=== PATIENT | female | born 1950 | race Caucasian/White ===

== ENCOUNTER 2018-06-22 13:15 | Inpatient (IN) | payer BC ==
[~2018-06-22] VITALS: Ht 167.6 cm; Wt 102.6 kg
[2018-06-22] MEDS ORDERED: SOD CHLORIDE 0.9% 500 ML IV STA (13:56)
[2018-06-22] MEDS ORDERED: ASC500 PO (14:25)
[2018-06-22] MEDS ORDERED: DIGO125T PO (14:26)
[2018-06-22] MEDS ORDERED: BISA10SU75 PR (14:27)
[2018-06-22] MEDS ORDERED: FER325 PO (14:28)
[2018-06-22] MEDS ORDERED: MINE133E23 PR (14:30)
[2018-06-22] MEDS ORDERED: DILTIAZEM 25 MG INJ IV ONE (14:30)
[2018-06-22] MEDS ORDERED: GABA300C16 PO (14:31)
[2018-06-22] MEDS ORDERED: GLIM2TAB PO (14:32)
[2018-06-22] MEDS ORDERED: LANT3I SC (14:33)
[2018-06-22] MEDS ORDERED: FURO40TA4 PO (14:33)
[2018-06-22] MEDS ORDERED: MAGN400O19 PO (14:34)
[2018-06-22] MEDS ORDERED: POLY17PO6 PO (14:34)
[2018-06-22] MEDS ORDERED: LEVO50TA7 PO (14:34)
[2018-06-22] MEDS ORDERED: FAMO-96 PO (14:35)
[2018-06-22] MEDS ORDERED: MULTI PO (14:35)
[2018-06-22] MEDS ORDERED: [UNRECOGNIZED DRUG - CODE] IJ (14:36)
[2018-06-22] MEDS ORDERED: ACET325T33 PO (14:38)
[2018-06-22] MEDS ORDERED: CHOL100062 PO (14:39)
[2018-06-22] MEDS ORDERED: RIFA550T4 PO (14:39)
[2018-06-22] MEDS ORDERED: BENZ-5 PO (14:40)
[2018-06-22] MEDS ORDERED: HYDR12.58 PO (14:45)
[2018-06-22] MEDS ORDERED: SOD CHLORIDE 0.9% 1,000 ML IV STA (14:48)
--- NOTE | 2018-06-22 15:05 | ERD ---
ER Documentation Chief Complaint Chief Complaint sent by [facility] for low hgb since yesterday. no bleeding. weaker HPI This is a 67-year-old female [facility] draw done yesterday showed a low hemoglobin of 7.5. Patient states that she feels generalized weakness and is generally poor historian. Does not know if she had any melena, no nausea vomiting patient has a history of paroxysmal atrial fibrillation hypertension cholesterol CKD and is in generally very poor health. On arrival patient has heart rate in the 130s ROS All systems reviewed and are negative except as per history of present illness. Medications Home Meds Reported Medications Benzonatate* (Benzonatate*) 100 Mg Capsule, 100 MG PO TID PRN for COUGH, CAP 06/22/18 Rifaximin* (Xifaxan*) 550 Mg Tablet, 550 MG PO BID, TAB 06/22/18 Cholecalciferol* (Vitamin D3*) 1,000 Unit Tablet, 2000 UNIT PO Q12H, TAB 06/22/18 Acetaminophen* (Tylenol*) 325 Mg Tablet, 650 MG PO Q4H PRN for MILD TO SEVERE PAIN -01/27, TAB 06/22/18 Epoetin Uriel (Procrit) 3,000 Unit/1 Ml Vial, 3000 UNIT IJ DAILY, VIAL ON THU,THU,Thu06/22/18 Famotidine* (Pepcid*) 20 Mg Tablet, 20 MG PO DAILY, #30 TAB 06/22/18 Multivitamins* (Theragran*) 1 Tab Tab, 1 TAB PO DAILY, TAB 06/22/18 Polyethylene Glycol* (Miralax*) 17 Gm Powd.pack, 17 GM PO DAILY, #30 PACKET 06/22/18 Magnesium Hydroxide* (Milk Of Magnesia*) 400 Mg/5 Ml Oral.susp, 30 ML PO DAILY, ML 06/22/18 Levothyroxine Sodium* (Levothyroxine Sodium*) 50 Mcg Tablet, 50 MCG PO BEFORE BREAKFAST, #30 TAB 06/22/18 Furosemide* (Furosemide*) 40 Mg Tablet, 40 MG PO DAILY, TAB 06/22/18 Insulin Glargine* (Lantus*) 100 Unit/Ml Soln, 30 UNIT SC DAILY, #1 VIAL 06/22/18 Glimepiride* (Glimepiride*) 2 Mg Tablet, 4 MG PO WITH BREAKFAST, TAB 06/22/18 Gabapentin* (Gabapentin*) 300 Mg Capsule, 300 MG PO TID, #90 CAP 06/22/18 Mineral Oil* (Fleet* Mineral Oil Enema) Unknown Strength Oil, 118 ML RI NEEDED PRN for BOWEL PREP, ENEMA 06/22/18 Ferrous Sulfate* (Ferrous Sulfate*) 325 Mg Tabec, 325 MG PO DAILY, TAB 06/22/18 Bisacodyl* (Bisacodyl*) 10 Mg Supp, 10 MG RI DAILY, SUPP 06/22/18 Digoxin* (Digitek*) 125 Mcg Tablet, 0.125 MG PO DAILY, TAB HOLD FOR HR<60 06/22/18 Ascorbic Acid (Vitamin C) 500 Mg Tab, 500 MG PO DAILY, TAB 06/22/18 Allergies Allergies: Coded Allergies: No Known Allergy (Unverified , 06/22/18) PMhx/Soc Hx Alcohol Use: No (pt denies) Hx Substance Use: No (pt denies) Hx Tobacco Use: No (pt denies) Smoking Status: Unknown if ever smoked FmHx Family History: No coronary disease Physical Exam Vitals Vital Signs Date Temp Pulse Resp B/P (MAP) Pulse Ox O2 O2 Flow FiO2 Time Delivery Rate 06/22/18 Nasal 2 14:04 Cannula 06/22/18 98.0 17 20 130/61 98 13:40 (84) Physical Exam Const: Well-developed, well-nourished Head: Atraumatic, normocephalic Eyes: Normal Conjunctiva, PERRLA, EOMI, normal sclera, no nystagmus ENT: Normal External Ears, Nose and Mouth, moist mucus membranes. Neck: Full range of motion. No meningismus, no lymphadenopathy. Resp: Clear to auscultation bilaterally, no wheezing, rhonchi, rales Cardio: Tachycardia, no murmurs, S1 S2 present] Abd: Soft, non tender x 4, non distended. Normal bowel sounds, no guarding or rebound, no pulsitile abdominal masses or bruits Skin: No petechiae or rashes, no ecchymosis , no maculopapular rash Back: No midline or flank tenderness Ext: No cyanosis, or edema, FROM x 4, normal inspection, neurova scularly intact x 4 Neur: Awake and alert, STR 5/5 x 4, sensation intact x 4, no focal findings, cerebellum intact Psych: Normal Mood and Affect Result Diagram: 06/22/18 1406 06/22/18 1406 Results 24 hrs Laboratory Tests Test 06/22/18 14:06 White Blood Count 6.5 10^3/ul Red Blood Count 2.47 10^6/ul Hemoglobin 7.9 g/dl Hematocrit 25.3 % Mean Corpuscular Volume 102.4 fl Mean Corpuscular Hemoglobin 32.0 pg Mean Corpuscular Hemoglobin Concent 31.2 g/dl Red Cell Distribution Width 16.3 % Platelet Count 132 10^3/UL Mean Platelet Volume 9.2 fl Immature Granulocytes % 0.900 % Neutrophils % 73.0 % Lymphocytes % 13.3 % Monocytes % 11.5 % Eosinophils % 1.1 % Basophils % 0.2 % Nucleated Red Blood Cells % 0.0 /100WBC Immature Granulocytes # 0.060 10^3/ul Neutrophils # 4.8 10^3/ul Lymphocytes # 0.9 10^3/ul Monocytes # 0.8 10^3/ul Eosinophils # 0.1 10^3/ul Basophils # 0.0 10^3/ul Nucleated Red Blood Cells # 0.0 10^3/ul Prothrombin Time 14.7 Sec Prothrombin Time Ratio 1.1 INR International Normalized Ratio 1.14 Activated Partial Thromboplast Time 26.9 Sec Sodium Level 143 mmol/L Potassium Level 4.3 mmol/L Chloride Level 115 mmol/L Carbon Dioxide Level 16 mmol/L Anion Gap 12 Blood Urea Nitrogen 67 mg/dl Creatinine 4.13 mg/dl Est Glomerular Filtrat Rate mL/min 11 mL/min Glucose Level 105 mg/dl Calcium Level 9.4 mg/dl Total Bilirubin 0.3 mg/dl Direct Bilirubin 0.00 mg/dl Indirect Bilirubin 0.3 mg/dl Aspartate Amino Transf (AST/SGOT) 35 IU/L Alanine Aminotransferase (ALT/SGPT) 7 IU/L Alkaline Phosphatase 84 IU/L Troponin I 0.026 ng/ml Total Protein 8.5 g/dl Albumin 3.0 g/dl Globulin 5.50 g/dl Albumin/Globulin Ratio 0.54 Current Medications Medications Dose Sig/Richard Start Time Status Last (Trade) Ordered Route PRN Stop Time Admin Dose Reason Admin Sodium 500 ml @ Q1H STAT 06/22/18 06/22/18 Chloride 500 mls/hr IV 13:56 06/22/18 14:01 14:55 Diltiazem 20 mg ONCE ONCE 06/22/18 DC 06/22/18 HCl IV 14:30 06/22/18 14:17 (Cardizem Iv) 14:31 Procedures/[facility] EKG: Rate/Rhythm: SVT heart rate 141, lateral and inferior ST depression QRS, ST, QT: NORMAL RI, QRS, QT] Impression: Abnormal EKG After 20 mg of Cardizem: EKG: Rate/Rhythm: Sinus rhythm with market sinus arrhythmia heart rate 65 QRS, ST, QT: NORMAL RI, QRS, QT] Impression: Abnormal EKG After the Cardizem the patient's heart rate was in the 30s and is gradually increased into the 60s. Patient is found to be anemic with a hemoglobin of 7.9. Ordering MD: ISMAEL LITTLE DO Location: E/R Room/Bed: PROCEDURE: XR Chest. CLINICAL INDICATION: Chest pain TECHNIQUE: Single frontal view of the chest was obtained COMPARISON: None FINDINGS: The heart is enlarged. The thoracic aorta is calcified. There is mild elevation of the right diaphragm. The lungs are clear. There is no pleural effusion or pneumothorax. RPTAT: AA IMPRESSION: Moderate cardiomegaly. Calcified aorta consistent with atherosclerotic disease. Mild elevation of the right diaphragm. .Moses Ornelas MD, MD Date Time Electronically viewed and signed by .Moses Ornelas MD, MD on 06/22/2018 14:38 .S/ CC: ISMAEL LITTLE DO [id number] Patient will be admitted for renal failure, I do not know her baseline however she is acidotic and has fairly severe renal failure with anemia likely due to renal issues. We will need some monitoring for cardiac activity because of the SVT/probable PAF, and is now in a bradycardic sinus arrhythmia with a bit of hypotension due to the Cardizem. Patient does not need a blood transfusion at this time, but does need an anemia workup and may need 1 unit before being discharged Departure Diagnosis: Primary Impression: Cardiac arrhythmia Arrhythmia type: supraventricular tachycardia Qualified Codes: I47.1 - Supraventricular tachycardia Additional Impressions: Anemia Anemia type: unspecified type Qualified Codes: D64.9 - Anemia, unspecified Renal failure Renal failure chronicity: unspecified chronicity Qualified Codes: N19 - Unspecified kidney failure Condition: Stable ISMAEL LITTLE DO Jun 22, 2018 14:54
[2018-06-22] MEDS ORDERED: SOD CHLORIDE 0.9% 1,000 ML IV SCH (19:26)
[2018-06-22] MEDS ORDERED: ONDANSETRON 4 MG INJ IV PRN ×2 (19:30→20:30)
[2018-06-22] MEDS ORDERED: ACETAMINOPHEN 325 MG TAB PO PRN (19:30)
[2018-06-22] MEDS ORDERED: NACL 0.9% 3 ML SYG IV SCH (20:30)
--- NOTE | 2018-06-22 20:36 | HP ---
Date/Time of Note Date/Time of Note DATE: 06/22/18 TIME: 20:33 Assessment/Plan VTE Prophylaxis SCD applied (from Nsg): Yes Pharmacological prophylaxis: NA/contraindicated Pharm contraindication: low risk/ambulating Lines/Catheters IV Catheter Type (from Nrsg): Saline Lock Assessment/Plan Hospital Course This is a 67 female being admitted to the telemetry floor for: #1 acute on chronic encephalopathy: Possibly hepatic encephalopathy and/or possible uremia. Patient is a history of cirrhosis as well as chronic kidney disease. Lactulose 20 mg p.o. every 6 hours. Continue rifaximin, consult nephrology in regards to possible uremia, I did discuss dialysis with the patient however she does not want that at the current time however we will need to corroborate with family if possible. Awaiting CT abdomen pelvis results as well. #2 SVT: Secondary possibly to underlying paroxysmal A. fib. Patient was given Cardizem in the ED which did result in an episode of bradycardia as well as hy potension with subsequent resolution to normal sinus rhythm and normal blood pressure. We will continue to monitor close. Will check digoxin level. Continue digoxin. Will check an echocardiogram. Will consult cardiology. #3 chronic kidney disease stage III-IV: Patient is nonoliguric. Creatinine apparently is at baseline according to her outpatient doctor as per the ED physician. Will check renal ultrasound as patient's recent renal ultrasound showed bilateral hydronephrosis. Will check a CT abdomen pelvis as well. Will check renal panel in the a.m. Avoid any nephrotoxic agents. Consult nephrology . Awaiting CT abdomen pelvis results as well. #4 metabolic acidosis: Secondary likely to underlying chronic kidney disease: We will give a dose of Bicitra. Consult nephrology. #5 Macrocytic anemia: Secondary likely to underlying chronic kidney disease. Will check iron stores, stool occult blood, B12 and folate. Will consult nephrology. Patient is on Procrit and iron as an outpatient. #6 liver cirrhosis: Secondary to hepatitis C. Check ammonia level. Resume La six as indicated. Resume rifaximin. Lactulose #7 diabetes mellitus: We will check hemoglobin A 1C, hold home oral medications at the current time, insulin sliding scale #8 hypothyroidism: Resume levothyroxine, check TSH level #9 hypertension: Really not on any blood pressure medications apparently, resume blood pressure monitoring #9 DVT GI prophylaxis: SCDs, no GI prophylaxis indicated Further treatment strategy will be implemented as per the clinical course CODE STATUS: Full code We will need to corroborate with next of kin family in a.m. regarding to goals of care. Result Diagram: 06/22/18 1406 06/22/18 1406 Results 24hrs Laboratory Tests Test 06/22/18 14:06 06/22/18 14:24 06/22/18 19:42 White Blood Count 6.5 Red Blood Count 2.47 L Hemoglobin 7.9 L Hematocrit 25.3 L Mean Corpuscular Volume 102.4 H Mean Corpuscular Hemoglobin 32.0 Mean Corpuscular Hemoglobin Concent 31.2 L Red Cell Distribution Width 16.3 H Platelet Count 132 L Mean Platelet Volume 9.2 Immature Granulocytes % 0.900 H Neutrophils % 73.0 Lymphocytes % 13.3 L Monocytes % 11.5 H Eosinophils % 1.1 Basophils % 0.2 Nucleated Red Blood Cells % 0.0 Immature Granulocytes # 0.060 H Neutrophils # 4.8 Lymphocytes # 0.9 Monocytes # 0.8 Eosinophils # 0.1 Basophils # 0.0 Nucleated Red Blood Cells # 0.0 Prothrombin Time 14.7 Prothrombin Time Ratio 1.1 INR International Normalized Ratio 1.14 Activated Partial Thromboplast Time 26.9 Sodium Level 143 Potassium Level 4.3 Chloride Level 115 H Carbon Dioxide Level 16 L Anion Gap 12 Blood Urea Nitrogen 67 H Creatinine 4.13 H Est Glomerular Filtrat Rate mL/min 11 L Glucose Level 105 Calcium Level 9.4 Total Bilirubin 0.3 Direct Bilirubin 0.00 Indirect Bilirubin 0.3 Aspartate Amino Transf (AST/SGOT) 35 Alanine Aminotransferase (ALT/SGPT) 7 L Alkaline Phosphatase 84 Troponin I 0.026 Total Protein 8.5 H Albumin 3.0 L Globulin 5.50 H Albumin/Globulin Ratio 0.54 Bedside Glucose 99 Ammonia 52 H HPI/ROS Admit Date/Time Admit Date/Time Hx of Present Illness Chief complaint low hemoglobin, weakness Patient is a poor historian following information was obtained from the ED physician documentation as well as from the patient documentation as well as from the patient . This is a 67-year-old female sent from [facility] for blood draw done yesterday showed a low hemoglobin of 7.5. Patient states that she feels generalized weakness. Does not know if she had any melena, no nausea vomiting. On arrival to the emergency department patient was noted to be in SVT. EKG showed SVT at approximately 141 bpm. Patient was given a dose of Cardizem IV which subsequently resulted in bradycardia down to the 30s and low blood pressure With eventual improvement of the heart rate and blood pressure and patient is currently normal sinus rhythm at approximately 80 bpm. Her blood pressures have normalized. Patient is able to answer questions though she does have some slurred speech and does appear slightly confused. According to blood work in the chart patient's hemoglobin runs around the 8 range and her creatinin e is around 4. Allergies: NKDA Medications: See JUN ROS Const: As per HPI Eyes : No pain discharge or redness or change in visual acuity ENT: No pain, sore throat, congestion, congestion, dysphagia or discharge Respiratory: No shortness of breath, cough, sputum, wheezing, or pleuritic pain Cardiovascular: No chest pain, palpitation, PND, or edema GI : no change in appetite, abdominal pain, nausea, vomiting, diarrhea, constipation, or change in the color his stool Genitourinary: No dysuria, hematuria, flank pain , discharge or CVA tenderness Musculoskeletal: No joint pain, back pain, neck pain, restricted range of motion in neck or joints Skin: No rash, bruising or hives Neuro: As per HPI Endocrine: No polyuria, polydipsia, temperature intolerance Psych: No hallucination, depression, anxiety or suicidal ideation PMH/Family/Social Past Medical History Chronic kidney disease, pyelonephritis, hepatitis C, liver cirrhosis, hypertension, paroxysmal A. fib, hyperlipidemia, hypothyroidism, diabetes Medications Current Medications Sodium Chloride 1,000 ml @ 80 mls/hr [id number] IV ; Start 06/22/18 at 19:26; Stop 06/23/18 at 07:55 Ondansetron HCl (Zofran Inj) 4 mg ER BRIDGE PRN IV NAUSEA/VOMITING; Start 06/22/18 at 19:30; Stop 06/23/18 at 19:29 Acetaminophen (Tylenol Tab) 650 mg ER BRIDGE PRN PO .MILD PAIN 1-3 OR TEMP; Start 06/22/18 at 19:30; Stop 06/23/18 at 19:29 Lactulose (Enulose) 20 gm Q6 PO ; Start 06/22/18 at 20:30 Sodium Chloride 1,000 ml @ 40 mls/hr Q24H IV ; Start 06/22/18 at 20:20 IV Flush (NS 3 ml) 3 ml PER PROTOCOL IV ; Start 06/22/18 at 20:30 Ondansetron HCl (Zofran Inj) 4 mg Q6H PRN IV NAUSEA/VOMITING; Start 06/22/18 at 20:30 Acetaminophen (Tylenol Tab) 650 mg Q6H PRN PO .PAIN 1-3 OR TEMP; Start 06/22/18 at 20:30 Coded Allergies: No Known Allergy (Unverified , 06/22/18) Past Surgical History Unknown surgical history, unable to obtain from patient Family History Significant Family History: other (Unknown surgical history, unable to obtain from patient) Social History Alcohol Use: none Smoking Status: Unknown if ever smoked Drug Use: none Exam/Review of Systems Vital Signs Vitals Vital Signs Date Temp Pulse Resp B/P (MAP) Pulse Ox O2 O2 Flow FiO2 Time Delivery Rate 06/22/18 75 14 117/60 100 Nasal 3.0 20:07 (79) Cannula 06/22/18 98.4 18:25 Exam Exam General: Patient is currently lying in bed she is moaning and she states she has irritation on her buttocks, she is able to answer questions but she does appear slightly confused HEENT: Atraumatic, normocephalic. The pupils are equal, round and reactive. Extraocular motor are intact Neck: Supple with full range of motion. No rigidity or meningismus Chest: Nontender Lungs: Clear to auscultation bilaterally no crackles rales or wheezing Heart: Normal S1-S2, Regular rhythm and rate. No murmur, S3, or S4 Abdomen: Obese, soft , nontender, nondistended , bowel sounds are present. No guarding no rebound tenderness , No masses or organomegaly. No costovertebral temporal angle mass Extremities: Normal to inspection, no edema no cyanosis Neurologic: Oriented to person and place, is able to answer questions but does appear slightly confused. Additional Comments Initial EKG: SVT at approximately 141 bpm, questionable ST abnormalities EKG: Sinus rhythm at approximate 65 bpm with PACs PROCEDURE: XR Chest. CLINICAL INDICATION: Chest pain TECHNIQUE: Single frontal view of the chest was obtained COMPARISON: None FINDINGS: The heart is enlarged. The thoracic aorta is calcified. There is mild elevation of the right diaphragm. The lungs are clear. There is no pleural effusion or pneumothorax. RPTAT: AA IMPRESSION: Moderate cardiomegaly. Calcified aorta consistent with atherosclerotic disease. Mild elevation of the right diaphragm. .Moses Ornelas MD, MD Date Time Electronically viewed and signed by .Moses Ornelas MD, MD on 06/22/2018 14:38 .S/ CC: ESTUARDOSHIVANIKIERRAMARIANOJESÚS CraigDarling CASIANO [id number] PROCEDURE: CT abdomen and pelvis without contrast. CLINICAL INDICATION: Anemia. Metabolic acidosis. Weakness. TECHNIQUE: CT scan of the abdomen and pelvis without contrast was performed and is reconstructed at 2.5 mm contiguous axial intervals from the dome of the diaphragm to the inferior pubic rami.. The patient was scanned without intravenous contrast. Sagittal and coronal reformatted images were obtained from the axial source images. The calculated radiation dose measures 1551 mGy centimeters. The CTDI measures 22.5 mGy. Individualized dose optimization technique was used for the performance of this exam. This included 1. Automated exposure control. 2. Adjustment of the mA and / or kV according to the patient's size. 3. Use of iterative reconstructed technique. COMPARISON: None. FINDINGS: There is minimal nodular infiltrate at the right lung base. No effusion is seen. There are para esophageal varices. The liver is shrunken with a nodular contour compatible with cirrhosis. No mass or ductal dilatation is present. The gallbladder has been removed. No common bile duct stone is present. The patency of the portal vein is indeterminate. The spleen is enlarged measuring 18 cm in AP diameter. No focal splenic mass is present. No adrenal or pancreatic abnormality is detected. Noted is moderate to severe right hydroureter nephrosis and severe left hydroureter nephrosis to the level of the urinary bladder. No ureteral stones are seen. There is loss of parenchyma of the left kidney. No renal mass or calculus is present. There is mild concentric thickening of the wall of the urinary bladder. No stone or masses present. Uterus is atrophic. No adnexal mass is identified. There is no aneurysm. Calcified plaque is present in the aorta and iliac arteries. No adenopathy is present. No bowel mass or obstruction is present. The appendix is normal. No phlegmon or pneumoperitoneum is visualized. There is a small to moderate volume of ascite s. Noted is a paraumbilical hernia containing fluid and a small volume of mesenteric fat. There is central stenosis at L3-L4 and L4-L5. IMPRESSION: Cirrhotic liver. No mass seen. Splenomegaly, ascites and varices compatible with portal hypertension. Patency of the portal vein is indeterminate on this noncontrast study. Cholecystectomy. Bilateral hydroureter nephrosis to the level of the bladder. Loss of parenchyma of the left kidney. No ureteral stones seen. No bladder masses stone. Question chronic reflux versus bladder outlet obstruction. Vascular calcifications. Paraumbilical hernia. Minimal nodular infiltrate right lung base. .Kwame Sandra MD, MD Date Time Electronically viewed and signed by .Kwame Sandra MD, on 06/22/2018 21:59 .A/ CC: ARIANA DELGADO [id number] ARIANA DELGADO Jun 22, 2018 20:36
[2018-06-22] MEDS ORDERED: CITRIC ACID/NA CITRATE 30 ML CUP PO ONE (21:00)
[2018-06-22 21:30] VITALS: PULSE 75
[2018-06-22] MEDS: SOD CHLORIDE 0.45% 1,000 ML IV SCH (21:30)
[2018-06-22 22:16] VITALS: BP 108/57; PULSE 78; RESP 18
[2018-06-22 22:30] VITALS: Ht 167.6 cm; Wt 102.6 kg
[2018-06-22] MEDS ORDERED: GLUCOSE GEL 15 GRAM TUBE BUCCAL PRN (22:30)
[2018-06-22] MEDS ORDERED: DEXTROSE 50% 50 ML SYRINGE IV PRN ×2 (22:30)
[2018-06-22] MEDS ORDERED: GLUCOSE GEL 15 GRAM TUBE PO PRN ×2 (22:30)
[2018-06-22] MEDS ORDERED: GLUCAGON 1 MG INJ IM PRN (22:30)
[2018-06-22] MEDS: LACTULOSE 30ML CUP PO SCH (22:46)
[2018-06-23] VITALS (11 sets, daily range): BP systolic 91–145; BP diastolic 52–72; PULSE 66–98; RESP 16–20
[2018-06-23] MEDS: LACTULOSE 30ML CUP PO SCH ×4 (00:39→17:14)
[2018-06-23] MEDS: INSULIN GLARGINE [LANTus] (100 UNITS/ML) SYG SC SCH ×2 (00:48→08:53)
[2018-06-23] MEDS: ACCU-CHEK XX SCH (02:00)
[2018-06-23] MEDS: ACETAMINOPHEN 325 MG TAB PO PRN (03:01)
[2018-06-23] MEDS: LEVOTHYROXINE 50 MCG TAB PO SCH (06:27)
[2018-06-23] MEDS: INSULIN ASPART [NOVOLOG] 3 ML PEN SC SCH ×4 (07:55→21:00)
[2018-06-23] MEDS ORDERED: FUROSEMIDE 40 MG TAB PO SCH (09:00)
--- NOTE | 2018-06-23 09:22 | CONS ---
DATE OF ADMISSION: 06/22/2018 DATE OF CONSULTATION: 06/23/2018 PHYSICIAN REQUESTING CONSULTATION: Dr. Delgado. REASON FOR CONSULTATION: Acute kidney injury. HISTORY OF PRESENT ILLNESS: This is a 67-year-old female with a past medical history of chronic kidn ey disease stage IV, previous baseline creatinine is around 3 to 3.5 mg/dL, history of cirrhosis, his tory of hypothyroidism, history of diabetes, who was brought in from [facility] [facility] for low hemoglobin. The patient was noted to have a low hemoglobin at a skilled nurse facility. As a result, she was brought in. Upon arrival, the patient was generally w eak, lethargic and confused. In the emergency room, the patient had EKG which showed SVT at approxim ately 141 beats per minute. The patient was given IV Cardizem in the emergency room and admitted to telemetry for evaluation. In terms of patient's renal history, the patient herself is a poor historian. Per medical records, t he laboratory data shows creatinine ranging between 3 to 3.5 mg/dL. There has been no report of any hemoptysis, hematemesis or hematochezia. No frothy urine. PAST MEDICAL HISTORY: As stated above, history of chronic kidney disease stage IV, history of hepati tis C, history of cirrhosis, hypertension, paroxysmal atrial fibrillation, dyslipidemia, hypothyroidi sm, diabetes. PAST SURGICAL HISTORY: Reviewed. ALLERGIES: NO KNOWN DRUG ALLERGIES. FAMILY HISTORY: No family history of kidney disease. SOCIAL HISTORY: Lives at [facility] [place]. MEDICATIONS: The patient's medications have been reviewed. REVIEW OF SYSTEMS: Unable to do adequate review of systems as patient is altered. Pertinent positiv es as obtained by reviewing medical records and speaking to hospital staff, stated in HPI, otherwise negative. PHYSICAL EXAMINATION: VITAL SIGNS: Blood pressure is 91/52, respirations 16, pulse 69, temperature 98.1. HEENT: Head is normocephalic. NECK: Supple. HEART: Regular rate. LUNGS: Show diminished breath sounds at the base. ABDOMEN: Soft, nontender to palpation. No rebound or guarding. EXTREMITIES: Negative for clubbing, cyanosis, no edema. DERMATOLOGIC: No rashes. MUSCULOSKELETAL: No joint effusion. NEUROLOGIC: Neurologically limited exam due to lack of patient cooperation. LABORATORY DATA: Shows sodium of 143, potassium 4.3, chloride 111, BUN 67, creatinine 4.13. White c ount is 3.9, hemoglobin 6.4, platelet count is 82. IMAGING STUDIES: The patient's CT scan of the abdomen and pelvis, which showed cirrhotic liver, chol ecystectomy, bilateral hydroureteronephrosis to the level of the bladder. ASSESSMENT AND PLAN: This is a 67-year-old female who presents with: 1. Nonoliguric acute kidney injury on top of chronic kidney disease stage IV with previous baseline creatinine of around 3 to 3.5 mg/dL. Etiology of acute kidney injury is possibly multifactorial seco ndary to obstruction, hemodynamics, questionable tubular injury. The patient's CT scan shows evidenc e of bilateral hydronephrosis and possibility of bladder outlet obstruction. Plan at this point is t o have a Levy catheter inserted. We will check a UA with microanalysis, check urine electrolytes, q uantify the patient's proteinuria. Agree with renal ultrasound after Levy catheter is placed. The patient will also be given a course of IV fluids. We will give albumin 25% 100 mL IV q. 8 hours for 48 hours. We would hold any diuretic therapy. Additionally, a diagnosis of hepatorenal syndrome is a consideration in the setting of acute kidney injury and liver failure. However, this is a diagnosi s of exclusion and cannot be made at this time, but otherwise continue supportive care, renally dose all medicines and avoid nephrotoxins. 2. Anemia. Etiology is unclear. Questionable gastrointestinal bleed. The patient's stool OB is po sitive. We would consider a GI evaluation. Consider blood transfusion. 3. Mineral bone disorder, monitor calcium and phosphorus levels. 4. Acidosis. Etiology may be compensatory. We will continue to monitor. Consider checking an ABG. 5. Acute encephalopathy. Etiology may be secondary to hepatic encephalopathy, possible component of uremia. Agree with giving lactulose and rifaximin. If mental status does not improve, we would con cerner analyst the possibility of dialysis. 6. Supraventricular tachycardia. Continue current medical management. 7. Liver cirrhosis secondary to hepatitis C. Continue current medical management. Continue rifaxim in and lactulose. 8. Diabetes. Continue current insulin regimen. 9. Hypothyroidism. Continue Synthroid. 10. History of hypertension. Thank you, Dr. Delgado, for this interesting consult. It will be a pleasure to follow patient with shandra king throughout the hospital course. Dictated By: JITENDRA SEYMOUR/DONOVAN Conf#: [id number] DID#: [id number] CC: ARIANA DELGADO MD;*EndCC*
[2018-06-23] MEDS: GABAPENTIN 300 MG CAP PO SCH ×3 (10:26→20:46)
[2018-06-23] MEDS: RIFAXIMIN 550 MG TAB PO SCH ×2 (10:26→20:46)
[2018-06-23] MEDS: FERROUS SULFATE (EC) 325 MG TAB PO SCH (10:27)
[2018-06-23] MEDS: MULTIVITAMINS THERAPEUTIC TAB PO SCH (10:27)
[2018-06-23] MEDS: FAMOTIDINE 20 MG TAB PO SCH (10:27)
[2018-06-23] MEDS: ALBUMIN HUMAN 25% 100 ML IV SCH ×2 (10:34→17:14)
[2018-06-23] MEDS ORDERED: DIGOXIN 0.125 MG TAB PO SCH (13:00)
--- NOTE | 2018-06-23 13:49 | PN ---
Date/Time of Note Date/Time of Note DATE: 06/23/18 TIME: 13:24 Assessment/Plan VTE Prophylaxis Risk score (from Nsg)>0 risk: 5 Pharmacological prophylaxis: NA/contraindicated Pharm contraindication: bleeding Lines/Catheters IV Catheter Type (from Nrsg): Peripheral IV Urinary Cath still in place: Yes Reason Cath still needed: urinary retention, other (indicate) Assessment/Plan Hospital Course S: lethargic, confused, nurse put in france and after initial cloudy urine, bag filled up with cameron blood O: Constitutional: lethargic, will arouse, answers questions with confused speech, follows commands, obese Head: atraumatic, normocephalic, facial assymetry, L sided facial droop. ?chronicity Neck: non-tender, supple Respiratory: clear to auscultation Cardiovascular: regular rate and rhythm Gastrointestinal: S/ NT / obese / ND / +BS Extremities: no edema, good radial pulses, moves all 4 extremities but very weak All imaging so far reviewed assessment and plan: 67 yo F with hx of Hep C cirrhosis sent from [facility] for low hgb and lethargy with SVT noted in ER currently admitted and managed as follows: 1. Severe symptomatic anemia likely causing lethargy -multifactorial / +SOBT / cameron hematuria with possible chronic microscopic hematuria -patient likely has underlying coagulopathy from CLD contributing to the above -transfuse 2 units PRBC, also give platelets -urology and GI consults -trend HGb levels -avoid anticoagulation for now -monitor closely for DIC from consumption 2. Encephalopathy / Confusion -?chronicity, will need to get more information to determine patient's baseline -ammonia level was mildly elevated, patient on lactulose and rifaximin, trend levels -patient also with ARF and may be having uremic encephalopathy -brain CT showed nothing acute -monitor for now. MRI if indicated 3. Liver Cirrhosis associated with Hep C -also with Splenomegaly, ascites and varices compatible with portal hypertension -GI review, non selective BB ? -confirm Hep C, further mgt per GI 4. S/p SVT -converted post cardizem in ER -likely from electrolyte anormalities and severe anemia -hold digoxin for now, start non selective BB as Bp tolerates -ACS r/o completed -f/u 2D echo -consider cardio consult 5. Acute renal failure with CKD (based on USS) -likely related to #6 -Hold ACEi, ARBs, and metformin if applicable. Renally dose all meds. Serial labs. -appreciate nephro input 6. Severe, chronic ?, abe hydronephrosis -improved with france -urology consult -concern for reflux on CT 7. cameron hematuria -empiric abx for UTI -urine cytology? will derfer to urology -continue france for now 8. Pancytopenia -likely related to #3 -trend, transfuse PRN 9. DM 2 -continue Lantus only for now, hold home oral hypoglycemica -titrate as indicated 10. Hypothyroidism -continue home synthroid -check TSH to assess control 11. possible R LL infiltrate -monitor for now 12. Obesity -calorie control 13. Debility -PT eval dispo: await nursing consultant review and recs. continue supportive care Result Diagram: 06/23/18 0814 06/23/18 0814 Results 24hrs Laboratory Tests Test 06/22/18 14:06 06/22/18 14:24 06/22/18 19:42 06/22/18 21:39 White Blood Count 6.5 Red Blood Count 2.47 L Hemoglobin 7.9 L Hematocrit 25.3 L Mean Corpuscular Volume 102.4 H Mean Corpuscular 32.0 Hemoglobin Mean Corpuscular 31.2 L Hemoglobin Concent Red Cell Distribution 16.3 H Width Platelet Count 132 L Mean Platelet Volume 9.2 Immature Granulocytes % 0.900 H Neutrophils % 73.0 Lymphocytes % 13.3 L Monocytes % 11.5 H Eosinophils % 1.1 Basophils % 0.2 Nucleated Red Blood 0.0 Cells % Immature Granulocytes # 0.060 H Neutrophils # 4.8 Lymphocytes # 0.9 Monocytes # 0.8 Eosinophils # 0.1 Basophils # 0.0 Nucleated Red Blood 0.0 Cells # Prothrombin Time 14.7 Prothrombin Time Ratio 1.1 INR International 1.14 Normalized Ratio Activated 26.9 Partial Thromboplast Time Sodium Level 143 Potassium Level 4.3 Chloride Level 115 H Carbon Dioxide Level 16 L Anion Gap 12 Blood Urea Nitrogen 67 H Creatinine 4.13 H Est Glomerular Filtrat 11 L Rate mL/min Glucose Level 105 Calcium Level 9.4 Total Bilirubin 0.3 Direct Bilirubin 0.00 Indirect Bilirubin 0.3 Aspartate Amino 35 Transf (AST/SGOT) Alanine 7 L Aminotransferase (ALT/SG PT) Alkaline Phosphatase 84 Troponin I 0.026 Total Protein 8.5 H Albumin 3.0 L Globulin 5.50 H Albumin/Globulin Ratio 0.54 Bedside Glucose 99 Ammonia 52 H Stool Occult Blood POSITIVE Test 06/22/18 21:40 06/22/18 21:50 06/23/18 02:00 06/23/18 07:39 Creatine Kinase < 20 L < 20 L Creatine Kinase Index Creatinine Kinase MB 1.06 1.07 (Mass) Troponin I 0.027 0.028 Bedside Glucose 94 48 *L Test 06/23/18 08:01 06/23/18 08:13 06/23/18 08:14 06/23/18 08:15 Bedside Glucose 125 114 Vitamin D 1,25-Dihydroxy 26.4 L Digoxin Level 1.2 White Blood Count 3.9 #L Red Blood Count 2.01 L Hemoglobin 6.4 *L Hematocrit 20.0 #L Mean Corpuscular Volume 99.5 Mean Corpuscular 31.8 Hemoglobin Mean Corpuscular 32.0 Hemoglobin Concent Red Cell Distribution 16.1 H Width Platelet Count 82 #L Mean Platelet Volume 8.4 Immature Granulocytes % 1.000 H Neutrophils % 73.0 Lymphocytes % 12.1 L Monocytes % 12.6 H Eosinophils % 1.0 Basophils % 0.3 Nucleated Red Blood 0.0 Cells % Immature Granulocytes # 0.040 H Neutrophils # 2.9 Lymphocytes # 0.5 L Monocytes # 0.5 Eosinophils # 0.0 Basophils # 0.0 Nucleated Red Blood 0.0 Cells # Sodium Level 142 Potassium Level 4.0 Chloride Level 119 H Carbon Dioxide Level 15 L Anion Gap 8 Blood Urea Nitrogen 63 H Creatinine 4.09 H Est Glomerular Filtrat 11 L Rate mL/min Glucose Level 107 Hemoglobin A1c 5.9 Calcium Level 8.7 Phosphorus Level 6.0 H Magnesium Level 2.0 Total Bilirubin 0.1 L Direct Bilirubin 0.00 Indirect Bilirubin 0.1 Aspartate Amino 27 Transf (AST/SGOT) Alanine 12 L Aminotransferase (ALT/SG PT) Alkaline Phosphatase 69 Total Protein 6.8 # Albumin 2.4 L Globulin 4.40 H Albumin/Globulin Ratio 0.54 Triglycerides Level 111 Cholesterol Level 72 L LDL Cholesterol, 36 Calculated HDL Cholesterol 14 L Cholesterol/HDL Ratio 5.1 Vitamin B12 Level 859 Folate 7.8 Thyroid Stimulating 3.140 Hormone (TSH) Test 06/23/18 11:27 Bedside Glucose 73 Exam/Review of Systems Exam Vitals Vital Signs Date Temp Pulse Resp B/P (MAP) Pulse Ox O2 O2 Flow FiO2 Time Delivery Rate 06/23/18 73 12:44 06/23/18 98.3 16 141/62 99 11:16 (88) 06/22/18 Nasal 3.0 21:05 Cannula Intake and Output 06/22/18 06/22/18 06/23/18 1515:00 23:00 07:00 IntakeIntake Total 600 ml BalanceBalance 600 ml Results Results 24hrs Laboratory Tests Test 06/22/18 14:06 06/22/18 14:24 06/22/18 19:42 06/22/18 21:39 White Blood Count 6.5 Red Blood Count 2.47 L Hemoglobin 7.9 L Hematocrit 25.3 L Mean Corpuscular Volume 102.4 H Mean Corpuscular 32.0 Hemoglobin Mean Corpuscular 31.2 L Hemoglobin Concent Red Cell Distribution 16.3 H Width Platelet Count 132 L Mean Platelet Volume 9.2 Immature Granulocytes % 0.900 H Neutrophils % 73.0 Lymphocytes % 13.3 L Monocytes % 11.5 H Eosinophils % 1.1 Basophils % 0.2 Nucleated Red Blood 0.0 Cells % Immature Granulocytes # 0.060 H Neutrophils # 4.8 Lymphocytes # 0.9 Monocytes # 0.8 Eosinophils # 0.1 Basophils # 0.0 Nucleated Red Blood 0.0 Cells # Prothrombin Time 14.7 Prothrombin Time Ratio 1.1 INR International 1.14 Normalized Ratio Activated 26.9 Partial Thromboplast Time Sodium Level 143 Potassium Level 4.3 Chloride Level 115 H Carbon Dioxide Level 16 L Anion Gap 12 Blood Urea Nitrogen 67 H Creatinine 4.13 H Est Glomerular Filtrat 11 L Rate mL/min Glucose Level 105 Calcium Level 9.4 Total Bilirubin 0.3 Direct Bilirubin 0.00 Indirect Bilirubin 0.3 Aspartate Amino 35 Transf (AST/SGOT) Alanine 7 L Aminotransferase (ALT/SG PT) Alkaline Phosphatase 84 Troponin I 0.026 Total Protein 8.5 H Albumin 3.0 L Globulin 5.50 H Albumin/Globulin Ratio 0.54 Bedside Glucose 99 Ammonia 52 H Stool Occult Blood POSITIVE Test 06/22/18 21:40 06/22/18 21:50 06/23/18 02:00 06/23/18 07:39 Creatine Kinase < 20 L < 20 L Creatine Kinase Index Creatinine Kinase MB 1.06 1.07 (Mass) Troponin I 0.027 0.028 Bedside Glucose 94 48 *L Test 06/23/18 08:01 06/23/18 08:13 06/23/18 08:14 06/23/18 08:15 Bedside Glucose 125 114 Vitamin D 1,25-Dihydroxy 26.4 L Digoxin Level 1.2 White Blood Count 3.9 #L Red Blood Count 2.01 L Hemoglobin 6.4 *L Hematocrit 20.0 #L Mean Corpuscular Volume 99.5 Mean Corpuscular 31.8 Hemoglobin Mean Corpuscular 32.0 Hemoglobin Concent Red Cell Distribution 16.1 H Width Platelet Count 82 #L Mean Platelet Volume 8.4 Immature Granulocytes % 1.000 H Neutrophils % 73.0 Lymphocytes % 12.1 L Monocytes % 12.6 H Eosinophils % 1.0 Basophils % 0.3 Nucleated Red Blood 0.0 Cells % Immature Granulocytes # 0.040 H Neutrophils # 2.9 Lymphocytes # 0.5 L Monocytes # 0.5 Eosinophils # 0.0 Basophils # 0.0 Nucleated Red Blood 0.0 Cells # Sodium Level 142 Potassium Level 4.0 Chloride Level 119 H Carbon Dioxide Level 15 L Anion Gap 8 Blood Urea Nitrogen 63 H Creatinine 4.09 H Est Glomerular Filtrat 11 L Rate mL/min Glucose Level 107 Hemoglobin A1c 5.9 Calcium Level 8.7 Phosphorus Level 6.0 H Magnesium Level 2.0 Total Bilirubin 0.1 L Direct Bilirubin 0.00 Indirect Bilirubin 0.1 Aspartate Amino 27 Transf (AST/SGOT) Alanine 12 L Aminotransferase (ALT/SG PT) Alkaline Phosphatase 69 Total Protein 6.8 # Albumin 2.4 L Globulin 4.40 H Albumin/Globulin Ratio 0.54 Triglycerides Level 111 Cholesterol Level 72 L LDL Cholesterol, 36 Calculated HDL Cholesterol 14 L Cholesterol/HDL Ratio 5.1 Vitamin B12 Level 859 Folate 7.8 Thyroid Stimulating 3.140 Hormone (TSH) Test 06/23/18 11:27 Bedside Glucose 73 Medications Medication Current Medications Lactulose (Enulose) 20 gm Q6 PO Last administered on 06/23/18at 12:43; Admin Dose 20 GM; Start 06/22/18 at 20:30 Sodium Chloride 1,000 ml @ 40 mls/hr Q24H IV Last administered on 06/22/18at 21:30; Admin Dose 40 MLS/HR; Start 06/22/18 at 20:20 IV Flush (NS 3 ml) 3 ml PER PROTOCOL IV ; Start 06/22/18 at 20:30 Ondansetron HCl (Zofran Inj) 4 mg Q6H PRN IV NAUSEA/VOMITING; Start 06/22/18 at 20:30 Acetaminophen (Tylenol Tab) 650 mg Q6H PRN PO .PAIN 1-3 OR TEMP Last a dministered on 06/23/18at 03:01; Admin Dose 650 MG; Start 06/22/18 at 20:30 Levothyroxine Sodium (Synthroid) 50 mcg BEFORE BREAKFAST PO Last administered on 06/23/18at 06:27; Admin Dose 50 MCG; Start 06/23/18 at 07:00 Rifaximin (Xifaxan) 550 mg BID PO Last administered on 06/23/18at 10:26; Admin Dose 550 MG; Start 06/23/18 at 09:00 Diagnostic Test (Pha) (Accu-Chek) 1 ea 02 XX ; Start 06/23/18 at 02:00 Insulin Aspart (Novolog Insulin Pen) NOVOLOG *MILD* ALGORITHM WITH MEALS BEDTIME SC ; Start 06/23/18 at 07:55 Miscellaneous Information 1 ea NOTE XX ; Start 06/22/18 at 22:30 Glucose (Glutose) 15 gm Q15M PRN PO DECREASED GLUCOSE; Start 06/22/18 at 22:30 Glucose (Glutose) 22.5 gm Q15M PRN PO DECREASED GLUCOSE; Start 06/22/18 at 22:30 Dextrose (D50w Syringe) 25 ml Q15M PRN IV DECREASED GLUCOSE; Start 06/22/18 at 22:30 Dextrose (D50w Syringe) 50 ml Q15M PRN IV DECREASED GLUCOSE Last administered on 06/23/18at 07:43; Admin Dose 50 ML; Start 06/22/18 at 22:30 Glucagon (Glucagen) 1 mg Q15M PRN IM DECREASED GLUCOSE; Start 06/22/18 at 22:30 Glucose (Glutose) 15 gm Q15M PRN BUCCAL DECREASED GLUCOSE; Start 06/22/18 at 22:30 Famotidine (Pepcid) 20 mg DAILY PO Last administered on 06/23/18at 10:27; Admin Dose 20 MG; Start 06/23/18 at 09:00 Ferrous Sulfate (Ferrous Sulfate (Ec)) 325 mg DAILY PO Last administered on 06/23/18 10:27; Admin Dose 325 MG; Start 06/23/18 at 09:00 Gabapentin (Neurontin) 300 mg TID PO Last administered on 06/23/18at 12:43; Admin Dose 300 MG; Start 06/23/18 at 09:00 Multivitamins Therapeutic (Theragran) 1 tab DAILY PO Last administered on 06/23/18 10:27; Admin Dose 1 TAB; Start 06/23/18 at 09:00 Albumin Human 100 ml @ 100 mls/hr Q8H IV Last administered on 06/23/18 10:34; Admin Dose 100 MLS/HR; Start 06/23/18 at 09:00; Stop 06/24/18 at 01:59 Insulin Glargine (Lantus) 21 units DAILY@2000 SC ; Start 06/23/18 at 20:00 BERNARDO RAMEY Jun 23, 2018 13:37
[2018-06-23] MEDS: CEFTRIAXONE 1 GM/50 ML (PMX) 50 ML IVPB SCH (14:27)
[2018-06-23] MEDS: PROPRANOLOL 10 MG TAB PO SCH ×2 (14:27→20:46)
[2018-06-23] MEDS: PANTOPRAZOLE 40 MG INJ IV SCH (17:14)
--- NOTE | 2018-06-23 18:17 | CONS ---
Assessment/Plan Assessment/Plan Hospital Course (Demo Recall) 67-year-old female sent from [facility] for a low hemoglobin of 7.5. The patient does not know if she has had history of gross hematuria. She also denies any history of melena. No history of nausea or vomiting. She does have a history of paroxysmal atrial fibrillation, hypertension, dyslipidemia and chronic kidney disease. She was found to have a gross hematuria and a urological consultation was therefore requested. The patient denies any prior history of kidney stones. The CT scan of the abdomen and pelvis showed: Cirrhotic liver. No mass seen. Splenomegaly, ascites and varices compatible with portal hypertension. Patency of the portal vein is indeterminate on this noncontrast study. Cholecystectomy. Bilateral hydroureter nephrosis to the level of the bladder. Loss of parenchyma of the left kidney. No ureteral stones seen. No bladder masses stone. Question chronic reflux versus bladder outlet obstruction. Vascular calcifications. Paraumbilical hernia. Minimal nodular infiltrate right lung base. On the physical exam she does have an indwelling Levy catheter that is draining blood tinged urine as well as thick sediment most likely reflecting acute cys titis and urinary tract infection and that also does explain the bilateral hydronephrosis. A urine culture has already been ordered and the result is pending. And the patient is already on intravenous ceftriaxone. Would continue that pending the result of the urine culture and sensitivity. Consultation Date/Type/Reason Admit Date/Time June 22, 2018 Date of Consultation: Jun 23, 2018 Type of Consult Urology Reason for Consultation Gross hematuria Requesting Provider: BERNARDO RAMEY Date/Time of Note DATE: 06/23/18 TIME: 18:01 Hx of Present Illness 67-year-old female sent from [facility] for a low hemoglobin of 7.5. The patient does not know if she has had history of gross hematuria. She also denies any history of melena. No history of nausea or vomiting. She does have a history of paroxysmal atrial fibrillation, hypertension, dyslipidemia and chronic kidney disease. She was found to have a gross hematuria and a urological consultation was therefore requested. The patient denies any prior history of kidney stones. Constitutional: other (Generalized weakness) Eyes: no complaints ENT: no complaints Respiratory: No wheezing Cardiovascular: No chest pain Gastrointestinal: No blood, No nausea, No vomiting Genitourinary: hematuria, other (Urinary incontinence) Musculoskeletal: no complaints Skin: rash (In the perineal area) Neurologic: no complaints Past Medical History Medical History: diabetes, high cholesterol, hypertension, hypothyroid, other (Anemia) Home Meds Reported Medications Rifaximin* (Xifaxan*) 550 Mg Tablet, 550 MG PO BID, TAB 06/22/18 Cholecalciferol* (Vitamin D3*) 1,000 Unit Tablet, 2000 UNIT PO Q12H, TAB 06/22/18 Acetaminophen* (Tylenol*) 325 Mg Tablet, 650 MG PO Q4H PRN for MILD TO SEVERE PAIN -01/27, TAB 06/22/18 Epoetin Uriel (Procrit) 3,000 Unit/1 Ml Vial, 3000 UNIT IJ DAILY, VIAL ON THU,THU,THU, END DATE 07/13/09 06/22/18 Famotidine* (Pepcid*) 20 Mg Tablet, 20 MG PO DAILY, #30 TAB 06/22/18 Multivitamins* (Theragran*) 1 Tab Tab, 1 TAB PO DAILY, TAB 06/22/18 Polyethylene Glycol* (Miralax*) 17 Gm Powd.pack, 17 GM PO DAILY, #30 PACKET 06/22/18 Magnesium Hydroxide* (Milk Of Magnesia*) 400 Mg/5 Ml Oral.susp, 30 ML PO DAILY, ML 06/22/18 Levothyroxine Sodium* (Levothyroxine Sodium*) 50 Mcg Tablet, 50 MCG PO BEFORE BREAKFAST, #30 TAB 06/22/18 Furosemide* (Furosemide*) 40 Mg Tablet, 40 MG PO DAILY, TAB 06/22/18 Insulin Glargine* (Lantus*) 100 Unit/Ml Soln, 30 UNIT SC DAILY, #1 VIAL 06/22/18 Glimepiride* (Glimepiride*) 2 Mg Tablet, 4 MG PO WITH BREAKFAST, TAB 06/22/18 Gabapentin* (Gabapentin*) 300 Mg Capsule, 300 MG PO TID, #90 CAP 06/22/18 Mineral Oil* (Fleet* Mineral Oil Enema) Unknown Strength Oil, 118 ML [place] NEEDE D PRN for BOWEL PREP, ENEMA 06/22/18 Ferrous Sulfate* (Ferrous Sulfate*) 325 Mg Tabec, 325 MG PO DAILY, TAB 06/22/18 Bisacodyl* (Bisacodyl*) 10 Mg Supp, 10 MG TX DAILY, SUPP 06/22/18 Digoxin* (Digitek*) 125 Mcg Tablet, 0.125 MG PO DAILY, TAB HOLD FOR HR<60 06/22/18 Ascorbic Acid (Vitamin C) 500 Mg Tab, 500 MG PO DAILY, TAB 06/22/18 Discontinued Reported Medications Hydrochlorothiazide* (Hydrochlorothiazide*) 12.5 Mg Tablet, 12.5 MG PO DAILY, #30 TAB HOLD FOR SBP<110 06/22/18 Benzonatate* (Benzonatate*) 100 Mg Capsule, 100 MG PO TID PRN for COUGH, CAP 06/22/18 Medications Current Medications Lactulose (Enulose) 20 gm Q6 PO Last administered on 06/23/18at 17:14; Admin Dose 20 GM; Start 06/22/18 at 20:30 Sodium Chloride 1,000 ml @ 40 mls/hr Q24H IV Last administered on 06/22/18at 21:30; Admin Dose 40 MLS/HR; Start 06/22/18 at 20:20 IV Flush (NS 3 ml) 3 ml PER PROTOCOL IV ; Start 06/22/18 at 20:30 Ondansetron HCl (Zofran Inj) 4 mg Q6H PRN IV NAUSEA/VOMITING; Start 06/22/18 at 20:30 Acetaminophen (Tylenol Tab) 650 mg Q6H PRN PO .PAIN 1-3 OR TEMP Last administered on 06/23/18at 03:01; Admin Dose 650 MG; Start 06/22/18 at 20:30 Levothyroxine Sodium (Synthroid) 50 mcg BEFORE BREAKFAST PO Last administered on 06/23/18at 06:27; Admin Dose 50 MCG; Start 06/23/18 at 07:00 Rifaximin (Xifaxan) 550 mg BID PO Last administered on 06/23/18at 10:26; Admin Dose 550 MG; Start 06/23/18 at 09:00 Diagnostic Test (Pha) (Accu-Chek) 1 ea 02 XX ; Start 06/23/18 at 02:00 Insulin Aspart (Novolog Insulin Pen) NOVOLOG *MILD* ALGORITHM WITH MEALS BEDT VICTORIA SC ; Start 06/23/18 at 07:55 Miscellaneous Information 1 ea NOTE XX ; Start 06/22/18 at 22:30 Glucose (Glutose) 15 gm Q15M PRN PO DECREASED GLUCOSE; Start 06/22/18 at 22:30 Glucose (Glutose) 22.5 gm Q15M PRN PO DECREASED GLUCOSE; Start 06/22/18 at 22:30 Dextrose (D50w Syringe) 25 ml Q15M PRN IV DECREASED GLUCOSE; Start 06/22/18 at 22:30 Dextrose (D50w Syringe) 50 ml Q15M PRN IV DECREASED GLUCOSE Last administered on 06/23/18 07:43; Admin Dose 50 ML; Start 06/22/18 at 22:30 Glucagon (Glucagen) 1 mg Q15M PRN IM DECREASED GLUCOSE; Start 06/22/18 at 22:30 Glucose (Glutose) 15 gm Q15M PRN BUCCAL DECREASED GLUCOSE; Start 06/22/18 at 22:30 Famotidine (Pepcid) 20 mg DAILY PO Last administered on 06/23/18 10:27; Admin Dose 20 MG; Start 06/23/18 at 09:00 Ferrous Sulfate (Ferrous Sulfate (Ec)) 325 mg DAILY PO Last administered on 06/23/18 10:27; Admin Dose 325 MG; Start 06/23/18 at 09:00 Gabapentin (Neurontin) 300 mg TID PO Last administered on 06/23/18 12:43; Admin Dose 300 MG; Start 06/23/18 at 09:00 Multivitamins Therapeutic (Theragran) 1 tab DAILY PO Last administered on 06/23/18 10:27; Admin Dose 1 TAB; Start 06/23/18 at 09:00 Albumin Human 100 ml @ 100 mls/hr Q8H IV Last administered on 06/23/18 17:14; Admin Dose 100 MLS/HR; Start 06/23/18 at 09:00; Stop 06/24/18 at 01:59 Insulin Glargine (Lantus) 21 units DAILY@2000 SC ; Start 06/23/18 at 20:00 Ceftriaxone Sodium 50 ml @ 100 mls/hr Q24H IVPB Last administered on 06/23/18 14:27; Admin Dose 100 MLS/HR; Start 06/23/18 at 14:00 Propranolol HCl (Inderal) 10 mg TID PO Last administered on 06/23/18 14:27; Admin Dose 10 MG; Start 06/23/18 at 14:00 Pantoprazole (Protonix Iv) 40 mg BID@06,18 IV Last administered on 06/23/18at 17:14; Admin Dose 40 MG; Start 06/23/18 at 18:00 Allergies: Coded Allergies: No Known Allergy (Unverified , 06/22/18) Past Surgical History Past Surgical Hx: cholecystectomy Social History Alcohol Use: none Smoking Status: Unknown if ever smoked Drug Use: none Other Social History 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 Exam/Review of Systems Exam Vitals Vital Signs Date Temp Pulse Resp B/P (MAP) Pulse Ox O2 O2 Flow FiO2 Time Delivery Rate 06/23/18 72 16:38 06/23/18 98.9 16 145/72 100 15:41 (96) 06/22/18 Nasal 3.0 21:05 Cannula Intake and Output 06/22/18 06/22/18 06/23/18 1515:00 23:00 07:00 IntakeIntake Total 600 ml BalanceBalance 600 ml Constitutional: alert Psych: no complaints Head: normocephalic Eyes: nl conjunctiva ENMT: nl external ears & nose Neck: supple, non-tender Respiratory: normal air movement; No wheezing Cardiovascular: regular rate and rhythm; No jugular venous distention (JVD) Gastrointestinal: soft (And obese), non-tender, surgical scars (Of cholecystectomy in the right subcostal area), other (Para umbilical hernia) Genitourinary - Female: other (Pelvic exam: No mass and no discharge, Levy catheter draining blood-tinged urine and also sediment most consistent with a u rinary tract infection); No CVA tenderness Extremities: other (She has difficulty bending her knees); No calf tenderness Neurological: nl mental status Skin: nl turgor Results Result Diagram: 06/23/18 0814 06/23/18 0814 Results 24hrs Laboratory Tests Test 06/22/18 19:42 06/22/18 21:39 06/22/18 21:40 06/22/18 21:50 Ammonia 52 H Stool Occult Blood POSITIVE Creatine Kinase < 20 L Creatine Kinase Index Creatinine Kinase MB 1.06 (Mass) Troponin I 0.027 Bedside Glucose 94 Test 06/23/18 02:00 06/23/18 07:39 06/23/18 08:01 06/23/18 08:13 Creatine Kinase < 20 L Creatine Kinase Index Creatinine Kinase MB 1.07 (Mass) Troponin I 0.028 Bedside Glucose 48 *L 125 Vitamin D 1,25-Dihydroxy 26.4 L Digoxin Level 1.2 Test 06/23/18 08:14 06/23/18 08:15 06/23/18 10:15 06/23/18 11:27 White Blood Count 3.9 #L Red Blood Count 2.01 L Hemoglobin 6.4 *L Hematocrit 20.0 #L Mean Corpuscular Volume 99.5 Mean Corpuscular 31.8 Hemoglobin Mean Corpuscular 32.0 Hemoglobin Concent Red Cell Distribution 16.1 H Width Platelet Count 82 #L Mean Platelet Volume 8.4 Immature Granulocytes % 1.000 H Neutrophils % 73.0 Lymphocytes % 12.1 L Monocytes % 12.6 H Eosinophils % 1.0 Basophils % 0.3 Nucleated Red Blood 0.0 Cells % Immature Granulocytes # 0.040 H Neutrophils # 2.9 Lymphocytes # 0.5 L Monocytes # 0.5 Eosinophils # 0.0 Basophils # 0.0 Nucleated Red Blood 0.0 Cells # Sodium Level 142 Potassium Level 4.0 Chloride Level 119 H Carbon Dioxide Level 15 L Anion Gap 8 Blood Urea Nitrogen 63 H Creatinine 4.09 H Est Glomerular Filtrat 11 L Rate mL/min Glucose Level 107 Hemoglobin A1c 5.9 Calcium Level 8.7 Phosphorus Level 6.0 H Magnesium Level 2.0 Total Bilirubin 0.1 L Direct Bilirubin 0.00 Indirect Bilirubin 0.1 Aspartate Amino 27 Transf (AST/SGOT) Alanine 12 L Aminotransferase (ALT/SG PT) Alkaline Phosphatase 69 Total Protein 6.8 # Albumin 2.4 L Globulin 4.40 H Albumin/Globulin Ratio 0.54 Triglycerides Level 111 Cholesterol Level 72 L LDL Cholesterol, 36 Calculated HDL Cholesterol 14 L Cholesterol/HDL Ratio 5.1 Vitamin B12 Level 859 Folate 7.8 Thyroid Stimulating 3.140 Hormone (TSH) Bedside Glucose 114 73 Urine Color RU Urine Clarity TURBID A Urine pH 6.0 Urine Specific [place] 1.011 Urine Ketones NEGATIVE Urine Nitrite NEGATIVE Urine Bilirubin NEGATIVE Urine Urobilinogen NEGATIVE Urine Leukocyte Esterase 2+ H Urine Microscopic RBC 93 H Urine Microscopic WBC > 182 H Urine Squamous FEW Epithelial Cells Urine Bacteria MANY A Urine Hemoglobin 2+ H Urine Random Creatinine 37.57 Urine Random Sodium 81 Urine Glucose NEGATIVE Urine Total Protein 161.0 H Test 06/23/18 17:24 Bedside Glucose [address] scan of the abdomen and pelvis: Cirrhotic liver. No mass seen. Splenomegaly, ascites and varices compatible with portal hypertension. Patency of the portal vein is indeterminate on this noncontrast study. Cholecystectomy. Bilateral hydroureter nephrosis to the level of the bladder. Loss of parenchyma of the left kidney. No ureteral stones seen. No bladder masses stone. Question chronic reflux versus bladder outlet obstruction. Vascular calcifications. Paraumbilical hernia. Minimal nodular infiltrate right lung base. Medications Medication Current Medications Lactulose (Enulose) 20 gm Q6 PO Last administered on 06/23/18at 17:14; Admin Dose 20 GM; Start 06/22/18 at 20:30 Sodium Chloride 1,000 ml @ 40 mls/hr Q24H IV Last administered on 06/22/18at 21:30; Admin Dose 40 MLS/HR; Start 06/22/18 at 20:20 IV Flush (NS 3 ml) 3 ml PER PROTOCOL IV ; Start 06/22/18 at 20:30 Ondansetron HCl (Zofran Inj) 4 mg Q6H PRN IV NAUSEA/VOMITING; Start 06/22/18 at 20:30 Acetaminophen (Tylenol Tab) 650 mg Q6H PRN PO .PAIN 1-3 OR TEMP Last administered on 06/23/18at 03:01; Admin Dose 650 MG; Start 06/22/18 at 20:30 Levothyroxine Sodium (Synthroid) 50 mcg BEFORE BREAKFAST PO Last administered on 06/23/18at 06:27; Admin Dose 50 MCG; Start 06/23/18 at 07:00 Rifaximin (Xifaxan) 550 mg BID PO Last administered on 06/23/18at 10:26; Admin Dose 550 MG; Start 06/23/18 at 09:00 Diagnostic Test (Pha) (Accu-Chek) 1 ea 02 XX ; Start 06/23/18 at 02:00 Insulin Aspart (Novolog Insulin Pen) NOVOLOG *MILD* ALGORITHM WITH MEALS BEDTIME SC ; Start 06/23/18 at 07:55 Miscellaneous Information 1 ea NOTE XX ; Start 06/22/18 at 22:30 Glucose (Glutose) 15 gm Q15M PRN PO DECREASED GLUCOSE; Start 06/22/18 at 22:30 Glucose (Glutose) 22.5 gm Q15M PRN PO DECREASED GLUCOSE; Start 06/22/18 at 22:30 Dextrose (D50w Syringe) 25 ml Q15M PRN IV DECREASED GLUCOSE; Start 06/22/18 at 22:30 Dextrose (D50w Syringe) 50 ml Q15M PRN IV DECREASED GLUCOSE Last administered on 06/23/18 07:43; Admin Dose 50 ML; Start 06/22/18 at 22:30 Glucagon (Glucagen) 1 mg Q15M PRN IM DECREASED GLUCOSE; Start 06/22/18 at 22:30 Glucose (Glutose) 15 gm Q15M PRN BUCCAL DECREASED GLUCOSE; Start 06/22/18 at 22:30 Famotidine (Pepcid) 20 mg DAILY PO Last administered on 06/23/18 10:27; Admin Dose 20 MG; Start 06/23/18 at 09:00 Ferrous Sulfate (Ferrous Sulfate (Ec)) 325 mg DAILY PO Last administered on 06/23/18 10:27; Admin Dose 325 MG; Start 06/23/18 at 09:00 Gabapentin (Neurontin) 300 mg TID PO Last administered on 06/23/18 12:43; Admin Dose 300 MG; Start 06/23/18 at 09:00 Multivitamins Therapeutic (Theragran) 1 tab DAILY PO Last administered on 06/23/18 10:27; Admin Dose 1 TAB; Start 06/23/18 at 09:00 Albumin Human 100 ml @ 100 mls/hr Q8H IV Last administered on 06/23/18 17:14; Admin Dose 100 MLS/HR; Start 06/23/18 at 09:00; Stop 06/24/18 at 01:59 Insulin Glargine (Lantus) 21 units DAILY@2000 SC ; Start 06/23/18 at 20:00 Ceftriaxone Sodium 50 ml @ 100 mls/hr Q24H IVPB Last administered on 06/23/18 14:27; Admin Dose 100 MLS/HR; Start 06/23/18 at 14:00 Propranolol HCl (Inderal) 10 mg TID PO Last administered on 06/23/18 14:27; Admin Dose 10 MG; Start 06/23/18 at 14:00 Pantoprazole (Protonix Iv) 40 mg BID@06,18 IV Last administered on 06/23/18 17:14; Admin Dose 40 MG; Start 06/23/18 at 18:00 GREGORY SCHNEIDER MD Jun 23, 2018 18:12
[2018-06-23] MEDS ORDERED: INSULIN GLARGINE [LANTus] (100 UNITS/ML) SYG SC SCH (20:00)
[2018-06-23] MEDS: SOD CHLORIDE 0.45% 1,000 ML IV SCH (20:45)
[2018-06-24] VITALS (11 sets, daily range): BP systolic 113–144; BP diastolic 56–85; PULSE 61–117; RESP 18–20
[2018-06-24] MEDS: ALBUMIN HUMAN 25% 100 ML IV SCH ×3 (00:59→16:36)
[2018-06-24] MEDS: LACTULOSE 30ML CUP PO SCH ×4 (00:59→17:03)
[2018-06-24] MEDS: ACCU-CHEK XX SCH (02:00)
[2018-06-24] MEDS: LEVOTHYROXINE 50 MCG TAB PO SCH (06:01)
[2018-06-24] MEDS: PANTOPRAZOLE 40 MG INJ IV SCH ×2 (06:01→17:00)
[2018-06-24] MEDS: INSULIN ASPART [NOVOLOG] 3 ML PEN SC SCH ×4 (07:54→20:40)
--- NOTE | 2018-06-24 08:16 | CONS ---
Consult Date/Type/Reason Admit Date/Time Jun 22, 2018 at 19:27 Initial Consult Date 06/23/18 Type of Consultation: Urology Reason for Consultation Gross hematuria Requesting Provider: BERNARDO RAMEY Date/Time of Note DATE: 06/24/18 TIME: 08:14 Subjective The patient is resting comfortably. She has an indwelling Levy catheter that is draining bloody urine. It looks as it is clearing up. Objective Vitals Vital Signs Date Temp Pulse Resp B/P (MAP) Pulse Ox O2 O2 Flow FiO2 Time Delivery Rate 06/24/18 98.2 75 18 122/85 97 Room Air 07:14 (97) 06/22/18 3.0 21:05 Intake and Output 06/23/18 06/23/18 06/24/18 1515:00 23:00 07:00 IntakeIntake Total 150 ml 780 ml 2580 ml OutputOutput Total 1500 ml 2850 ml BalanceBalance 150 ml -720 ml -270 ml Exam Levy catheter is draining bloody urine. Urine culture is still pending. MRSA screening is positive from the nares Results/Medications Result Diagram: 06/24/18 0601 06/24/18 0601 Results 24 hrs Laboratory Tests Test 06/23/18 08:15 06/23/18 10:15 06/23/18 11:27 06/23/18 17:24 Bedside Glucose 114 73 64 L Urine Color RU Urine Clarity TURBID A Urine pH 6.0 Urine Specific 1.011 [place] Urine Ketones NEGATIVE Urine Nitrite NEGATIVE Urine Bilirubin NEGATIVE Urine Urobilinogen NEGATIVE Urine Leukocyte 2+ H Esterase Urine Microscopic 93 H RBC Urine Microscopic > 182 H WBC Urine Squamous FEW Epithelial Cells Urine Bacteria MANY A Urine Hemoglobin 2+ H Urine Random 37.57 Creatinine Urine Random Sodium 81 Urine Glucose NEGATIVE Urine Total Protein 161.0 H Test 06/23/18 18:05 06/23/18 18:20 06/23/18 20:44 06/24/18 06:01 Bedside Glucose 78 89 116 White Blood Count 5.7 # Red Blood Count 2.74 #L Hemoglobin 8.7 #L Hematocrit 26.3 #L Mean Corpuscular 96.0 Volume Mean Corpuscular 31.8 Hemoglobin Mean Corpuscular 33.1 Hemoglobin Concent Red Cell 16.8 H Distribution Width Platelet Count 97 L Mean Platelet 8.4 Volume Immature 1.400 H Granulocytes % Neutrophils % 74.6 Lymphocytes % 11.7 L Monocytes % 10.5 Eosinophils % 1.6 Basophils % 0.2 Nucleated Red Blood 0.0 Cells % Immature 0.080 H Granulocytes # Neutrophils # 4.3 Lymphocytes # 0.7 L Monocytes # 0.6 Eosinophils # 0.1 Basophils # 0.0 Nucleated Red Blood 0.0 Cells # Prothrombin Time 15.4 H Prothrombin Time 1.2 Ratio INR International 1.21 Normalized Ratio Activated 31.5 Partial Thromboplas t Time Sodium Level 142 Potassium Level 3.6 Chloride Level 119 H Carbon Dioxide 14 L Level Anion Gap 9 Blood Urea Nitrogen 54 H Creatinine 3.52 H Est Glomerular 13 L Filtrat Rate mL/min Glucose Level 79 Calcium Level 9.2 Phosphorus Level 5.3 H Magnesium Level 1.9 Total Bilirubin 1.0 Direct Bilirubin 0.00 Indirect Bilirubin 1.0 Aspartate Amino 33 Transf (AST/SGOT) Alanine 14 Aminotransferase (A LT/SGPT) Alkaline 53 Phosphatase Ammonia 15 # Total Protein 7.0 Albumin 2.8 L Hepatitis B Surface POSITIVE H Antibody Test 06/24/18 07:35 06/24/18 07:54 Lab Scanned Report BLOOD TRANSFUSION Bedside Glucose 108 Home Meds Reported Medications Rifaximin* (Xifaxan*) 550 Mg Tablet, 550 MG PO BID, TAB 06/22/18 Cholecalciferol* (Vitamin D3*) 1,000 Unit Tablet, 2000 UNIT PO Q12H, TAB 06/22/18 Acetaminophen* (Tylenol*) 325 Mg Tablet, 650 MG PO Q4H PRN for MILD TO SEVERE PAIN , TAB 06/22/18 Epoetin Uriel (Procrit) 3,000 Unit/1 Ml Vial, 3000 UNIT IJ DAILY, VIAL ON THU,THU,THU, END DATE 07/13/09 06/22/18 Famotidine* (Pepcid*) 20 Mg Tablet, 20 MG PO DAILY, #30 TAB 06/22/18 Multivitamins* (Theragran*) 1 Tab Tab, 1 TAB PO DAILY, TAB 06/22/18 Polyethylene Glycol* (Miralax*) 17 Gm Powd.pack, 17 GM PO DAILY, #30 PACKET 06/22/18 Magnesium Hydroxide* (Milk Of Magnesia*) 400 Mg/5 Ml Oral.susp, 30 ML PO DAILY, ML 06/22/18 Levothyroxine Sodium* (Levothyroxine Sodium*) 50 Mcg Tablet, 50 MCG PO BEFORE BREAKFAST, #30 TAB 06/22/18 Furosemide* (Furosemide*) 40 Mg Tablet, 40 MG PO DAILY, TAB 06/22/18 Insulin Glargine* (Lantus*) 100 Unit/Ml Soln, 30 UNIT SC DAILY, #1 VIAL 06/22/18 Glimepiride* (Glimepiride*) 2 Mg Tablet, 4 MG PO WITH BREAKFAST, TAB 06/22/18 Gabapentin* (Gabapentin*) 300 Mg Capsule, 300 MG PO TID, #90 CAP 06/22/18 Mineral Oil* (Fleet* Mineral Oil Enema) Unknown Strength Oil, 118 ML GA NEEDED PRN for BOWEL PREP, ENEMA 06/22/18 Ferrous Sulfate* (Ferrous Sulfate*) 325 Mg Tabec, 325 MG PO DAILY, TAB 06/22/18 Bisacodyl* (Bisacodyl*) 10 Mg Supp, 10 MG GA DAILY, SUPP 06/22/18 Digoxin* (Digitek*) 125 Mcg Tablet, 0.125 MG PO DAILY, TAB HOLD FOR HR<60 06/22/18 Ascorbic Acid (Vitamin C) 500 Mg Tab, 500 MG PO DAILY, TAB 06/22/18 Discontinued Reported Medications Hydrochlorothiazide* (Hydrochlorothiazide*) 12.5 Mg Tablet, 12.5 MG PO DAILY, #30 TAB HOLD FOR SBP<110 06/22/18 Benzonatate* (Benzonatate*) 100 Mg Capsule, 100 MG PO TID PRN for COUGH, CAP 06/22/18 Medications Current Medications Lactulose (Enulose) 20 gm Q6 PO Last administered on 06/24/18at 06:01; Admin Dose 20 GM; Start 06/22/18 at 20:30 Sodium Chloride 1,000 ml @ 40 mls/hr Q24H IV Last administered on 06/23/18at 20:45; Admin Dose 40 MLS/HR; Start 06/22/18 at 20:20 IV Flush (NS 3 ml) 3 ml PER PROTOCOL IV ; Start 06/22/18 at 20:30 Ondansetron HCl (Zofran Inj) 4 mg Q6H PRN IV NAUSEA/VOMITING; Start 06/22/18 at 20:30 Acetaminophen (Tylenol Tab) 650 mg Q6H PRN PO .PAIN 1-3 OR TEMP Last administered on 06/23/18at 03:01; Admin Dose 650 MG; Start 06/22/18 at 20:30 Levothyroxine Sodium (Synthroid) 50 mcg BEFORE BREAKFAST PO Last administered on 06/24/18at 06:01; Admin Dose 50 MCG; Start 06/23/18 at 07:00 Rifaximin (Xifaxan) 550 mg BID PO Last administered on 06/23/18at 20:46; Admin Dose 550 MG; Start 06/23/18 at 09:00 Diagnostic Test (Pha) (Accu-Chek) 1 ea 02 XX ; Start 06/23/18 at 02:00 Insulin Aspart (Novolog Insulin Pen) NOVOLOG *MILD* ALGORITHM WITH MEALS BEDTIME SC ; Start 06/23/18 at 07:55 Miscellaneous Information 1 ea NOTE XX ; Start 06/22/18 at 22:30 Glucose (Glutose) 15 gm Q15M PRN PO DECREASED GLUCOSE; Start 06/22/18 at 22:30 Glucose (Glutose) 22.5 gm Q15M PRN PO DECREASED GLUCOSE; Start 06/22/18 at 22:30 Dextrose (D50w Syringe) 25 ml Q15M PRN IV DECREASED GLUCOSE; Start 06/22/18 at 22:30 Dextrose (D50w Syringe) 50 ml Q15M PRN IV DECREASED GLUCOSE Last administered on 06/23/18at 07:43; Admin Dose 50 ML; Start 06/22/18 at 22:30 Glucagon (Glucagen) 1 mg Q15M PRN IM DECREASED GLUCOSE; Start 06/22/18 at 22:30 Glucose (Glutose) 15 gm Q15M PRN BUCCAL DECREASED GLUCOSE; Start 06/22/18 at 22:30 Famotidine (Pepcid) 20 mg DAILY PO Last administered on 06/23/18at 10:27; Admin Dose 20 MG; Start 06/23/18 at 09:00 Ferrous Sulfate (Ferrous Sulfate (Ec)) 325 mg DAILY PO Last administered on 06/23/18 10:27; Admin Dose 325 MG; Start 06/23/18 at 09:00 Gabapentin (Neurontin) 300 mg TID PO Last administered on 06/23/18at 20:46; Admin Dose 300 MG; Start 06/23/18 at 09:00 Multivitamins Therapeutic (Theragran) 1 tab DAILY PO Last administered on 06/23/18 10:27; Admin Dose 1 TAB; Start 06/23/18 at 09:00 Insulin Glargine (Lantus) 21 units DAILY@2000 SC Last administered on 06/23/18 21:19; Admin Dose 21 UNITS; Start 06/23/18 at 20:00 Ceftriaxone Sodium 50 ml @ 100 mls/hr Q24H IVPB Last administered on 06/23/18 14:27; Admin Dose 100 MLS/HR; Start 06/23/18 at 14:00 Propranolol HCl (Inderal) 10 mg TID PO Last administered on 06/23/18 20:46; Admin Dose 10 MG; Start 06/23/18 at 14:00 Pantoprazole (Protonix Iv) 40 mg BID@06,18 IV Last administered on 06/24/18 06:01; Admin Dose 40 MG; Start 06/23/18 at 18:00 Nystatin (Nystatin Powder) 1 applic BID TOP ; Start 06/24/18 at 09:00 Assessment/Plan Hospital Course (Demo Recall) 67-year-old female sent from [facility] for a low hemoglobin of 7.5. The patient does not know if she has had history of gross hematuria. She also denies any history of melena. No history of nausea or vomiting. She does have a history of paroxysmal atrial fibrillation, hypertension, dyslipidemia and chronic kidney disease. She was found to have a gross hem aturia and a urological consultation was therefore requested. The patient denies any prior history of kidney stones. The CT scan of the abdomen and pelvis showed: Cirrhotic liver. No mass seen. Splenomegaly, ascites and varices compatible with portal hypertension. Patency of the portal vein is indeterminate on this noncontrast study. Cholecystectomy. Bilateral hydroureter nephrosis to the level of the bladder. Loss of parenchyma of the left kidney. No ureteral stones seen. No bladder masses stone. Question chronic reflux versus bladder outlet obstruction. Vascular calcifications. Paraumbilical hernia. Minimal nodular infiltrate right lung base. On the physical exam she does have an indwelling Levy catheter that is draining blood tinged urine as well as thick sediment most likely reflecting acute cystitis and urinary tract infection and that also does explain the bilateral hydronephrosis. A urine culture has already been ordered and the result is pending. And the patient is already on intravenous ceftriaxone. Would continue that pending the result of the urine culture and sensitivity. I will also send urine for cytology. GREGORY SCHNEIDER MD Jun 24, 2018 08:16
[2018-06-24] MEDS: FAMOTIDINE 20 MG TAB PO SCH (09:37)
[2018-06-24] MEDS: MULTIVITAMINS THERAPEUTIC TAB PO SCH (09:37)
[2018-06-24] MEDS: RIFAXIMIN 550 MG TAB PO SCH ×2 (09:37→20:57)
[2018-06-24] MEDS: FERROUS SULFATE (EC) 325 MG TAB PO SCH (09:37)
[2018-06-24] MEDS: PROPRANOLOL 10 MG TAB PO SCH ×3 (09:37→20:59)
[2018-06-24] MEDS: GABAPENTIN 300 MG CAP PO SCH ×3 (09:37→20:57)
[2018-06-24] MEDS: NYSTATIN 30 GM POWDER BTL TOP SCH ×2 (09:38→20:58)
--- NOTE | 2018-06-24 09:48 | PN ---
DATE: 06/24/2018 SUBJECTIVE: The patient remains lethargic but more alert this morning. I discussed with the patient prior history of chronic kidney disease which she acknowledges she has. The patient does not wish t o have dialysis. No other events noted. No hemoptysis, hematemesis, hematochezia. OBJECTIVE: VITAL SIGNS: Blood pressure is 122/85, respiration 18, pulse 75, temperature 98.2. HEENT: Head is normocephalic. NECK: Supple. HEART: Regular rate. LUNGS: Show diminished breath sounds at the base. ABDOMEN: Soft, nontender to palpation. No rebound or guarding. EXTREMITIES: Negative for clubbing, cyanosis, no edema. DERMATOLOGIC: No rashes. MUSCULOSKELETAL: No joint effusion. NEUROLOGIC: No change in exam. MEDICATIONS: The patient's medications have been reviewed. LABORATORY DATA: Shows sodium 142, potassium 3.6, chloride 119, bicarbonate 14, BUN 54, creatinine o f 3.52, phosphorus 5.3. The patient's CBC was reviewed. INR is reviewed. Urinalysis shows FENa gre ater than 1%, protein creatinine ratio of 5 grams per gram of creatinine. IMAGING: Renal ultrasound showed severe bilateral hydronephrosis, left greater than right, with asso ciated severe left renal cortical thinning. This is a longstanding process. The patient also has a distended bladder suggesting reflux. ASSESSMENT AND PLAN: 1. Nonoliguric acute kidney injury on top of chronic kidney disease stage IV with previous baseline creatinine around 3 to 3.5 mg/dL. Etiology of current acute kidney injury is possibly multifactorial secondary to obstruction, hemodynamics, questionable tubular injury. The patient is status post Fol ey catheter placement after renal ultrasound shows severe bilateral hydronephrosis. Urinary output h as been sent. Patient's renal function has been improving. Urinary output is consistent with hematu ruben. At this point, would continue current volume expansion. Continue to monitor urinary output. C ontinue to monitor renal function. We will continue supportive care, renally dose all meds, avoid ne phrotoxins. 2. Chronic kidney disease. Etiology may have been secondary to obstructive uropathy. The patient's renal ultrasound shows significant cortical thinning, possibly due to longstanding obstruction. At this point, continue to treat acute kidney injury as stated above. We will follow up with urology wi help with management of hydronephrosis and monitor closely. 3. Anemia. Continue to monitor hemoglobin and hematocrit levels, transfuse PRBCs as needed. 4. Mineral bone disorder. Monitor calcium and phosphorus levels. 5. Acidosis. Etiology may be compensatory versus secondary to acute kidney injury, chronic kidney d isease. Will check an ABG. 6. Bilateral hydronephrosis. Etiology may be secondary to bladder obstruction. The patient is stat us post Levy catheter placement. Will continue to monitor. Follow up with urology. 7. Acute encephalopathy. Etiology may be secondary to hepatic encephalopathy. The patient's mental status is improving. Continue lactulose and rifaximin. 8. Arrhythmia. Continue medical management. 9. Liver cirrhosis with history of hepatitis C. Continue current medical management. Continue rifa ximin and lactulose. 10. Diabetes. Continue current insulin regimen. 11. Hypothyroidism. Continue Synthroid. 12. Hypertension. Dictated By: JITENDRA ESPINAL DO NR/NTS Conf#: [id number] DID#: [id number] CC: ARIANA DELGADO MD;*EndCC*
--- NOTE | 2018-06-24 12:33 | PN ---
Date/Time of Note Date/Time of Note DATE: 06/24/18 TIME: 12:12 Assessment/Plan VTE Prophylaxis Risk score (from Ns)>0 risk: 2 SCD applied (from Ns): Yes Pharmacological prophylaxis: NA/contraindicated Pharm contraindication: bleeding Lines/Catheters IV Catheter Type (from Nrs): Peripheral IV Urinary Cath still in place: Yes Reason Cath still needed: other (indicate) Assessment/Plan Hospital Course S: still having hematuria, O: Constitutional: , follows commands, obese Head: atraumatic, normocephalic, facial assymetry, L sided facial droop. ?chronicity Neck: non-tender, supple Respiratory: clear to auscultation Cardiovascular: regular rate and rhythm Gastrointestinal: S/ NT / obese / ND / +BS Extremities: no edema, good radial pulses, moves all 4 extremities but very weak assessment and plan: 67 yo F with hx of Hep C cirrhosis sent from [facility] for low hgb and lethargy with SVT noted in ER currently admitted and managed as follows: 1. Severe symptomatic anemia likely causing lethargy -multifactorial / +SOBT / cameron hematuria with possible chronic microscopic hematuria -patient likely has underlying coagulopathy from CLD contributing to the above -hgb improved after 2 units of PRBC and 1 unit of platelets -continue to monitor as bleeding though improved, seems ongoing -avoid anticoagulation for now -monitor closely for DIC from consumption 2. Encephalopathy / Confusion -Per family, patient is at baseline -ammonia level was mildly elevated, patient on lactulose and rifaximin, trend levels -brain CT showed nothing acute -monitor for now. MRI if indicated 3. Liver Cirrhosis associated with Hep C -also with Splenomegaly, ascites and varices compatible with portal hypertension -GI review, non selective BB ? -confirm Hep C, further mgt per GI -continue propranolol 4. Chronic Afib S/p SVT -converted post cardizem in ER, remains rate controlled -likely from electrolyte abnormalities and severe anemia -hold digoxin for now, started on propranolol tid -ACS r/o completed -f/u 2D echo -consider cardio consult 5. Acute renal failure with CKD (based on USS) -likely related to #6, improving -Hold ACEi, ARBs, and metformin if applicable. Renally dose all meds. Serial labs. -appreciate nephro input -volume expnsion ongoing, albumin added to regimen 6. Severe, chronic ?, abe hydronephrosis -improved with france -appreciate urology input, likely from infection per urology -urine cytology also sent 7. cameron hematuria: improving ? -likely 2/2 UTI + coagulopathy -Urine growing GNR, continue ceftriaxone -urine cytology sent -continue france for now 8. Pancytopenia -likely related to #3 -trend, transfuse PRN 9. DM 2 - excellent in house control, continue Lantus only for now, hold home oral hypoglycemics -titrate as indicated 10. Hypothyroidism -continue home synthroid -TSH shows excellent control 11. possible R LL infiltrate -monitor for now, no evidence of acute pulmonary infection 12. Obesity -calorie control 13. Debility -PT eval 14. +SOBT -could be contaminant from urine -GI consult 15. MRSA nares -bactroban BID x 7days dispo: -continue abx, f/u final urine cultures -await improvement in hematuria and further improvement in renal function -await GI review and recommendations Result Diagram: 06/24/18 0601 06/24/18 0601 Results 24hrs Laboratory Tests Test 06/23/18 17:24 06/23/18 18:05 06/23/18 18:20 06/23/18 20:44 Bedside Glucose 64 L 78 89 116 Test 06/24/18 06:01 06/24/18 07:35 06/24/18 07:54 06/24/18 09:47 White Blood 5.7 # Count Red Blood Count 2.74 #L Hemoglobin 8.7 #L Hematocrit 26.3 #L Mean Corpuscular 96.0 Volume Mean Corpuscular 31.8 Hemoglobin Mean Corpuscular 33.1 Hemoglobin Miriam nt Red Cell 16.8 H Distribution Width Platelet Count 97 L Mean Platelet 8.4 Volume Immature 1.400 H Granulocytes % Neutrophils % 74.6 Lymphocytes % 11.7 L Monocytes % 10.5 Eosinophils % 1.6 Basophils % 0.2 Nucleated Red 0.0 Blood Cells % Immature 0.080 H Granulocytes # Neutrophils # 4.3 Lymphocytes # 0.7 L Monocytes # 0.6 Eosinophils # 0.1 Basophils # 0.0 Nucleated Red 0.0 Blood Cells # Prothrombin Time 15.4 H Prothrombin Time 1.2 Ratio INR 1.21 International Normalized Ratio Activated 31.5 Partial Thrombop last Time Sodium Level 142 Potassium Level 3.6 Chloride Level 119 H Carbon Dioxide 14 L Level Anion Gap 9 Blood Urea 54 H Nitrogen Creatinine 3.52 H Est Glomerular 13 L Filtrat Rate mL/min Glucose Level 79 Calcium Level 9.2 Phosphorus Level 5.3 H Magnesium Level 1.9 Total Bilirubin 1.0 Direct Bilirubin 0.00 Indirect 1.0 Bilirubin Aspartate Amino 33 Transf (AST/SGOT ) Alanine 14 Aminotransferase (ALT/SGPT) Alkaline 53 Phosphatase Ammonia 15 # Total Protein 7.0 Albumin 2.8 L Hepatitis B POSITIVE H Surface Antibody Lab Scanned BLOOD TRANSFUSIO Report N Bedside Glucose 108 Blood Gas Blood arterial Specimen Source Arterial Blood 06/24/2018 11:05:5 Date Drawn 4 AM Arterial Blood 7.353 pH (Temp corrected) Arterial Blood 26.8 L pCO2 (Temp correct) Arterial Blood 90.6 pO2 (Temp corrected) Arterial Blood 14.6 L HCO3 Arterial Blood -9.8 L Base Excess Arterial Blood 96.3 Oxygen Saturatio n Cooper Test ACCEPTAB Arterial Blood Right Radial Gas Puncture Site Arterial 1.8 Blood Carboxyhem oglobin Arterial Blood 0.2 Methemoglobin Blood Gas A-a O2 27.0 H Differential Oxyhemoglobin 94.4 Percent Blood Gas 37.0 Temperature Blood Gas ROOM AIR Modality FiO2 21.0 Blood Gas TM Notified Whom Blood Gas 06/24/2018 11:13:2 Notified Time 1 AM Test 06/24/18 11:44 Bedside Glucose 133 Exam/Review of Systems Exam Vitals Vital Signs Date Temp Pulse Resp B/P (MAP) Pulse Ox O2 O2 Flow FiO2 Time Delivery Rate 06/24/18 98.0 78 18 144/63 99 Room Air 11:13 (90) 06/22/18 3.0 21:05 Intake and Output 06/23/18 06/23/18 06/24/18 1515:00 23:00 07:00 IntakeIntake Total 150 ml 780 ml 2580 ml OutputOutput Total 1500 ml 2850 ml BalanceBalance 150 ml -720 ml -270 ml Results Results 24hrs Laboratory Tests Test 06/23/18 17:24 06/23/18 18:05 06/23/18 18:20 06/23/18 20:44 Bedside Glucose 64 L 78 89 116 Test 06/24/18 06:01 06/24/18 07:35 06/24/18 07:54 06/24/18 09:47 White Blood 5.7 # Count Red Blood Count 2.74 #L Hemoglobin 8.7 #L Hematocrit 26.3 #L Mean Corpuscular 96.0 Volume Mean Corpuscular 31.8 Hemoglobin Mean Corpuscular 33.1 Hemoglobin Miriam nt Red Cell 16.8 H Distribution Width Platelet Count 97 L Mean Platelet 8.4 Volume Immature 1.400 H Granulocytes % Neutrophils % 74.6 Lymphocytes % 11.7 L Monocytes % 10.5 Eosinophils % 1.6 Basophils % 0.2 Nucleated Red 0.0 Blood Cells % Immature 0.080 H Granulocytes # Neutrophils # 4.3 Lymphocytes # 0.7 L Monocytes # 0.6 Eosinophils # 0.1 Basophils # 0.0 Nucleated Red 0.0 Blood Cells # Prothrombin Time 15.4 H Prothrombin Time 1.2 Ratio INR 1.21 International Normalized Ratio Activated 31.5 Partial Thrombop last Time Sodium Level 142 Potassium Level 3.6 Chloride Level 119 H Carbon Dioxide 14 L Level Anion Gap 9 Blood Urea 54 H Nitrogen Creatinine 3.52 H Est Glomerular 13 L Filtrat Rate mL/min Glucose Level 79 Calcium Level 9.2 Phosphorus Level 5.3 H Magnesium Level 1.9 Total Bilirubin 1.0 Direct Bilirubin 0.00 Indirect 1.0 Bilirubin Aspartate Amino 33 Transf (AST/SGOT ) Alanine 14 Aminotransferase (ALT/SGPT) Alkaline 53 Phosphatase Ammonia 15 # Total Protein 7.0 Albumin 2.8 L Hepatitis B POSITIVE H Surface Antibody Lab Scanned BLOOD TRANSFUSIO Report N Bedside Glucose 108 Blood Gas Blood arterial Specimen Source Arterial Blood 06/24/2018 11:05:5 Date Drawn 4 AM Arterial Blood 7.353 pH (Temp corrected) Arterial Blood 26.8 L pCO2 (Temp correct) Arterial Blood 90.6 pO2 (Temp corrected) Arterial Blood 14.6 L HCO3 Arterial Blood -9.8 L Base Excess Arterial Blood 96.3 Oxygen Saturatio n Cooper Test ACCEPTAB Arterial Blood Right Radial Gas Puncture Site Arterial 1.8 Blood Carboxyhem oglobin Arterial Blood 0.2 Methemoglobin Blood Gas A-a O2 27.0 H Differential Oxyhemoglobin 94.4 Percent Blood Gas 37.0 Temperature Blood Gas ROOM AIR Modality FiO2 21.0 Blood Gas TM Notified Whom Blood Gas 06/24/2018 11:13:2 Notified Time 1 AM Test 06/24/18 11:44 Bedside Glucose 133 Medications Medication Current Medications Lactulose (Enulose) 20 gm Q6 PO Last administered on 06/24/18at 11:49; Admin Dose 20 GM; Start 06/22/18 at 20:30 Sodium Chloride 1,000 ml @ 40 mls/hr Q24H IV Last administered on 06/23/18at 20:45; Admin Dose 40 MLS/HR; Start 06/22/18 at 20:20 IV Flush (NS 3 ml) 3 ml PER PROTOCOL IV ; Start 06/22/18 at 20:30 Ondansetron HCl (Zofran Inj) 4 mg Q6H PRN IV NAUSEA/VOMITING; Start 06/22/18 at 20:30 Acetaminophen (Tylenol Tab) 650 mg Q6H PRN PO .PAIN 1-3 OR TEMP Last administered on 06/23/18at 03:01; Admin Dose 650 MG; Start 06/22/18 at 20:30 Levothyroxine Sodium (Synthroid) 50 mcg BEFORE BREAKFAST PO Last administered on 06/24/18 06:01; Admin Dose 50 MCG; Start 06/23/18 at 07:00 Rifaximin (Xifaxan) 550 mg BID PO Last administered on 06/24/18 09:37; Admin Dose 550 MG; Start 06/23/18 at 09:00 Diagnostic Test (Pha) (Accu-Chek) 1 ea 02 XX ; Start 06/23/18 at 02:00 Insulin Aspart (Novolog Insulin Pen) NOVOLOG *MILD* ALGORITHM WITH MEALS BEDTIME SC ; Start 06/23/18 at 07:55 Miscellaneous Information 1 ea NOTE XX ; Start 06/22/18 at 22:30 Glucose (Glutose) 15 gm Q15M PRN PO DECREASED GLUCOSE; Start 06/22/18 at 22:30 Glucose (Glutose) 22.5 gm Q15M PRN PO DECREASED GLUCOSE; Start 06/22/18 at 22:30 Dextrose (D50w Syringe) 25 ml Q15M PRN IV DECREASED GLUCOSE; Start 06/22/18 at 22:30 Dextrose (D50w Syringe) 50 ml Q15M PRN IV DECREASED GLUCOSE Last administered on 06/23/18at 07:43; Admin Dose 50 ML; Start 06/22/18 at 22:30 Glucagon (Glucagen) 1 mg Q15M PRN IM DECREASED GLUCOSE; Start 06/22/18 at 22:30 Glucose (Glutose) 15 gm Q15M PRN BUCCAL DECREASED GLUCOSE; Start 06/22/18 at 22:30 Famotidine (Pepcid) 20 mg DAILY PO Last administered on 06/24/18 09:37; Admin Dose 20 MG; Start 06/23/18 at 09:00 Ferrous Sulfate (Ferrous Sulfate (Ec)) 325 mg DAILY PO Last administered on 06/24/18 09:37; Admin Dose 325 MG; Start 06/23/18 at 09:00 Gabapentin (Neurontin) 300 mg TID PO Last administered on 06/24/18 09:37; Admin Dose 300 MG; Start 06/23/18 at 09:00 Multivitamins Therapeutic (Theragran) 1 tab DAILY PO Last administered on 06/24/18 09:37; Admin Dose 1 TAB; Start 06/23/18 at 09:00 Insulin Glargine (Lantus) 21 units DAILY@2000 SC Last administered on 06/23/18 21:19; Admin Dose 21 UNITS; Start 06/23/18 at 20:00 Ceftriaxone Sodium 50 ml @ 100 mls/hr Q24H IVPB Last administered on 06/23/18 14:27; Admin Dose 100 MLS/HR; Start 06/23/18 at 14:00 Propranolol HCl (Inderal) 10 mg TID PO Last administered on 06/24/18 09:37; Admin Dose 10 MG; Start 06/23/18 at 14:00 Pantoprazole (Protonix Iv) 40 mg BID@06,18 IV Last administered on 06/24/18 06:01; Admin Dose 40 MG; Start 06/23/18 at 18:00 Nystatin (Nystatin Powder) 1 applic BID TOP Last administered on 06/24/18 09:38; Admin Dose 1 APPLIC; Start 06/24/18 at 09:00 Albumin Human 100 ml @ 100 mls/hr Q8H IV Last administered on 06/24/18 09:45; Admin Dose 100 MLS/HR; Start 06/24/18 at 09:00; Stop 06/25/18 at 01:59 BERNARDO RAMEY 7, 2019 12:22
--- NOTE | 2018-06-24 12:53 | CONS ---
Assessment/Plan Assessment/Plan Hospital Course (Demo Recall) Summary Assessment and Plan: Assessment: Severe macrocytic anemia -Likely multifactorial Liver cirrhosis with sequela -Coagulopathy, mild -Thrombocytopenia History of Esophageal varices -EGD 4 years ago status post CVL History of hepatitis C -Unclear if treated -RNA pending Encephalopathy -Acute on chronic versus chronic -Certainly on lactulose S/p SVT -converted post Cardizem in ER CKD Bilateral hydronephrosis Plan: Clear liquid diet today NPO after 06/25/18 0800 EGD/colonoscopy tomorrow Endoscopy - risks/benefits/alternatives/indications of procedure and sedation/anesthesia discussed with patient's sn Jluis Oconnor [phone] who states understanding and gives informed consent to proceed. Monitor labs Patient seen cooperation with Dr. Desir Consultation Date/Type/Reason Admit Date/Time Jun 22, 2018 at 19:27 Date of Consultation: Jun 24, 2018 Type of Consult GI Reason for Consultation Severe microcytic anemia Date/Time of Note DATE: 06/24/18 TIME: 12:42 Hx of Present Illness This is a 67-year-old female who resides in a nursing facility with a past medical history of liver cirrhosis, hypertension, diabetes mellitus, hypothyro idism, chronic kidney disease and questionable encephalopathy who presented to the hospital with generalized weakness and anemia of note on arrival EKG showed SVT which converted post Cardizem. GI has been consulted for FOBT positive and severe microcytic anemia. Current cause of anemia is likely multifactorial there is noted cameron hematuria with macrocytes as well as chronic kidney disease and positive fecal occult blood. Currently patient denies nausea/vomiting or abdominal pain there is a Levy cath in place with cameron hematuria as noted above. She is having episodes of diarrhea however on lactulose. White blood cell count is completely normal currently hemoglobin is 8.7 status post blood transfusion, INR on 06/24/2018 is 1.21 LFTs are within normal limits is unclear of hepatitis C he has previously been treated RNA is currently pending. Patient is alert and oriented x3 however with further conversation confusion is noted therefore I called patient's son Jluis Oconnor at [phone] discuss possibility of EGD colonoscopy patient son verbalized understanding is agreeable to both procedures he states last EGD was about 4 years ago at that time she had EV ligation. I reviewed risk/benefits of sedation and procedure again he verbalized understanding is agreeable to both procedures Review of Systems: A 12 system, review was conducted and is negative except as noted in the HPI or here. Past Medical History Medical History: diabetes, high cholesterol, hypertension, hypothyroid, other (Anemia) Home Meds Reported Medications Rifaximin* (Xifaxan*) 550 Mg Tablet, 550 MG PO BID, TAB 06/22/18 Cholecalciferol* (Vitamin D3*) 1,000 Unit Tablet, 2000 UNIT PO Q12H, TAB 06/22/18 Acetaminophen* (Tylenol*) 325 Mg Tablet, 650 MG PO Q4H PRN for MILD TO SEVERE PAIN -01/27, TAB 06/22/18 Epoetin Uriel (Procrit) 3,000 Unit/1 Ml Vial, 3000 UNIT IJ DAILY, VIAL ON THU,THU,THU, END DATE 07/13/09 06/22/18 Famotidine* (Pepcid*) 20 Mg Tablet, 20 MG PO DAILY, #30 TAB 06/22/18 Multivitamins* (Theragran*) 1 Tab Tab, 1 TAB PO DAILY, TAB 06/22/18 Polyethylene Glycol* (Miralax*) 17 Gm Powd.pack, 17 GM PO DAILY, #30 PACKET 06/22/18 Magnesium Hydroxide* (Milk Of Magnesia*) 400 Mg/5 Ml Oral.susp, 30 ML PO DAILY, ML 06/22/18 Levothyroxine Sodium* (Levothyroxine Sodium*) 50 Mcg Tablet, 50 MCG PO BEFORE BREAKFAST, #30 TAB 06/22/18 Furosemide* (Furosemide*) 40 Mg Tablet, 40 MG PO DAILY, TAB 06/22/18 Insulin Glargine* (Lantus*) 100 Unit/Ml Soln, 30 UNIT SC DAILY, #1 VIAL 06/22/18 Glimepiride* (Glimepiride*) 2 Mg Tablet, 4 MG PO WITH BREAKFAST, TAB 06/22/18 Gabapentin* (Gabapentin*) 300 Mg Capsule, 300 MG PO TID, #90 CAP 06/22/18 Mineral Oil* (Fleet* Mineral Oil Enema) Unknown Strength Oil, 118 ML OK NEEDED PRN for BOWEL PREP, ENEMA 06/22/18 Ferrous Sulfate* (Ferrous Sulfate*) 325 Mg Tabec, 325 MG PO DAILY, TAB 06/22/18 Bisacodyl* (Bisacodyl*) 10 Mg Supp, 10 MG OK DAILY, SUPP 06/22/18 Digoxin* (Digitek*) 125 Mcg Tablet, 0.125 MG PO DAILY, TAB HOLD FOR HR<60 06/22/18 Ascorbic Acid (Vitamin C) 500 Mg Tab, 500 MG PO DAILY, TAB 06/22/18 Discontinued Reported Medications Hydrochlorothiazide* (Hydrochlorothiazide*) 12.5 Mg Tablet, 12.5 MG PO DAILY, #30 TAB HOLD FOR SBP<110 06/22/18 Benzonatate* (Benzonatate*) 100 Mg Capsule, 100 MG PO TID PRN for COUGH, CAP 06/22/18 Medications Current Medications Lactulose (Enulose) 20 gm Q6 PO Last administered on 06/24/18at 11:49; Admin Dose 20 GM; Start 06/22/18 at 20:30 Sodium Chloride 1,000 ml @ 40 mls/hr Q24H IV Last administered on 06/23/18at 20:45; Admin Dose 40 MLS/HR; Start 06/22/18 at 20:20 IV Flush (NS 3 ml) 3 ml PER PROTOCOL IV ; Start 06/22/18 at 20:30 Ondansetron HCl (Zofran Inj) 4 mg Q6H PRN IV NAUSEA/VOMITING; Start 06/22/18 at 20:30 Acetaminophen (Tylenol Tab) 650 mg Q6H PRN PO .PAIN 1-3 OR TEMP Last administered on 06/23/18at 03:01; Admin Dose 650 MG; Start 06/22/18 at 20:30 Levothyroxine Sodium (Synthroid) 50 mcg BEFORE BREAKFAST PO Last administered on 06/24/18at 06:01; Admin Dose 50 MCG; Start 06/23/18 at 07:00 Rifaximin (Xifaxan) 550 mg BID PO Last administered on 06/24/18at 09:37; Admin Dose 550 MG; Start 06/23/18 at 09:00 Diagnostic Test (Pha) (Accu-Chek) 1 ea 02 XX ; Start 06/23/18 at 02:00 Insulin Aspart (Novolog Insulin Pen) NOVOLOG *MILD* ALGORITHM WITH MEALS BEDTIME SC ; Start 06/23/18 at 07:55 Miscellaneous Information 1 ea NOTE XX ; Start 06/22/18 at 22:30 Glucose (Glutose) 15 gm Q15M PRN PO DECREASED GLUCOSE; Start 06/22/18 at 22:30 Glucose (Glutose) 22.5 gm Q15M PRN PO DECREASED GLUCOSE; Start 06/22/18 at 22:30 Dextrose (D50w Syringe) 25 ml Q15M PRN IV DECREASED GLUCOSE; Start 06/22/18 at 22:30 Dextrose (D50w Syringe) 50 ml Q15M PRN IV DECREASED GLUCOSE Last administered on 06/23/18 07:43; Admin Dose 50 ML; Start 06/22/18 at 22:30 Glucagon (Glucagen) 1 mg Q15M PRN IM DECREASED GLUCOSE; Start 06/22/18 at 22:30 Glucose (Glutose) 15 gm Q15M PRN BUCCAL DECREASED GLUCOSE; Start 06/22/18 at 22:30 Famotidine (Pepcid) 20 mg DAILY PO Last administered on 06/24/18 09:37; Admin Dose 20 MG; Start 06/23/18 at 09:00 Ferrous Sulfate (Ferrous Sulfate (Ec)) 325 mg DAILY PO Last administered on 06/24/18 09:37; Admin Dose 325 MG; Start 06/23/18 at 09:00 Gabapentin (Neurontin) 300 mg TID PO Last administered on 06/24/18 09:37; Admin Dose 300 MG; Start 06/23/18 at 09:00 Multivitamins Therapeutic (Theragran) 1 tab DAILY PO Last administered on 06/24/18 09:37; Admin Dose 1 TAB; Start 06/23/18 at 09:00 Insulin Glargine (Lantus) 21 units DAILY@2000 SC Last administered on 06/23/18 21:19; Admin Dose 21 UNITS; Start 06/23/18 at 20:00 Ceftriaxone Sodium 50 ml @ 100 mls/hr Q24H IVPB Last administered on 06/23/18 14:27; Admin Dose 100 MLS/HR; Start 06/23/18 at 14:00 Propranolol HCl (Inderal) 10 mg TID PO Last administered on 06/24/18 09:37; Admin Dose 10 MG; Start 06/23/18 at 14:00 Pantoprazole (Protonix Iv) 40 mg BID@06,18 IV Last administered on 3/7/19at 06:01; Admin Dose 40 MG; Start 06/23/18 at 18:00 Nystatin (Nystatin Powder) 1 applic BID TOP Last administered on 06/24/18at 09:38; Admin Dose 1 APPLIC; Start 06/24/18 at 09:00 Albumin Human 100 ml @ 100 mls/hr Q8H IV Last administered on 06/24/18at 09:45; Admin Dose 100 MLS/HR; Start 06/24/18 at 09:00; Stop 06/25/18 at 01:59 Mupirocin (Bactroban) 1 applic BID TOP ; Start 06/24/18 at 12:30; Stop 07/01/18 at 12:29 Allergies: Coded Allergies: No Known Allergy (Unverified , 06/22/18) Past Surgical History Past Surgical Hx: cholecystectomy Social History Alcohol Use: none Smoking Status: Unknown if ever smoked Drug Use: none Exam/Review of Systems Exam Vitals Vital Signs Date Temp Pulse Resp B/P (MAP) Pulse Ox O2 O2 Flow FiO2 Time Delivery Rate 06/24/18 98.0 78 18 144/63 99 Room Air 11:13 (90) 06/22/18 3.0 21:05 Intake and Output 06/23/18 06/23/18 06/24/18 1515:00 23:00 07:00 IntakeIntake Total 150 ml 780 ml 2580 ml OutputOutput Total 1500 ml 2850 ml BalanceBalance 150 ml -720 ml -270 ml Constitutional: alert, oriented, other (forgetfull/confused) Head: normocephalic ENMT: nl external ears & nose Neck: supple, non-tender Respiratory: clear to auscultation Cardiovascular: regular rate and rhythm Gastrointestinal: soft, bowel sounds Genitourinary - Female: other (f/c in place with hematuria) Results Result Diagram: 06/24/18 0601 06/24/18 0601 Results 24hrs Laboratory Tests Test 06/23/18 17:24 06/23/18 18:05 06/23/18 18:20 06/23/18 20:44 Bedside Glucose 64 L 78 89 116 Test 06/24/18 06:01 06/24/18 07:35 06/24/18 07:54 06/24/18 09:47 White Blood 5.7 # Count Red Blood Count 2.74 #L Hemoglobin 8.7 #L Hematocrit 26.3 #L Mean Corpuscular 96.0 Volume Mean Corpuscular 31.8 Hemoglobin Mean Corpuscular 33.1 Hemoglobin Miriam nt Red Cell 16.8 H Distribution Width Platelet Count 97 L Mean Platelet 8.4 Volume Immature 1.400 H Granulocytes % Neutrophils % 74.6 Lymphocytes % 11.7 L Monocytes % 10.5 Eosinophils % 1.6 Basophils % 0.2 Nucleated Red 0.0 Blood Cells % Immature 0.080 H Granulocytes # Neutrophils # 4.3 Lymphocytes # 0.7 L Monocytes # 0.6 Eosinophils # 0.1 Basophils # 0.0 Nucleated Red 0.0 Blood Cells # Prothrombin Time 15.4 H Prothrombin Time 1.2 Ratio INR 1.21 International Normalized Ratio Activated 31.5 Partial Thrombop last Time Sodium Level 142 Potassium Level 3.6 Chloride Level 119 H Carbon Dioxide 14 L Level Anion Gap 9 Blood Urea 54 H Nitrogen Creatinine 3.52 H Est Glomerular 13 L Filtrat Rate mL/min Glucose Level 79 Calcium Level 9.2 Phosphorus Level 5.3 H Magnesium Level 1.9 Total Bilirubin 1.0 Direct Bilirubin 0.00 Indirect 1.0 Bilirubin Aspartate Amino 33 Transf (AST/SGOT ) Alanine 14 Aminotransferase (ALT/SGPT) Alkaline 53 Phosphatase Ammonia 15 # Total Protein 7.0 Albumin 2.8 L Hepatitis B POSITIVE H Surface Antibody Hepatitis B Core NEGATIVE Total Antibody Hepatitis C REACTIVE H Antibody Lab Scanned BLOOD TRANSFUSIO Report N Bedside Glucose 108 Blood Gas Blood arterial Specimen Source Arterial Blood 06/24/2018 11:05:5 Date Drawn 4 AM Arterial Blood 7.353 pH (Temp corrected) Arterial Blood 26.8 L pCO2 (Temp correct) Arterial Blood 90.6 pO2 (Temp corrected) Arterial Blood 14.6 L HCO3 Arterial Blood -9.8 L Base Excess Arterial Blood 96.3 Oxygen Saturatio n Cooper Test ACCEPTAB Arterial Blood Right Radial Gas Puncture Site Arterial 1.8 Blood Carboxyhem oglobin Arterial Blood 0.2 Methemoglobin Blood Gas A-a O2 27.0 H Differential Oxyhemoglobin 94.4 Percent Blood Gas 37.0 Temperature Blood Gas ROOM AIR Modality FiO2 21.0 Blood Gas TM Notified Whom Blood Gas 06/24/2018 11:13:2 Notified Time 1 AM Test 06/24/18 11:44 Bedside Glucose 133 Medications Medication Current Medications Lactulose (Enulose) 20 gm Q6 PO Last administered on 06/24/18 11:49; Admin Dose 20 GM; Start 06/22/18 at 20:30 Sodium Chloride 1,000 ml @ 40 mls/hr Q24H IV Last administered on 06/23/18at 20:45; Admin Dose 40 MLS/HR; Start 06/22/18 at 20:20 IV Flush (NS 3 ml) 3 ml PER PROTOCOL IV ; Start 06/22/18 at 20:30 Ondansetron HCl (Zofran Inj) 4 mg Q6H PRN IV NAUSEA/VOMITING; Start 06/22/18 at 20:30 Acetaminophen (Tylenol Tab) 650 mg Q6H PRN PO .PAIN 1-3 OR TEMP Last administered on 06/23/18 03:01; Admin Dose 650 MG; Start 06/22/18 at 20:30 Levothyroxine Sodium (Synthroid) 50 mcg BEFORE BREAKFAST PO Last administered on 06/24/18 06:01; Admin Dose 50 MCG; Start 06/23/18 at 07:00 Rifaximin (Xifaxan) 550 mg BID PO Last administered on 06/24/18at 09:37; Admin Dose 550 MG; Start 06/23/18 at 09:00 Diagnostic Test (Pha) (Accu-Chek) 1 ea 02 XX ; Start 06/23/18 at 02:00 Insulin Aspart (Novolog Insulin Pen) NOVOLOG *MILD* ALGORITHM WITH MEALS BEDTIME SC ; Start 06/23/18 at 07:55 Miscellaneous Information 1 ea NOTE XX ; Start 06/22/18 at 22:30 Glucose (Glutose) 15 gm Q15M PRN PO DECREASED GLUCOSE; Start 06/22/18 at 22:30 Glucose (Glutose) 22.5 gm Q15M PRN PO DECREASED GLUCOSE; Start 06/22/18 at 22:30 Dextrose (D50w Syringe) 25 ml Q15M PRN IV DECREASED GLUCOSE; Start 06/22/18 at 22:30 Dextrose (D50w Syringe) 50 ml Q15M PRN IV DECREASED GLUCOSE Last administered on 06/23/18at 07:43; Admin Dose 50 ML; Start 06/22/18 at 22:30 Glucagon (Glucagen) 1 mg Q15M PRN IM DECREASED GLUCOSE; Start 06/22/18 at 22:30 Glucose (Glutose) 15 gm Q15M PRN BUCCAL DECREASED GLUCOSE; Start 06/22/18 at 22:30 Famotidine (Pepcid) 20 mg DAILY PO Last administered on 06/24/18 09:37; Admin Dose 20 MG; Start 06/23/18 at 09:00 Ferrous Sulfate (Ferrous Sulfate (Ec)) 325 mg DAILY PO Last administered on 06/24/18 09:37; Admin Dose 325 MG; Start 06/23/18 at 09:00 Gabapentin (Neurontin) 300 mg TID PO Last administered on 06/24/18 09:37; Admin Dose 300 MG; Start 06/23/18 at 09:00 Multivitamins Therapeutic (Theragran) 1 tab DAILY PO Last administered on 06/24/18 09:37; Admin Dose 1 TAB; Start 06/23/18 at 09:00 Insulin Glargine (Lantus) 21 units DAILY@2000 SC Last administered on 06/23/18 21:19; Admin Dose 21 UNITS; Start 06/23/18 at 20:00 Ceftriaxone Sodium 50 ml @ 100 mls/hr Q24H IVPB Last administered on 06/23/18 14:27; Admin Dose 100 MLS/HR; Start 06/23/18 at 14:00 Propranolol HCl (Inderal) 10 mg TID PO Last administered on 06/24/18 09:37; Admin Dose 10 MG; Start 06/23/18 at 14:00 Pantoprazole (Protonix Iv) 40 mg BID@06,18 IV Last administered on 06/24/18 06:01; Admin Dose 40 MG; Start 06/23/18 at 18:00 Nystatin (Nystatin Powder) 1 applic BID TOP Last administered on 06/24/18 09:38; Admin Dose 1 APPLIC; Start 06/24/18 at 09:00 Albumin Human 100 ml @ 100 mls/hr Q8H IV Last administered on 06/24/18 09:45; Admin Dose 100 MLS/HR; Start 06/24/18 at 09:00; Stop 06/25/18 at 01:59 Mupirocin (Bactroban) 1 applic BID TOP ; Start 06/24/18 at 12:30; Stop 07/01/18 at 12:29 JANAE RNE Jun 24, 2018 12:52
[2018-06-24] MEDS ORDERED: PROPRANOLOL 10 MG TAB PO SCH (13:00)
[2018-06-24] MEDS: CEFTRIAXONE 1 GM/50 ML (PMX) 50 ML IVPB SCH (13:16)
[2018-06-24] MEDS ORDERED: BISACODYL (EC) 5 MG TAB PO ONE (14:00)
[2018-06-24] MEDS ORDERED: PEG/ELECTROLYTES 4L BTL PO ONE (15:00)
[2018-06-24] MEDS: MUPIROCIN 2% 22 GM OINT TOP SCH ×2 (15:42→20:58)
[2018-06-24 18:46] LABS: PTH CALCIUM 8.1 mg/dL (8.6-10.4)
[2018-06-25] VITALS (10 sets, daily range): BP systolic 90–130; BP diastolic 50–63; PULSE 56–66; RESP 19–20
[2018-06-25] MEDS: ALBUMIN HUMAN 25% 100 ML IV SCH (01:38)
[2018-06-25] MEDS: ACCU-CHEK XX SCH (02:00)
[2018-06-25] MEDS ORDERED: BISACODYL (EC) 5 MG TAB PO ONE (05:00)
[2018-06-25] MEDS ORDERED: PEG/ELECTROLYTES 4L BTL PO ONE (05:00)
[2018-06-25] MEDS: PANTOPRAZOLE 40 MG INJ IV SCH ×2 (06:06→17:02)
[2018-06-25] MEDS: LEVOTHYROXINE 50 MCG TAB PO SCH (06:06)
[2018-06-25] MEDS: LACTULOSE 30ML CUP PO SCH ×4 (06:56→17:02)
[2018-06-25] MEDS: INSULIN ASPART [NOVOLOG] 3 ML PEN SC SCH ×4 (08:14→21:00)
[2018-06-25] MEDS: PROPRANOLOL 10 MG TAB PO SCH ×3 (09:00→21:46)
[2018-06-25] MEDS: GABAPENTIN 300 MG CAP PO SCH ×3 (09:22→21:41)
[2018-06-25] MEDS: FERROUS SULFATE (EC) 325 MG TAB PO SCH (09:22)
[2018-06-25] MEDS: MULTIVITAMINS THERAPEUTIC TAB PO SCH (09:22)
[2018-06-25] MEDS: RIFAXIMIN 550 MG TAB PO SCH ×2 (09:22→21:41)
[2018-06-25] MEDS: MUPIROCIN 2% 22 GM OINT TOP SCH ×2 (09:23→21:42)
--- NOTE | 2018-06-25 09:51 | PN ---
DATE: 06/25/2018 SUBJECTIVE: The patient is stable, no events overnight. The patient continues to have mild hematuri a. OBJECTIVE: VITAL SIGNS: Blood pressure is 121/58, respirations 20, pulse 62, temperature 98.6. HEENT: Head is normocephalic. NECK: Supple. HEART: Regular rate. LUNGS: Show diminished breath sounds at the base. ABDOMEN: Soft, nontender to palpation without rebound or guarding. EXTREMITIES: Negative for clubbing, cyanosis, no edema. DERMATOLOGIC: No rashes. MUSCULOSKELETAL: No joint effusion. NEUROLOGIC: No change in exam. MEDICATIONS: Reviewed. LABORATORY DATA: Currently pending. ASSESSMENT AND PLAN: 1. Nonoliguric acute kidney injury on top of chronic kidney disease stage IV with previous baseline creatinine of 3 to 3.5 mg/dL. Etiology of acute kidney injury is multifactorial, possibly secondary to obstruction, hemodynamics, questionable tubular injury. The patient's renal function has been imp roving with volume expansion. At this point, we would continue current treatment plans, supportive c are, renally dose all medicines. 2. Chronic kidney disease. Etiology is likely from obstructive uropathy. The patient's renal ultra sound shows significant cortical thinning, likely due to longstanding obstruction. The patient is st atus post Levy catheter placement. We will continue to monitor. Follow up with urology for recomme ndations. 3. Hematuria, possibly due to Levy catheter trauma. Continue to monitor. Follow up with urology. 4. Anemia. Monitor hemoglobin and hematocrit levels. 5. Mineral bone disorder. Monitor calcium and phosphorus levels. 6. Metabolic acidosis. Etiology is secondary to acute kidney injury, chronic kidney disease. [facility]. The patient is currently compensated. Continue to monitor. 7. Bilateral hydronephrosis secondary to bladder obstruction. Follow up with urology. 7. Acute encephalopathy. Etiology is toxic metabolic, possibly hepatic. The patient's mental statu s is improving. Continue lactulose and rifaximin. 8. Arrhythmia. Continue current medical management. 9. Liver cirrhosis with hepatitis C. Continue current medical management. Follow up GI, pending po ssible EGD, colonoscopy. 10. Diabetes. Continue current insulin regimen. 11. Hypothyroidism. Continue Synthroid. 12. Hypertension. Dictated By: JITENDRA SEYMOUR/DONOVAN Conf#: [id number] [facility]#: [id number] CC: GREGORY SCHNEIDER MD; ARIANA DELGADO MD;*[facility]*
[2018-06-25] MEDS: NYSTATIN 30 GM POWDER BTL TOP SCH ×2 (12:22→21:41)
[2018-06-25] MEDS: CEFTRIAXONE 1 GM/50 ML (PMX) 50 ML IVPB SCH (15:09)
--- NOTE | 2018-06-25 20:42 | CONS ---
Consult Date/Type/Reason Admit Date/Time Jun 22, 2018 at 19:27 Initial Consult Date 06/23/18 Type of Consultation: Urology Reason for Consultation Gross hematuria, urinary tract infection Requesting Provider: BERNARDO RAMEY Date/Time of Note DATE: 06/25/18 TIME: 20:38 Subjective The patient is resting comfortable. Objective Vitals Vital Signs Date Temp Pulse Resp B/P (MAP) Pulse Ox O2 O2 Flow FiO2 Time Delivery Rate 06/25/18 98.5 66 20 90/50 (63) 96 20:36 06/24/18 Room Air 15:03 06/22/18 3.0 21:05 Intake and Output 06/24/18 06/24/18 06/25/18 1515:00 23:00 07:00 IntakeIntake Total 540 ml 350 ml OutputOutput Total 1500 ml 1200 ml BalanceBalance -960 ml -850 ml Exam The Levy catheter is draining clear urine with areas of cloudy, bloody and purulent urine in the tubing. Results/Medications Result Diagram: 06/25/18 0701 06/25/18 0701 Results 24 hrs Laboratory Tests Test 06/25/18 07:01 06/25/18 08:03 06/25/18 12:21 06/25/18 17:01 White Blood Count 7.9 # Red Blood Count 2.59 L Hemoglobin 8.1 L Hematocrit 25.1 L Mean Corpuscular Volume 96.9 Mean Corpuscular 31.3 Hemoglobin Mean Corpuscular 32.3 Hemoglobin Concent Red Cell Distribution 16.7 H Width Platelet Count 82 L Mean Platelet Volume 8.9 Immature Granulocytes % 0.500 H Neutrophils % 77.3 H Lymphocytes % 11.0 L Monocytes % 9.0 Eosinophils % 1.9 Basophils % 0.3 Nucleated Red Blood 0.0 Cells % Immature Granulocytes # 0.040 H Neutrophils # 6.1 Lymphocytes # 0.9 Monocytes # 0.7 Eosinophils # 0.2 Basophils # 0.0 Nucleated Red Blood 0.0 Cells # Prothrombin Time 16.9 H Prothrombin Time Ratio 1.3 INR International 1.36 Normalized Ratio Activated 32.7 Partial Thromboplast Time Sodium Level 142 Potassium Level 3.5 Chloride Level 117 H Carbon Dioxide Level 14 L Anion Gap 11 Blood Urea Nitrogen 45 H Creatinine 3.35 H Est Glomerular Filtrat 14 L Rate mL/min Glucose Level 186 # Calcium Level 9.1 Phosphorus Level 4.5 Magnesium Level 1.9 Bedside Glucose 196 137 133 Home Meds Reported Medications Rifaximin* (Xifaxan*) 550 Mg Tablet, 550 MG PO BID, TAB 06/22/18 Cholecalciferol* (Vitamin D3*) 1,000 Unit Tablet, 2000 UNIT PO Q12H, TAB 06/22/18 Acetaminophen* (Tylenol*) 325 Mg Tablet, 650 MG PO Q4H PRN for MILD TO SEVERE PAIN -01/27, TAB 06/22/18 Epoetin Uriel (Procrit) 3,000 Unit/1 Ml Vial, 3000 UNIT IJ DAILY, VIAL ON MON,THU,THU, END DATE 07/13/09 06/22/18 Famotidine* (Pepcid*) 20 Mg Tablet, 20 MG PO DAILY, #30 TAB 06/22/18 Multivitamins* (Theragran*) 1 Tab Tab, 1 TAB PO DAILY, TAB 06/22/18 Polyethylene Glycol* (Miralax*) 17 Gm Powd.pack, 17 GM PO DAILY, #30 PACKET 06/22/18 Magnesium Hydroxide* (Milk Of Magnesia*) 400 Mg/5 Ml Oral.susp, 30 ML PO DAILY, ML 06/22/18 Levothyroxine Sodium* (Levothyroxine Sodium*) 50 Mcg Tablet, 50 MCG PO BEFORE BREAKFAST, #30 TAB 06/22/18 Furosemide* (Furosemide*) 40 Mg Tablet, 40 MG PO DAILY, TAB 06/22/18 Insulin Glargine* (Lantus*) 100 Unit/Ml Soln, 30 UNIT SC DAILY, #1 VIAL 06/22/18 Glimepiride* (Glimepiride*) 2 Mg Tablet, 4 MG PO WITH BREAKFAST, TAB 06/22/18 Gabapentin* (Gabapentin*) 300 Mg Capsule, 300 MG PO TID, #90 CAP 06/22/18 Mineral Oil* (Fleet* Mineral Oil Enema) Unknown Strength Oil, 118 ML MA NEEDED PRN for BOWEL PREP, ENEMA 06/22/18 Ferrous Sulfate* (Ferrous Sulfate*) 325 Mg Tabec, 325 MG PO DAILY, TAB 06/22/18 Bisacodyl* (Bisacodyl*) 10 Mg Supp, 10 MG MA DAILY, SUPP 06/22/18 Digoxin* (Digitek*) 125 Mcg Tablet, 0.125 MG PO DAILY, TAB HOLD FOR HR<60 06/22/18 Ascorbic Acid (Vitamin C) 500 Mg Tab, 500 MG PO DAILY, TAB 06/22/18 Discontinued Reported Medications Hydrochlorothiazide* (Hydrochlorothiazide*) 12.5 Mg Tablet, 12.5 MG PO DAILY, #30 TAB HOLD FOR SBP<110 06/22/18 Benzonatate* (Benzonatate*) 100 Mg Capsule, 100 MG PO TID PRN for COUGH, CAP 06/22/18 Medications Current Medications Lactulose (Enulose) 20 gm Q6 PO Last administered on 06/25/18at 17:02; Admin Dose 20 GM; Start 06/22/18 at 20:30 IV Flush (NS 3 ml) 3 ml PER PROTOCOL IV ; Start 06/22/18 at 20:30 Ondansetron HCl (Zofran Inj) 4 mg Q6H PRN IV NAUSEA/VOMITING; Start 06/22/18 at 20:30 Acetaminophen (Tylenol Tab) 650 mg Q6H PRN PO .PAIN 1-3 OR TEMP Last administered on 06/23/18at 03:01; Admin Dose 650 MG; Start 06/22/18 at 20:30 Levothyroxine Sodium (Synthroid) 50 mcg BEFORE BREAKFAST PO Last administered on 06/25/18at 06:06; Admin Dose 50 MCG; Start 06/23/18 at 07:00 Rifaximin (Xifaxan) 550 mg BID PO Last administered on 06/25/18 09:22; Admin Dose 550 MG; Start 06/23/18 at 09:00 Diagnostic Test (Pha) (Accu-Chek) 1 ea 02 XX ; Start 06/23/18 at 02:00 Insulin Aspart (Novolog Insulin Pen) NOVOLOG *MILD* ALGORITHM WITH MEALS BEDTIME SC Last administered on 06/25/18at 08:14; Admin Dose 2 UNIT; Start 06/23/18 at 07:55 Miscellaneous Information 1 ea NOTE XX ; Start 06/22/18 at 22:30 Glucose (Glutose) 15 gm Q15M PRN PO DECREASED GLUCOSE; Start 06/22/18 at 22:30 Glucose (Glutose) 22.5 gm Q15M PRN PO DECREASED GLUCOSE; Start 06/22/18 at 22:30 Dextrose (D50w Syringe) 25 ml Q15M PRN IV DECREASED GLUCOSE; Start 06/22/18 at 2 2:30 Dextrose (D50w Syringe) 50 ml Q15M PRN IV DECREASED GLUCOSE Last administered on 06/23/18 07:43; Admin Dose 50 ML; Start 06/22/18 at 22:30 Glucagon (Glucagen) 1 mg Q15M PRN IM DECREASED GLUCOSE; Start 06/22/18 at 22:30 Glucose (Glutose) 15 gm Q15M PRN BUCCAL DECREASED GLUCOSE; Start 06/22/18 at 22:30 Ferrous Sulfate (Ferrous Sulfate (Ec)) 325 mg DAILY PO Last administered on 06/25/18 09:22; Admin Dose 325 MG; Start 06/23/18 at 09:00 Gabapentin (Neurontin) 300 mg TID PO Last administered on 06/25/18 15:12; Admin Dose 300 MG; Start 06/23/18 at 09:00 Multivitamins Therapeutic (Theragran) 1 tab DAILY PO Last administered on 06/25/18 09:22; Admin Dose 1 TAB; Start 06/23/18 at 09:00 Insulin Glargine (Lantus) 21 units DAILY@2000 SC Last administered on 06/23/18 21:19; Admin Dose 21 UNITS; Start 06/23/18 at 20:00; Status Hold Ceftriaxone Sodium 50 ml @ 100 mls/hr Q24H IVPB Last administered on 06/25/18 15:09; Admin Dose 100 MLS/HR; Start 06/23/18 at 14:00 Pantoprazole (Protonix Iv) 40 mg BID@06,18 IV Last administered on 06/25/18 17:02; Admin Dose 40 MG; Start 06/23/18 at 18:00 Nystatin (Nystatin Powder) 1 applic BID TOP Last administered on 06/25/18 12:22; Admin Dose 1 APPLIC; Start 06/24/18 at 09:00 Mupirocin (Bactroban) 1 applic BID TOP Last administered on 06/25/18 09:23; Adm in Dose 1 APPLIC; Start 06/24/18 at 12:30; Stop 07/01/18 at 12:29 Propranolol HCl (Inderal) 20 mg TID PO Last administered on 06/24/18 20:59; Admin Dose 20 MG; Start 06/24/18 at 21:00 Assessment/Plan Hospital Course (Demo Recall) 67-year-old female sent from [facility] for a low hemoglobin of 7.5. The patient does not know if she has had history of gross hematuria. She also denies any history of melena. No history of nausea or vomiting. She does have a history of paroxysmal atrial fibrillation, hypertension, dyslipidemia and chronic kidney disease. She was found to have a gross hematuria and a urological consultation was therefore requested. The patient denies any prior history of kidney stones. The CT scan of the abdomen and pelvis showed: Cirrhotic liver. No mass seen. Splenomegaly, ascites and varices compatible with portal hypertension. Patency of the portal vein is indeterminate on this noncontrast study. Cholecystectomy. Bilateral hydroureter nephrosis to the level of the bladder. Loss of parenchyma of the left kidney. No ureteral stones seen. No bladder masses stone. Question chronic reflux versus bladder outlet obstruction. Vascular calcifications. Paraumbilical hernia. Minimal nodular infiltrate right lung base. On the physical exam she does have an indwelling Levy catheter that is draining bloody and purulent urine. That has improved and now she does have some clear urine in the tubing as well. The urine culture did show gram-negative rods. The sensitivity is still pending. She is on ceftriaxone. Continue present treatment. GREGORY SCHNEIDER MD Jun 25, 2018 20:42
[2018-06-26] VITALS (15 sets, daily range): BP systolic 91–111; BP diastolic 50–74; PULSE 54–123; RESP 17–20
[2018-06-26] MEDS: LACTULOSE 30ML CUP PO SCH ×5 (01:30→23:56)
[2018-06-26] MEDS: ACCU-CHEK XX SCH (02:00)
[2018-06-26] MEDS: PANTOPRAZOLE 40 MG INJ IV SCH ×2 (06:05→17:51)
[2018-06-26] MEDS: LEVOTHYROXINE 50 MCG TAB PO SCH (06:05)
--- NOTE | 2018-06-26 07:50 | EN ---
Date/Time of Note Date/Time of Note DATE: 06/26/18 TIME: 07:41 Event Note Medicine Medicine Event Note PROGRESS NOTE DATE OF SERVICE: 06/25/18 SUBJECTIVE: no new complaints, still lethargic? and bed bound, patient states she doesn't walk, still having hematuria O: Vital signs and labs reviewed Constitutional: , follows commands, obese, more communicative Head: atraumatic, normocephalic, facial asymmetry, L sided facial droop. ?chronicity Neck: non-tender, supple Respiratory: clear to auscultation Cardiovascular: regular rate and rhythm Gastrointestinal: S/ NT / obese / ND / +BS Extremities: no edema, good radial pulses, moves all 4 extremities but very weak assessment and plan: 67 yo F with hx of Hep C cirrhosis sent from [facility] for low hgb and lethargy with SVT noted in ER currently admitted and managed as follows: 1. Severe symptomatic anemia likely causing lethargy -multifactorial / +SOBT / cameron hematuria with possible chronic microscopic hematuria -patient likely has underlying coagulopathy from CLD contributing to the above -hgb improved after 2 units of PRBC and 1 unit of platelets -continue to monitor as bleeding though improved, seems ongoing -avoid anticoagulation for now -monitor closely for DIC from consumption 2. Encephalopathy / Confusion: resolved -Per family, patient is at baseline -ammonia level was mildly elevated, patient on lactulose and rifaximin, trend levels -brain CT showed nothing acute -monitor for now. MRI if indicated 3. Liver Cirrhosis associated with Hep C -also with Splenomegaly, ascites and varices compatible with portal hypertension -continue propranolol 4. Chronic Afib S/p SVT -converted post cardizem in ER, remains rate controlled -likely from electrolyte abnormalities and severe anemia -hold digoxin for now 2/2 renal failure , started on propranolol tid -ACS r/o completed -f/u 2D echo -Cardio consult if indicated -not a candidate for anticoagulation 2/2 #1 and #3 5. Acute renal failure with CKD (based on USS) -likely related to #6, improving -Hold ACEi, ARBs, and metformin if applicable. Renally dose all meds. Serial labs. -appreciate nephro input -volume expansion ongoing, albumin added to regimen 6. Severe, chronic ?, abe hydronephrosis -improved with france -appreciate urology input, likely from infection per urology -urine cytology also sent 7. cameron hematuria: much improved -likely 2/2 UTI + coagulopathy -Urine growing GNR, continue ceftriaxone -urine cytology sent -continue france for now, urology following and manging 8. Pancytopenia -likely related to #3 -trend, transfuse PRN 9. DM 2 - excellent in house control, continue Lantus only for now, hold home oral hypoglycemics -titrate as indicated 10. Hypothyroidism -continue home synthroid -TSH shows excellent control 11. possible R LL infiltrate -monitor for now, no evidence of acute pulmonary infection 12. Obesity -calorie control 13. Debility -PT eval 14. 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 BERNARDO RAMEY Jun 26, 2018 07:50
[2018-06-26] MEDS: INSULIN ASPART [NOVOLOG] 3 ML PEN SC SCH ×4 (07:55→21:00)
[2018-06-26] MEDS: MULTIVITAMINS THERAPEUTIC TAB PO SCH (08:38)
[2018-06-26] MEDS: GABAPENTIN 300 MG CAP PO SCH ×3 (08:38→21:45)
[2018-06-26] MEDS: RIFAXIMIN 550 MG TAB PO SCH ×2 (08:38→21:45)
[2018-06-26] MEDS: FERROUS SULFATE (EC) 325 MG TAB PO SCH (08:39)
[2018-06-26] MEDS: PROPRANOLOL 10 MG TAB PO SCH (08:39)
[2018-06-26] MEDS: MUPIROCIN 2% 22 GM OINT TOP SCH ×2 (08:40→21:47)
[2018-06-26] MEDS: NYSTATIN 30 GM POWDER BTL TOP SCH ×2 (08:40→21:47)
[2018-06-26] MEDS: PROPRANOLOL 20 MG TAB PO SCH ×3 (09:00→21:00)
--- NOTE | 2018-06-26 09:10 | PN ---
Date/Time of Note Date/Time of Note DATE: 06/26/18 TIME: 09:10 Assessment/Plan VTE Prophylaxis Risk score (from Ns)>0 risk: 7 SCD applied (from Ns): Yes Pharmacological prophylaxis: NA/contraindicated Pharm contraindication: bleeding Lines/Catheters IV [facility]from [facility] Peripheral IV Urinary Cath still in place: Yes Reason Cath still needed: urinary retention Assessment/Plan Assessment/Plan 1. Symptomatic anemia - Hgb remains stable - FOBT positive and GI on board. If patient remains inhouse will plan for EGD and colonoscopy on Thursday - secondary to hematuria as well. - s/p 2 units PRBC and plt - Continue monitoring for further episodes or drop in hgb - no need for transfusion at this time 2. Acute toxic encephalopathy - Patient is at baseline per family - continue on rifaximin and lactulose - CT brain negative for acute issues. 3. Liver Cirrhosis secondary to Hep C - continue on propranolol for varices 4. Chronic Afib S/p SVT - converted post cardizem in ER, remains rate controlled - likely from electrolyte abnormalities and severe anemia - ECHO noted 5. Acute renal failure with CKD - Nephrology on board and appreciate recommendations - avoid nephrotoxic agents - Cr trending down 6. Severe, chronic ?, abe hydronephrosis - improved with france placement - appreciate urology input, likely from infection per urology 7. cameron hematuria- resolving - likely 2/2 UTI + coagulopathy - Urine growing GNR, continue ceftriaxone 8. Pancytopenia - secondary to cirrhosis - continue monitoring and transfuse as needed 9. DM 2 - Lantus - ISS and accuchecks 10. Hypothyroidism - continue home Synthroid - TSH results noted 11. Obesity 12. Disposition - Continue current care. P[place] [facility] - if still here Thursday, EGD and Colonoscopy planned per GI Result Diagram: 06/26/18 0606/26/18 0623 Results 24hrs Laboratory Tests Test 06/25/18 12:21 06/25/18 17:01 06/25/18 21:39 06/26/18 06:23 Bedside Glucose 137 133 162 White Blood Count 7.5 Red Blood Count 2.69 L Hemoglobin 8.4 L Hematocrit 26.4 L Mean Corpuscular Volume 98.1 Mean Corpuscular 31.2 Hemoglobin Mean Corpuscular 31.8 L Hemoglobin Concent Red Cell Distribution 16.3 H Width Platelet Count 84 L Mean Platelet Volume 9.3 Immature Granulocytes % 0.900 H Neutrophils % 75.1 Lymphocytes % 12.6 L Monocytes % 8.0 Eosinophils % 3.1 Basophils % 0.3 Nucleated Red Blood 0.0 Cells % Immature Granulocytes # 0.070 H Neutrophils # 5.7 Lymphocytes # 1.0 Monocytes # 0.6 Eosinophils # 0.2 Basophils # 0.0 Nucleated Red Blood 0.0 Cells # Sodium Level 142 Potassium Level 3.6 Chloride Level 117 H Carbon Dioxide Level 15 L Anion Gap 10 Blood Urea Nitrogen 42 H Creatinine 3.10 H Est Glomerular Filtrat 15 L Rate mL/min Glucose Level 109 # Calcium Level 8.9 Phosphorus Level 4.9 Magnesium Level 1.9 Test 06/26/18 08:36 Bedside Glucose 133 Subjective 24 Hr Interval Summary Free Text/Dictation Patient appears slightly confused and requesting water and ice. States she feels neglected but denies any acute issues. Pending transfer to [facility] when bed available. Exam/Review of Systems Exam Vitals Vital Signs Date Temp Pulse Resp B/P (MAP) Pulse Ox O2 O2 Flow FiO2 Time Delivery Rate 06/26/18 98.6 60 18 106/67 92 07:49 (80) 06/24/18 Room Air 15:03 06/22/18 3.0 21:05 Intake and Output 06/25/18 06/25/18 06/26/18 1515:00 23:00 07:00 IntakeIntake Total 1000 ml 450 ml OutputOutput Total 600 ml BalanceBalance 1000 ml -150 ml Exam General: Patient is laying in bed, no acute distress Neck: Supple, nontender, midline Chest: nontender Respiratory: Diminished at bases. no wheezing or rhonchi Cardiovascular: S1, S2, regular rate and rhythm, no obvious murmurs Gastrointestinal: soft, nontender to palpation, nondistended, bowel sounds heard. no rebound or guarding Skin: No new skin lesions Results Results 24hrs Laboratory Tests Test 06/25/18 12:21 06/25/18 17:01 06/25/18 21:39 06/26/18 06:23 Bedside Glucose 137 133 162 White Blood Count 7.5 Red Blood Count 2.69 L Hemoglobin 8.4 L Hematocrit 26.4 L Mean Corpuscular Volume 98.1 Mean Corpuscular 31.2 Hemoglobin Mean Corpuscular 31.8 L Hemoglobin Concent Red Cell Distribution 16.3 H Width Platelet Count 84 L Mean Platelet Volume 9.3 Immature Granulocytes % 0.900 H Neutrophils % 75.1 Lymphocytes % 12.6 L Monocytes % 8.0 Eosinophils % 3.1 Basophils % 0.3 Nucleated Red Blood 0.0 Cells % Immature Granulocytes # 0.070 H Neutrophils # 5.7 Lymphocytes # 1.0 Monocytes # 0.6 Eosinophils # 0.2 Basophils # 0.0 Nucleated Red Blood 0.0 Cells # Sodium Level 142 Potassium Level 3.6 Chloride Level 117 H Carbon Dioxide Level 15 L Anion Gap 10 Blood Urea Nitrogen 42 H Creatinine 3.10 H Est Glomerular Filtrat 15 L Rate mL/min Glucose Level 109 # Calcium Level 8.9 Phosphorus Level 4.9 Magnesium Level 1.9 Test 06/26/18 08:36 Bedside Glucose 133 Medications Medication Current Medications Lactulose (Enulose) 20 gm Q6 PO Last administered on 06/26/18at 06:05; Admin Dose 20 GM; Start 06/22/18 at 20:30 IV Flush (NS 3 ml) 3 ml PER PROTOCOL IV ; Start 06/22/18 at 20:30 Ondansetron HCl (Zofran Inj) 4 mg Q6H PRN IV NAUSEA/VOMITING; Start 06/22/18 at 20:30 Acetaminophen (Tylenol Tab) 650 mg Q6H PRN PO .PAIN 1-3 OR TEMP Last administered on 06/23/18at 03:01; Admin Dose 650 MG; Start 06/22/18 at 20:30 Levothyroxine Sodium (Synthroid) 50 mcg BEFORE BREAKFAST PO Last administered on 06/26/18at 06:05; Admin Dose 50 MCG; Start 06/23/18 at 07:00 Rifaximin (Xifaxan) 550 mg BID PO Last administered on 06/26/18at 08:38; Admin Dose 550 MG; Start 06/23/18 at 09:00 Diagnostic Test (Pha) (Accu-Chek) 1 ea 02 XX ; Start 06/23/18 at 02:00 Insulin Aspart (Novolog Insulin Pen) NOVOLOG *MILD* ALGORITHM WITH MEALS BEDTIME SC Last administered on 06/25/18at 08:14; Admin Dose 2 UNIT; Start 06/23/18 at 07:55 Miscellaneous Information 1 ea NOTE XX ; Start 06/22/18 at 22:30 Glucose (Glutose) 15 gm Q15M PRN PO DECREASED GLUCOSE; Start 06/22/18 at 22:30 Glucose (Glutose) 22.5 gm Q15M PRN PO DECREASED GLUCOSE; Start 06/22/18 at 22:30 Dextrose (D50w Syringe) 25 ml Q15M PRN IV DECREASED GLUCOSE; Start 06/22/18 at 22:30 Dextrose (D50w Syringe) 50 ml Q15M PRN IV DECREASED GLUCOSE Last administered on 06/23/18at 07:43; Admin Dose 50 ML; Start 06/22/18 at 22:30 Glucagon (Glucagen) 1 mg Q15M PRN IM DECREASED GLUCOSE; Start 06/22/18 at 22:30 Glucose (Glutose) 15 gm Q15M PRN BUCCAL DECREASED GLUCOSE; Start 06/22/18 at 22:30 Ferrous Sulfate (Ferrous Sulfate (Ec)) 325 mg DAILY PO Last administered on 06/26/18at 08:39; Admin Dose 325 MG; Start 06/23/18 at 09:00 Gabapentin (Neurontin) 300 mg TID PO Last administered on 06/26/18 08:38; Admin Dose 300 MG; Start 06/23/18 at 09:00 Multivitamins Therapeutic (Theragran) 1 tab DAILY PO Last administered on 06/26/18 08:38; Admin Dose 1 TAB; Start 06/23/18 at 09:00 Insulin Glargine (Lantus) 21 units DAILY@2000 SC Last administered on 06/23/18 21:19; Admin Dose 21 UNITS; Start 06/23/18 at 20:00; Status Hold Ceftriaxone Sodium 50 ml @ 100 mls/hr Q24H IVPB Last administered on 06/25/18at 15:09; Admin Dose 100 MLS/HR; Start 06/23/18 at 14:00 Pantoprazole (Protonix Iv) 40 mg BID@06,18 IV Last administered on 06/26/18at 06:05; Admin Dose 40 MG; Start 06/23/18 at 18:00 Nystatin (Nystatin Powder) 1 applic BID TOP Last administered on 06/26/18at 08:40; Admin Dose 1 APPLIC; Start 06/24/18 at 09:00 Mupirocin (Bactroban) 1 applic BID TOP Last administered on 06/26/18at 08:40; Admin Dose 1 APPLIC; Start 06/24/18 at 12:30; Stop 07/01/18 at 12:29 Propranolol HCl (Inderal) 20 mg TID PO ; Start 06/26/18 at 09:00 FADY VINCENT MD Jun 26, 2018 09:10
--- NOTE | 2018-06-26 11:41 | PN ---
DATE: 06/26/2018 SUBJECTIVE: The patient is stable. No events overnight. OBJECTIVE: VITAL SIGNS: Blood pressure is 106/67, pulse 60, respiration 18, temperature 98.6. HEENT: Head is normocephalic. NECK: Supple. HEART: Regular rate. LUNGS: Show diminished breath sounds at the base. ABDOMEN: Soft, nontender to palpation. No rebound or guarding. EXTREMITIES: Negative for clubbing, cyanosis, no edema. DERMATOLOGIC: No rashes. MUSCULOSKELETAL: No joint effusion. NEUROLOGIC: No change in exam. MEDICATIONS: The patient's medications have been reviewed. LABORATORY DATA: Shows white count 7.5, hemoglobin 8.4, platelet count is 84. Sodium 142, potassium 3.6, BUN 42, creatinine 3.0, bicarbonate was 15. ASSESSMENT AND PLAN: 1. Nonoliguric kidney injury on top of chronic kidney disease stage IV with previous baseline creati nine of 3 to 3.5 mg/dL. Etiology of acute kidney injury is multifactorial, secondary to hemodynamics , possible tubular injury. Renal function has improved with volume expansion. Renal function is brady roaching previous baseline. At this point, continue current treatment plan, supportive care, renally dose all meds. 2. Chronic kidney disease likely from longstanding obstructive uropathy. The patient is currently i n acute kidney injury as stated above. Continue current treatment plan. The patient is status post Levy catheter placement. 3. Hematuria. Will continue to monitor. Follow up with urology. 4. Anemia. Monitor hemoglobin and hematocrit levels. 5. Mineral bone disorder. Monitor calcium and phosphorus levels. 6. Metabolic acidosis secondary to acute kidney injury, chronic kidney disease. The patient's ABG w as reviewed. The patient is currently compensated. Will consider starting the patient on Bicitra. 7. Bilateral hydronephrosis secondary to bladder obstruction. The patient is status post Levy cath eter placement. Continue to monitor. Follow up recommendations per urology. 8. Acute encephalopathy. Etiology is toxic metabolic, possible hepatic. The patient's mental statu s improving. Continue current medical management. 9. Arrhythmia. Continue current treatment plan. 10. Liver cirrhosis, hepatitis C. Continue medical management. Follow up with GI. 11. Diabetes. Continue current insulin regimen. 12. Hypothyroidism. Continue Synthroid. 13. Hypertension. Dictated By: JITENDRA SEYMOUR/DONOVAN Conf#: [id number] [facility]#: [id number] CC: ARIANA DELGADO MD;*[facility]*
[2018-06-26] MEDS: CEFTRIAXONE 1 GM/50 ML (PMX) 50 ML IVPB SCH (13:26)
--- NOTE | 2018-06-26 15:21 | PN ---
Date/Time of Note Date/Time of Note DATE: 06/26/18 TIME: 15:12 Assessment/Plan VTE Prophylaxis Risk score (from Nsg)>0 risk: 5 SCD applied (from Nsg): Yes Pharmacological prophylaxis: NA/contraindicated Pharm contraindication: bleeding Lines/Catheters IV Catheter Type (from Nrsg): Peripheral IV Urinary Cath still in place: Yes Reason Cath still needed: urinary retention Assessment/Plan Assessment/Plan Summary Assessment and Plan: Assessment: Severe macrocytic anemia -Likely multifactorial, H/H stable at this time. Liver cirrhosis with sequela -Coagulopathy, mild -Thrombocytopenia History of Esophageal varices -EGD 4 years ago status post CVL History of hepatitis C -Unclear if treated -RNA pending Encephalopathy -Acute on chronic versus chronic -Continue on lactulose S/p SVT -converted post Cardizem in ER CKD Bilateral hydronephrosis Plan: Soft diet today EGD/colonoscopy cancelled due to potential transfer to other facility, if she is here on Thursday will plan for procedure and give bowel prep tomorrow. Endoscopy - risks/benefits/alternatives/indications of procedure and sedation/anesthesia discussed with patient's sn Jluis Oconnor [phone] who states understanding and gives informed consent to proceed. Monitor CBC, stable anemia. Patient seen collaboration with Dr. Correa Subjective: The patient denies any abdominal pain and denies any nausea or vomiting. She is tolerating a clear liquid diet. No reports of rectal bleeding or melanotic stools. CBC noted with stable anemia. Physical Exam: Constitutional: alert, oriented, other (forgetfull/confused) Head: normocephalic ENMT: nl external ears & nose Neck: supple, non-tender Respiratory: clear to auscultation Cardiovascular: regular rate and rhythm Gastrointestinal: soft, bowel sounds Genitourinary - Female: other (f/c in place with hematuria) Result Diagram: 06/26/18 0623 06/26/18 0623 Results 24hrs Laboratory Tests Test 06/25/18 17:01 06/25/18 21:39 06/26/18 06:23 06/26/18 08:36 Bedside Glucose 133 162 133 White Blood Count 7.5 Red Blood Count 2.69 L Hemoglobin 8.4 L Hematocrit 26.4 L Mean Corpuscular Volume 98.1 Mean Corpuscular 31.2 Hemoglobin Mean Corpuscular 31.8 L Hemoglobin Concent Red Cell Distribution 16.3 H Width Platelet Count 84 L Mean Platelet Volume 9.3 Immature Granulocytes % 0.900 H Neutrophils % 75.1 Lymphocytes % 12.6 L Monocytes % 8.0 Eosinophils % 3.1 Basophils % 0.3 Nucleated Red Blood 0.0 Cells % Immature Granulocytes # 0.070 H Neutrophils # 5.7 Lymphocytes # 1.0 Monocytes # 0.6 Eosinophils # 0.2 Basophils # 0.0 Nucleated Red Blood 0.0 Cells # Sodium Level 142 Potassium Level 3.6 Chloride Level 117 H Carbon Dioxide Level 15 L Anion Gap 10 Blood Urea Nitrogen 42 H Creatinine 3.10 H Est Glomerular Filtrat 15 L Rate mL/min Glucose Level 109 # Calcium Level 8.9 Phosphorus Level 4.9 Magnesium Level 1.9 Test 06/26/18 12:15 Bedside Glucose 120 CC: ART CORREA MD ; Exam/Review of Systems Exam Vitals Vital Signs Date Temp Pulse Resp B/P (MAP) Pulse Ox O2 O2 Flow FiO2 Time Delivery Rate 06/26/18 98.7 56 18 101/57 95 12:01 (72) 06/24/18 Room Air 15:03 06/22/18 3.0 21:05 Intake and Output 06/25/18 06/25/18 06/26/18 1515:00 23:00 07:00 IntakeIntake Total 1000 ml 450 ml OutputOutput Total 600 ml BalanceBalance 1000 ml -150 ml Results Results 24hrs Laboratory Tests Test 06/25/18 17:01 06/25/18 21:39 06/26/18 06:23 06/26/18 08:36 Bedside Glucose 133 162 133 White Blood Count 7.5 Red Blood Count 2.69 L Hemoglobin 8.4 L Hematocrit 26.4 L Mean Corpuscular Volume 98.1 Mean Corpuscular 31.2 Hemoglobin Mean Corpuscular 31.8 L Hemoglobin Concent Red Cell Distribution 16.3 H Width Platelet Count 84 L Mean Platelet Volume 9.3 Immature Granulocytes % 0.900 H Neutrophils % 75.1 Lymphocytes % 12.6 L Monocytes % 8.0 Eosinophils % 3.1 Basophils % 0.3 Nucleated Red Blood 0.0 Cells % Immature Granulocytes # 0.070 H Neutrophils # 5.7 Lymphocytes # 1.0 Monocytes # 0.6 Eosinophils # 0.2 Basophils # 0.0 Nucleated Red Blood 0.0 Cells # Sodium Level 142 Potassium Level 3.6 Chloride Level 117 H Carbon Dioxide Level 15 L Anion Gap 10 Blood Urea Nitrogen 42 H Creatinine 3.10 H Est Glomerular Filtrat 15 L Rate mL/min Glucose Level 109 # Calcium Level 8.9 Phosphorus Level 4.9 Magnesium Level 1.9 Test 06/26/18 12:15 Bedside Glucose 120 Medications Medication Current Medications Lactulose (Enulose) 20 gm Q6 PO Last administered on 06/26/18at 06:05; Admin Dose 20 GM; Start 06/22/18 at 20:30 IV Flush (NS 3 ml) 3 ml PER PROTOCOL IV ; Start 06/22/18 at 20:30 Ondansetron HCl (Zofran Inj) 4 mg Q6H PRN IV NAUSEA/VOMITING; Start 06/22/18 at 20:30 Acetaminophen (Tylenol Tab) 650 mg Q6H PRN PO .PAIN 1-3 OR TEMP Last administered on 06/23/18at 03:01; Admin Dose 650 MG; Start 06/22/18 at 20:30 Levothyroxine Sodium (Synthroid) 50 mcg BEFORE BREAKFAST PO Last administered on 06/26/18at 06:05; Admin Dose 50 MCG; Start 06/23/18 at 07:00 Rifaximin (Xifaxan) 550 mg BID PO Last administered on 06/26/18at 08:38; Admin Dose 550 MG; Start 06/23/18 at 09:00 Diagnostic Test (Pha) (Accu-Chek) 1 ea 02 XX ; Start 06/23/18 at 02:00 Insulin Aspart (Novolog Insulin Pen) NOVOLOG *MILD* ALGORITHM WITH MEALS BEDTIME SC Last administered on 06/25/18at 08:14; Admin Dose 2 UNIT; Start 06/23/18 at 07:55 Miscellaneous Information 1 ea NOTE XX ; Start 06/22/18 at 22:30 Glucose (Glutose) 15 gm Q15M PRN PO DECREASED GLUCOSE; Start 06/22/18 at 22:30 Glucose (Glutose) 22.5 gm Q15M PRN PO DECREASED GLUCOSE; Start 06/22/18 at 22:30 Dextrose (D50w Syringe) 25 ml Q15M PRN IV DECREASED GLUCOSE; Start 06/22/18 at 22:30 Dextrose (D50w Syringe) 50 ml Q15M PRN IV DECREASED GLUCOSE Last administered on 06/23/18 07:43; Admin Dose 50 ML; Start 06/22/18 at 22:30 Glucagon (Glucagen) 1 mg Q15M PRN IM DECREASED GLUCOSE; Start 06/22/18 at 22:30 Glucose (Glutose) 15 gm Q15M PRN BUCCAL DECREASED GLUCOSE; Start 06/22/18 at 22:30 Ferrous Sulfate (Ferrous Sulfate (Ec)) 325 mg DAILY PO Last administered on 06/26/18 08:39; Admin Dose 325 MG; Start 06/23/18 at 09:00 Gabapentin (Neurontin) 300 mg TID PO Last administered on 06/26/18 12:26; Admin Dose 300 MG; Start 06/23/18 at 09:00 Multivitamins Therapeutic (Theragran) 1 tab DAILY PO Last administered on 06/26/18 08:38; Admin Dose 1 TAB; Start 06/23/18 at 09:00 Insulin Glargine (Lantus) 21 units DAILY@2000 SC Last administered on 06/23/18 21:19; Admin Dose 21 UNITS; Start 06/23/18 at 20:00; Status Hold Ceftriaxone Sodium 50 ml @ 100 mls/hr Q24H IVPB Last administered on 06/26/18 13:26; Admin Dose 100 MLS/HR; Start 06/23/18 at 14:00 Pantoprazole (Protonix Iv) 40 mg BID@06,18 IV Last administered on 06/26/18 06:05; Admin Dose 40 MG; Start 06/23/18 at 18:00 Nystatin (Nystatin Powder) 1 applic BID TOP Last administered on 06/26/18 08:40; Admin Dose 1 APPLIC; Start 06/24/18 at 09:00 Mupirocin (Bactroban) 1 applic BID TOP Last administered on 06/26/18 08:40; Admin Dose 1 APPLIC; Start 06/24/18 at 12:30; Stop 07/01/18 at 12:29 Propranolol HCl (Inderal) 20 mg TID PO ; Start 06/26/18 at 09:00 MARKUS READ NP Jun 26, 2018 15:21
--- NOTE | 2018-06-26 18:47 | CONS ---
Consult Date/Type/Reason Admit Date/Time Jun 22, 2018 at 19:27 Initial Consult Date 06/23/18 Type of Consultation: Urology Reason for Consultation Gross hematuria Requesting Provider: BERNARDO RAMEY Date/Time of Note DATE: 06/26/18 TIME: 18:45 Subjective Patient appears to be comfortable and in no acute distress. Objective Vitals Vital Signs Date Temp Pulse Resp B/P (MAP) Pulse Ox O2 O2 Flow FiO2 Time Delivery Rate 06/26/18 56 16:00 06/26/18 98.6 20 91/54 (66) 95 16:00 06/24/18 Room Air 15:03 06/22/18 3.0 21:05 Intake and Output 06/25/18 06/25/18 06/26/18 1414:59 22:59 06:59 IntakeIntake Total 1000 ml 450 ml OutputOutput Total 600 ml BalanceBalance 1000 ml -150 ml Exam The Levy catheter is draining clear urine was occasional sediment Results/Medications Result Diagram: 06/26/18 0623 06/26/18 0623 Results 24 hrs Laboratory Tests Test 06/25/18 21:39 06/26/18 06:23 06/26/18 08:36 06/26/18 12:15 Bedside Glucose 162 133 120 White Blood Count 7.5 Red Blood Count 2.69 L Hemoglobin 8.4 L Hematocrit 26.4 L Mean Corpuscular Volume 98.1 Mean Corpuscular 31.2 Hemoglobin Mean Corpuscular 31.8 L Hemoglobin Concent Red Cell Distribution 16.3 H Width Platelet Count 84 L Mean Platelet Volume 9.3 Immature Granulocytes % 0.900 H Neutrophils % 75.1 Lymphocytes % 12.6 L Monocytes % 8.0 Eosinophils % 3.1 Basophils % 0.3 Nucleated Red Blood 0.0 Cells % Immature Granulocytes # 0.070 H Neutrophils # 5.7 Lymphocytes # 1.0 Monocytes # 0.6 Eosinophils # 0.2 Basophils # 0.0 Nucleated Red Blood 0.0 Cells # Sodium Level 142 Potassium Level 3.6 Chloride Level 117 H Carbon Dioxide Level 15 L Anion Gap 10 Blood Urea Nitrogen 42 H Creatinine 3.10 H Est Glomerular Filtrat 15 L Rate mL/min Glucose Level 109 # Calcium Level 8.9 Phosphorus Level 4.9 Magnesium Level 1.9 Test 06/26/18 17:50 Bedside Glucose 110 Home Meds Reported Medications Rifaximin* (Xifaxan*) 550 Mg Tablet, 550 MG PO BID, TAB 06/22/18 Cholecalciferol* (Vitamin D3*) 1,000 Unit Tablet, 2000 UNIT PO Q12H, TAB 06/22/18 Acetaminophen* (Tylenol*) 325 Mg Tablet, 650 MG PO Q4H PRN for MILD TO SEVERE PAIN -01/27, TAB 06/22/18 Epoetin Uriel (Procrit) 3,000 Unit/1 Ml Vial, 3000 UNIT IJ DAILY, VIAL ON MON,THU,THU, END DATE 07/13/09 06/22/18 Famotidine* (Pepcid*) 20 Mg Tablet, 20 MG PO DAILY, #30 TAB 06/22/18 Multivitamins* (Theragran*) 1 Tab Tab, 1 TAB PO DAILY, TAB 06/22/18 Polyethylene Glycol* (Miralax*) 17 Gm Powd.pack, 17 GM PO DAILY, #30 PACKET 06/22/18 Magnesium Hydroxide* (Milk Of Magnesia*) 400 Mg/5 Ml Oral.susp, 30 ML PO DAILY, ML 06/22/18 Levothyroxine Sodium* (Levothyroxine Sodium*) 50 Mcg Tablet, 50 MCG PO BEFORE BREAKFAST, #30 TAB 06/22/18 Furosemide* (Furosemide*) 40 Mg Tablet, 40 MG PO DAILY, TAB 06/22/18 Insulin Glargine* (Lantus*) 100 Unit/Ml Soln, 30 UNIT SC DAILY, #1 VIAL 06/22/18 Glimepiride* (Glimepiride*) 2 Mg Tablet, 4 MG PO WITH BREAKFAST, TAB 06/22/18 Gabapentin* (Gabapentin*) 300 Mg Capsule, 300 MG PO TID, #90 CAP 06/22/18 Mineral Oil* (Fleet* Mineral Oil Enema) Unknown Strength Oil, 118 ML [place] NEEDED PRN for BOWEL PREP, ENEMA 06/22/18 Ferrous Sulfate* (Ferrous Sulfate*) 325 Mg Tabec, 325 MG PO DAILY, TAB 06/22/18 Bisacodyl* (Bisacodyl*) 10 Mg Supp, 10 MG [place] DAILY, SUPP 06/22/18 Digoxin* (Digitek*) 125 Mcg Tablet, 0.125 MG PO DAILY, TAB HOLD FOR HR<60 06/22/18 Ascorbic Acid (Vitamin C) 500 Mg Tab, 500 MG PO DAILY, TAB 06/22/18 Discontinued Reported Medications Hydrochlorothiazide* (Hydrochlorothiazide*) 12.5 Mg Tablet, 12.5 MG PO DAILY, #30 TAB HOLD FOR SBP<110 06/22/18 Benzonatate* (Benzonatate*) 100 Mg Capsule, 100 MG PO TID PRN for COUGH, CAP 06/22/18 Medications Current Medications Lactulose (Enulose) 20 gm Q6 PO Last administered on 06/26/18at 06:05; Admin Dose 20 GM; Start 06/22/18 at 20:30 IV Flush (NS 3 ml) 3 ml PER PROTOCOL IV ; Start 06/22/18 at 20:30 Ondansetron HCl (Zofran Inj) 4 mg Q6H PRN IV NAUSEA/VOMITING; Start 06/22/18 at 20:30 Acetaminophen (Tylenol Tab) 650 mg Q6H PRN PO .PAIN 1-3 OR TEMP Last administ ered on 06/23/18at 03:01; Admin Dose 650 MG; Start 06/22/18 at 20:30 Levothyroxine Sodium (Synthroid) 50 mcg BEFORE BREAKFAST PO Last administered on 06/26/18at 06:05; Admin Dose 50 MCG; Start 06/23/18 at 07:00 Rifaximin (Xifaxan) 550 mg BID PO Last administered on 06/26/18at 08:38; Admin Dose 550 MG; Start 06/23/18 at 09:00 Diagnostic Test (Pha) (Accu-Chek) 1 ea 02 XX ; Start 06/23/18 at 02:00 Insulin Aspart (Novolog Insulin Pen) NOVOLOG *MILD* ALGORITHM WITH MEALS BEDTIME SC Last administered on 06/25/18at 08:14; Admin Dose 2 UNIT; Start 06/23/18 at 07:55 Miscellaneous Information 1 ea NOTE XX ; Start 06/22/18 at 22:30 Glucose (Glutose) 15 gm Q15M PRN PO DECREASED GLUCOSE; Start 06/22/18 at 22:30 Glucose (Glutose) 22.5 gm Q15M PRN PO DECREASED GLUCOSE; Start 06/22/18 at 22:30 Dextrose (D50w Syringe) 25 ml Q15M PRN IV DECREASED GLUCOSE; Start 06/22/18 at 22:30 Dextrose (D50w Syringe) 50 ml Q15M PRN IV DECREASED GLUCOSE Last administered on 06/23/18 07:43; Admin Dose 50 ML; Start 06/22/18 at 22:30 Glucagon (Glucagen) 1 mg Q15M PRN IM DECREASED GLUCOSE; Start 06/22/18 at 22:30 Glucose (Glutose) 15 gm Q15M PRN BUCCAL DECREASED GLUCOSE; Start 06/22/18 at 22:30 Ferrous Sulfate (Ferrous Sulfate (Ec)) 325 mg DAILY PO Last administered on 06/26/18 08:39; Admin Dose 325 MG; Start 06/23/18 at 09:00 Gabapentin (Neurontin) 300 mg TID PO Last administered on 06/26/18 12:26; Admin Dose 300 MG; Start 06/23/18 at 09:00 Multivitamins Therapeutic (Theragran) 1 tab DAILY PO Last administered on 06/26/18 08:38; Admin Dose 1 TAB; Start 06/23/18 at 09:00 Insulin Glargine (Lantus) 21 units DAILY@2000 SC Last administered on 06/23/18 21:19; Admin Dose 21 UNITS; Start 06/23/18 at 20:00; Status Hold Ceftriaxone Sodium 50 ml @ 100 mls/hr Q24H IVPB Last administered on 06/26/18 13:26; Admin Dose 100 MLS/HR; Start 06/23/18 at 14:00 Pantoprazole (Protonix Iv) 40 mg BID@06,18 IV Last administered on 06/26/18 17:51; Admin Dose 40 MG; Start 06/23/18 at 18:00 Nystatin (Nystatin Powder) 1 applic BID TOP Last administered on 06/26/18 08:40; Admin Dose 1 APPLIC; Start 06/24/18 at 09:00 Mupirocin (Bactroban) 1 applic BID TOP Last administered on 06/26/18 08:40; Admin Dose 1 APPLIC; Start 06/24/18 at 12:30; Stop 07/01/18 at 12:29 Propranolol HCl (Inderal) 20 mg TID PO ; Start 06/26/18 at 09:00 Assessment/Plan Hospital Course (Demo Recall) 67-year-old female sent from [employer] [facility] for a low hemoglobin of 7.5. The patient does not know if she has had history of gross hematuria. She also denies any history of melena. No history of nausea or vomiting. She does have a history of paroxysmal atrial fibrillation, hypertension, dyslipidemia and chronic kidney disease. She was found to have a gross hematuria and a urological consultation was therefore requested. The patient denies any prior history of kidney stones. The CT scan of the abdomen and pelvis showed: Cirrhotic liver. No mass seen. Splenomegaly, ascites and varices compatible with portal hypertension. Patency of the portal vein is indeterminate on this noncontrast study. Cholecystectomy. Bilateral hydroureter nephrosis to the level of the bladder. Loss of parenchyma of the left kidney. No ureteral stones seen. No bladder masses stone. Question chronic reflux versus bladder outlet obstruction. Vascular calcifications. Paraumbilical hernia. Minimal nodular infiltrate right lung base. Presently the patient is better and the urine is gradually clearing up. The urine culture showed: URINE CULTURE Final Organism 1 K.PNEUMONIAE SSP PNEUMONIAE COLONY COUNT >100,000 CFU/ml Organism 2 CITROBACTER FREUNDII COLONY COUNT >100,000 CFU/ml K PNE SPP C FREUNDII C FREUNDII M.I.C. RX M.I.C. RX M.I.C. RX --------- --- --------- --- --------- --- CEFAZOLIN <=4 S CEFEPIME <=1 S CEFOTAXIME S R CIPROFLOXACIN <=0.25 S <=0.25 S GENTAMICIN <=1 S <=1 S LEVOFLOXACIN 0.5 S 1 S MEROPENEM 0.032 S NITROFURANTOIN 64 I <=16 S TOBRAMYCIN <=1 S <=1 S TRIMETHOPRIM/SULFAMETHOXAZOLE <=20 S <=20 S PIPERACILLIN/TAZOBACTAM <=4 S The patient is on ceftriaxone. And we should continue that. We did send urine for cytology and that there is still pending. GREGORY SCHNEIDER MD Jun 26, 2018 18:47
[2018-06-27] VITALS (16 sets, daily range): BP systolic 87–114; BP diastolic 48–65; PULSE 60–130; RESP 16–20
[2018-06-27] MEDS ORDERED: SOD CHLORIDE 0.9% 1,000 ML IV ONE (01:30)
[2018-06-27] MEDS: ACCU-CHEK XX SCH (02:00)
[2018-06-27] MEDS: LACTULOSE 30ML CUP PO SCH ×3 (05:32→17:49)
[2018-06-27] MEDS: PANTOPRAZOLE 40 MG INJ IV SCH ×2 (05:32→17:49)
[2018-06-27] MEDS: LEVOTHYROXINE 50 MCG TAB PO SCH (06:49)
[2018-06-27] MEDS: INSULIN ASPART [NOVOLOG] 3 ML PEN SC SCH ×4 (07:55→21:00)
[2018-06-27] MEDS: GABAPENTIN 300 MG CAP PO SCH ×3 (08:37→21:05)
[2018-06-27] MEDS: MULTIVITAMINS THERAPEUTIC TAB PO SCH (08:37)
[2018-06-27] MEDS: NYSTATIN 30 GM POWDER BTL TOP SCH ×2 (08:38→21:06)
[2018-06-27] MEDS: MUPIROCIN 2% 22 GM OINT TOP SCH ×2 (08:38→21:06)
[2018-06-27] MEDS: RIFAXIMIN 550 MG TAB PO SCH ×2 (08:38→21:05)
[2018-06-27] MEDS: FERROUS SULFATE (EC) 325 MG TAB PO SCH (08:38)
[2018-06-27] MEDS ORDERED: POTASSIUM CHLORIDE (SR) 20 MEQ TAB PO STA (08:54)
[2018-06-27] MEDS: PROPRANOLOL 20 MG TAB PO SCH ×3 (08:58→21:00)
[2018-06-27] MEDS ORDERED: MAGNESIUM SULFATE 2 GM/50 ML 50 ML IVPB ONE (09:00)
--- NOTE | 2018-06-27 10:01 | PN ---
DATE: 06/27/2018 SUBJECTIVE: The patient was hypotensive, received a fluid bolus. The patient this morning is lethar gi. No other events noted. OBJECTIVE: VITAL SIGNS: Blood pressure is 106/57, respirations 16, pulse 64, temperature 97.7. HEENT: Head is normocephalic. NECK: Supple. HEART: Regular rate. LUNGS: Show diminished breath sounds at the base. ABDOMEN: Soft, nontender to palpation without rebound or guarding. EXTREMITIES: Negative for clubbing, cyanosis. Trace edema. DERMATOLOGIC: No rashes. MUSCULOSKELETAL: No joint effusion. NEUROLOGIC: No change in exam. MEDICATIONS: Reviewed. LABORATORY DATA: Shows sodium is 138, potassium 3.4, BUN 37, creatinine 3.04, magnesium 1.6. White count 8.0, hemoglobin 8.3, platelet count is 87. ASSESSMENT AND PLAN: 1. Nonoliguric acute kidney injury on top of chronic kidney disease stage IV with previous baseline creatinine of 3 to 3.4 mg/dL. Etiology of acute kidney injury is multifactorial secondary to hemodyn amics, possible tubular injury. Renal function has been improving, returning back to baseline. Cont inue current treatment plan, supportive care, renally dose all meds. 2. Chronic kidney disease likely from longstanding obstructive uropathy. The patient is currently i n acute kidney injury as stated above. Continue current treatment plan. Continue to monitor. Cesia nue disease factor modification. 3. Anemia. Monitor hemoglobin and hematocrit levels. 4. Mineral bone disorder. Monitor calcium and phosphorus levels. 5. Hypokalemia, hypomagnesemia. We will monitor and replete. 6. Metabolic acidosis secondary to acute kidney injury, chronic kidney disease. The patient's ABG w as reviewed. Continue to monitor. Consider starting the patient on Bicitra. 7. Bilateral hydronephrosis secondary to bladder obstruction, status post Levy catheter placement. Follow up with urology. 8. Encephalopathy. Etiology is multifactorial. Continue to monitor. 9. Liver cirrhosis, hepatitis C. Continue medical management. 10. Diabetes. Continue current insulin regimen. 11. Hypothyroidism. Continue Synthroid. Dictated By: JITENDRA ESPINAL DO NR/NTS Conf#: [id number] DID#: [id number] CC: ARIANA DELGADO MD;*[facility]*
--- NOTE | 2018-06-27 10:59 | PN ---
Date/Time of Note Date/Time of Note DATE: 06/27/18 TIME: 10:59 Assessment/Plan VTE Prophylaxis Risk score (from [facility] [place]0 risk: 4 SCD applied (from [facility] [place]): Yes Pharmacological prophylaxis: NA/contraindicated Pharm contraindication: liver dx Lines/Catheters IV Catheter Type (from [facility]): Peripheral IV Urinary Cath still in place: Yes Reason Cath still needed: urinary retention Assessment/Plan Hospital Course SUBJECTIVE: Remains lethargic. OBJECTIVE: Physical Exam General: Adequately build 67 year-old female lying in bed in no apparent distress. HEENT: Normocephalic, atraumatic. Eyes: Anicteric sclerae, conjunctivae clear. ENT: Nasal septum midline, oral mucosa moist. Neck supple. Respiratory: Bilaterally diminished breath sounds. No use of accessory muscles of respiration. No adventitious breath sounds. Cardiovascular: S1, S2 heard. Abdomen: Soft, nontender, and nondistended. Bowel sounds positive in all 4 quadr ants. Genitourinary: Deferred. Extremities: No cyanosis, no clubbing. Bilateral lower extremity edema. Neurologic: The patient is lethargic. Labs & Vitals per chart ASSESSMENT & PLAN 67-year-old female with a past medical history of hepatitis C, cirrhosis, hypothyroidism, obesity, and debility. The patient is a prison resident. The patient was brought to the emergency room because of low hemoglobin and worsening mental status. The patient was admitted to inpatient setting for further treatment and evaluation. 1. Symptomatic anemia. -Status post 2 units of PRBC. -Being followed by gastroenterology. -Stool for OB x1+. -Continue PPI. -Plan for esophagogastroduodenoscopy on 06/28/2018. 2. Liver cirrhosis. -Continue rifaximin. -Continue propranolol. 3. Acute toxic metabolic encephalopathy. -Continue rifaximin. -CT scan negative for any acute findings. 4. Paroxysmal SVT. -Converted to SR with Cardizem in the ER. 5. Chronic kidney disease. -Monitor BUN and creatinine closely. -Use nephrotoxic drugs with caution. -Nephrology following. 6. Severe bilateral hydronephrosis. -Improved with Levy placement. -Being followed by urology. 7. Hematuria. -Most probably secondary to coagulopathy and underlying urinary tract infection -Resolved. 8. Urinary tract infection. -Urine culture positive for Klebsiella pneumoniae and Citrobacter freundii with colony count more than 100,000 CFU per mL. -Continue antimicrobials. 9. Diabetes mellitus type II -Hemoglobin A1c 5.9. -Continue sliding scale insulin. 10. Hypothyroidism -Continue Synthroid. 11. Pancytopenia -Monitor blood components. -Transfuse blood products as needed. 12. Fluids, electrolytes, and nutrition. -Soft diet. 13. DVT prophylaxis -Chemical DVT prophylaxis contraindicated. 14. Plan. -Monitor H&H closely. -Transfuse blood products as needed. -Await esophagogastroduodenoscopy and colonoscopy on 06/28/2018. The patient was seen in collaboration with Dr. Lopez. Result Diagram: 06/27/18 [id number] Results 24hrs Laboratory Tests Test 06/26/18 12:15 06/26/18 17:50 06/26/18 21:44 06/27/18 06:28 Bedside Glucose 120 110 133 White Blood Count 8.0 Red Blood Count 2.66 L Hemoglobin 8.3 L Hematocrit 26.2 L Mean Corpuscular 98.5 Volume Mean Corpuscular 31.2 Hemoglobin Mean Corpuscular 31.7 L Hemoglobin Concent Red Cell Distribution 15.9 H Width Platelet Count 87 L Mean Platelet Volume 9.4 Immature Granulocytes 1.400 H % Neutrophils % 73.8 Lymphocytes % 11.6 L Monocytes % 8.6 Eosinophils % 4.2 Basophils % 0.4 Nucleated Red Blood 0.0 Cells % Immature Granulocytes 0.110 H # Neutrophils # 5.9 Lymphocytes # 0.9 Monocytes # 0.7 Eosinophils # 0.3 Basophils # 0.0 Nucleated Red Blood 0.0 Cells # Sodium Level 138 Potassium Level 3.4 L Chloride Level 113 H Carbon Dioxide Level 13 L Anion Gap 12 Blood Urea Nitrogen 37 H Creatinine 3.04 H Est Glomerular Filtrat 15 L Rate mL/min Glucose Level 95 Calcium Level 8.6 Magnesium Level 1.6 L Total Bilirubin 0.5 Direct Bilirubin 0.00 Indirect Bilirubin 0.5 Aspartate Amino 23 Transf (AST/SGOT) Alanine 16 Aminotransferase (ALT/ SGPT) Alkaline Phosphatase 51 Total Protein 6.6 Albumin 2.5 L Globulin 4.10 H Albumin/Globulin Ratio 0.60 Test 06/27/18 08:35 Bedside Glucose 112 Exam/Review of Systems Exam Vitals Vital Signs Date Temp Pulse Resp B/P (MAP) Pulse Ox O2 O2 Flow FiO2 Time Delivery Rate 06/27/18 63 09:45 06/27/18 106/57 08:30 (73) 114/65 (81) 06/27/18 97.7 16 96 07:46 06/24/18 Room Air 15:03 Intake and Output 06/26/18 06/26/18 06/27/18 1515:00 23:00 07:00 IntakeIntake Total 50 ml 850 ml 1550 ml OutputOutput Total 1100 ml 950 ml BalanceBalance 50 ml -250 ml 600 ml Results Results 24hrs Laboratory Tests Test 06/26/18 12:15 06/26/18 17:50 06/26/18 21:44 06/27/18 06:28 Bedside Glucose 120 110 133 White Blood Count 8.0 Red Blood Count 2.66 L Hemoglobin 8.3 L Hematocrit 26.2 L Mean Corpuscular 98.5 Volume Mean Corpuscular 31.2 Hemoglobin Mean Corpuscular 31.7 L Hemoglobin Concent Red Cell Distribution 15.9 H Width Platelet Count 87 L Mean Platelet Volume 9.4 Immature Granulocytes 1.400 H % Neutrophils % 73.8 Lymphocytes % 11.6 L Monocytes % 8.6 Eosinophils % 4.2 Basophils % 0.4 Nucleated Red Blood 0.0 Cells % Immature Granulocytes 0.110 H # Neutrophils # 5.9 Lymphocytes # 0.9 Monocytes # 0.7 Eosinophils # 0.3 Basophils # 0.0 Nucleated Red Blood 0.0 Cells # Sodium Level 138 Potassium Level 3.4 L Chloride Level 113 H Carbon Dioxide Level 13 L Anion Gap 12 Blood Urea Nitrogen 37 H Creatinine 3.04 H Est Glomerular Filtrat 15 L Rate mL/min Glucose Level 95 Calcium Level 8.6 Magnesium Level 1.6 L Total Bilirubin 0.5 Direct Bilirubin 0.00 Indirect Bilirubin 0.5 Aspartate Amino 23 Transf (AST/SGOT) Alanine 16 Aminotransferase (ALT/ SGPT) Alkaline Phosphatase 51 Total Protein 6.6 Albumin 2.5 L Globulin 4.10 H Albumin/Globulin Ratio 0.60 Test 06/27/18 08:35 Bedside Glucose 112 Medications Medication Current Medications Lactulose (Enulose) 20 gm Q6 PO Last administered on 06/27/18at 05:32; Admin Dose 20 GM; Start 06/22/18 at 20:30 IV Flush (NS 3 ml) 3 ml PER PROTOCOL IV ; Start 06/22/18 at 20:30 Ondansetron HCl (Zofran Inj) 4 mg Q6H PRN IV NAUSEA/VOMITING; Start 06/22/18 at 20:30 Acetaminophen (Tylenol Tab) 650 mg Q6H PRN PO .PAIN 1-3 OR TEMP Last administered on 06/23/18 03:01; Admin Dose 650 MG; Start 06/22/18 at 20:30 Levothyroxine Sodium (Synthroid) 50 mcg BEFORE BREAKFAST PO Last administered on 06/27/18 06:49; Admin Dose 50 MCG; Start 06/23/18 at 07:00 Rifaximin (Xifaxan) 550 mg BID PO Last administered on 06/27/18 08:38; Admin Dose 550 MG; Start 06/23/18 at 09:00 Diagnostic Test (Pha) (Accu-Chek) 1 ea 02 XX ; Start 06/23/18 at 02:00 Insulin Aspart (Novolog Insulin Pen) NOVOLOG *MILD* ALGORITHM WITH MEALS BED TIME SC Last administered on 06/25/18 08:14; Admin Dose 2 UNIT; Start 06/23/18 at 07:55 Miscellaneous Information 1 ea NOTE XX ; Start 06/22/18 at 22:30 Glucose (Glutose) 15 gm Q15M PRN PO DECREASED GLUCOSE; Start 06/22/18 at 22:30 Glucose (Glutose) 22.5 gm Q15M PRN PO DECREASED GLUCOSE; Start 06/22/18 at 22:30 Dextrose (D50w Syringe) 25 ml Q15M PRN IV DECREASED GLUCOSE; Start 06/22/18 at 22:30 Dextrose (D50w Syringe) 50 ml Q15M PRN IV DECREASED GLUCOSE Last administered on 06/23/18at 07:43; Admin Dose 50 ML; Start 06/22/18 at 22:30 Glucagon (Glucagen) 1 mg Q15M PRN IM DECREASED GLUCOSE; Start 06/22/18 at 22:30 Glucose (Glutose) 15 gm Q15M PRN BUCCAL DECREASED GLUCOSE; Start 06/22/18 at 22:30 Ferrous Sulfate (Ferrous Sulfate (Ec)) 325 mg DAILY PO Last administered on 06/27/18 08:38; Admin Dose 325 MG; Start 06/23/18 at 09:00 Gabapentin (Neurontin) 300 mg TID PO Last administered on 06/27/18 08:37; Admin Dose 300 MG; Start 06/23/18 at 09:00 Multivitamins Therapeutic (Theragran) 1 tab DAILY PO Last administered on 06/27/18 08:37; Admin Dose 1 TAB; Start 06/23/18 at 09:00 Insulin Glargine (Lantus) 21 units DAILY@2000 SC Last administered on 06/23/18 21:19; Admin Dose 21 UNITS; Start 06/23/18 at 20:00; Status Hold Ceftriaxone Sodium 50 ml @ 100 mls/hr Q24H IVPB Last administered on 06/26/18 13:26; Admin Dose 100 MLS/HR; Start 06/23/18 at 14:00 Pantoprazole (Protonix Iv) 40 mg BID@06,18 IV Last administered on 06/27/18 05:32; Admin Dose 40 MG; Start 06/23/18 at 18:00 Nystatin (Nystatin Powder) 1 applic BID TOP Last administered on 06/27/18 08:38; Admin Dose 1 APPLIC; Start 06/24/18 at 09:00 Mupirocin (Bactroban) 1 applic BID TOP Last administered on 06/27/18 08:38; Admin Dose 1 APPLIC; Start 06/24/18 at 12:30; Stop 07/01/18 at 12:29 Propranolol HCl (Inderal) 20 mg TID PO ; Start 06/26/18 at 09:00 Magnesium Sulfate 50 ml @ 25 mls/hr ONCE ONCE IVPB Last administered on 06/27/18 09:35; Admin Dose 25 MLS/HR; Start 06/27/18 at 09:00; Stop 06/27/18 at 10:59 GAYLE BARCLAY NP Jun 27, 2018 10:59
[2018-06-27] MEDS: CIPROFLOXACIN 500 MG TAB PO SCH (12:39)
[2018-06-27] MEDS ORDERED: BISACODYL (EC) 5 MG TAB PO ONE ×2 (15:30→19:00)
--- NOTE | 2018-06-27 16:01 | CONS ---
Consult Date/Type/Reason Admit Date/Time Jun 22, 2018 at 19:27 Initial Consult Date 06/23/18 Type of Consultation: Urology Reason for Consultation Gross hematuria and urinary tract infection Requesting Provider: BERNARDO RAMEY Date/Time of Note DATE: 06/27/18 TIME: 15:59 Subjective Patient is more alert and comfortable. She denies any pain. Objective Vitals Vital Signs Date Temp Pulse Resp B/P (MAP) Pulse Ox O2 O2 Flow FiO2 Time Delivery Rate 06/27/18 97.7 61 16 105/53 99 15:42 (70) 06/24/18 Room Air 15:03 Intake and Output 06/26/18 06/26/18 06/27/18 1515:00 23:00 07:00 IntakeIntake Total 50 ml 850 ml 1550 ml OutputOutput Total 1100 ml 950 ml BalanceBalance 50 ml -250 ml 600 ml Exam Abdomen is soft the Levy catheter is now draining clear urine. There is mild occasional debris in the catheter. Results/Medications Result Diagram: 06/27/1828 06/27/1828 Results 24 hrs Laboratory Tests Test 06/26/18 17:50 06/26/18 21:44 06/27/18 06:28 06/27/18 08:35 Bedside Glucose 110 133 112 White Blood Count 8.0 Red Blood Count 2.66 L Hemoglobin 8.3 L Hematocrit 26.2 L Mean Corpuscular 98.5 Volume Mean Corpuscular 31.2 Hemoglobin Mean Corpuscular 31.7 L Hemoglobin Concent Red Cell Distribution 15.9 H Width Platelet Count 87 L Mean Platelet Volume 9.4 Immature Granulocytes 1.400 H % Neutrophils % 73.8 Lymphocytes % 11.6 L Monocytes % 8.6 Eosinophils % 4.2 Basophils % 0.4 Nucleated Red Blood 0.0 Cells % Immature Granulocytes 0.110 H # Neutrophils # 5.9 Lymphocytes # 0.9 Monocytes # 0.7 Eosinophils # 0.3 Basophils # 0.0 Nucleated Red Blood 0.0 Cells # Sodium Level 138 Potassium Level 3.4 L Chloride Level 113 H Carbon Dioxide Level 13 L Anion Gap 12 Blood Urea Nitrogen 37 H Creatinine 3.04 H Est Glomerular 15 L Filtrat Rate mL/min Glucose Level 95 Calcium Level 8.6 Magnesium Level 1.6 L Total Bilirubin 0.5 Direct Bilirubin 0.00 Indirect Bilirubin 0.5 Aspartate Amino 23 Transf (AST/SGOT) Alanine 16 Aminotransferase (ALT /SGPT) Alkaline Phosphatase 51 Total Protein 6.6 Albumin 2.5 L Globulin 4.10 H Albumin/Globulin 0.60 Ratio Test 06/27/18 12:36 Bedside Glucose 178 Home Meds Reported Medications Rifaximin* (Xifaxan*) 550 Mg Tablet, 550 MG PO BID, TAB 06/22/18 Cholecalciferol* (Vitamin D3*) 1,000 Unit Tablet, 2000 UNIT PO Q12H, TAB 06/22/18 Acetaminophen* (Tylenol*) 325 Mg Tablet, 650 MG PO Q4H PRN for MILD TO SEVERE PAIN -01/27, TAB 06/22/18 Epoetin Uriel (Procrit) 3,000 Unit/1 Ml Vial, 3000 UNIT IJ DAILY, VIAL ON MON,THU,THU, END DATE 07/13/09 06/22/18 Famotidine* (Pepcid*) 20 Mg Tablet, 20 MG PO DAILY, #30 TAB 06/22/18 Multivitamins* (Theragran*) 1 Tab Tab, 1 TAB PO DAILY, TAB 06/22/18 Polyethylene Glycol* (Miralax*) 17 Gm Powd.pack, 17 GM PO DAILY, #30 PACKET 06/22/18 Magnesium Hydroxide* (Milk Of Magnesia*) 400 Mg/5 Ml Oral.susp, 30 ML PO DAILY, ML 06/22/18 Levothyroxine Sodium* (Levothyroxine Sodium*) 50 Mcg Tablet, 50 MCG PO BEFORE BREAKFAST, #30 TAB 06/22/18 Furosemide* (Furosemide*) 40 Mg Tablet, 40 MG PO DAILY, TAB 06/22/18 Insulin Glargine* (Lantus*) 100 Unit/Ml Soln, 30 UNIT SC DAILY, #1 VIAL 06/22/18 Glimepiride* (Glimepiride*) 2 Mg Tablet, 4 MG PO WITH BREAKFAST, TAB 06/22/18 Gabapentin* (Gabapentin*) 300 Mg Capsule, 300 MG PO TID, #90 CAP 06/22/18 Mineral Oil* (Fleet* Mineral Oil Enema) Unknown Strength Oil, 118 ML LA NEEDED PRN for BOWEL PREP, ENEMA 06/22/18 Ferrous Sulfate* (Ferrous Sulfate*) 325 Mg Tabec, 325 MG PO DAILY, TAB 06/22/18 Bisacodyl* (Bisacodyl*) 10 Mg Supp, 10 MG LA DAILY, SUPP 06/22/18 Digoxin* (Digitek*) 125 Mcg Tablet, 0.125 MG PO DAILY, TAB HOLD FOR HR<60 06/22/18 Ascorbic Acid (Vitamin C) 500 Mg Tab, 500 MG PO DAILY, TAB 06/22/18 Discontinued Reported Medications Hydrochlorothiazide* (Hydrochlorothiazide*) 12.5 Mg Tablet, 12.5 MG PO DAILY, #30 TAB HOLD FOR SBP<110 06/22/18 Benzonatate* (Benzonatate*) 100 Mg Capsule, 100 MG PO TID PRN for COUGH, CAP 06/22/18 Medications Current Medications Lactulose (Enulose) 20 gm Q6 PO Last administered on 06/27/18at 05:32; Admin Dose 20 GM; Start 06/22/18 at 20:30 IV Flush (NS 3 ml) 3 ml PER PROTOCOL IV ; Start 06/22/18 at 20:30 Ondansetron HCl (Zofran Inj) 4 mg Q6H PRN IV NAUSEA/VOMITING; Start 06/22/18 at 20:30 Acetaminophen (Tylenol Tab) 650 mg Q6H PRN PO .PAIN 1-3 OR TEMP Last administered on 06/23/18at 03:01; Admin Dose 650 MG; Start 06/22/18 at 20:30 Levothyroxine Sodium (Synthroid) 50 mcg BEFORE BREAKFAST PO Last administered on 06/27/18at 06:49; Admin Dose 50 MCG; Start 06/23/18 at 07:00 Rifaximin (Xifaxan) 550 mg BID PO Last administered on 06/27/18at 08:38; Admin Dose 550 MG; Start 06/23/18 at 09:00 Diagnostic Test (Pha) (Accu-Chek) 1 ea 02 XX ; Start 06/23/18 at 02:00 Insulin Aspart (Novolog Insulin Pen) NOVOLOG *MILD* ALGORITHM WITH MEALS BEDTIME SC Last administered on 06/27/18at 12:58; Admin Dose 1 UNIT; Start 06/23/18 at 07:55 Miscellaneous Information 1 ea NOTE XX ; Start 06/22/18 at 22:30 Glucose (Glutose) 15 gm Q15M PRN PO DECREASED GLUCOSE; Start 06/22/18 at 22:30 Glucose (Glutose) 22.5 gm Q15M PRN PO DECREASED GLUCOSE; Start 06/22/18 at 22:30 Dextrose (D50w Syringe) 25 ml Q15M PRN IV DECREASED GLUCOSE; Start 06/22/18 at 22:30 Dextrose (D50w Syringe) 50 ml Q15M PRN IV DECREASED GLUCOSE Last administered on 06/23/18at 07:43; Admin Dose 50 ML; Start 06/22/18 at 22:30 Glucagon (Glucagen) 1 mg Q15M PRN IM DECREASED GLUCOSE; Start 06/22/18 at 22:30 Glucose (Glutose) 15 gm Q15M PRN BUCCAL DECREASED GLUCOSE; Start 06/22/18 at 22:30 Ferrous Sulfate (Ferrous Sulfate (Ec)) 325 mg DAILY PO Last administered on 06/27/18 08:38; Admin Dose 325 MG; Start 06/23/18 at 09:00 Gabapentin (Neurontin) 300 mg TID PO Last administered on 06/27/18 12:39; Admin Dose 300 MG; Start 06/23/18 at 09:00 Multivitamins Therapeutic (Theragran) 1 tab DAILY PO Last administered on 06/27/18 08:37; Admin Dose 1 TAB; Start 06/23/18 at 09:00 Insulin Glargine (Lantus) 21 units DAILY@2000 SC Last administered on 06/23/18 21:19; Admin Dose 21 UNITS; Start 06/23/18 at 20:00; Status Hold Pantoprazole (Protonix Iv) 40 mg BID@06,18 IV Last administered on 06/27/18 05:32; Admin Dose 40 MG; Start 06/23/18 at 18:00 Nystatin (Nystatin Powder) 1 applic BID TOP Last administered on 06/27/18 08:38; Admin Dose 1 APPLIC; Start 06/24/18 at 09:00 Mupirocin (Bactroban) 1 applic BID TOP Last administered on 06/27/18 08:38; Admin Dose 1 APPLIC; Start 06/24/18 at 12:30; Stop 07/01/18 at 12:29 Propranolol HCl (Inderal) 20 mg TID PO ; Start 06/26/18 at 09:00 Ciprofloxacin (Cipro) 500 mg Q18H PO Last administered on 3/10/19at 12:39; Admin Dose 500 MG; Start 06/27/18 at 12:00 Magnesium Citrate (Citroma) 300 ml ONCE ONCE PO ; Start 06/27/18 at 17:00; Stop 06/27/18 at 17:01 Polyethylene Glycol (Miralax) 119 gm ONCE ONCE PO ; Start 06/27/18 at 18:00; Stop 06/27/18 at 18:01 Polyethylene Glycol (Miralax) 119 gm 2nd Dose (GI Prep) ONCE PO ; Start 06/27/18 at 18:00; Stop 06/27/18 at 18:01 Bisacodyl (Dulcolax) 10 mg 2nd Dose (GI Prep) ONCE PO ; Start 06/27/18 at 19:00; Stop 06/27/18 at 19:01 Assessment/Plan Hospital Course (Demo Recall) 67-year-old female sent from [facility] for a low hemoglobin of 7.5. The patient does not know if she has had history of gross hematuria. She also denies any history of melena. No history of nausea or vomiting. She does have a history of paroxysmal atrial fibrillation, hypertension, dyslipidemia and chronic kidney disease. She was found to have a gross hematuria and a urological consultation was therefore requested. The patient denies any prior history of kidney stones. The CT scan of the abdomen and pelvis showed: Cirrhotic liver. No mass seen. Splenomegaly, ascites and varices compatible with portal hypertension. Patency of the portal vein is indeterminate on this noncontrast study. Cholecystectomy. Bilateral hydroureter nephrosis to the level of the bladder. Loss of parenchyma of the left kidney. No ureteral stones seen. No bladder masses stone. Question chronic reflux versus bladder outlet obstruction. Vascular calcifications. Paraumbilical hernia. Minimal nodular infiltrate right lung base. Presently the patient is better and the urine is gradually clearing up. The urine culture showed: URINE CULTURE Final Organism 1 K.PNEUMONIAE SSP PNEUMONIAE COLONY COUNT >100,000 CFU/ml Organism 2 CITROBACTER FREUNDII COLONY COUNT >100,000 CFU/ml K PNE SPP C FREUNDII C FREUNDII M.I.C. RX M.I.C. RX M.I.C. RX --------- --- --------- --- --------- --- CEFAZOLIN <=4 S CEFEPIME <=1 S CEFOTAXIME S R CIPROFLOXACIN <=0.25 S <=0.25 S GENTAMICIN <=1 S <=1 S LEVOFLOXACIN 0.5 S 1 S MEROPENEM 0.032 S NITROFURANTOIN 64 I <=16 S TOBRAMYCIN <=1 S <=1 S TRIMETHOPRIM/SULFAMETHOXAZOLE <=20 S <=20 S PIPERACILLIN/TAZOBACTAM <=4 S The patient is on ceftriaxone. And we should continue that. We did send urine for cytology and that there is still pending. Clinically she is better and the urine is no longer bloody. Most likely it was a bloody because of the infection. Continue the ceftriaxone. GREGORY SCHNEIDER MD Jun 27, 2018 16:01
--- NOTE | 2018-06-27 16:14 | PN ---
Date/Time of Note Date/Time of Note DATE: 06/27/18 TIME: 16:08 Assessment/Plan VTE Prophylaxis Risk score (from Nsg)>0 risk: 4 SCD applied (from Nsg): Yes Pharmacological prophylaxis: heparin Lines/Catheters IV Catheter Type (from Nrsg): Peripheral IV Urinary Cath still in place: Yes Reason Cath still needed: skin wounds contaminated by urine Assessment/Plan Assessment/Plan Assessment: Severe macrocytic anemia -Likely multifactorial, H/H stable at this time. Liver cirrhosis with sequela -Coagulopathy, mild -Thrombocytopenia History of Esophageal varices -EGD 4 years ago status post CVL History of hepatitis C -Unclear if treated -RNA pending Encephalopathy -Acute on chronic versus chronic -Continue on lactulose S/p SVT -converted post Cardizem in ER CKD Bilateral hydronephrosis Plan: EGD/colonoscopy previously cancelled due to potential transfer to other facility, however no beds available and transfer on hold. Endoscopy - risks/benefits/alternatives/indications of procedure and sedation/anesthesia discussed with patient's sn Jluis Oconnor [phone] who states understanding and gives informed consent to proceed. Consent for colonosc opy/EGD previously signed. Left message again today with patient's son. Discussed plan with patient who is agreeable to proceed but wanted to check with son. Clear liquids today, NPO after midnight. Bowel prep. Monitor CBC, stable anemia. Patient seen collaboration with Dr. Correa Subjective: The patient denies any abdominal pain and denies any nausea or vomiting. She is tolerating a clear liquid diet. No reports of rectal bleeding or melanotic stools. CBC noted with stable anemia. Physical Exam: Constitutional: alert, oriented, other (forgetfull/confused) Head: normocephalic ENMT: nl external ears & nose Neck: supple, non-tender Respiratory: clear to auscultation Cardiovascular: regular rate and rhythm Gastrointestinal: soft, bowel sounds, non tender Genitourinary - Female: [place] in place, clear urine Result Diagram: 06/27/1862706/27/18627 Results 24hrs Laboratory Tests Test 06/26/18 17:50 06/26/18 21:44 06/27/18 06:28 06/27/18 08:35 Bedside Glucose 110 133 112 White Blood Count 8.0 Red Blood Count 2.66 L Hemoglobin 8.3 L Hematocrit 26.2 L Mean Corpuscular 98.5 Volume Mean Corpuscular 31.2 Hemoglobin Mean Corpuscular 31.7 L Hemoglobin Concent Red Cell Distribution 15.9 H Width Platelet Count 87 L Mean Platelet Volume 9.4 Immature Granulocytes 1.400 H % Neutrophils % 73.8 Lymphocytes % 11.6 L Monocytes % 8.6 Eosinophils % 4.2 Basophils % 0.4 Nucleated Red Blood 0.0 Cells % Immature Granulocytes 0.110 H # Neutrophils # 5.9 Lymphocytes # 0.9 Monocytes # 0.7 Eosinophils # 0.3 Basophils # 0.0 Nucleated Red Blood 0.0 Cells # Sodium Level 138 Potassium Level 3.4 L Chloride Level 113 H Carbon Dioxide Level 13 L Anion Gap 12 Blood Urea Nitrogen 37 H Creatinine 3.04 H Est Glomerular 15 L Filtrat Rate mL/min Glucose Level 95 Calcium Level 8.6 Magnesium Level 1.6 L Total Bilirubin 0.5 Direct Bilirubin 0.00 Indirect Bilirubin 0.5 Aspartate Amino 23 Transf (AST/SGOT) Alanine 16 Aminotransferase (ALT /SGPT) Alkaline Phosphatase 51 Total Protein 6.6 Albumin 2.5 L Globulin 4.10 H Albumin/Globulin 0.60 Ratio Test 06/27/18 12:36 Bedside Glucose 178 CC: ART CORREA MD ; Exam/Review of Systems Exam Vitals Vital Signs Date Temp Pulse Resp B/P (MAP) Pulse Ox O2 O2 Flow FiO2 Time Delivery Rate 06/27/18 97.7 61 16 105/53 99 15:42 (70) 06/24/18 Room Air 15:03 Intake and Output 06/26/18 06/26/18 06/27/18 1515:00 23:00 07:00 IntakeIntake Total 50 ml 850 ml 1550 ml OutputOutput Total 1100 ml 950 ml BalanceBalance 50 ml -250 ml 600 ml Results Results 24hrs Laboratory Tests Test 06/26/18 17:50 06/26/18 21:44 06/27/18 06:28 06/27/18 08:35 Bedside Glucose 110 133 112 White Blood Count 8.0 Red Blood Count 2.66 L Hemoglobin 8.3 L Hematocrit 26.2 L Mean Corpuscular 98.5 Volume Mean Corpuscular 31.2 Hemoglobin Mean Corpuscular 31.7 L Hemoglobin Concent Red Cell Distribution 15.9 H Width Platelet Count 87 L Mean Platelet Volume 9.4 Immature Granulocytes 1.400 H % Neutrophils % 73.8 Lymphocytes % 11.6 L Monocytes % 8.6 Eosinophils % 4.2 Basophils % 0.4 Nucleated Red Blood 0.0 Cells % Immature Granulocytes 0.110 H # Neutrophils # 5.9 Lymphocytes # 0.9 Monocytes # 0.7 Eosinophils # 0.3 Basophils # 0.0 Nucleated Red Blood 0.0 Cells # Sodium Level 138 Potassium Level 3.4 L Chloride Level 113 H Carbon Dioxide Level 13 L Anion Gap 12 Blood Urea Nitrogen 37 H Creatinine 3.04 H Est Glomerular 15 L Filtrat Rate mL/min Glucose Level 95 Calcium Level 8.6 Magnesium Level 1.6 L Total Bilirubin 0.5 Direct Bilirubin 0.00 Indirect Bilirubin 0.5 Aspartate Amino 23 Transf (AST/SGOT) Alanine 16 Aminotransferase (ALT /SGPT) Alkaline Phosphatase 51 Total Protein 6.6 Albumin 2.5 L Globulin 4.10 H Albumin/Globulin 0.60 Ratio Test 06/27/18 12:36 Bedside Glucose 178 Medications Medication Current Medications Lactulose (Enulose) 20 gm Q6 PO Last administered on 06/27/18at 05:32; Admin Dose 20 GM; Start 06/22/18 at 20:30 IV Flush (NS 3 ml) 3 ml PER PROTOCOL IV ; Start 06/22/18 at 20:30 Ondansetron HCl (Zofran Inj) 4 mg Q6H PRN IV NAUSEA/VOMITING; Start 06/22/18 at 20:30 Acetaminophen (Tylenol Tab) 650 mg Q6H PRN PO .PAIN 1-3 OR TEMP Last administered on 06/23/18 03:01; Admin Dose 650 MG; Start 06/22/18 at 20:30 Levothyroxine Sodium (Synthroid) 50 mcg BEFORE BREAKFAST PO Last administered on 06/27/18 06:49; Admin Dose 50 MCG; Start 06/23/18 at 07:00 Rifaximin (Xifaxan) 550 mg BID PO Last administered on 06/27/18 08:38; Admin Dose 550 MG; Start 06/23/18 at 09:00 Diagnostic Test (Pha) (Accu-Chek) 1 ea 02 XX ; Start 06/23/18 at 02:00 Insulin Aspart (Novolog Insulin Pen) NOVOLOG *MILD* ALGORITHM WITH MEALS BEDTIME SC Last administered on 06/27/18 12:58; Admin Dose 1 UNIT; Start 06/23/18 at 07:55 Miscellaneous Information 1 ea NOTE XX ; Start 06/22/18 at 22:30 Glucose (Glutose) 15 gm Q15M PRN PO DECREASED GLUCOSE; Start 06/22/18 at 22:30 Glucose (Glutose) 22.5 gm Q15M PRN PO DECREASED GLUCOSE; Start 06/22/18 at 22:30 Dextrose (D50w Syringe) 25 ml Q15M PRN IV DECREASED GLUCOSE; Start 06/22/18 at 22:30 Dextrose (D50w Syringe) 50 ml Q15M PRN IV DECREASED GLUCOSE Last administered on 06/23/18 07:43; Admin Dose 50 ML; Start 06/22/18 at 22:30 Glucagon (Glucagen) 1 mg Q15M PRN IM DECREASED GLUCOSE; Start 06/22/18 at 22:30 Glucose (Glutose) 15 gm Q15M PRN BUCCAL DECREASED GLUCOSE; Start 06/22/18 at 22:30 Ferrous Sulfate (Ferrous Sulfate (Ec)) 325 mg DAILY PO Last administered on 06/27/18 08:38; Admin Dose 325 MG; Start 06/23/18 at 09:00 Gabapentin (Neurontin) 300 mg TID PO Last administered on 06/27/18 12:39; Admin Dose 300 MG; Start 06/23/18 at 09:00 Multivitamins Therapeutic (Theragran) 1 tab DAILY PO Last administered on 06/27 08:37; Admin Dose 1 TAB; Start 06/23/18 at 09:00 Insulin Glargine (Lantus) 21 units DAILY@1999 SC Last administered on 06/23/18 21:19; Admin Dose 21 UNITS; Start 06/23/18 at 20:00; Status Hold Pantoprazole (Protonix Iv) 40 mg BID@06,18 IV Last administered on 06/27/18 05:32; Admin Dose 40 MG; Start 06/23/18 at 18:00 Nystatin (Nystatin Powder) 1 applic BID TOP Last administered on 06/27/18 08:38; Admin Dose 1 APPLIC; Start 06/24/18 at 09:00 Mupirocin (Bactroban) 1 applic BID TOP Last administered on 06/27/18 08:38; Admin Dose 1 APPLIC; Start 06/24/18 at 12:30; Stop 07/01/18 at 12:29 Propranolol HCl (Inderal) 20 mg TID PO ; Start 06/26/18 at 09:00 Ciprofloxacin (Cipro) 500 mg Q18H PO Last administered on 06/27/18at 12:39; Admin Dose 500 MG; Start 06/27/18 at 12:00 Magnesium Citrate (Citroma) 300 ml ONCE ONCE PO ; Start 06/27/18 at 17:00; Stop 06/27/18 at 17:01 Polyethylene Glycol (Miralax) 119 gm ONCE ONCE PO ; Start 06/27/18 at 18:00; Stop 06/27/18 at 18:01 Polyethylene Glycol (Miralax) 119 gm 2nd Dose (GI Prep) ONCE PO ; Start 06/27/18 at 18:00; Stop 06/27/18 at 18:01 Bisacodyl (Dulcolax) 10 mg 2nd Dose (GI Prep) ONCE PO ; Start 06/27/18 at 19:00; Stop 06/27/18 at 19:01 MARKUS READ NP Jun 27, 2018 16:14
[2018-06-27] MEDS ORDERED: MAGNESIUM CITRATE 300 ML BTL PO ONE (17:00)
[2018-06-27] MEDS ORDERED: POLYETHYLENE GLYCOL 3350 119 GM POWDER PO ONE ×2 (18:00)
[2018-06-27] MEDS ORDERED: CIPROFLOXACIN 250 MG TAB PO SCH (18:00)
[2018-06-28] VITALS (17 sets, daily range): BP systolic 96–124; BP diastolic 41–70; PULSE 52–99; RESP 14–61
[2018-06-28] MEDS: ACCU-CHEK XX SCH (02:00)
[2018-06-28] MEDS: PANTOPRAZOLE 40 MG INJ IV SCH ×2 (05:14→18:32)
[2018-06-28] MEDS: CIPROFLOXACIN 500 MG TAB PO SCH (05:14)
[2018-06-28] MEDS: LACTULOSE 30ML CUP PO SCH ×4 (05:14→18:00)
[2018-06-28] MEDS ORDERED: PROPOFOL 200 MG INJ ONE (07:00)
[2018-06-28] MEDS: LEVOTHYROXINE 50 MCG TAB PO SCH (07:08)
[2018-06-28] MEDS: INSULIN ASPART [NOVOLOG] 3 ML PEN SC SCH ×4 (07:55→20:26)
[2018-06-28] MEDS: FERROUS SULFATE (EC) 325 MG TAB PO SCH (08:39)
[2018-06-28] MEDS: MULTIVITAMINS THERAPEUTIC TAB PO SCH (08:39)
[2018-06-28] MEDS: RIFAXIMIN 550 MG TAB PO SCH ×2 (08:39→20:26)
[2018-06-28] MEDS: NYSTATIN 30 GM POWDER BTL TOP SCH ×2 (08:40→20:25)
[2018-06-28] MEDS: MUPIROCIN 2% 22 GM OINT TOP SCH ×2 (08:40→20:24)
[2018-06-28] MEDS: PROPRANOLOL 20 MG TAB PO SCH ×3 (08:40→20:26)
[2018-06-28] MEDS: GABAPENTIN 300 MG CAP PO SCH ×3 (08:40→20:26)
--- NOTE | 2018-06-28 10:18 | PN ---
DATE: 06/28/2018 SUBJECTIVE: The patient is stable. The patient has been refusing EGD, colonoscopy. No other events noted. OBJECTIVE: VITAL SIGNS: Blood pressure is 109/58, respirations 16, pulse 63, temperature 97.8. HEENT: Head is normocephalic. NECK: Supple. HEART: Regular rate. LUNGS: Show diminished breath sounds at the base. ABDOMEN: Soft, nontender to palpation without rebound or guarding. EXTREMITIES: Negative for clubbing, cyanosis. Trace edema. DERMATOLOGIC: No rashes. MUSCULOSKELETAL: No joint effusion. NEUROLOGIC: No change in exam. MEDICATIONS: Reviewed. LABORATORY DATA: Reviewed. ASSESSMENT AND PLAN: 1. Nonoliguric acute kidney injury on top of chronic kidney disease stage IV with previous baseline creatinine of 3 to 3.4 mg/dL. Etiology of acute kidney injury is multifactorial secondary to hemodyn amics, and tubular injury. Renal function has been improving. Continue current treatment plan, supp ortive care, renally dose all medicines. 2. Chronic kidney disease with longstanding obstructive uropathy. The patient is currently in acute kidney injury as stated above. Continue current treatment plan. Continue to monitor, continue dise ase factor modification. 3. Anemia. Monitor hemoglobin and hematocrit levels. The patient is refusing EGD. 4. Mineral bone disorder, monitor calcium and phosphorus levels. 5. Electrolyte abnormalities. Continue to monitor and replete as needed. 6. Metabolic acidosis secondary to acute kidney injury, chronic kidney disease. The patient's ABG w as reviewed. We will continue to monitor bicarbonate levels closely. May consider starting Bicitra. 7. Bilateral hydronephrosis secondary to bladder obstruction. The patient is status post Levy cath eter placement. Continue to monitor. Follow up with urology. 8. Encephalopathy, hepatic and toxic metabolic. Continue to monitor. 9. Liver cirrhosis with hepatitis C. The patient is decompensated. Continue medical management and follow up with GI. 10. Diabetes. Continue current insulin regimen. 11. Hypothyroidism. Continue Synthroid. Dictated By: JITENDRA ESPINAL DO NR/NTS Conf#: [id number] DID#: [id number] CC: JATINDER ERIC MD; ARIANA DELGADO MD; GREGORY SCHNEIDER MD;*EndCC*
--- NOTE | 2018-06-28 16:24 | HPN ---
Date/Time of Note Date/Time of Note DATE: 06/28/18 TIME: 16:24 Interval H&P Admission Note Pt. seen H&P reviewed: No system changes MARSHA BASURTO Jun 28, 2018 16:24
--- NOTE | 2018-06-28 16:31 | PREAC ---
Date/Time of Note Date/Time of Note DATE: 06/28/18 TIME: 16:28 Anesthesia Eval and Record Evaluation Time Pre-Procedure Interview DATE: 06/28/18 TIME: 16:28 Age 67 Sex female NPO: 8 hrs Preoperative diagnosis abdominal pain , bleeding Planned procedure EGD, Colonoscopy Past Medical History Past Medical History: Includes Cardio: HTN, Dyslipidemia Endo: Diabetes, Hypothyroid Pulm: COPD Neuro: Other (encephalophaty) Surgery & Anesthesia Issues No known issue Meds Anticoagulation: No Beta Joshua within 24 hr: No Reason Beta Joshua not given: Pt. not on B-Joshua Reported Medications Rifaximin* (Xifaxan*) 550 Mg Tablet, 550 MG PO BID, TAB 06/22/18 Cholecalciferol* (Vitamin D3*) 1,000 Unit Tablet, 2000 UNIT PO Q12H, TAB 06/22/18 Acetaminophen* (Tylenol*) 325 Mg Tablet, 650 MG PO Q4H PRN for MILD TO SEVERE PAIN -01/27, TAB 06/22/18 Epoetin Uriel (Procrit) 3,000 Unit/1 Ml Vial, 3000 UNIT IJ DAILY, VIAL ON MON,WED,FRI, END DATE 07/13/09 06/22/18 Famotidine* (Pepcid*) 20 Mg Tablet, 20 MG PO DAILY, #30 TAB 06/22/18 Multivitamins* (Theragran*) 1 Tab Tab, 1 TAB PO DAILY, TAB 06/22/18 Polyethylene Glycol* (Miralax*) 17 Gm Powd.pack, 17 GM PO DAILY, #30 PACKET 06/22/18 Magnesium Hydroxide* (Milk Of Magnesia*) 400 Mg/5 Ml Oral.susp, 30 ML PO DAILY, ML 06/22/18 Levothyroxine Sodium* (Levothyroxine Sodium*) 50 Mcg Tablet, 50 MCG PO BEFORE BREAKFAST, #30 TAB 06/22/18 Furosemide* (Furosemide*) 40 Mg Tablet, 40 MG PO DAILY, TAB 06/22/18 Insulin Glargine* (Lantus*) 100 Unit/Ml Soln, 30 UNIT SC DAILY, #1 VIAL 06/22/18 Glimepiride* (Glimepiride*) 2 Mg Tablet, 4 MG PO WITH BREAKFAST, TAB 06/22/18 Gabapentin* (Gabapentin*) 300 Mg Capsule, 300 MG PO TID, #90 CAP 06/22/18 Mineral Oil* (Fleet* Mineral Oil Enema) Unknown Strength Oil, 118 ML OK NEEDED PRN for BOWEL PREP, ENEMA 06/22/18 Ferrous Sulfate* (Ferrous Sulfate*) 325 Mg Tabec, 325 MG PO DAILY, TAB 06/22/18 Bisacodyl* (Bisacodyl*) 10 Mg Supp, 10 MG OK DAILY, SUPP 06/22/18 Digoxin* (Digitek*) 125 Mcg Tablet, 0.125 MG PO DAILY, TAB HOLD FOR HR<60 06/22/18 Ascorbic Acid (Vitamin C) 500 Mg Tab, 500 MG PO DAILY, TAB 06/22/18 Discontinued Reported Medications Hydrochlorothiazide* (Hydrochlorothiazide*) 12.5 Mg Tablet, 12.5 MG PO DAILY, #30 TAB HOLD FOR SBP<110 06/22/18 Benzonatate* (Benzonatate*) 100 Mg Capsule, 100 MG PO TID PRN for COUGH, CAP 06/22/18 Current Medications Lactulose (Enulose) 20 gm Q6 PO Last administered on 06/28/18at 13:27; Admin Dose 20 GM; Start 06/22/18 at 20:30 IV Flush (NS 3 ml) 3 ml PER PROTOCOL IV ; Start 06/22/18 at 20:30 Ondansetron HCl (Zofran Inj) 4 mg Q6H PRN IV NAUSEA/VOMITING; Start 06/22/18 at 20:30 Acetaminophen (Tylenol Tab) 650 mg Q6H PRN PO .PAIN 1-3 OR TEMP Last administered on 06/23/18at 03:01; Admin Dose 650 MG; Start 06/22/18 at 20:30 Levothyroxine Sodium (Synthroid) 50 mcg BEFORE BREAKFAST PO Last administered on 06/28/18at 07:08; Admin Dose 50 MCG; Start 06/23/18 at 07:00 Rifaximin (Xifaxan) 550 mg BID PO Last administered on 06/28/18at 08:39; Admin Dose 550 MG; Start 06/23/18 at 09:00 Diagnostic Test (Pha) (Accu-Chek) 1 ea 02 XX ; Start 06/23/18 at 02:00 Insulin Aspart (Novolog Insulin Pen) NOVOLOG *MILD* ALGORITHM WITH MEALS BEDTIME SC Last administered on 06/27/18at 12:58; Admin Dose 1 UNIT; Start 06/23/18 at 07:55 Miscellaneous Information 1 ea NOTE XX ; Start 06/22/18 at 22:30 Glucose (Glutose) 15 gm Q15M PRN PO DECREASED GLUCOSE; Start 06/22/18 at 22:30 Glucose (Glutose) 22.5 gm Q15M PRN PO DECREASED GLUCOSE; Start 06/22/18 at 22:30 Dextrose (D50w Syringe) 25 ml Q15M PRN IV DECREASED GLUCOSE; Start 06/22/18 at 22:30 Dextrose (D50w Syringe) 50 ml Q15M PRN IV DECREASED GLUCOSE Last administered on 06/23/18 07:43; Admin Dose 50 ML; Start 06/22/18 at 22:30 Glucagon (Glucagen) 1 mg Q15M PRN IM DECREASED GLUCOSE; Start 06/22/18 at 22:30 Glucose (Glutose) 15 gm Q15M PRN BUCCAL DECREASED GLUCOSE; Start 06/22/18 at 22:30 Ferrous Sulfate (Ferrous Sulfate (Ec)) 325 mg DAILY PO Last administered on 06/28/18 08:39; Admin Dose 325 MG; Start 06/23/18 at 09:00 Gabapentin (Neurontin) 300 mg TID PO Last administered on 06/28/18 13:27; Ad min Dose 300 MG; Start 06/23/18 at 09:00 Multivitamins Therapeutic (Theragran) 1 tab DAILY PO Last administered on 06/28/18 08:39; Admin Dose 1 TAB; Start 06/23/18 at 09:00 Insulin Glargine (Lantus) 21 units DAILY@1999 SC Last administered on 06/23/18 21:19; Admin Dose 21 UNITS; Start 06/23/18 at 20:00; Status Hold Pantoprazole (Protonix Iv) 40 mg BID@06,18 IV Last administered on 06/28/18 05:14; Admin Dose 40 MG; Start 06/23/18 at 18:00 Nystatin (Nystatin Powder) 1 applic BID TOP Last administered on 06/28/18 08:40; Admin Dose 1 APPLIC; Start 06/24/18 at 09:00 Mupirocin (Bactroban) 1 applic BID TOP Last administered on 06/28/18 08:40; Admin Dose 1 APPLIC; Start 06/24/18 at 12:30; Stop 07/01/18 at 12:29 Propranolol HCl (Inderal) 20 mg TID PO Last administered on 06/28/18at 08:40; Admin Dose 20 MG; Start 06/26/18 at 09:00 Ciprofloxacin (Cipro) 500 mg Q18H PO Last administered on 06/28/18at 05:14; Admin Dose 500 MG; Start 06/27/18 at 12:00 Meds reviewed: Yes Allergies Coded Allergies: No Known Allergy (Unverified , 06/22/18) Allergies Reviewed: Yes Labs/Studies Labs Reviewed: Reviewed by anesthesiologist Result Diagram: 06/28/18 0837 06/28/18 0837 Laboratory Tests 06/28/18 08:37 test: N/A Studies: ECG Pre-procedure Exam Last vitals Vital Signs Date Temp Pulse Resp B/P (MAP) Pulse Ox O2 O2 Flow FiO2 Time Delivery Rate 06/28/18 98.6 54 16 103/57 98 15:29 (72) 06/24/18 Room Air 15:03 Airway: Adequate mouth opening, Adequate thyromental dist Mallampati: Mallampati II Teeth: Normal Lung: Normal Heart: Normal ASA Physical Status ASA physical status: 3 Emergency: None Planned Anesthetic General/MAC: MAC Planned Pain Management Parenteral pain med Pre-operative Attestations Prior to commencing anesthesia and surgery, the patient was re-evaluated, there was verification of: *The patient's identity *The results of appropriate recent lab work and preoperative vital signs *The above evaluation not changing prior to induction *Anesthetic plan, risk benefits, alternative and complications discussed with patient/family; questions answered; patient/family understands, accepts and wishes to proceed. LUIS M VILLEGAS MD Jun 28, 2018 16:31
[2018-06-28] MEDS ORDERED: LIDOCAINE 2% (SDV) 5 ML INJ ONE (16:32)
[2018-06-28] MEDS ORDERED: PROPOFOL 60 ML ONE (16:32)
[2018-06-28] MEDS ORDERED: ONDANSETRON 4 MG INJ IV PRN (17:00)
[2018-06-28] MEDS ORDERED: FENTAnyl 50 MCG/ML VIAL IV PRN (17:00)
--- NOTE | 2018-06-28 17:00 | PAC ---
Date/Time of Note Date/Time of Note DATE: 06/28/18 TIME: 16:59 Post-Anesthesia Notes Post-Anesthesia Note Last documented vital signs Vital Signs Date Temp Pulse Resp B/P (MAP) Pulse Ox O2 O2 Flow FiO2 Time Delivery Rate 06/28/18 98.6 54 16 103/57 98 15:29 (72) 06/24/18 Room Air 15:03 Activity: WNL Respiratory function: WNL Cardiovascular function: WNL Mental status: Baseline Pain reasonably controlled: Yes Hydration appropriate: Yes Nausea/Vomiting absent: Yes Comments BP:112/56, P:78, spo2:100%, T:98,8 LUIS M VILLEGAS MD Jun 28, 2018 17:00
--- NOTE | 2018-06-28 18:37 | CONS ---
Consult Date/Type/Reason Admit Date/Time Jun 22, 2018 at 19:27 Initial Consult Date 06/23/18 Type of Consultation: Urology Reason for Consultation Gross hematuria and urinary tract infection Requesting Provider: BERNARDO RAMEY Date/Time of Note DATE: 06/28/18 TIME: 18:33 Subjective Patient underwent upper and lower GI endoscopy today. Her Levy catheter was leaking and was replaced. The urine remains clear. Objective Vitals Vital Signs Date Temp Pulse Resp B/P (MAP) Pulse Ox O2 O2 Flow FiO2 Time Delivery Rate 06/28/18 52 25 104/62 87 Room Air 17:50 (76) 06/28/18 2.0 17:25 06/28/18 98.3 17:24 Intake and Output 06/27/18 06/27/18 06/28/18 1515:00 23:00 07:00 IntakeIntake Total 900 ml 1050 ml OutputOutput Total 800 ml 1250 ml BalanceBalance 100 ml -200 ml Exam Levy catheter is draining clear urine. One specimen for urine cytology showed no malignant cells Results/Medications Result Diagram: 06/28/18 0837 06/28/18 0837 Results 24 hrs Laboratory Tests Test 06/27/18 21:02 06/28/18 08:34 06/28/18 08:37 06/28/18 11:56 Bedside Glucose 153 134 119 White Blood Count 5.6 # Red Blood Count 2.41 L Hemoglobin 7.5 L Hematocrit 23.5 L Mean Corpuscular 97.5 Volume Mean Corpuscular 31.1 Hemoglobin Mean Corpuscular 31.9 L Hemoglobin Concent Red Cell 15.8 H Distribution Width Platelet Count 94 L Mean Platelet Volume 9.3 Immature 1.100 H Granulocytes % Neutrophils % 72.1 Lymphocytes % 13.2 L Monocytes % 9.4 Eosinophils % 4.0 Basophils % 0.2 Nucleated Red Blood 0.0 Cells % Immature 0.060 H Granulocytes # Neutrophils # 4.0 Lymphocytes # 0.7 L Monocytes # 0.5 Eosinophils # 0.2 Basophils # 0.0 Nucleated Red Blood 0.0 Cells # Prothrombin Time 16.6 H Prothrombin Time 1.3 Ratio INR International 1.33 Normalized Ratio Activated 31.6 Partial Thromboplast Time Sodium Level 138 Potassium Level 4.0 Chloride Level 114 H Carbon Dioxide Level 13 L Anion Gap 11 Blood Urea Nitrogen 33 H Creatinine 2.76 H Est Glomerular 17 L Filtrat Rate mL/min Glucose Level 125 Calcium Level 9.0 Phosphorus Level 4.0 Magnesium Level 2.3 Total Bilirubin 0.4 Direct Bilirubin 0.00 Indirect Bilirubin 0.4 Aspartate Amino 30 Transf (AST/SGOT) Alanine 18 Aminotransferase (AL T/SGPT) Alkaline Phosphatase 51 Ammonia 26 Total Protein 6.5 Albumin 2.6 L Globulin 3.90 H Albumin/Globulin 0.66 Ratio Test 06/28/18 18:17 Bedside Glucose 107 Home Meds Reported Medications Rifaximin* (Xifaxan*) 550 Mg Tablet, 550 MG PO BID, TAB 06/22/18 Cholecalciferol* (Vitamin D3*) 1,000 Unit Tablet, 2000 UNIT PO Q12H, TAB 06/22/18 Acetaminophen* (Tylenol*) 325 Mg Tablet, 650 MG PO Q4H PRN for MILD TO SEVERE PAIN -01/27, TAB 06/22/18 Epoetin Uriel (Procrit) 3,000 Unit/1 Ml Vial, 3000 UNIT IJ DAILY, VIAL ON THU,THU,THU, END DATE 07/13/09 06/22/18 Famotidine* (Pepcid*) 20 Mg Tablet, 20 MG PO DAILY, #30 TAB 06/22/18 Multivitamins* (Theragran*) 1 Tab Tab, 1 TAB PO DAILY, TAB 06/22/18 Polyethylene Glycol* (Miralax*) 17 Gm Powd.pack, 17 GM PO DAILY, #30 PACKET 06/22/18 Magnesium Hydroxide* (Milk Of Magnesia*) 400 Mg/5 Ml Oral.susp, 30 ML PO DAILY, ML 06/22/18 Levothyroxine Sodium* (Levothyroxine Sodium*) 50 Mcg Tablet, 50 MCG PO BEFORE BREAKFAST, #30 TAB 06/22/18 Furosemide* (Furosemide*) 40 Mg Tablet, 40 MG PO DAILY, TAB 06/22/18 Insulin Glargine* (Lantus*) 100 Unit/Ml Soln, 30 UNIT SC DAILY, #1 VIAL 06/22/18 Glimepiride* (Glimepiride*) 2 Mg Tablet, 4 MG PO WITH BREAKFAST, TAB 06/22/18 Gabapentin* (Gabapentin*) 300 Mg Capsule, 300 MG PO TID, #90 CAP 06/22/18 Mineral Oil* (Fleet* Mineral Oil Enema) Unknown Strength Oil, 118 ML MI NEEDED PRN for BOWEL PREP, ENEMA 06/22/18 Ferrous Sulfate* (Ferrous Sulfate*) 325 Mg Tabec, 325 MG PO DAILY, TAB 06/22/18 Bisacodyl* (Bisacodyl*) 10 Mg Supp, 10 MG MI DAILY, SUPP 06/22/18 Digoxin* (Digitek*) 125 Mcg Tablet, 0.125 MG PO DAILY, TAB HOLD FOR HR<60 06/22/18 Ascorbic Acid (Vitamin C) 500 Mg Tab, 500 MG PO DAILY, TAB 06/22/18 Discontinued Reported Medications Hydrochlorothiazide* (Hydrochlorothiazide*) 12.5 Mg Tablet, 12.5 MG PO DAILY, #30 TAB HOLD FOR SBP<110 06/22/18 Benzonatate* (Benzonatate*) 100 Mg Capsule, 100 MG PO TID PRN for COUGH, CAP 06/22/18 Medications Current Medications Lactulose (Enulose) 20 gm Q6 PO Last administered on 06/28/18at 13:27; Admin Dose 20 GM; Start 06/22/18 at 20:30 IV Flush (NS 3 ml) 3 ml PER PROTOCOL IV ; Start 06/22/18 at 20:30 Ondansetron HCl (Zofran Inj) 4 mg Q6H PRN IV NAUSEA/VOMITING; Start 06/22/18 at 20:30 Acetaminophen (Tylenol Tab) 650 mg Q6H PRN PO .PAIN 1-3 OR TEMP Last administered on 06/23/18at 03:01; Admin Dose 650 MG; Start 06/22/18 at 20:30 Levothyroxine Sodium (Synthroid) 50 mcg BEFORE BREAKFAST PO Last administered on 06/28/18at 07:08; Admin Dose 50 MCG; Start 06/23/18 at 07:00 Rifaximin (Xifaxan) 550 mg BID PO Last administered on 06/28/18at 08:39; Admin Dose 550 MG; Start 06/23/18 at 09:00 Diagnostic Test (Pha) (Accu-Chek) 1 ea 02 XX ; Start 06/23/18 at 02:00 Insulin Aspart (Novolog Insulin Pen) NOVOLOG *MILD* ALGORITHM WITH MEALS B EDTIME SC Last administered on 06/27/18at 12:58; Admin Dose 1 UNIT; Start 06/23/18 at 07:55 Miscellaneous Information 1 ea NOTE XX ; Start 06/22/18 at 22:30 Glucose (Glutose) 15 gm Q15M PRN PO DECREASED GLUCOSE; Start 06/22/18 at 22:30 Glucose (Glutose) 22.5 gm Q15M PRN PO DECREASED GLUCOSE; Start 06/22/18 at 22:30 Dextrose (D50w Syringe) 25 ml Q15M PRN IV DECREASED GLUCOSE; Start 06/22/18 at 22:30 Dextrose (D50w Syringe) 50 ml Q15M PRN IV DECREASED GLUCOSE Last administered on 06/23/18 07:43; Admin Dose 50 ML; Start 06/22/18 at 22:30 Glucagon (Glucagen) 1 mg Q15M PRN IM DECREASED GLUCOSE; Start 06/22/18 at 22:30 Glucose (Glutose) 15 gm Q15M PRN BUCCAL DECREASED GLUCOSE; Start 06/22/18 at 22:30 Ferrous Sulfate (Ferrous Sulfate (Ec)) 325 mg DAILY PO Last administered on 06/28/18 08:39; Admin Dose 325 MG; Start 06/23/18 at 09:00 Gabapentin (Neurontin) 300 mg TID PO Last administered on 06/28/18 13:27; Admin Dose 300 MG; Start 06/23/18 at 09:00 Multivitamins Therapeutic (Theragran) 1 tab DAILY PO Last administered on 06/28/18 08:39; Admin Dose 1 TAB; Start 06/23/18 at 09:00 Insulin Glargine (Lantus) 21 units DAILY@2000 SC Last administered on 06/23/18 21:19; Admin Dose 21 UNITS; Start 06/23/18 at 20:00; Status Hold Pantoprazole (Protonix Iv) 40 mg BID@06,18 IV Last administered on 06/28/18 18:32; Admin Dose 40 MG; Start 06/23/18 at 18:00 Nystatin (Nystatin Powder) 1 applic BID TOP Last administered on 06/28/18 08:40; Admin Dose 1 APPLIC; Start 06/24/18 at 09:00 Mupirocin (Bactroban) 1 applic BID TOP Last administered on 06/28/18 08:40; Admin Dose 1 APPLIC; Start 06/24/18 at 12:30; Stop 07/01/18 at 12:29 Propranolol HCl (Inderal) 20 mg TID PO Last administered on 06/28/18at 08:40; Admin Dose 20 MG; Start 06/26/18 at 09:00 Ciprofloxacin (Cipro) 500 mg Q18H PO Last administered on 06/28/18at 05:14; Admin Dose 500 MG; Start 06/27/18 at 12:00 Fentanyl (Sublimaze) 25 mcg PACU ORDER PRN IV MILD PAIN 1-3; Start 06/28/18 at 17:00; Stop 06/28/18 at 21:00 Ondansetron HCl (Zofran Inj) 4 mg PACU ORDER PRN IV NAUSEA/VOMITING; Start 06/28/18 at 17:00; Stop 06/28/18 at 21:00 Assessment/Plan Hospital Course (Demo Recall) 67-year-old female sent from [facility] for a low hemoglobin of 7.5. The patient does not know if she has had history of gross hematuria. She also denies any history of melena. No history of nausea or vomiting. She does have a history of paroxysmal atrial fibrillation, hypertension, dyslipidemia and chronic kidney disease. She was found to have a gross hematuria and a urological consultation was therefore requested. The patient denies any prior history of kidney stones. The CT scan of the abdomen and pelvis showed: Cirrhotic liver. No mass seen. Splenomegaly, ascites and varices compatible with portal hypertension. Patency of the portal vein is indeterminate on this noncontrast study. Cholecystectomy. Bilateral hydroureter nephrosis to the level of the bladder. Loss of parenchyma of the left kidney. No ureteral stones seen. No bladder masses stone. Question chronic reflux versus bladder outlet obstruction. Vascular calcifications. Paraumbilical hernia. Minimal nodular infiltrate right lung base. Presently the patient is better and the urine is gradually clearing up. The urine culture showed: URINE CULTURE Final Organism 1 K.PNEUMONIAE SSP PNEUMONIAE COLONY COUNT >100,000 CFU/ml Organism 2 CITROBACTER FREUNDII COLONY COUNT >100,000 CFU/ml K PNE SPP C FREUNDII C FREUNDII M.I.C. RX M.I.C. RX M.I.C. RX --------- --- --------- --- --------- --- CEFAZOLIN <=4 S CEFEPIME <=1 S CEFOTAXIME S R CIPROFLOXACIN <=0.25 S <=0.25 S GENTAMICIN <=1 S <=1 S LEVOFLOXACIN 0.5 S 1 S MEROPENEM 0.032 S NITROFURANTOIN 64 I <=16 S TOBRAMYCIN <=1 S <=1 S TRIMETHOPRIM/SULFAMETHOXAZOLE <=20 S <=20 S PIPERACILLIN/TAZOBACTAM <=4 S The patient is on Cipro. Her urine remains clear. Continue the Cipro and may discontinue the Levy catheter in a.m. GREGORY SCHNEIDER MD Jun 28, 2018 18:37
--- NOTE | 2018-06-28 19:30 | PN ---
Date/Time of Note Date/Time of Note DATE: 06/28/18 TIME: 19:26 Assessment/Plan VTE Prophylaxis Risk score (from [facility] [place])>0 risk: 4 SCD applied (from [facility] [place]): Yes Pharmacological prophylaxis: NA/contraindicated Pharm contraindication: bleeding Lines/Catheters IV Catheter Type (from [facility]): Peripheral IV Urinary Cath still in place: Yes Reason Cath still needed: urinary retention Assessment/Plan Hospital Course Assessment and plan 1. Anemia/ abnormal lab, multifactorial stable observe 2. Gross hematuria due to hydronephrosis, stable continue Levy. 3. Gastritis/ gastric erosion, status post EGD. Colonoscopy unremarkable. Stable cont PPI Carafate may need to back on nonsteroidals 4. Cirrhosis 5. Chronic liver disease sequently with pancytopenia and portal hypertension; replace platelets as needed 6. Hepatitis C viremia 7. SVT stable replace electrolytes transfuse for hemoglobin less than 8 8. Obesity metabolic syndrome 9. Acute renal failure on CKD possible ATN 10. Chronic hypothyroidism 11. Paroxysmal A. fib? No Lovenox Coumadin due to #1 12. Metabolic acidosis Subjective: Events noted Objective: Vital signs stable rate controlled Physical exam No pallor adenopathy Regular Clear Bs+ nt nd no RRG No edema Result Diagram: 06/28/18 0837 06/28/18 0837 Results 24hrs Laboratory Tests Test 06/27/18 21:02 06/28/18 08:34 06/28/18 08:37 06/28/18 11:56 Bedside Glucose 153 134 119 White Blood Count 5.6 # Red Blood Count 2.41 L Hemoglobin 7.5 L Hematocrit 23.5 L Mean Corpuscular 97.5 Volume Mean Corpuscular 31.1 Hemoglobin Mean Corpuscular 31.9 L Hemoglobin Concent Red Cell 15.8 H Distribution Width Platelet Count 94 L Mean Platelet Volume 9.3 Immature 1.100 H Granulocytes % Neutrophils % 72.1 Lymphocytes % 13.2 L Monocytes % 9.4 Eosinophils % 4.0 Basophils % 0.2 Nucleated Red Blood 0.0 Cells % Immature 0.060 H Granulocytes # Neutrophils # 4.0 Lymphocytes # 0.7 L Monocytes # 0.5 Eosinophils # 0.2 Basophils # 0.0 Nucleated Red Blood 0.0 Cells # Prothrombin Time 16.6 H Prothrombin Time 1.3 Ratio INR International 1.33 Normalized Ratio Activated 31.6 Partial Thromboplast Time Sodium Level 138 Potassium Level 4.0 Chloride Level 114 H Carbon Dioxide Level 13 L Anion Gap 11 Blood Urea Nitrogen 33 H Creatinine 2.76 H Est Glomerular 17 L Filtrat Rate mL/min Glucose Level 125 Calcium Level 9.0 Phosphorus Level 4.0 Magnesium Level 2.3 Total Bilirubin 0.4 Direct Bilirubin 0.00 Indirect Bilirubin 0.4 Aspartate Amino 30 Transf (AST/SGOT) Alanine 18 Aminotransferase (AL T/SGPT) Alkaline Phosphatase 51 Ammonia 26 Total Protein 6.5 Albumin 2.6 L Globulin 3.90 H Albumin/Globulin 0.66 Ratio Test 06/28/18 18:17 Bedside Glucose 107 Exam/Review of Systems Exam Vitals Vital Signs Date Temp Pulse Resp B/P (MAP) Pulse Ox O2 O2 Flow FiO2 Time Delivery Rate 06/28/18 52 25 104/62 87 Room Air 17:50 (76) 06/28/18 2.0 17:25 06/28/18 98.3 17:24 Intake and Output 06/27/18 06/27/18 06/28/18 1515:00 23:00 07:00 IntakeIntake Total 900 ml 1050 ml OutputOutput Total 800 ml 1250 ml BalanceBalance 100 ml -200 ml Results Results 24hrs Laboratory Tests Test 06/27/18 21:02 06/28/18 08:34 06/28/18 08:37 06/28/18 11:56 Bedside Glucose 153 134 119 White Blood Count 5.6 # Red Blood Count 2.41 L Hemoglobin 7.5 L Hematocrit 23.5 L Mean Corpuscular 97.5 Volume Mean Corpuscular 31.1 Hemoglobin Mean Corpuscular 31.9 L Hemoglobin Concent Red Cell 15.8 H Distribution Width Platelet Count 94 L Mean Platelet Volume 9.3 Immature 1.100 H Granulocytes % Neutrophils % 72.1 Lymphocytes % 13.2 L Monocytes % 9.4 Eosinophils % 4.0 Basophils % 0.2 Nucleated Red Blood 0.0 Cells % Immature 0.060 H Granulocytes # Neutrophils # 4.0 Lymphocytes # 0.7 L Monocytes # 0.5 Eosinophils # 0.2 Basophils # 0.0 Nucleated Red Blood 0.0 Cells # Prothrombin Time 16.6 H Prothrombin Time 1.3 Ratio INR International 1.33 Normalized Ratio Activated 31.6 Partial Thromboplast Time Sodium Level 138 Potassium Level 4.0 Chloride Level 114 H Carbon Dioxide Level 13 L Anion Gap 11 Blood Urea Nitrogen 33 H Creatinine 2.76 H Est Glomerular 17 L Filtrat Rate mL/min Glucose Level 125 Calcium Level 9.0 Phosphorus Level 4.0 Magnesium Level 2.3 Total Bilirubin 0.4 Direct Bilirubin 0.00 Indirect Bilirubin 0.4 Aspartate Amino 30 Transf (AST/SGOT) Alanine 18 Aminotransferase (AL T/SGPT) Alkaline Phosphatase 51 Ammonia 26 Total Protein 6.5 Albumin 2.6 L Globulin 3.90 H Albumin/Globulin 0.66 Ratio Test 06/28/18 18:17 Bedside Glucose 107 Medications Medication Current Medications Lactulose (Enulose) 20 gm Q6 PO Last administered on 06/28/18at 13:27; Admin Dose 20 GM; Start 06/22/18 at 20:30 IV Flush (NS 3 ml) 3 ml PER PROTOCOL IV ; Start 06/22/18 at 20:30 Ondansetron HCl (Zofran Inj) 4 mg Q6H PRN IV NAUSEA/VOMITING; Start 06/22/18 at 20:30 Acetaminophen (Tylenol Tab) 650 mg Q6H PRN PO .PAIN 1-3 OR TEMP Last administ ered on 06/23/18at 03:01; Admin Dose 650 MG; Start 06/22/18 at 20:30 Levothyroxine Sodium (Synthroid) 50 mcg BEFORE BREAKFAST PO Last administered on 06/28/18at 07:08; Admin Dose 50 MCG; Start 06/23/18 at 07:00 Rifaximin (Xifaxan) 550 mg BID PO Last administered on 06/28/18at 08:39; Admin Dose 550 MG; Start 06/23/18 at 09:00 Diagnostic Test (Pha) (Accu-Chek) 1 ea 02 XX ; Start 06/23/18 at 02:00 Insulin Aspart (Novolog Insulin Pen) NOVOLOG *MILD* ALGORITHM WITH MEALS BEDTIME SC Last administered on 06/27/18at 12:58; Admin Dose 1 UNIT; Start 06/23/18 at 07:55 Miscellaneous Information 1 ea NOTE XX ; Start 06/22/18 at 22:30 Glucose (Glutose) 15 gm Q15M PRN PO DECREASED GLUCOSE; Start 06/22/18 at 22:30 Glucose (Glutose) 22.5 gm Q15M PRN PO DECREASED GLUCOSE; Start 06/22/18 at 22:30 Dextrose (D50w Syringe) 25 ml Q15M PRN IV DECREASED GLUCOSE; Start 06/22/18 at 22:30 Dextrose (D50w Syringe) 50 ml Q15M PRN IV DECREASED GLUCOSE Last administered on 06/23/18 07:43; Admin Dose 50 ML; Start 06/22/18 at 22:30 Glucagon (Glucagen) 1 mg Q15M PRN IM DECREASED GLUCOSE; Start 06/22/18 at 22:30 Glucose (Glutose) 15 gm Q15M PRN BUCCAL DECREASED GLUCOSE; Start 06/22/18 at 22:30 Ferrous Sulfate (Ferrous Sulfate (Ec)) 325 mg DAILY PO Last administered on 06/28/18 08:39; Admin Dose 325 MG; Start 06/23/18 at 09:00 Gabapentin (Neurontin) 300 mg TID PO Last administered on 06/28/18 13:27; Admin Dose 300 MG; Start 06/23/18 at 09:00 Multivitamins Therapeutic (Theragran) 1 tab DAILY PO Last administered on 08:39; Admin Dose 1 TAB; Start 06/23/18 at 09:00 Insulin Glargine (Lantus) 21 units DAILY@2000 SC Last administered on 06/23/18 21:19; Admin Dose 21 UNITS; Start 06/23/18 at 20:00; Status Hold Pantoprazole (Protonix Iv) 40 mg BID@06,18 IV Last administered on 06/28/18 18:32; Admin Dose 40 MG; Start 06/23/18 at 18:00 Nystatin (Nystatin Powder) 1 applic BID TOP Last administered on 06/28/18 08:40; Admin Dose 1 APPLIC; Start 06/24/18 at 09:00 Mupirocin (Bactroban) 1 applic BID TOP Last administered on 06/28/18 08:40; Admin Dose 1 APPLIC; Start 06/24/18 at 12:30; Stop 07/01/18 at 12:29 Propranolol HCl (Inderal) 20 mg TID PO Last administered on 06/28/18 08:40; Admin Dose 20 MG; Start 06/26/18 at 09:00 Ciprofloxacin (Cipro) 500 mg Q18H PO Last administered on 06/28/18 05:14; Admi n Dose 500 MG; Start 06/27/18 at 12:00 Fentanyl (Sublimaze) 25 mcg PACU ORDER PRN IV MILD PAIN 1-3; Start 06/28/18 at 17:00; Stop 06/28/18 at 21:00 Ondansetron HCl (Zofran Inj) 4 mg PACU ORDER PRN IV NAUSEA/VOMITING; Start 06/28/18 at 17:00; Stop 06/28/18 at 21:00 JATINDER ERIC MD Jun 28, 2018 19:30
[2018-06-28] MEDS: LACTOBACILLUS RHAMNOSUS CAP PO SCH (20:38)
[2018-06-29] VITALS (10 sets, daily range): BP systolic 103–123; BP diastolic 54–72; PULSE 52–81; RESP 16–20
[2018-06-29] MEDS: ACCU-CHEK XX SCH (00:42)
[2018-06-29] MEDS: CIPROFLOXACIN 500 MG TAB PO SCH ×2 (05:31→18:10)
[2018-06-29] MEDS: LACTULOSE 30ML CUP PO SCH ×4 (05:31→18:10)
[2018-06-29] MEDS: PANTOPRAZOLE 40 MG INJ IV SCH (05:31)
[2018-06-29] MEDS: LEVOTHYROXINE 50 MCG TAB PO SCH (05:32)
[2018-06-29] MEDS: INSULIN ASPART [NOVOLOG] 3 ML PEN SC SCH ×4 (07:55→21:00)
[2018-06-29] MEDS: FERROUS SULFATE (EC) 325 MG TAB PO SCH (08:35)
[2018-06-29] MEDS: RIFAXIMIN 550 MG TAB PO SCH ×2 (08:35→20:23)
[2018-06-29] MEDS: MULTIVITAMINS THERAPEUTIC TAB PO SCH (08:35)
[2018-06-29] MEDS: GABAPENTIN 300 MG CAP PO SCH ×3 (08:35→20:23)
[2018-06-29] MEDS: LACTOBACILLUS RHAMNOSUS CAP PO SCH ×2 (08:35→20:23)
[2018-06-29] MEDS: NYSTATIN 30 GM POWDER BTL TOP SCH ×2 (08:36→22:26)
[2018-06-29] MEDS: PROPRANOLOL 20 MG TAB PO SCH ×3 (08:36→20:22)
[2018-06-29] MEDS: MUPIROCIN 2% 22 GM OINT TOP SCH ×2 (08:37→22:26)
[2018-06-29] MEDS: CITRIC ACID/NA CITRATE 30 ML CUP PO SCH ×2 (09:00→20:23)
--- NOTE | 2018-06-29 09:00 | PN ---
DATE: 06/29/2018 SUBJECTIVE: The patient is stable, no events overnight. OBJECTIVE: VITAL SIGNS: Blood pressure is 118/58, respirations 16, pulse 55, temperature 98.3. HEENT: Head is normocephalic. NECK: Supple. HEART: Regular rate. LUNGS: Show diminished breath sounds at the base. ABDOMEN: Soft, nontender to palpation without rebound or guarding. EXTREMITIES: Negative for clubbing, cyanosis. Trace edema. DERMATOLOGIC: No rashes. MUSCULOSKELETAL: No joint effusion. NEUROLOGIC: No change in exam. MEDICATIONS: The patient's medications are reviewed. LABORATORY DATA: Has been reviewed. The patient has a BUN 32, creatinine 2.68, bicarbonate 15, whit e count 5.7, hemoglobin 8.0, platelet count is 99. ASSESSMENT AND PLAN: 1. Nonoliguric acute kidney injury on top of chronic kidney disease stage IV with a previous baselin e creatinine 3 to 3.4 mg/dL. Etiology of acute kidney injury is secondary to hemodynamics, tubular i njury. Renal function is improving. Continue current treatment plans, supportive care, renally dose all meds. 2. Chronic kidney disease with longstanding obstructive uropathy. The patient is currently in acute kidney injury as stated above. Continue current treatment plan and monitor closely. 3. Bilateral hydronephrosis secondary to bladder obstruction. The patient's Levy catheter placemen t will be discontinued. Monitor. Follow up with urology. 4. Anemia. Monitor hemoglobin and hematocrit levels. 5. Mineral bone disorder, monitor calcium and phosphorus levels. 6. Metabolic acidosis secondary to acute kidney injury, chronic kidney disease. The patient continu es to have persistent acidosis. Will start the patient on Bicitra therapy, monitor I's and O's and e lectrolytes closely. 7. Gastritis. The patient is status post EGD. Continue proton pump inhibitor. 8. Encephalopathy, etiology toxic metabolic. Mental status is improving. Continue to monitor. 9. Liver cirrhosis with hepatitis C. Continue current treatment plan. Follow up with GI. 10. Diabetes. Continue current insulin regimen. 11. Hypothyroidism. Continue Synthroid. Dictated By: JITENDRA ESPINAL DO NR/NTS Conf#: [id number] DID#: [id number] CC: ARIANA DELGADO MD;*EndCC*
--- NOTE | 2018-06-29 13:41 | PN ---
Date/Time of Note Date/Time of Note DATE: 06/29/18 TIME: 13:31 Assessment/Plan VTE Prophylaxis Risk score (from Nsg)>0 risk: 4 SCD applied (from Nsg): Yes Pharmacological prophylaxis: other (scds) Lines/Catheters IV Catheter Type (from Nrsg): Saline Lock Urinary Cath still in place: Yes Reason Cath still needed: other (indicate) (monitor output) Assessment/Plan Hospital Course Assessment/Plan Assessment: Severe macrocytic anemia -Likely multifactorial, H/H stable at this time. EGD 06/28/18 Gastritis Gastric erosions, no active bleeding Colonoscopy 06/28/18 No bleeding Solid browngray stools Unavailable to safely advance scope beyond splenic flexure We will consider barium enema if colon is still suspected as a source of her anemia Liver cirrhosis with sequela -Coagulopathy, mild -Thrombocytopenia History of Esophageal varices -EGD 4 years ago status post EVL History of hepatitis C -Unclear if treated -RNA pending Encephalopathy- improved -Acute on chronic versus chronic -Continue on lactulose S/p SVT -converted post Cardizem in ER CKD Bilateral hydronephrosis Plan: PPI BID/Carafate 1 gm QID- x 4weeks Monitor labs Await results of Hep C RNA- if positive to to f/u with GI as an out-pt to assess ability to treat Attempted to call patient's son Jluis, no answer. Called to discuss results of EGD /colonoscopy D/c planning per Hospitalist Patient seen collaboration with Dr. Correa Subjective: Pt states she feels well, no overt signs of GI bleed, HGB currently stable Pt to f/u with GI after discharge. PHYSICAL EXAMINATION: GENERAL: Well developed, well nourished, alert & oriented, forgetful SKIN: No lesions. EYES: Pupils equal reactive to light, no discharge. EARS/NOSE AND THROAT: Ears normal, nose normal. NECK: Supple, no masses CHEST: Inspection within normal limits. CARDIOVASCULAR: Heart: Regular rate and rhythm RESPIRATORY: Lungs clear to auscultation GASTROINTESTINAL AND LIVER: Abdomen: Soft, non tenderness, no rebound tenderness, normoactive bowel sounds. Rectal: Deferred. Result Diagram: 06/29/18 0529 06/29/1829 Results 24hrs Laboratory Tests Test 06/28/18 18:17 06/28/18 20:23 06/29/18 05:29 06/29/18 07:52 Bedside Glucose 107 151 121 White Blood Count 5.7 Red Blood Count 2.56 L Hemoglobin 8.0 L Hematocrit 25.1 L Mean Corpuscular 98.0 Volume Mean Corpuscular 31.3 Hemoglobin Mean Corpuscular 31.9 L Hemoglobin Concent Red Cell 15.9 H Distribution Width Platelet Count 99 L Mean Platelet Volume 9.4 Immature 1.000 H Granulocytes % Neutrophils % 66.2 Lymphocytes % 15.2 Monocytes % 12.2 H Eosinophils % 4.9 Basophils % 0.5 Nucleated Red Blood 0.0 Cells % Immature 0.060 H Granulocytes # Neutrophils # 3.8 Lymphocytes # 0.9 Monocytes # 0.7 Eosinophils # 0.3 Basophils # 0.0 Nucleated Red Blood 0.0 Cells # Sodium Level 136 Potassium Level 3.9 Chloride Level 113 H Carbon Dioxide Level 15 L Anion Gap 8 Blood Urea Nitrogen 32 H Creatinine 2.68 H Est Glomerular 18 L Filtrat Rate mL/min Glucose Level 106 Calcium Level 9.0 Phosphorus Level 4.5 Magnesium Level 2.2 Test 06/29/18 12:19 Bedside Glucose 178 Exam/Review of Systems Exam Vitals Vital Signs Date Temp Pulse Resp B/P (MAP) Pulse Ox O2 O2 Flow FiO2 Time Delivery Rate 06/29/18 57 12:47 06/29/18 98.0 16 103/58 100 11:50 (73) 06/28/18 Room Air 17:50 06/28/18 2.0 17:25 Intake and Output 06/28/18 06/28/18 06/29/18 1515:00 23:00 07:00 IntakeIntake Total 1150 ml 220 ml OutputOutput Total 1400 ml 500 ml BalanceBalance -250 ml -280 ml Results Results 24hrs Laboratory Tests Test 06/28/18 18:17 06/28/18 20:23 06/29/18 05:29 06/29/18 07:52 Bedside Glucose 107 151 121 White Blood Count 5.7 Red Blood Count 2.56 L Hemoglobin 8.0 L Hematocrit 25.1 L Mean Corpuscular 98.0 Volume Mean Corpuscular 31.3 Hemoglobin Mean Corpuscular 31.9 L Hemoglobin Concent Red Cell 15.9 H Distribution Width Platelet Count 99 L Mean Platelet Volume 9.4 Immature 1.000 H Granulocytes % Neutrophils % 66.2 Lymphocytes % 15.2 Monocytes % 12.2 H Eosinophils % 4.9 Basophils % 0.5 Nucleated Red Blood 0.0 Cells % Immature 0.060 H Granulocytes # Neutrophils # 3.8 Lymphocytes # 0.9 Monocytes # 0.7 Eosinophils # 0.3 Basophils # 0.0 Nucleated Red Blood 0.0 Cells # Sodium Level 136 Potassium Level 3.9 Chloride Level 113 H Carbon Dioxide Level 15 L Anion Gap 8 Blood Urea Nitrogen 32 H Creatinine 2.68 H Est Glomerular 18 L Filtrat Rate mL/min Glucose Level 106 Calcium Level 9.0 Phosphorus Level 4.5 Magnesium Level 2.2 Test 06/29/18 12:19 Bedside Glucose 178 Medications Medication Current Medications Lactulose (Enulose) 20 gm Q6 PO Last administered on 06/29/18at 12:20; Admin Dose 20 GM; Start 06/22/18 at 20:30 IV Flush (NS 3 ml) 3 ml PER PROTOCOL IV ; Start 06/22/18 at 20:30 Ondansetron HCl (Zofran Inj) 4 mg Q6H PRN IV NAUSEA/VOMITING; Start 06/22/18 at 20:30 Acetaminophen (Tylenol Tab) 650 mg Q6H PRN PO .PAIN 1-3 OR TEMP Last administered on 06/23/18at 03:01; Admin Dose 650 MG; Start 06/22/18 at 20:30 Levothyroxine Sodium (Synthroid) 50 mcg BEFORE BREAKFAST PO Last administered on 06/29/18at 05:32; Admin Dose 50 MCG; Start 06/23/18 at 07:00 Rifaximin (Xifaxan) 550 mg BID PO Last administered on 06/29/18at 08:35; Admin Dose 550 MG; Start 06/23/18 at 09:00 Diagnostic Test (Pha) (Accu-Chek) 1 ea 02 XX ; Start 06/23/18 at 02:00 Insulin Aspart (Novolog Insulin Pen) NOVOLOG *MILD* ALGORITHM WITH MEALS BEDTIME SC Last administered on 06/29/18at 12:25; Admin Dose 1 UNIT; Start 06/23/18 at 07:55 Miscellaneous Information 1 ea NOTE XX ; Start 06/22/18 at 22:30 Glucose (Glutose) 15 gm Q15M PRN PO DECREASED GLUCOSE; Start 06/22/18 at 22:30 Glucose (Glutose) 22.5 gm Q15M PRN PO DECREASED GLUCOSE; Start 06/22/18 at 22:30 Dextrose (D50w Syringe) 25 ml Q15M PRN IV DECREASED GLUCOSE; Start 06/22/18 at 2 2:30 Dextrose (D50w Syringe) 50 ml Q15M PRN IV DECREASED GLUCOSE Last administered on 06/23/18 07:43; Admin Dose 50 ML; Start 06/22/18 at 22:30 Glucagon (Glucagen) 1 mg Q15M PRN IM DECREASED GLUCOSE; Start 06/22/18 at 22:30 Glucose (Glutose) 15 gm Q15M PRN BUCCAL DECREASED GLUCOSE; Start 06/22/18 at 22:30 Ferrous Sulfate (Ferrous Sulfate (Ec)) 325 mg DAILY PO Last administered on 06/29/18 08:35; Admin Dose 325 MG; Start 06/23/18 at 09:00 Gabapentin (Neurontin) 300 mg TID PO Last administered on 06/29/18 12:20; Admin Dose 300 MG; Start 06/23/18 at 09:00 Multivitamins Therapeutic (Theragran) 1 tab DAILY PO Last administered on 06/29/18 08:35; Admin Dose 1 TAB; Start 06/23/18 at 09:00 Insulin Glargine (Lantus) 21 units DAILY@2000 SC Last administered on 06/23/18 21:19; Admin Dose 21 UNITS; Start 06/23/18 at 20:00; Status Hold Pantoprazole (Protonix Iv) 40 mg BID@06,18 IV Last administered on 06/29/18 05:31; Admin Dose 40 MG; Start 06/23/18 at 18:00 Nystatin (Nystatin Powder) 1 applic BID TOP Last administered on 06/29/18 08:36; Admin Dose 1 APPLIC; Start 06/24/18 at 09:00 Mupirocin (Bactroban) 1 applic BID TOP Last administered on 06/29/18 08:37; Admin Dose 1 APPLIC; Start 06/24/18 at 12:30; Stop 07/01/18 at 12:29 Propranolol HCl (Inderal) 20 mg TID PO Last administered on 06/29/18 12:20; Admin Dose 20 MG; Start 06/26/18 at 09:00 Ciprofloxacin (Cipro) 500 mg Q18H PO Last administered on 06/29/18at 05:31; Admin Dose 500 MG; Start 06/27/18 at 12:00 Lactobacillus Acidophilus/ Rhamnosus (Culturelle) 1 cap BID PO Last administered on 06/29/18at 08:35; Admin Dose 1 CAP; Start 06/28/18 at 21:00 Citric Acid/ Sodium Citrate (Bicitra) 30 ml BID PO ; Start 06/29/18 at 09:00 JANAE REN Jun 29, 2018 13:41
--- NOTE | 2018-06-29 14:24 | PN ---
Date/Time of Note Date/Time of Note DATE: 06/29/18 TIME: 14:22 Assessment/Plan VTE Prophylaxis Risk score (from Ns)>0 risk: 4 SCD applied (from Ns): Yes SCD contraindicated: low risk/ambulating Pharmacological prophylaxis: LMWH Lines/Catheters [facility]from [facility] Saline Lock Urinary Cath still in place: Yes Reason Cath still needed: urinary retention Assessment/Plan Hospital Course Assessment and plan 1. Anemia/ abn lab, multifactorial stable observe 2. Gross hematuria due to hydronephrosis? stable continue Levy? Follow-up urology. 3. Gastritis/ gastric erosion, sp EGD. Colonoscopy unremarkable. Stable cont PPI Carafate may need to back off on nonsteroidals 4. Cirrhosis 5. Chronic liver disease sequela with pancytopenia and portal hypertension; replace platelets as needed 6. Hepatitis C viremia 7. SVT stable replace electrolytes transfuse for hemoglobin less than 8 8. Obesity metabolic syndrome 9. Acute renal failure on CKD possible ATN 10. Chronic hypothyroidism 11. Paroxysmal A. fib? No Lovenox Coumadin due to #1. stroke risk noted, needs advanced care planning reevaluated. 12. Metabolic acidosis Subjective: 06/28 events noted 06/29: No distress. Wants to go home. Objective: Vital signs stable rate controlled Physical exam No pallor JVD Regular Clear Bs+ nt nd no RRG No edema Result Diagram: 06/29/18 0529 06/29/18 0529 Results 24hrs Laboratory Tests Test 06/28/18 18:17 06/28/18 20:23 06/29/18 05:29 06/29/18 07:52 Bedside Glucose 107 151 121 White Blood Count 5.7 Red Blood Count 2.56 L Hemoglobin 8.0 L Hematocrit 25.1 L Mean Corpuscular 98.0 Volume Mean Corpuscular 31.3 Hemoglobin Mean Corpuscular 31.9 L Hemoglobin Concent Red Cell 15.9 H Distribution Width Platelet Count 99 L Mean Platelet Volume 9.4 Immature 1.000 H Granulocytes % Neutrophils % 66.2 Lymphocytes % 15.2 Monocytes % 12.2 H Eosinophils % 4.9 Basophils % 0.5 Nucleated Red Blood 0.0 Cells % Immature 0.060 H Granulocytes # Neutrophils # 3.8 Lymphocytes # 0.9 Monocytes # 0.7 Eosinophils # 0.3 Basophils # 0.0 Nucleated Red Blood 0.0 Cells # Sodium Level 136 Potassium Level 3.9 Chloride Level 113 H Carbon Dioxide Level 15 L Anion Gap 8 Blood Urea Nitrogen 32 H Creatinine 2.68 H Est Glomerular 18 L Filtrat Rate mL/min Glucose Level 106 Calcium Level 9.0 Phosphorus Level 4.5 Magnesium Level 2.2 Test 06/29/18 12:19 Bedside Glucose 178 Exam/Review of Systems Exam Vitals Vital Signs Date Temp Pulse Resp B/P (MAP) Pulse Ox O2 O2 Flow FiO2 Time Delivery Rate 06/29/18 57 12:47 06/29/18 98.0 16 103/58 100 11:50 (73) 06/28/18 Room Air 17:50 06/28/18 2.0 17:25 Intake and Output 06/28/18 06/28/18 06/29/18 1515:00 23:00 07:00 IntakeIntake Total 1150 ml 220 ml OutputOutput Total 1400 ml 500 ml BalanceBalance -250 ml -280 ml Results Results 24hrs Laboratory Tests Test 06/28/18 18:17 06/28/18 20:23 06/29/18 05:29 06/29/18 07:52 Bedside Glucose 107 151 121 White Blood Count 5.7 Red Blood Count 2.56 L Hemoglobin 8.0 L Hematocrit 25.1 L Mean Corpuscular 98.0 Volume Mean Corpuscular 31.3 Hemoglobin Mean Corpuscular 31.9 L Hemoglobin Concent Red Cell 15.9 H Distribution Width Platelet Count 99 L Mean Platelet Volume 9.4 Immature 1.000 H Granulocytes % Neutrophils % 66.2 Lymphocytes % 15.2 Monocytes % 12.2 H Eosinophils % 4.9 Basophils % 0.5 Nucleated Red Blood 0.0 Cells % Immature 0.060 H Granulocytes # Neutrophils # 3.8 Lymphocytes # 0.9 Monocytes # 0.7 Eosinophils # 0.3 Basophils # 0.0 Nucleated Red Blood 0.0 Cells # Sodium Level 136 Potassium Level 3.9 Chloride Level 113 H Carbon Dioxide Level 15 L Anion Gap 8 Blood Urea Nitrogen 32 H Creatinine 2.68 H Est Glomerular 18 L Filtrat Rate mL/min Glucose Level 106 Calcium Level 9.0 Phosphorus Level 4.5 Magnesium Level 2.2 Test 06/29/18 12:19 Bedside Glucose 178 Medications Medication Current Medications Lactulose (Enulose) 20 gm Q6 PO Last administered on 06/29/18at 12:20; Admin Dose 20 GM; Start 06/22/18 at 20:30 IV Flush (NS 3 ml) 3 ml PER PROTOCOL IV ; Start 06/22/18 at 20:30 Ondansetron HCl (Zofran Inj) 4 mg Q6H PRN IV NAUSEA/VOMITING; Start 06/22/18 at 20:30 Acetaminophen (Tylenol Tab) 650 mg Q6H PRN PO .PAIN 1-3 OR TEMP Last administered on 06/23/18 03:01; Admin Dose 650 MG; Start 06/22/18 at 20:30 Levothyroxine Sodium (Synthroid) 50 mcg BEFORE BREAKFAST PO Last administered on 06/29/18 05:32; Admin Dose 50 MCG; Start 06/23/18 at 07:00 Rifaximin (Xifaxan) 550 mg BID PO Last administered on 06/29/18 08:35; Admin Dose 550 MG; Start 06/23/18 at 09:00 Diagnostic Test (Pha) (Accu-Chek) 1 ea 02 XX ; Start 06/23/18 at 02:00 Insulin Aspart (Novolog Insulin Pen) NOVOLOG *MILD* ALGORITHM WITH MEALS BEDTIME SC Last administered on 06/29/18 12:25; Admin Dose 1 UNIT; Start 06/23/18 at 07:55 Miscellaneous Information 1 ea NOTE XX ; Start 06/22/18 at 22:30 Glucose (Glutose) 15 gm Q15M PRN PO DECREASED GLUCOSE; Start 06/22/18 at 22:30 Glucose (Glutose) 22.5 gm Q15M PRN PO DECREASED GLUCOSE; Start 06/22/18 at 22:30 Dextrose (D50w Syringe) 25 ml Q15M PRN IV DECREASED GLUCOSE; Start 06/22/18 at 22:30 Dextrose (D50w Syringe) 50 ml Q15M PRN IV DECREASED GLUCOSE Last administered on 06/23/18 07:43; Admin Dose 50 ML; Start 06/22/18 at 22:30 Glucagon (Glucagen) 1 mg Q15M PRN IM DECREASED GLUCOSE; Start 06/22/18 at 22:30 Glucose (Glutose) 15 gm Q15M PRN BUCCAL DECREASED GLUCOSE; Start 06/22/18 at 22:30 Ferrous Sulfate (Ferrous Sulfate (Ec)) 325 mg DAILY PO Last administered on 06/29/18 08:35; Admin Dose 325 MG; Start 06/23/18 at 09:00 Gabapentin (Neurontin) 300 mg TID PO Last administered on 06/29/18 12:20; Admi n Dose 300 MG; Start 06/23/18 at 09:00 Multivitamins Therapeutic (Theragran) 1 tab DAILY PO Last administered on 06/29/18 08:35; Admin Dose 1 TAB; Start 06/23/18 at 09:00 Insulin Glargine (Lantus) 21 units DAILY@2000 SC Last administered on 06/23/18 21:19; Admin Dose 21 UNITS; Start 06/23/18 at 20:00; Status Hold Pantoprazole (Protonix Iv) 40 mg BID@,18 IV Last administered on 06/29/18 05:31; Admin Dose 40 MG; Start 06/23/18 at 18:00 Nystatin (Nystatin Powder) 1 applic BID TOP Last administered on 06/29/18 08:36; Admin Dose 1 APPLIC; Start 06/24/18 at 09:00 Mupirocin (Bactroban) 1 applic BID TOP Last administered on 06/29/18 08:37; Admin Dose 1 APPLIC; Start 06/24/18 at 12:30; Stop 07/01/18 at 12:29 Propranolol HCl (Inderal) 20 mg TID PO Last administered on 06/29/18 12:20; Admin Dose 20 MG; Start 06/26/18 at 09:00 Ciprofloxacin (Cipro) 500 mg Q18H PO Last administered on 06/29/18 05:31; Admin Dose 500 MG; Start 06/27/18 at 12:00 Lactobacillus Acidophilus/ Rhamnosus (Culturelle) 1 cap BID PO Last administered on 06/29/18 08:35; Admin Dose 1 CAP; Start 06/28/18 at 21:00 Citric Acid/ Sodium Citrate (Bicitra) 30 ml BID PO ; Start 06/29/18 at 09:00 JATINDER ERIC MD Jun 29, 2018 14:24
[2018-06-29] MEDS: PANTOPRAZOLE (EC) 40 MG TAB PO SCH (18:10)
--- NOTE | 2018-06-29 20:35 | CONS ---
Consult Date/Type/Reason Admit Date/Time Jun 22, 2018 at 19:27 Initial Consult Date 06/23/18 Type of Consultation: Urology Reason for Consultation Urinary tract infection, hematuria Requesting Provider: BERNARDO RAMEY Date/Time of Note DATE: 06/29/18 TIME: 20:30 Subjective Patient complaining that she feels hot. However she is not febrile Objective Vitals Vital Signs Date Temp Pulse Resp B/P (MAP) Pulse Ox O2 O2 Flow FiO2 Time Delivery Rate 06/29/18 98.5 60 18 123/72 100 Room Air 19:14 (89) 06/28/18 2.0 17:25 Intake and Output 06/28/18 06/28/18 06/29/18 1515:00 23:00 07:00 IntakeIntake Total 1150 ml 220 ml OutputOutput Total 1400 ml 500 ml BalanceBalance -250 ml -280 ml Exam Patient is comfortable she has been voiding and her postvoid residual was about 100 mL Results/Medications Result Diagram: 06/29/18 0529 06/29/18 0529 Results 24 hrs Laboratory Tests Test 06/29/18 05:29 06/29/18 07:52 06/29/18 12:19 06/29/18 18:05 White Blood Count 5.7 Red Blood Count 2.56 L Hemoglobin 8.0 L Hematocrit 25.1 L Mean Corpuscular 98.0 Volume Mean Corpuscular 31.3 Hemoglobin Mean Corpuscular 31.9 L Hemoglobin Concent Red Cell 15.9 H Distribution Width Platelet Count 99 L Mean Platelet Volume 9.4 Immature 1.000 H Granulocytes % Neutrophils % 66.2 Lymphocytes % 15.2 Monocytes % 12.2 H Eosinophils % 4.9 Basophils % 0.5 Nucleated Red Blood 0.0 Cells % Immature 0.060 H Granulocytes # Neutrophils # 3.8 Lymphocytes # 0.9 Monocytes # 0.7 Eosinophils # 0.3 Basophils # 0.0 Nucleated Red Blood 0.0 Cells # Sodium Level 136 Potassium Level 3.9 Chloride Level 113 H Carbon Dioxide Level 15 L Anion Gap 8 Blood Urea Nitrogen 32 H Creatinine 2.68 H Est Glomerular 18 L Filtrat Rate mL/min Glucose Level 106 Calcium Level 9.0 Phosphorus Level 4.5 Magnesium Level 2.2 Bedside Glucose 121 178 137 Home Meds Reported Medications Rifaximin* (Xifaxan*) 550 Mg Tablet, 550 MG PO BID, TAB 06/22/18 Cholecalciferol* (Vitamin D3*) 1,000 Unit Tablet, 2000 UNIT PO Q12H, TAB 06/22/18 Acetaminophen* (Tylenol*) 325 Mg Tablet, 650 MG PO Q4H PRN for MILD TO SEVERE PAIN -01/27, TAB 06/22/18 Epoetin Uriel (Procrit) 3,000 Unit/1 Ml Vial, 3000 UNIT IJ DAILY, VIAL ON THU,THU,THU, END DATE 07/13/09 06/22/18 Famotidine* (Pepcid*) 20 Mg Tablet, 20 MG PO DAILY, #30 TAB 06/22/18 Multivitamins* (Theragran*) 1 Tab Tab, 1 TAB PO DAILY, TAB 06/22/18 Polyethylene Glycol* (Miralax*) 17 Gm Powd.pack, 17 GM PO DAILY, #30 PACKET 06/22/18 Magnesium Hydroxide* (Milk Of Magnesia*) 400 Mg/5 Ml Oral.susp, 30 ML PO DAILY, ML 06/22/18 Levothyroxine Sodium* (Levothyroxine Sodium*) 50 Mcg Tablet, 50 MCG PO BEFORE BREAKFAST, #30 TAB 06/22/18 Furosemide* (Furosemide*) 40 Mg Tablet, 40 MG PO DAILY, TAB 06/22/18 Insulin Glargine* (Lantus*) 100 Unit/Ml Soln, 30 UNIT SC DAILY, #1 VIAL 06/22/18 Glimepiride* (Glimepiride*) 2 Mg Tablet, 4 MG PO WITH BREAKFAST, TAB 06/22/18 Gabapentin* (Gabapentin*) 300 Mg Capsule, 300 MG PO TID, #90 CAP 06/22/18 Mineral Oil* (Fleet* Mineral Oil Enema) Unknown Strength Oil, 118 ML KS NEEDED PRN for BOWEL PREP, ENEMA 06/22/18 Ferrous Sulfate* (Ferrous Sulfate*) 325 Mg Tabec, 325 MG PO DAILY, TAB 06/22/18 Bisacodyl* (Bisacodyl*) 10 Mg Supp, 10 MG KS DAILY, SUPP 06/22/18 Digoxin* (Digitek*) 125 Mcg Tablet, 0.125 MG PO DAILY, TAB HOLD FOR HR<60 06/22/18 Ascorbic Acid (Vitamin C) 500 Mg Tab, 500 MG PO DAILY, TAB 06/22/18 Discontinued Reported Medications Hydrochlorothiazide* (Hydrochlorothiazide*) 12.5 Mg Tablet, 12.5 MG PO DAILY, #30 TAB HOLD FOR SBP<110 06/22/18 Benzonatate* (Benzonatate*) 100 Mg Capsule, 100 MG PO TID PRN for COUGH, CAP 06/22/18 Medications Current Medications Lactulose (Enulose) 20 gm Q6 PO Last administered on 06/29/18at 18:10; Admin Dose 20 GM; Start 06/22/18 at 20:30 IV Flush (NS 3 ml) 3 ml PER PROTOCOL IV ; Start 06/22/18 at 20:30 Ondansetron HCl (Zofran Inj) 4 mg Q6H PRN IV NAUSEA/VOMITING; Start 06/22/18 at 20:30 Acetaminophen (Tylenol Tab) 650 mg Q6H PRN PO .PAIN 1-3 OR TEMP Last administered on 06/23/18at 03:01; Admin Dose 650 MG; Start 06/22/18 at 20:30 Levothyroxine Sodium (Synthroid) 50 mcg BEFORE BREAKFAST PO Last administered on 06/29/18at 05:32; Admin Dose 50 MCG; Start 06/23/18 at 07:00 Rifaximin (Xifaxan) 550 mg BID PO Last administered on 06/29/18at 20:23; Admin Dose 550 MG; Start 06/23/18 at 09:00 Diagnostic Test (Pha) (Accu-Chek) 1 ea 02 XX ; Start 06/23/18 at 02:00 Insulin Aspart (Novolog Insulin Pen) NOVOLOG *MILD* ALGORITHM WITH MEALS BEDTIME SC Last administered on 06/29/18at 12:25; Admin Dose 1 UNIT; Start 06/23/18 at 07:55 Miscellaneous Information 1 ea NOTE XX ; Start 06/22/18 at 22:30 Glucose (Glutose) 15 gm Q15M PRN PO DECREASED GLUCOSE; Start 06/22/18 at 22:30 Glucose (Glutose) 22.5 gm Q15M PRN PO DECREASED GLUCOSE; Start 06/22/18 at 22:30 Dextrose (D50w Syringe) 25 ml Q15M PRN IV DECREASED GLUCOSE; Start 06/22/18 at 22:30 Dextrose (D50w Syringe) 50 ml Q15M PRN IV DECREASED GLUCOSE Last administered on 06/23/18 07:43; Admin Dose 50 ML; Start 06/22/18 at 22:30 Glucagon (Glucagen) 1 mg Q15M PRN IM DECREASED GLUCOSE; Start 06/22/18 at 22:30 Glucose (Glutose) 15 gm Q15M PRN BUCCAL DECREASED GLUCOSE; Start 06/22/18 at 22:30 Ferrous Sulfate (Ferrous Sulfate (Ec)) 325 mg DAILY PO Last administered on 06/29/18 08:35; Admin Dose 325 MG; Start 06/23/18 at 09:00 Gabapentin (Neurontin) 300 mg TID PO Last administered on 06/29/18 20:23; Admin Dose 300 MG; Start 06/23/18 at 09:00 Multivitamins Therapeutic (Theragran) 1 tab DAILY PO Last administered on 06/29/18 08:35; Admin Dose 1 TAB; Start 06/23/18 at 09:00 Insulin Glargine (Lantus) 21 units DAILY@2000 SC Last administered on 06/23/18 21:19; Admin Dose 21 UNITS; Start 06/23/18 at 20:00; Status Hold Nystatin (Nystatin Powder) 1 applic BID TOP Last administered on 06/29/18 08:36; Admin Dose 1 APPLIC; Start 06/24/18 at 09:00 Mupirocin (Bactroban) 1 applic BID TOP Last administered on 06/29/18 08:37; Admin Dose 1 APPLIC; Start 06/24/18 at 12:30; Stop 07/01/18 at 12:29 Propranolol HCl (Inderal) 20 mg TID PO Last administered on 06/29/18 20:22; Admin Dose 20 MG; Start 06/26/18 at 09:00 Ciprofloxacin (Cipro) 500 mg Q18H PO Last administered on 06/29/18 18:10; Admin Dose 500 MG; Start 06/27/18 at 12:00 Lactobacillus Acidophilus/ Rhamnosus (Culturelle) 1 cap BID PO Last administered on 06/29/18 20:23; Admin Dose 1 CAP; Start 06/28/18 at 21:00 Citric Acid/ Sodium Citrate (Bicitra) 30 ml BID PO Last administered on 20:23; Admin Dose 30 ML; Start 06/29/18 at 09:00 Pantoprazole (Protonix Tab) 40 mg BID@0600,1800 PO Last administered on 06/29/18at 18:10; Admin Dose 40 MG; Start 06/29/18 at 18:00 Assessment/Plan Hospital Course (Demo Recall) 67-year-old female sent from [facility] for a low hemoglobin of 7.5. The patient does not know if she has had history of gross hematuria. She also denies any history of melena. No history of nausea or vomiting. She does have a history of paroxysmal atrial fibrillation, hypertension, dyslipidemia and chronic kidney disease. She was found to have a gross hematuria and a urological consultation was therefore requested. The patient denies any prior history of kidney stones. The CT scan of the abdomen and pelvis showed: Cirrhotic liver. No mass seen. Splenomegaly, ascites and varices compatible with portal hypertension. Patency of the portal vein is indeterminate on this noncontrast study. Cholecystectomy. Bilateral hydroureter nephrosis to the level of the bladder. Loss of parenchyma of the left kidney. No ureteral stones seen. No bladder masses stone. Question chronic reflux versus bladder outlet obstruction. Vascular calcifications. Paraumbilical hernia. Minimal nodular infiltrate right lung base. Presently the patient is better and the urine is gradually clearing up. The urine culture showed: URINE CULTURE Final Organism 1 K.PNEUMONIAE SSP PNEUMONIAE COLONY COUNT >100,000 CFU/ml Organism 2 CITROBACTER FREUNDII COLONY COUNT >100,000 CFU/ml K PNE SPP C FREUNDII C FREUNDII M.I.C. RX M.I.C. RX M.I.C. RX --------- --- --------- --- --------- --- CEFAZOLIN <=4 S CEFEPIME <=1 S CEFOTAXIME S R CIPROFLOXACIN <=0.25 S <=0.25 S GENTAMICIN <=1 S <=1 S LEVOFLOXACIN 0.5 S 1 S MEROPENEM 0.032 S NITROFURANTOIN 64 I <=16 S TOBRAMYCIN <=1 S <=1 S TRIMETHOPRIM/SULFAMETHOXAZOLE <=20 S <=20 S PIPERACILLIN/TAZOBACTAM <=4 S The patient is on Cipro. Her urine remains clear. Continue the Cipro The Levy catheter was removed this morning and she has been voiding and incontinent and the postvoid residual has been around 100 mL. Continue present treatment GREGORY SCHNEIDER MD Jun 29, 2018 20:35
[2018-06-30] VITALS (13 sets, daily range): BP systolic 91–116; BP diastolic 42–72; PULSE 55–64; RESP 16–20
[2018-06-30] MEDS: ACCU-CHEK XX SCH (02:00)
[2018-06-30] MEDS: PANTOPRAZOLE (EC) 40 MG TAB PO SCH ×2 (06:27→18:45)
[2018-06-30] MEDS: LEVOTHYROXINE 50 MCG TAB PO SCH (06:27)
[2018-06-30] MEDS: LACTULOSE 30ML CUP PO SCH ×4 (06:27→18:45)
[2018-06-30] MEDS: GABAPENTIN 300 MG CAP PO SCH ×3 (08:10→21:29)
[2018-06-30] MEDS: MULTIVITAMINS THERAPEUTIC TAB PO SCH (08:10)
[2018-06-30] MEDS: FERROUS SULFATE (EC) 325 MG TAB PO SCH (08:10)
[2018-06-30] MEDS: LACTOBACILLUS RHAMNOSUS CAP PO SCH ×2 (08:10→21:29)
[2018-06-30] MEDS: RIFAXIMIN 550 MG TAB PO SCH ×2 (08:10→21:29)
[2018-06-30] MEDS: CITRIC ACID/NA CITRATE 30 ML CUP PO SCH ×2 (08:11→21:28)
[2018-06-30] MEDS: PROPRANOLOL 20 MG TAB PO SCH ×3 (08:11→21:00)
[2018-06-30] MEDS: INSULIN ASPART [NOVOLOG] 3 ML PEN SC SCH ×4 (08:13→21:00)
[2018-06-30] MEDS: NYSTATIN 30 GM POWDER BTL TOP SCH ×2 (08:14→21:29)
[2018-06-30] MEDS: MUPIROCIN 2% 22 GM OINT TOP SCH ×2 (08:14→21:29)
--- NOTE | 2018-06-30 08:36 | PN ---
DATE: 06/30/2018 SUBJECTIVE: The patient is stable, no events overnight. OBJECTIVE: VITAL SIGNS: Blood pressure is 91/42, pulse 61, respirations 16, temperature 98.1. HEENT: Head is normocephalic. NECK: Supple. HEART: Regular rate. LUNGS: Show diminished breath sounds at the base. ABDOMEN: Soft, nontender to palpation without rebound or guarding. EXTREMITIES: Negative for clubbing, cyanosis, no edema. DERMATOLOGIC: No rashes. MUSCULOSKELETAL: No joint effusion. NEUROLOGIC: No change in exam. MEDICATIONS: Reviewed. LABORATORY DATA: Shows sodium 136, potassium 4.5, BUN 34, creatinine 2.67. White count 6.4, hemoglo bin 7.7, platelet count is 95. ASSESSMENT AND PLAN: 1. Nonoliguric acute kidney injury on top of chronic kidney disease stage IV with previous baseline creatinine of around 3 mg/dL. Etiology of acute kidney injury is secondary to hemodynamics. The pat ient's renal function is improving, currently below previous baseline. We will continue current sasha tment plan, supportive care, renally dose all medicines. 2. Coronary artery disease, secondary to longstanding obstructive uropathy. The patient is currentl y in acute kidney injury as stated above. Continue current treatment plan. 3. Bilateral hydronephrosis with bladder obstruction. The patient's Levy catheter was removed. Co ntinue to monitor. 4. Anemia. Monitor hemoglobin and hematocrit levels. 5. Mineral bone disorder. Monitor calcium and phosphorus levels. 6. Metabolic acidosis secondary to acute kidney injury. The patient is on Bicitra. Follow bicarbon ate levels. 7. Gastritis status post EGD. Continue proton pump inhibitor. 8. Encephalopathy, etiology is toxic metabolic. 9. Liver cirrhosis with hepatitis C. Continue current treatment plan. 10. Diabetes. Continue current insulin regimen. 11. Hypothyroidism. Continue medical management. Dictated By: JITENDRA ESPINAL DO NR/NTS Conf#: [id number] DID#: [id number] CC: GREGORY SCHNEIDER MD; ARIANA DELGADO MD; JATINDER ERIC MD;*EndCC*
[2018-06-30] MEDS: CIPROFLOXACIN 500 MG TAB PO SCH (12:55)
--- NOTE | 2018-06-30 14:03 | DS ---
Date/Time of Note Date/Time of Note DATE: 06/30/18 TIME: 13:55 Discharge Summary Admission/Discharge Info Admit Date/Time Jun 22, 2018 at 19:27 Discharge Date/Time Patient Condition: Stable Procedures CT A/P IMPRESSION: Cirrhotic liver. No mass seen. Splenomegaly, ascites and varices compatible with portal hypertension. Patency of the portal vein is indeterminate on this noncontrast study. Cholecystectomy. Bilateral hydroureter nephrosis to the level of the bladder. Loss of parenchyma of the left kidney. No ureteral stones seen. No bladder masses stone. Question chronic reflux versus bladder outlet obstruction. Vascular calcifications. Paraumbilical hernia. Minimal nodular infiltrate right lung base. CXR IMPRESSION: Moderate cardiomegaly. Calcified aorta consistent with atherosclerotic disease. Mild elevation of the right diaphragm. CT Brain IMPRESSION: 1. No acute intracranial hemorrhage, transcortical infarction or mass effect. 2. Mild to moderate intracranial atherosclerosis and chronic small vessel ischemic changes. 3. Mild generalized cerebral volume loss. RENAL ULTRASOUND IMPRESSION: 1. Persistent severe bilateral hydronephrosis left greater than right. There is associated severe left renal cortical thinning and mild right renal cortical thinning suggesting longstanding process. 2. This is seen in the setting of a distended bladder suggesting reflux as the etiology. 3. No obstructing renal calculi visualized Hx of Present Illness 56y F Abd pain? Hospital Course PRELIM DC SUMMARY Hospitalist Coverage/ H Course Assessment and plan 1. Anemia/ abn lab, multifactorial stable observe status post endoscopy. Tolerating diet stable and fit for discharge. 2. Gross hematuria due to hydronephrosis? stable dced Levy, stable, outpatient Follow-up w urology. 3. Gastritis/ gastric erosion, sp EGD. Colonoscopy unremarkable. Stable cont PPI Carafate, may need to back off on nonsteroidals 4. Cirrhosis 5. Chronic liver disease sequela with pancytopenia and portal hypertension; replace platelets as needed. 6. Hepatitis C viremia 7. SVT stable replaced electrolytes 8. Obesity metabolic syndrome 9. Acute renal failure, on CKD possible ATN stable. Creatinine 2.68 today. 10. Chronic hypothyroidism 11. Paroxysmal A. fib? No Lovenox Coumadin due to #1. stroke risk noted, needs advanced care planning reevaluated. 12. Metabolic acidosis S: 06/28 events noted 06/29: No distress. Wants to go home. 06/30: No events. No retention today. Participated with PT. O: Vital signs stable rate controlled Physical exam No pallor JVD Regular Clear Bs+ nt nd no RRG No edema Home Meds Reported Medications Rifaximin* (Xifaxan*) 550 Mg Tablet, 550 MG PO BID, TAB 06/22/18 Cholecalciferol* (Vitamin D3*) 1,000 Unit Tablet, 2000 UNIT PO Q12H, TAB 06/22/18 Acetaminophen* (Tylenol*) 325 Mg Tablet, 650 MG PO Q4H PRN for MILD TO SEVERE PAIN -01/27, TAB 06/22/18 Epoetin Uriel (Procrit) 3,000 Unit/1 Ml Vial, 3000 UNIT IJ DAILY, VIAL ON THU,THU,THU, END DATE 07/13/09 06/22/18 Famotidine* (Pepcid*) 20 Mg Tablet, 20 MG PO DAILY, #30 TAB 06/22/18 Multivitamins* (Theragran*) 1 Tab Tab, 1 TAB PO DAILY, TAB 06/22/18 Polyethylene Glycol* (Miralax*) 17 Gm Powd.pack, 17 GM PO DAILY, #30 PACKET 06/22/18 Magnesium Hydroxide* (Milk Of Magnesia*) 400 Mg/5 Ml Oral.susp, 30 ML PO DAILY, ML 06/22/18 Levothyroxine Sodium* (Levothyroxine Sodium*) 50 Mcg Tablet, 50 MCG PO BEFORE BREAKFAST, #30 TAB 06/22/18 Furosemide* (Furosemide*) 40 Mg Tablet, 40 MG PO DAILY, TAB 06/22/18 Insulin Glargine* (Lantus*) 100 Unit/Ml Soln, 30 UNIT SC DAILY, #1 VIAL 06/22/18 Glimepiride* (Glimepiride*) 2 Mg Tablet, 4 MG PO WITH BREAKFAST, TAB 06/22/18 Gabapentin* (Gabapentin*) 300 Mg Capsule, 300 MG PO TID, #90 CAP 06/22/18 Mineral Oil* (Fleet* Mineral Oil Enema) Unknown Strength Oil, 118 ML CO NEEDED PRN for BOWEL PREP, ENEMA 06/22/18 Ferrous Sulfate* (Ferrous Sulfate*) 325 Mg Tabec, 325 MG PO DAILY, TAB 06/22/18 Bisacodyl* (Bisacodyl*) 10 Mg Supp, 10 MG CO DAILY, SUPP 06/22/18 Digoxin* (Digitek*) 125 Mcg Tablet, 0.125 MG PO DAILY, TAB HOLD FOR HR<60 06/22/18 Ascorbic Acid (Vitamin C) 500 Mg Tab, 500 MG PO DAILY, TAB 06/22/18 Primary Care Provider Cristobal Bridges MD Pending Labs Laboratory Tests Test 06/29/18 18:05 06/29/18 22:25 06/30/18 05:50 06/30/18 08:10 Bedside 137 171 163 Glucose mg/dL (70-220) mg/dL (70-220) mg/dL (70-220) White Blood 6.4 Count 10^3/ul (4.8-1 0.8) Red Blood 2.39 Count 10^6/ul (4.20- 5.40) Hemoglobin 7.7 g/dl (12.0-16. 0) Hematocrit 22.9 % (37.0-47.0) Mean 95.8 Corpuscular fl (82.0-101.0 Volume ) Mean 32.2 Corpuscular pg (29.0-33.0) Hemoglobin Mean 33.6 Corpuscular g/dl (32.0-37. Hemoglobin Conc 0) ent Red Cell 15.8 Distribution % (11.5-14.5) Width Platelet Count 95 10^3/UL (140-4 15) Mean Platelet 9.5 Volume fl (7.4-10.4) Immature 0.500 Granulocytes % % (0.001-0.429 ) Neutrophils % 72.9 % (39.0-77.0) Lymphocytes % 13.9 % (15.0-51.0) Monocytes % 10.0 % (0.0-11.0) Eosinophils % 2.4 % (0.0-7.0) Basophils % 0.3 % (0.0-2.0) Nucleated Red 0.0 Blood Cells % /100WBC (0.0-0 .0) Immature 0.030 Granulocytes # 10^3/ul (0.0-0 .031) Neutrophils # 4.7 10^3/ul (1.6-7 .5) Lymphocytes # 0.9 10^3/ul (0.8-2 .9) Monocytes # 0.6 10^3/ul (0.3-0 .9) Eosinophils # 0.2 10^3/ul (0.0-0 .5) Basophils # 0.0 10^3/ul (0.0-0 .1) Nucleated Red 0.0 Blood Cells # 10^3/ul (0.0-0 .0) Sodium Level 136 mmol/L (135-14 4) Potassium 4.5 Level mmol/L (3.5-5. 1) Chloride Level 112 mmol/L (97-110 ) Carbon Dioxide 17 Level mmol/L (21-31) Anion Gap 7 (5-13) Blood Urea 34 Nitrogen mg/dl (7-20) Creatinine 2.67 mg/dl (0.44-1. 00) Est Glomerular 18 Filtrat mL/min (>60) Rate mL/min Glucose Level 142 mg/dl (70-220) Calcium Level 9.1 mg/dl (8.4-10. 2) Phosphorus 4.2 Level mg/dl (2.5-4.9 ) Magnesium 2.0 Level mg/dl (1.7-2.5 ) Test 06/30/18 12:48 Bedside 153 Glucose mg/dL (70-220) JATINDER ERIC MD Jun 30, 2018 14:03
--- NOTE | 2018-06-30 14:09 | PN ---
Date/Time of Note Date/Time of Note DATE: 06/30/18 TIME: 14:03 Assessment/Plan VTE Prophylaxis Risk score (from Nsg)>0 risk: 4 SCD applied (from Ns): Yes Pharmacological prophylaxis: other (scds) Lines/Catheters IV Catheter Type (from Nrs): Saline Lock Urinary Cath still in place: No Assessment/Plan Hospital Course Assessment/Plan Assessment: Severe macrocytic anemia -Likely multifactorial, H/H stable at this time. EGD 06/28/18 Gastritis Gastric erosions, no active bleeding Colonoscopy 06/28/18 No bleeding Solid browngray stools Unavailable to safely advance scope beyond splenic flexure We will consider barium enema if colon is still suspected as a source of her anemia Liver cirrhosis with sequela -Coagulopathy, mild -Thrombocytopenia History of Esophageal varices -EGD 4 years ago status post EVL History of hepatitis C -Unclear if treated -RNA pending Encephalopathy- improved -Acute on chronic versus chronic -Continue on lactulose S/p SVT -converted post Cardizem in ER CKD Bilateral hydronephrosis Plan: PPI BID/Carafate 1 gm QID- x 4weeks Monitor labs Hep C RNA- (results say scanned however after speaking to lab no results of RNA) iif positive to to f/u with GI as an out-pt to assess ability to treat- Pt will need t followed by GI d/t liver cirrhosis after discharge GI will sign off but will be available upon reconsult as needed D/c planning per Hospitalist Patient seen collaboration with Dr. Correa Subjective: No over night events, pt feels well. Pt to f/u with GI after discharge. PHYSICAL EXAMINATION: GENERAL: Well developed, well nourished, alert & oriented, forgetful SKIN: No lesions. EYES: Pupils equal reactive to light, no discharge. EARS/NOSE AND THROAT: Ears normal, nose normal. NECK: Supple, no masses CHEST: Inspection within normal limits. CARDIOVASCULAR: Heart: Regular rate and rhythm RESPIRATORY: Lungs clear to auscultation GASTROINTESTINAL AND LIVER: Abdomen: Soft, non tenderness, no rebound tenderness, normoactive bowel sounds. Rectal: Deferred. Result Diagram: 06/30/18 0550 06/30/18 0550 Results 24hrs Laboratory Tests Test 06/29/18 18:05 06/29/18 22:25 06/30/18 05:50 06/30/18 08:10 Bedside Glucose 137 171 163 White Blood Count 6.4 Red Blood Count 2.39 L Hemoglobin 7.7 L Hematocrit 22.9 L Mean Corpuscular 95.8 Volume Mean Corpuscular 32.2 Hemoglobin Mean Corpuscular 33.6 Hemoglobin Concent Red Cell 15.8 H Distribution Width Platelet Count 95 L Mean Platelet Volume 9.5 Immature 0.500 H Granulocytes % Neutrophils % 72.9 Lymphocytes % 13.9 L Monocytes % 10.0 Eosinophils % 2.4 Basophils % 0.3 Nucleated Red Blood 0.0 Cells % Immature 0.030 Granulocytes # Neutrophils # 4.7 Lymphocytes # 0.9 Monocytes # 0.6 Eosinophils # 0.2 Basophils # 0.0 Nucleated Red Blood 0.0 Cells # Sodium Level 136 Potassium Level 4.5 Chloride Level 112 H Carbon Dioxide Level 17 L Anion Gap 7 Blood Urea Nitrogen 34 H Creatinine 2.67 H Est Glomerular 18 L Filtrat Rate mL/min Glucose Level 142 Calcium Level 9.1 Phosphorus Level 4.2 Magnesium Level 2.0 Test 06/30/18 12:48 Bedside Glucose 153 Exam/Review of Systems Exam Vitals Vital Signs Date Temp Pulse Resp B/P (MAP) Pulse Ox O2 O2 Flow FiO2 Time Delivery Rate 06/30/18 60 13:32 06/30/18 98.2 16 92/54 (67) 100 11:28 06/30/18 Room Air 04:19 06/28/18 2.0 17:25 Intake and Output 06/29/18 06/29/18 06/30/18 1515:00 23:00 07:00 IntakeIntake Total 1000 ml 150 ml BalanceBalance 1000 ml 150 ml Results Results 24hrs Laboratory Tests Test 06/29/18 18:05 06/29/18 22:25 06/30/18 05:50 06/30/18 08:10 Bedside Glucose 137 171 163 White Blood Count 6.4 Red Blood Count 2.39 L Hemoglobin 7.7 L Hematocrit 22.9 L Mean Corpuscular 95.8 Volume Mean Corpuscular 32.2 Hemoglobin Mean Corpuscular 33.6 Hemoglobin Concent Red Cell 15.8 H Distribution Width Platelet Count 95 L Mean Platelet Volume 9.5 Immature 0.500 H Granulocytes % Neutrophils % 72.9 Lymphocytes % 13.9 L Monocytes % 10.0 Eosinophils % 2.4 Basophils % 0.3 Nucleated Red Blood 0.0 Cells % Immature 0.030 Granulocytes # Neutrophils # 4.7 Lymphocytes # 0.9 Monocytes # 0.6 Eosinophils # 0.2 Basophils # 0.0 Nucleated Red Blood 0.0 Cells # Sodium Level 136 Potassium Level 4.5 Chloride Level 112 H Carbon Dioxide Level 17 L Anion Gap 7 Blood Urea Nitrogen 34 H Creatinine 2.67 H Est Glomerular 18 L Filtrat Rate mL/min Glucose Level 142 Calcium Level 9.1 Phosphorus Level 4.2 Magnesium Level 2.0 Test 06/30/18 12:48 Bedside Glucose 153 Medications Medication Current Medications Lactulose (Enulose) 20 gm Q6 PO Last administered on 06/30/18at 12:56; Admin Dose 20 GM; Start 06/22/18 at 20:30 IV Flush (NS 3 ml) 3 ml PER PROTOCOL IV ; Start 06/22/18 at 20:30 Ondansetron HCl (Zofran Inj) 4 mg Q6H PRN IV NAUSEA/VOMITING; Start 06/22/18 at 20:30 Acetaminophen (Tylenol Tab) 650 mg Q6H PRN PO .PAIN 1-3 OR TEMP Last administered on 06/23/18at 03:01; Admin Dose 650 MG; Start 06/22/18 at 20:30 Levothyroxine Sodium (Synthroid) 50 mcg BEFORE BREAKFAST PO Last administered on 06/30/18at 06:27; Admin Dose 50 MCG; Start 06/23/18 at 07:00 Rifaximin (Xifaxan) 550 mg BID PO Last administered on 06/30/18at 08:10; Admin Dose 550 MG; Start 06/23/18 at 09:00 Diagnostic Test (Pha) (Accu-Chek) 1 ea 02 XX ; Start 06/23/18 at 02:00 Insulin Aspart (Novolog Insulin Pen) NOVOLOG *MILD* ALGORITHM WITH MEALS BEDTIME SC Last administered on 06/30/18at 12:57; Admin Dose 1 UNIT; Start 06/23/18 at 07:55 Miscellaneous Information 1 ea NOTE XX ; Start 06/22/18 at 22:30 Glucose (Glutose) 15 gm Q15M PRN PO DECREASED GLUCOSE; Start 06/22/18 at 22:30 Glucose (Glutose) 22.5 gm Q15M PRN PO DECREASED GLUCOSE; Start 06/22/18 at 22:30 Dextrose (D50w Syringe) 25 ml Q15M PRN IV DECREASED GLUCOSE; Start 06/22/18 at 22:30 Dextrose (D50w Syringe) 50 ml Q15M PRN IV DECREASED GLUCOSE Last administered on 06/23/18 07:43; Admin Dose 50 ML; Start 06/22/18 at 22:30 Glucagon (Glucagen) 1 mg Q15M PRN IM DECREASED GLUCOSE; Start 06/22/18 at 22:30 Glucose (Glutose) 15 gm Q15M PRN BUCCAL DECREASED GLUCOSE; Start 06/22/18 at 22:30 Ferrous Sulfate (Ferrous Sulfate (Ec)) 325 mg DAILY PO Last administered on 06/30/18 08:10; Admin Dose 325 MG; Start 06/23/18 at 09:00 Gabapentin (Neurontin) 300 mg TID PO Last administered on 06/30/18 12:54; Admin Dose 300 MG; Start 06/23/18 at 09:00 Multivitamins Therapeutic (Theragran) 1 tab DAILY PO Last administered on 06/30/18 08:10; Admin Dose 1 TAB; Start 06/23/18 at 09:00 Insulin Glargine (Lantus) 21 units DAILY@2000 SC Last administered on 06/23/18 21:19; Admin Dose 21 UNITS; Start 06/23/18 at 20:00; Status Hold Nystatin (Nystatin Powder) 1 applic BID TOP Last administered on 06/30/18 08:14; Admin Dose 1 APPLIC; Start 06/24/18 at 09:00 Mupirocin (Bactroban) 1 applic BID TOP Last administered on 06/30/18 08:14; Admin Dose 1 APPLIC; Start 06/24/18 at 12:30; Stop 07/01/18 at 12:29 Propranolol HCl (Inderal) 20 mg TID PO Last administered on 06/30/18 12:55; Admin Dose 20 MG; Start 06/26/18 at 09:00 Ciprofloxacin (Cipro) 500 mg Q18H PO Last administered on 06/30/18 12:55; Admin Dose 500 MG; Start 06/27/18 at 12:00 Lactobacillus Acidophilus/ Rhamnosus (Culturelle) 1 cap BID PO Last administered on 06/30/18 08:10; Admin Dose 1 CAP; Start 06/28/18 at 21:00 Citric Acid/ Sodium Citrate (Bicitra) 30 ml BID PO Last administered on 06/30/18at 08:11; Admin Dose 30 ML; Start 06/29/18 at 09:00 Pantoprazole (Protonix Tab) 40 mg BID@0600,1800 PO Last administered on 06/30/18at 06:27; Admin Dose 40 MG; Start 06/29/18 at 18:00 JANAE REN Jun 30, 2018 14:09
--- NOTE | 2018-06-30 14:46 | PN ---
Date/Time of Note Date/Time of Note DATE: 06/30/18 TIME: 14:45 Assessment/Plan VTE Prophylaxis Risk score (from Ns)>0 risk: 4 SCD applied (from Ns): Yes SCD contraindicated: low risk/ambulating Pharmacological prophylaxis: LMWH Lines/Catheters IV [facility]from [facility] Saline Lock Urinary Cath still in place: No Assessment/Plan Hospital Course Hospitalist Coverage/ H Course Assessment and plan 1. Anemia/ abn lab, multifactorial stable observe status post endoscopy. Tolerating diet stable and fit for discharge soon.. 2. Gross hematuria due to hydronephrosis? stable dced Levy, stable, outpatient Follow-up w urology. 3. Gastritis/ gastric erosion, sp EGD. Colonoscopy unremarkable. Stable cont PPI Carafate, may need to back off on nonsteroidals 4. Cirrhosis 5. Chronic liver disease sequela with pancytopenia and portal hypertension; replace platelets as needed. 6. Hepatitis C viremia 7. SVT stable replaced electrolytes 8. Obesity metabolic syndrome 9. Acute renal failure, on CKD possible ATN stable. Creatinine 2.68 today, If stable anticipate discharge soon. 10. Chronic hypothyroidism 11. P A fib? No Lovenox Coumadin due to #1. stroke risk noted, needs advanced care planning reevaluated. 12. Metabolic acidosis S: 06/28 events noted 06/29: No distress. Wants to go home. 06/30: No events. No retention today. Participated with PT. O: Vital signs stable rate controlled Physical exam No pallor JVD Regular Clear Bs+ nt nd no RRG No edema Result Diagram: 06/30/18 0550 06/30/18 0550 Results 24hrs Laboratory Tests Test 06/29/18 18:05 06/29/18 22:25 06/30/18 05:50 06/30/18 08:10 Bedside Glucose 137 171 163 White Blood Count 6.4 Red Blood Count 2.39 L Hemoglobin 7.7 L Hematocrit 22.9 L Mean Corpuscular 95.8 Volume Mean Corpuscular 32.2 Hemoglobin Mean Corpuscular 33.6 Hemoglobin Concent Red Cell 15.8 H Distribution Width Platelet Count 95 L Mean Platelet Volume 9.5 Immature 0.500 H Granulocytes % Neutrophils % 72.9 Lymphocytes % 13.9 L Monocytes % 10.0 Eosinophils % 2.4 Basophils % 0.3 Nucleated Red Blood 0.0 Cells % Immature 0.030 Granulocytes # Neutrophils # 4.7 Lymphocytes # 0.9 Monocytes # 0.6 Eosinophils # 0.2 Basophils # 0.0 Nucleated Red Blood 0.0 Cells # Sodium Level 136 Potassium Level 4.5 Chloride Level 112 H Carbon Dioxide Level 17 L Anion Gap 7 Blood Urea Nitrogen 34 H Creatinine 2.67 H Est Glomerular 18 L Filtrat Rate mL/min Glucose Level 142 Calcium Level 9.1 Phosphorus Level 4.2 Magnesium Level 2.0 Test 06/30/18 12:48 Bedside Glucose 153 Exam/Review of Systems Exam Vitals Vital Signs Date Temp Pulse Resp B/P (MAP) Pulse Ox O2 O2 Flow FiO2 Time Delivery Rate 06/30/18 60 13:32 06/30/18 98.2 16 92/54 (67) 100 11:28 06/30/18 Room Air 04:19 06/28/18 2.0 17:25 Intake and Output 06/29/18 06/29/18 06/30/18 1515:00 23:00 07:00 IntakeIntake Total 1000 ml 150 ml BalanceBalance 1000 ml 150 ml Results Results 24hrs Laboratory Tests Test 06/29/18 18:05 06/29/18 22:25 06/30/18 05:50 06/30/18 08:10 Bedside Glucose 137 171 163 White Blood Count 6.4 Red Blood Count 2.39 L Hemoglobin 7.7 L Hematocrit 22.9 L Mean Corpuscular 95.8 Volume Mean Corpuscular 32.2 Hemoglobin Mean Corpuscular 33.6 Hemoglobin Concent Red Cell 15.8 H Distribution Width Platelet Count 95 L Mean Platelet Volume 9.5 Immature 0.500 H Granulocytes % Neutrophils % 72.9 Lymphocytes % 13.9 L Monocytes % 10.0 Eosinophils % 2.4 Basophils % 0.3 Nucleated Red Blood 0.0 Cells % Immature 0.030 Granulocytes # Neutrophils # 4.7 Lymphocytes # 0.9 Monocytes # 0.6 Eosinophils # 0.2 Basophils # 0.0 Nucleated Red Blood 0.0 Cells # Sodium Level 136 Potassium Level 4.5 Chloride Level 112 H Carbon Dioxide Level 17 L Anion Gap 7 Blood Urea Nitrogen 34 H Creatinine 2.67 H Est Glomerular 18 L Filtrat Rate mL/min Glucose Level 142 Calcium Level 9.1 Phosphorus Level 4.2 Magnesium Level 2.0 Test 06/30/18 12:48 Bedside Glucose 153 Medications Medication Current Medications Lactulose (Enulose) 20 gm Q6 PO Last administered on 06/30/18at 12:56; Admin Dose 20 GM; Start 06/22/18 at 20:30 IV Flush (NS 3 ml) 3 ml PER PROTOCOL IV ; Start 06/22/18 at 20:30 Ondansetron HCl (Zofran Inj) 4 mg Q6H PRN IV NAUSEA/VOMITING; Start 06/22/18 at 20:30 Acetaminophen (Tylenol Tab) 650 mg Q6H PRN PO .PAIN 1-3 OR TEMP Last administered on 06/23/18at 03:01; Admin Dose 650 MG; Start 06/22/18 at 20:30 Levothyroxine Sodium (Synthroid) 50 mcg BEFORE BREAKFAST PO Last administered on 06/30/18 06:27; Admin Dose 50 MCG; Start 06/23/18 at 07:00 Rifaximin (Xifaxan) 550 mg BID PO Last administered on 06/30/18 08:10; Admin Dose 550 MG; Start 06/23/18 at 09:00 Diagnostic Test (Pha) (Accu-Chek) 1 ea 02 XX ; Start 06/23/18 at 02:00 Insulin Aspart (Novolog Insulin Pen) NOVOLOG *MILD* ALGORITHM WITH MEALS BEDTIME SC Last administered on 06/30/18 12:57; Admin Dose 1 UNIT; Start 06/23/18 at 07:55 Miscellaneous Information 1 ea NOTE XX ; Start 06/22/18 at 22:30 Glucose (Glutose) 15 gm Q15M PRN PO DECREASED GLUCOSE; Start 06/22/18 at 22:30 Glucose (Glutose) 22.5 gm Q15M PRN PO DECREASED GLUCOSE; Start 06/22/18 at 22:30 Dextrose (D50w Syringe) 25 ml Q15M PRN IV DECREASED GLUCOSE; Start 06/22/18 at 22:30 Dextrose (D50w Syringe) 50 ml Q15M PRN IV DECREASED GLUCOSE Last administered on 06/23/18at 07:43; Admin Dose 50 ML; Start 06/22/18 at 22:30 Glucagon (Glucagen) 1 mg Q15M PRN IM DECREASED GLUCOSE; Start 06/22/18 at 22:30 Glucose (Glutose) 15 gm Q15M PRN BUCCAL DECREASED GLUCOSE; Start 06/22/18 at 22:30 Ferrous Sulfate (Ferrous Sulfate (Ec)) 325 mg DAILY PO Last administered on 06/30/18 08:10; Admin Dose 325 MG; Start 06/23/18 at 09:00 Gabapentin (Neurontin) 300 mg TID PO Last administered on 06/30/18 12:54; Admin Dose 300 MG; Start 06/23/18 at 09:00 Multivitamins Therapeutic (Theragran) 1 tab DAILY PO Last administered on 06/30/18 08:10; Admin Dose 1 TAB; Start 06/23/18 at 09:00 Insulin Glargine (Lantus) 21 units DAILY@2000 SC Last administered on 06/23/18 21:19; Admin Dose 21 UNITS; Start 06/23/18 at 20:00; Status Hold Nystatin (Nystatin Powder) 1 applic BID TOP Last administered on 06/30/18 08:14; Admin Dose 1 APPLIC; Start 06/24/18 at 09:00 Mupirocin (Bactroban) 1 applic BID TOP Last administered on 06/30/18 08:14; Admin Dose 1 APPLIC; Start 06/24/18 at 12:30; Stop 07/01/18 at 12:29 Propranolol HCl (Inderal) 20 mg TID PO Last administered on 06/30/18 12:55; Admin Dose 20 MG; Start 06/26/18 at 09:00 Ciprofloxacin (Cipro) 500 mg Q18H PO Last administered on 06/30/18 12:55; Admin Dose 500 MG; Start 06/27/18 at 12:00 Lactobacillus Acidophilus/ Rhamnosus (Culturelle) 1 cap BID PO Last administered on 06/30/18 08:10; Admin Dose 1 CAP; Start 06/28/18 at 21:00 Citric Acid/ Sodium Citrate (Bicitra) 30 ml BID PO Last administered on 06/30/18 08:11; Admin Dose 30 ML; Start 06/29/18 at 09:00 Pantoprazole (Protonix Tab) 40 mg BID@0600,1800 PO Last administered on 06/30/18 06:27; Admin Dose 40 MG; Start 06/29/18 at 18:00 JATINDER ERIC MD Jun 30, 2018 14:46
[2018-07-01] VITALS (11 sets, daily range): BP systolic 92–120; BP diastolic 51–59; PULSE 58–80; RESP 20
[2018-07-01] MEDS: ACCU-CHEK XX SCH (02:00)
[2018-07-01] MEDS: CIPROFLOXACIN 500 MG TAB PO SCH (06:42)
[2018-07-01] MEDS: PANTOPRAZOLE (EC) 40 MG TAB PO SCH ×2 (06:42→17:00)
[2018-07-01] MEDS: LEVOTHYROXINE 50 MCG TAB PO SCH (06:42)
[2018-07-01] MEDS: LACTULOSE 30ML CUP PO SCH ×4 (06:42→16:56)
--- NOTE | 2018-07-01 08:34 | CONS ---
Consult Date/Type/Reason Admit Date/Time Jun 22, 2018 at 19:27 Initial Consult Date 06/23/18 Type of Consultation: Urology Reason for Consultation Urinary tract infection and hematuria Requesting Provider: BERNARDO RAMEY Date/Time of Note DATE: 07/01/18 TIME: 08:30 Subjective Patient states that she is voiding on her own and denies any dysuria. Objective Vitals Vital Signs Date Temp Pulse Resp B/P (MAP) Pulse Ox O2 O2 Flow FiO2 Time Delivery Rate 07/01/18 98.8 63 20 92/51 (65) 100 Room Air 07:30 06/28/18 2.0 17:25 Intake and Output 06/30/18 06/30/18 07/01/18 1515:00 23:00 07:00 IntakeIntake Total 900 ml 400 ml BalanceBalance 900 ml 400 ml Exam The abdomen is soft, the patient is incontinent. The urine cytology x3 has been negative. Results/Medications Result Diagram: 06/30/18 0550 07/01/18 0611 Results 24 hrs Laboratory Tests Test 06/30/18 12:48 06/30/18 18:45 06/30/18 21:28 07/01/18 06:11 Bedside Glucose 153 148 177 Sodium Level 133 L Potassium Level 4.2 Chloride Level 110 Carbon Dioxide 15 L Level Anion Gap 8 Blood Urea 35 H Nitrogen Creatinine 2.94 H Est Glomerular 16 L Filtrat Rate mL/min Glucose Level 128 Calcium Level 8.8 Test 07/01/18 07:43 Lab Scanned Report REFERENCE LAB Home Meds Reported Medications Rifaximin* (Xifaxan*) 550 Mg Tablet, 550 MG PO BID, TAB 06/22/18 Cholecalciferol* (Vitamin D3*) 1,000 Unit Tablet, 2000 UNIT PO Q12H, TAB 06/22/18 Acetaminophen* (Tylenol*) 325 Mg Tablet, 650 MG PO Q4H PRN for MILD TO SEVERE PAIN -01/27, TAB 06/22/18 Epoetin Uriel (Procrit) 3,000 Unit/1 Ml Vial, 3000 UNIT IJ DAILY, VIAL ON MON,WED,THU, END DATE 07/13/09 06/22/18 Famotidine* (Pepcid*) 20 Mg Tablet, 20 MG PO DAILY, #30 TAB 06/22/18 Multivitamins* (Theragran*) 1 Tab Tab, 1 TAB PO DAILY, TAB 06/22/18 Polyethylene Glycol* (Miralax*) 17 Gm Powd.pack, 17 GM PO DAILY, #30 PACKET 06/22/18 Magnesium Hydroxide* (Milk Of Magnesia*) 400 Mg/5 Ml Oral.susp, 30 ML PO DAILY, ML 06/22/18 Levothyroxine Sodium* (Levothyroxine Sodium*) 50 Mcg Tablet, 50 MCG PO BEFORE BREAKFAST, #30 TAB 06/22/18 Furosemide* (Furosemide*) 40 Mg Tablet, 40 MG PO DAILY, TAB 06/22/18 Insulin Glargine* (Lantus*) 100 Unit/Ml Soln, 30 UNIT SC DAILY, #1 VIAL 06/22/18 Glimepiride* (Glimepiride*) 2 Mg Tablet, 4 MG PO WITH BREAKFAST, TAB 06/22/18 Gabapentin* (Gabapentin*) 300 Mg Capsule, 300 MG PO TID, #90 CAP 06/22/18 Mineral Oil* (Fleet* Mineral Oil Enema) Unknown Strength Oil, 118 ML IA NEEDED PRN for BOWEL PREP, ENEMA 06/22/18 Ferrous Sulfate* (Ferrous Sulfate*) 325 Mg Tabec, 325 MG PO DAILY, TAB 06/22/18 Bisacodyl* (Bisacodyl*) 10 Mg Supp, 10 MG IA DAILY, SUPP 06/22/18 Digoxin* (Digitek*) 125 Mcg Tablet, 0.125 MG PO DAILY, TAB HOLD FOR HR<60 06/22/18 Ascorbic Acid (Vitamin C) 500 Mg Tab, 500 MG PO DAILY, TAB 06/22/18 Medications Current Medications Lactulose (Enulose) 20 gm Q6 PO Last administered on 07/01/18at 06:42; Admin Dose 20 GM; Start 06/22/18 at 20:30 IV Flush (NS 3 ml) 3 ml PER PROTOCOL IV ; Start 06/22/18 at 20:30 Ondansetron HCl (Zofran Inj) 4 mg Q6H PRN IV NAUSEA/VOMITING; Start 06/22/18 at 20:30 Acetaminophen (Tylenol Tab) 650 mg Q6H PRN PO .PAIN 1-3 OR TEMP Last administered on 06/23/18at 03:01; Admin Dose 650 MG; Start 06/22/18 at 20:30 Levothyroxine Sodium (Synthroid) 50 mcg BEFORE BREAKFAST PO Last administered on 07/01/18 06:42; Admin Dose 50 MCG; Start 06/23/18 at 07:00 Rifaximin (Xifaxan) 550 mg BID PO Last administered on 06/30/18 21:29; Admin Dose 550 MG; Start 06/23/18 at 09:00 Diagnostic Test (Pha) (Accu-Chek) 1 ea 02 XX ; Start 06/23/18 at 02:00 Insulin Aspart (Novolog Insulin Pen) NOVOLOG *MILD* ALGORITHM WITH MEALS BEDTIME SC Last administered on 06/30/18 18:50; Admin Dose 1 UNIT; Start 06/23/18 at 07:55 Miscellaneous Information 1 ea NOTE XX ; Start 06/22/18 at 22:30 Glucose (Glutose) 15 gm Q15M PRN PO DECREASED GLUCOSE; Start 06/22/18 at 22:30 Glucose (Glutose) 22.5 gm Q15M PRN PO DECREASED GLUCOSE; Start 06/22/18 at 22:30 Dextrose (D50w Syringe) 25 ml Q15M PRN IV DECREASED GLUCOSE; Start 06/22/18 at 22:30 Dextrose (D50w Syringe) 50 ml Q15M PRN IV DECREASED GLUCOSE Last administered on 06/23/18 07:43; Admin Dose 50 ML; Start 06/22/18 at 22:30 Glucagon (Glucagen) 1 mg Q15M PRN IM DECREASED GLUCOSE; Start 06/22/18 at 22:30 Glucose (Glutose) 15 gm Q15M PRN BUCCAL DECREASED GLUCOSE; Start 06/22/18 at 22:30 Ferrous Sulfate (Ferrous Sulfate (Ec)) 325 mg DAILY PO Last administered on 06/30/18 08:10; Admin Dose 325 MG; Start 06/23/18 at 09:00 Gabapentin (Neurontin) 300 mg TID PO Last administered on 06/30/18 21:29; Admin Dose 300 MG; Start 06/23/18 at 09:00 Multivitamins Therapeutic (Theragran) 1 tab DAILY PO Last administered on 06/30/18 08:10; Admin Dose 1 TAB; Start 06/23/18 at 09:00 Insulin Glargine (Lantus) 21 units DAILY@2000 SC Last administered on 06/23/18 21:19; Admin Dose 21 UNITS; Start 06/23/18 at 20:00; Status Hold Nystatin (Nystatin Powder) 1 applic BID TOP Last administered on 06/30/18 21:29; Admin Dose 1 APPLIC; Start 06/24/18 at 09:00 Mupirocin (Bactroban) 1 applic BID TOP Last administered on 06/30/18 21:29; Admin Dose 1 APPLIC; Start 06/24/18 at 12:30; Stop 07/01/18 at 12:29 Propranolol HCl (Inderal) 20 mg TID PO Last administered on 06/30/18 12:55; Admin Dose 20 MG; Start 06/26/18 at 09:00 Ciprofloxacin (Cipro) 500 mg Q18H PO Last administered on 07/01/18 06:42; Admin Dose 500 MG; Start 06/27/18 at 12:00 Lactobacillus Acidophilus/ Rhamnosus (Culturelle) 1 cap BID PO Last administered on 06/30/18 21:29; Admin Dose 1 CAP; Start 06/28/18 at 21:00 Citric Acid/ Sodium Citrate (Bicitra) 30 ml BID PO Last administered on 06/30/18 21:28; Admin Dose 30 ML; Start 06/29/18 at 09:00 Pantoprazole (Protonix Tab) 40 mg BID@0600,1800 PO Last administered on 07/01/18 06:42; Admin Dose 40 MG; Start 06/29/18 at 18:00 Assessment/Plan Hospital Course (Demo Recall) 67-year-old female sent from [facility] for a low hemoglobin of 7.5. The patient does not know if she has had history of gross hematuria. She also denies any history of melena. No history of nausea or vomiting. She does have a history of paroxysmal atrial fibrillation, hypertension, dyslipidemia and chronic kidney disease. She was found to have a gross hematuria and a urological consultation was therefore requested. The patient denies any prior history of kidney stones. The CT scan of the abdomen and pelvis showed: Cirrhotic liver. No mass seen. Splenomegaly, ascites and varices compatible with portal hypertension. Patency of the portal vein is indeterminate on this noncontrast study. Cholecystectomy. Bilateral hydroureter nephrosis to the level of the bladder. Loss of parenchyma of the left kidney. No ureteral stones seen. No bladder masses stone. Question chronic reflux versus bladder outlet obstruction. Vascular calcifications. Paraumbilical hernia. Minimal nodular infiltrate right lung base. Presently the patient is better and the urine is gradually clearing up. The urine culture showed: URINE CULTURE Final Organism 1 K.PNEUMONIAE SSP PNEUMONIAE COLONY COUNT >100,000 CFU/ml Organism 2 CITROBACTER FREUNDII COLONY COUNT >100,000 CFU/ml K PNE SPP C FREUNDII C FREUNDII M.I.C. RX M.I.C. RX M.I.C. RX --------- --- --------- --- --------- --- CEFAZOLIN <=4 S CEFEPIME <=1 S CEFOTAXIME S R CIPROFLOXACIN <=0.25 S <=0.25 S GENTAMICIN <=1 S <=1 S LEVOFLOXACIN 0.5 S 1 S MEROPENEM 0.032 S NITROFURANTOIN 64 I <=16 S TOBRAMYCIN <=1 S <=1 S TRIMETHOPRIM/SULFAMETHOXAZOLE <=20 S <=20 S PIPERACILLIN/TAZOBACTAM <=4 S The patient is on Cipro. Her urine remains clear. Continue the Cipro The urine cytology x3 has been negative The Levy catheter was removed and she has been voiding and incontinent and the postvoid residual has been around 100 mL. Continue present treatment GREGORY SCHNEIDER MD Jul 01, 2018 08:34
--- NOTE | 2018-07-01 08:55 | PN ---
DATE: 07/01/2018 SUBJECTIVE: The patient is stable, no events overnight. No fevers, chills, nausea, vomiting. Patie nt is requesting to go home. OBJECTIVE: VITAL SIGNS: Blood pressure is 92/51, pulse 63, respiration 20, temperature 98.8. HEENT: Head is normocephalic. NECK: Supple. HEART: Regular rate. LUNGS: Show diminished breath sounds at the base. ABDOMEN: Soft, nontender to palpation without rebound or guarding. EXTREMITIES: Negative for clubbing, cyanosis, no edema. DERMATOLOGIC: No rashes. MUSCULOSKELETAL: No joint effusions. NEUROLOGIC: No change in exam. MEDICATIONS: Have been reviewed. LABORATORY DATA: Sodium 133, potassium 4.2, BUN 35, creatinine 2.94, bicarbonate 15, BUN count 6.4, hemoglobin 7.7, platelet count is 95. ASSESSMENT AND PLAN: 1. Nonoliguric acute kidney injury on top of chronic kidney disease stage IV with previous baseline creatinine around 3 mg/dL. Etiology of acute kidney injury is multifactorial secondary to obstructio n, hemodynamics. The patient's renal function has improved. The patient's Levy catheter was remove d. The patient's creatinine last 24 hours has increased. At this point, will monitor closely. Cont inue supportive care, renally dose all meds, avoid nephrotoxins. 2. Chronic kidney disease, etiology due to longstanding obstructive uropathy. The patient is curren tly in acute kidney injury as stated above. Continue current treatment plan. 3. Bilateral hydronephrosis with bladder obstruction. The patient was seen by urology. Levy angela ter was placed. Levy catheter was subsequently discontinued. Will continue to monitor I's and O's closely. 4. Anemia. Continue to monitor hemoglobin and hematocrit levels. 5. Mineral bone disorder, monitor calcium and phosphorus levels. 6. Metabolic acidosis secondary to acute kidney injury and chronic kidney disease. Continue Bicitra . 7. Gastritis status post esophagogastroduodenoscopy. Continue proton pump inhibitor. 8. Encephalopathy, etiology toxic metabolic. 9. Liver cirrhosis with hepatitis C. Continue current treatment. 10. Diabetes. Continue current insulin regimen. 11. Hypothyroidism. Continue Synthroid. Dictated By: JITENDRA SEYMOUR/DONOVAN Conf#: [id number] DID#: [id number] CC: ARIANA DELGADO MD;*[facility]*
[2018-07-01] MEDS: RIFAXIMIN 550 MG TAB PO SCH ×2 (08:59→20:56)
[2018-07-01] MEDS: CITRIC ACID/NA CITRATE 30 ML CUP PO SCH ×2 (08:59→20:56)
[2018-07-01] MEDS: FERROUS SULFATE (EC) 325 MG TAB PO SCH (08:59)
[2018-07-01] MEDS: PROPRANOLOL 20 MG TAB PO SCH ×3 (09:00→20:56)
[2018-07-01] MEDS: GABAPENTIN 300 MG CAP PO SCH ×3 (09:00→20:56)
[2018-07-01] MEDS: MULTIVITAMINS THERAPEUTIC TAB PO SCH (09:00)
[2018-07-01] MEDS: MUPIROCIN 2% 22 GM OINT TOP SCH (09:01)
[2018-07-01] MEDS: NYSTATIN 30 GM POWDER BTL TOP SCH ×2 (09:01→21:56)
[2018-07-01] MEDS: LACTOBACILLUS RHAMNOSUS CAP PO SCH ×2 (09:02→20:55)
[2018-07-01] MEDS: INSULIN ASPART [NOVOLOG] 3 ML PEN SC SCH ×4 (09:10→20:57)
--- NOTE | 2018-07-01 12:05 | PN ---
Date/Time of Note Date/Time of Note DATE: 07/01/18 TIME: 12:04 Assessment/Plan VTE Prophylaxis Risk score (from Nsg)>0 risk: 3 SCD applied (from Ns): Yes SCD contraindicated: low risk/ambulating Pharmacological prophylaxis: LMWH Lines/Catheters IV Catheter Type (from Nrsg): Saline Lock Urinary Cath still in place: No Assessment/Plan Hospital Course Hospitalist Coverage/ H Course Assessment and plan 1. Anemia/ abn lab, multifactorial stable observe status post endoscopy. Tolerating diet stable and fit for discharge soon, once creatinine stable. 2. Gross hematuria due to hydronephrosis? stable dced Levy, stable, outpatient Follow-up w urology. 3. Gastritis/ gastric erosion, sp EGD. Colonoscopy unremarkable. Stable cont PPI Carafate, may need to back off on nonsteroidals 4. Cirrhosis 5. Chronic liver disease sequela with pancytopenia and portal hypertension; replace platelets as needed. 6. Hepatitis C viremia 7. SVT stable replaced electrolytes 8. Obesity metabolic syndrome 9. Acute renal failure, on CKD possible ATN stable. Creatinine 2.9 today, If stable anticipate discharge soon. Probably no retention at this point. 10. Chronic hypothyroidism 11. P A fib? No Lovenox Coumadin due to #1. stroke risk noted, needs advanced care planning reevaluated. 12. Metabolic acidosis S: 06/28 events noted 06/29: No distress. Wants to go home. 06/30: No events. No retention today. Participated with PT. 07/01: No distress wants to go home. No noted retention. No fever dysuria O: Vital signs stable rate controlled Physical exam No pallor JVD Regular Clear Bs+ nt nd no RRG No edema Result Diagram: 06/30/18 0550 07/01/18 0611 Results 24hrs Laboratory Tests Test 06/30/18 12:48 06/30/18 18:45 06/30/18 21:28 07/01/18 06:11 Bedside Glucose 153 148 177 Sodium Level 133 L Potassium Level 4.2 Chloride Level 110 Carbon Dioxide 15 L Level Anion Gap 8 Blood Urea 35 H Nitrogen Creatinine 2.94 H Est Glomerular 16 L Filtrat Rate mL/min Glucose Level 128 Calcium Level 8.8 Test 07/01/18 07:43 07/01/18 08:58 Lab Scanned Report REFERENCE LAB Bedside Glucose 183 Exam/Review of Systems Exam Vitals Vital Signs Date Temp Pulse Resp B/P (MAP) Pulse Ox O2 O2 Flow FiO2 Time Delivery Rate 07/01/18 97.9 62 20 93/51 (65) 100 Room Air 11:12 06/28/18 2.0 17:25 Intake and Output 06/30/18 06/30/18 07/01/18 1515:00 23:00 07:00 IntakeIntake Total 900 ml 400 ml BalanceBalance 900 ml 400 ml Results Results 24hrs Laboratory Tests Test 06/30/18 12:48 06/30/18 18:45 06/30/18 21:28 07/01/18 06:11 Bedside Glucose 153 148 177 Sodium Level 133 L Potassium Level 4.2 Chloride Level 110 Carbon Dioxide 15 L Level Anion Gap 8 Blood Urea 35 H Nitrogen Creatinine 2.94 H Est Glomerular 16 L Filtrat Rate mL/min Glucose Level 128 Calcium Level 8.8 Test 07/01/18 07:43 07/01/18 08:58 Lab Scanned Report REFERENCE LAB Bedside Glucose 183 Medications Medication Current Medications Lactulose (Enulose) 20 gm Q6 PO Last administered on 07/01/18at 06:42; Admin Dose 20 GM; Start 06/22/18 at 20:30 IV Flush (NS 3 ml) 3 ml PER PROTOCOL IV ; Start 06/22/18 at 20:30 Ondansetron HCl (Zofran Inj) 4 mg Q6H PRN IV NAUSEA/VOMITING; Start 06/22/18 at 20:30 Acetaminophen (Tylenol Tab) 650 mg Q6H PRN PO .PAIN 1-3 OR TEMP Last administered on 06/23/18at 03:01; Admin Dose 650 MG; Start 06/22/18 at 20:30 Levothyroxine Sodium (Synthroid) 50 mcg BEFORE BREAKFAST PO Last administered on 07/01/18at 06:42; Admin Dose 50 MCG; Start 06/23/18 at 07:00 Rifaximin (Xifaxan) 550 mg BID PO Last administered on 07/01/18at 08:59; Admin Dose 550 MG; Start 06/23/18 at 09:00 Diagnostic Test (Pha) (Accu-Chek) 1 ea 02 XX ; Start 06/23/18 at 02:00 Insulin Aspart (Novolog Insulin Pen) NOVOLOG *MILD* ALGORITHM WITH MEALS BEDTIME SC Last administered on 07/01/18 09:10; Admin Dose 2 UNIT; Start 06/23/18 at 07:55 Miscellaneous Information 1 ea NOTE XX ; Start 06/22/18 at 22:30 Glucose (Glutose) 15 gm Q15M PRN PO DECREASED GLUCOSE; Start 06/22/18 at 22:30 Glucose (Glutose) 22.5 gm Q15M PRN PO DECREASED GLUCOSE; Start 06/22/18 at 22:30 Dextrose (D50w Syringe) 25 ml Q15M PRN IV DECREASED GLUCOSE; Start 06/22/18 at 22:30 Dextrose (D50w Syringe) 50 ml Q15M PRN IV DECREASED GLUCOSE Last administered on 06/23/18at 07:43; Admin Dose 50 ML; Start 06/22/18 at 22:30 Glucagon (Glucagen) 1 mg Q15M PRN IM DECREASED GLUCOSE; Start 06/22/18 at 22:30 Glucose (Glutose) 15 gm Q15M PRN BUCCAL DECREASED GLUCOSE; Start 06/22/18 at 22:30 Ferrous Sulfate (Ferrous Sulfate (Ec)) 325 mg DAILY PO Last administered on 07/01/18at 08:59; Admin Dose 325 MG; Start 06/23/18 at 09:00 Gabapentin (Neurontin) 300 mg TID PO Last administered on 07/01/18 09:00; Admin Dose 300 MG; Start 06/23/18 at 09:00 Multivitamins Therapeutic (Theragran) 1 tab DAILY PO Last administered on 07/01/18 09:00; Admin Dose 1 TAB; Start 06/23/18 at 09:00 Insulin Glargine (Lantus) 21 units DAILY@2000 SC Last administered on 06/23/18 21:19; Admin Dose 21 UNITS; Start 06/23/18 at 20:00; Status Hold Nystatin (Nystatin Powder) 1 applic BID TOP Last administered on 07/01/18 09:01; Admin Dose 1 APPLIC; Start 06/24/18 at 09:00 Mupirocin (Bactroban) 1 applic BID TOP Last administered on 07/01/18 09:01; Admin Dose 1 APPLIC; Start 06/24/18 at 12:30; Stop 07/01/18 at 12:29 Propranolol HCl (Inderal) 20 mg TID PO Last administered on 06/30/18 12:55; Admin Dose 20 MG; Start 06/26/18 at 09:00 Ciprofloxacin (Cipro) 500 mg Q18H PO Last administered on 07/01/18 06:42; Admin Dose 500 MG; Start 06/27/18 at 12:00 Lactobacillus Acidophilus/ Rhamnosus (Culturelle) 1 cap BID PO Last administered on 07/01/18 09:02; Admin Dose 1 CAP; Start 06/28/18 at 21:00 Citric Acid/ Sodium Citrate (Bicitra) 30 ml BID PO Last administered on 07/01/18 08:59; Admin Dose 30 ML; Start 06/29/18 at 09:00 Pantoprazole (Protonix Tab) 40 mg BID@0600,1800 PO Last administered on 07/01/18 06:42; Admin Dose 40 MG; Start 06/29/18 at 18:00 JATINDER ERIC MD Jul 01, 2018 12:05
[2018-07-02] VITALS (10 sets, daily range): BP systolic 90–125; BP diastolic 48–57; PULSE 55–64; RESP 19–20
[2018-07-02] MEDS: CIPROFLOXACIN 500 MG TAB PO SCH ×2 (00:30→17:40)
[2018-07-02] MEDS: LACTULOSE 30ML CUP PO SCH ×4 (00:30→17:41)
[2018-07-02] MEDS: ACCU-CHEK XX SCH (02:00)
[2018-07-02] MEDS: PANTOPRAZOLE (EC) 40 MG TAB PO SCH ×2 (05:43→17:43)
[2018-07-02] MEDS: LEVOTHYROXINE 50 MCG TAB PO SCH (05:43)
[2018-07-02] MEDS: INSULIN ASPART [NOVOLOG] 3 ML PEN SC SCH ×4 (08:02→22:33)
--- NOTE | 2018-07-02 08:34 | CONS ---
Consult Date/Type/Reason Admit Date/Time Jun 22, 2018 at 19:27 Initial Consult Date 06/23/18 Type of Consultation: Urology Reason for Consultation Hematuria and urinary tract infection Requesting Provider: BERNARDO RAMEY Date/Time of Note DATE: 07/02/18 TIME: 08:30 Subjective Patient is feeling much better, she denies any pain Objective Vitals Vital Signs Date Temp Pulse Resp B/P (MAP) Pulse Ox O2 O2 Flow FiO2 Time Delivery Rate 07/02/18 97.7 57 20 90/48 (62) 98 Room Air 07:10 06/28/18 2.0 17:25 Intake and Output 07/01/18 07/01/18 07/02/18 1515:00 23:00 07:00 IntakeIntake Total 1400 ml 500 ml BalanceBalance 1400 ml 500 ml Exam The abdomen is soft, there is no suprapubic tenderness and her urine is clear Results/Medications Result Diagram: 07/02/18 0702 07/01/18 0611 Results 24 hrs Laboratory Tests Test 07/01/18 08:58 07/01/18 12:56 07/01/18 16:47 07/01/18 20:54 Bedside Glucose 183 222 H 173 170 Test 07/02/18 07:02 07/02/18 07:56 White Blood Count 5.3 Red Blood Count 2.20 L Hemoglobin 7.0 L Hematocrit 21.9 L Mean Corpuscular 99.5 Volume Mean Corpuscular 31.8 Hemoglobin Mean Corpuscular 32.0 Hemoglobin Concent Red Cell 16.1 H Distribution Width Platelet Count 89 L Mean Platelet Volume 9.2 Immature 0.800 H Granulocytes % Neutrophils % 65.1 Lymphocytes % 17.9 Monocytes % 13.0 H Eosinophils % 2.8 Basophils % 0.4 Nucleated Red Blood 0.0 Cells % Immature 0.040 H Granulocytes # Neutrophils # 3.5 Lymphocytes # 1.0 Monocytes # 0.7 Eosinophils # 0.2 Basophils # 0.0 Nucleated Red Blood 0.0 Cells # Bedside Glucose 154 Home Meds Reported Medications Rifaximin* (Xifaxan*) 550 Mg Tablet, 550 MG PO BID, TAB 06/22/18 Cholecalciferol* (Vitamin D3*) 1,000 Unit Tablet, 2000 UNIT PO Q12H, TAB 06/22/18 Acetaminophen* (Tylenol*) 325 Mg Tablet, 650 MG PO Q4H PRN for MILD TO SEVERE PAIN -01/27, TAB 06/22/18 Epoetin Uriel (Procrit) 3,000 Unit/1 Ml Vial, 3000 UNIT IJ DAILY, VIAL ON MON,WED,THU, END DATE 07/13/09 06/22/18 Famotidine* (Pepcid*) 20 Mg Tablet, 20 MG PO DAILY, #30 TAB 06/22/18 Multivitamins* (Theragran*) 1 Tab Tab, 1 TAB PO DAILY, TAB 06/22/18 Polyethylene Glycol* (Miralax*) 17 Gm Powd.pack, 17 GM PO DAILY, #30 PACKET 06/22/18 Magnesium Hydroxide* (Milk Of Magnesia*) 400 Mg/5 Ml Oral.susp, 30 ML PO DAILY, ML 06/22/18 Levothyroxine Sodium* (Levothyroxine Sodium*) 50 Mcg Tablet, 50 MCG PO BEFORE BREAKFAST, #30 TAB 06/22/18 Furosemide* (Furosemide*) 40 Mg Tablet, 40 MG PO DAILY, TAB 06/22/18 Insulin Glargine* (Lantus*) 100 Unit/Ml Soln, 30 UNIT SC DAILY, #1 VIAL 06/22/18 Glimepiride* (Glimepiride*) 2 Mg Tablet, 4 MG PO WITH BREAKFAST, TAB 06/22/18 Gabapentin* (Gabapentin*) 300 Mg Capsule, 300 MG PO TID, #90 CAP 06/22/18 Mineral Oil* (Fleet* Mineral Oil Enema) Unknown Strength Oil, 118 ML ID NEEDED PRN for BOWEL PREP, ENEMA 06/22/18 Ferrous Sulfate* (Ferrous Sulfate*) 325 Mg Tabec, 325 MG PO DAILY, TAB 06/22/18 Bisacodyl* (Bisacodyl*) 10 Mg Supp, 10 MG ID DAILY, SUPP 06/22/18 Digoxin* (Digitek*) 125 Mcg Tablet, 0.125 MG PO DAILY, TAB HOLD FOR HR<60 06/22/18 Ascorbic Acid (Vitamin C) 500 Mg Tab, 500 MG PO DAILY, TAB 06/22/18 Medications Current Medications Lactulose (Enulose) 20 gm Q6 PO Last administered on 07/02/18at 05:43; Admin Dose 20 GM; Start 06/22/18 at 20:30 IV Flush (NS 3 ml) 3 ml PER PROTOCOL IV ; Start 06/22/18 at 20:30 Ondansetron HCl (Zofran Inj) 4 mg Q6H PRN IV NAUSEA/VOMITING; Start 06/22/18 at 20:30 Acetaminophen (Tylenol Tab) 650 mg Q6H PRN PO .PAIN 1-3 OR TEMP Last administered on 06/23/18 03:01; Admin Dose 650 MG; Start 06/22/18 at 20:30 Levothyroxine Sodium (Synthroid) 50 mcg BEFORE BREAKFAST PO Last administered on 07/02/18 05:43; Admin Dose 50 MCG; Start 06/23/18 at 07:00 Rifaximin (Xifaxan) 550 mg BID PO Last administered on 07/01/18 20:56; Admin Dose 550 MG; Start 06/23/18 at 09:00 Diagnostic Test (Pha) (Accu-Chek) 1 ea 02 XX ; Start 06/23/18 at 02:00 Insulin Aspart (Novolog Insulin Pen) NOVOLOG *MILD* ALGORITHM WITH MEALS BEDTIME SC Last administered on 07/02/18 08:02; Admin Dose 1 UNIT; Start 06/23/18 at 07:55 Miscellaneous Information 1 ea NOTE XX ; Start 06/22/18 at 22:30 Glucose (Glutose) 15 gm Q15M PRN PO DECREASED GLUCOSE; Start 06/22/18 at 22:30 Glucose (Glutose) 22.5 gm Q15M PRN PO DECREASED GLUCOSE; Start 06/22/18 at 22:30 Dextrose (D50w Syringe) 25 ml Q15M PRN IV DECREASED GLUCOSE; Start 06/22/18 at 22:30 Dextrose (D50w Syringe) 50 ml Q15M PRN IV DECREASED GLUCOSE Last administered on 06/23/18 07:43; Admin Dose 50 ML; Start 06/22/18 at 22:30 Glucagon (Glucagen) 1 mg Q15M PRN IM DECREASED GLUCOSE; Start 06/22/18 at 22:30 Glucose (Glutose) 15 gm Q15M PRN BUCCAL DECREASED GLUCOSE; Start 06/22/18 at 22:30 Ferrous Sulfate (Ferrous Sulfate (Ec)) 325 mg DAILY PO Last administered on 07/01/18 08:59; Admin Dose 325 MG; Start 06/23/18 at 09:00 Gabapentin (Neurontin) 300 mg TID PO Last administered on 07/01/18 20:56; Admin Dose 300 MG; Start 06/23/18 at 09:00 Multivitamins Therapeutic (Theragran) 1 tab DAILY PO Last administered on 07/01/18 09:00; Admin Dose 1 TAB; Start 06/23/18 at 09:00 Insulin Glargine (Lantus) 21 units DAILY@2000 SC Last administered on 06/23/18 21:19; Admin Dose 21 UNITS; Start 06/23/18 at 20:00; Status Hold Nystatin (Nystatin Powder) 1 applic BID TOP Last administered on 07/01/18 21:56; Admin Dose 1 APPLIC; Start 06/24/18 at 09:00 Propranolol HCl (Inderal) 20 mg TID PO Last administered on 07/01/18 20:56; Admin Dose 20 MG; Start 06/26/18 at 09:00 Ciprofloxacin (Cipro) 500 mg Q18H PO Last administered on 07/02/18 00:30; Admi n Dose 500 MG; Start 06/27/18 at 12:00 Lactobacillus Acidophilus/ Rhamnosus (Culturelle) 1 cap BID PO Last administered on 07/01/18 20:55; Admin Dose 1 CAP; Start 06/28/18 at 21:00 Citric Acid/ Sodium Citrate (Bicitra) 30 ml BID PO Last administered on 07/01/18 20:56; Admin Dose 30 ML; Start 06/29/18 at 09:00 Pantoprazole (Protonix Tab) 40 mg BID@0600,1800 PO Last administered on 07/02/18 05:43; Admin Dose 40 MG; Start 06/29/18 at 18:00 Assessment/Plan Hospital Course (Demo Recall) 67-year-old female sent from [facility] for a low hemoglobin of 7.5. The patient does not know if she has had history of gross hematuria. She also denies any history of melena. No history of nausea or vomiting. She does have a history of paroxysmal atrial fibrillation, hypertension, dyslipidemia and chronic kidney disease. She was found to have a gross hematuria and a urological consultation was therefore requested. The patient denies any prior history of kidney stones. The CT scan of the abdomen and pelvis showed: Cirrhotic liver. No mass seen. Splenomegaly, ascites and varices compatible with portal hypertension. Patency of the portal vein is indeterminate on this noncontrast study. Cholecystectomy. Bilateral hydroureter nephrosis to the level of the bladder. Loss of parenchyma of the left kidney. No ureteral stones seen. No bladder masses stone. Question chronic reflux versus bladder outlet obstruction. Vascular calcifications. Paraumbilical hernia. Minimal nodular infiltrate right lung base. Presently the patient is better and the urine is gradually clearing up. The urine culture showed: URINE CULTURE Final Organism 1 K.PNEUMONIAE SSP PNEUMONIAE COLONY COUNT >100,000 CFU/ml Organism 2 CITROBACTER FREUNDII COLONY COUNT >100,000 CFU/ml K PNE SPP C FREUNDII C FREUNDII M.I.C. RX M.I.C. RX M.I.C. RX --------- --- --------- --- --------- --- CEFAZOLIN <=4 S CEFEPIME <=1 S CEFOTAXIME S R CIPROFLOXACIN <=0.25 S <=0.25 S GENTAMICIN <=1 S <=1 S LEVOFLOXACIN 0.5 S 1 S MEROPENEM 0.032 S NITROFURANTOIN 64 I <=16 S TOBRAMYCIN <=1 S <=1 S TRIMETHOPRIM/SULFAMETHOXAZOLE <=20 S <=20 S PIPERACILLIN/TAZOBACTAM <=4 S The patient is on Cipro. Her urine remains clear. Continue the Cipro The urine cytology x3 has been negative The Levy catheter was removed and she has been voiding . Continue present treatment GREGORY SCHNEIDER MD Jul 02, 2018 08:34
[2018-07-02] MEDS: PROPRANOLOL 20 MG TAB PO SCH ×3 (09:00→22:17)
--- NOTE | 2018-07-02 09:31 | PN ---
DATE: 07/02/2018 SUBJECTIVE: Patient stable. No events overnight. OBJECTIVE: VITAL SIGNS: Blood pressure is 90/48, pulse 57, respirations 20, temperature 97.7. HEENT: Head is normocephalic. NECK: Supple. HEART: Regular rate. LUNGS: Show diminished breath sounds at the base. ABDOMEN: Soft, nontender to palpation without rebound or guarding. EXTREMITIES: Negative for clubbing, cyanosis. Trace edema. DERMATOLOGIC: No rashes. MUSCULOSKELETAL: No joint effusion. NEUROLOGIC: No change in exam. MEDICATIONS: Reviewed. LABORATORY DATA: Currently pending. ASSESSMENT AND PLAN: 1. Nonoliguric acute kidney injury on top of chronic kidney disease stage IV with baseline creatinin e around 3 mg/dL. Etiology of acute kidney injury was secondary to obstruction hemodynamics. Renal function has improved. The patient's Levy catheter was removed. Will monitor renal function closel y since it has been discontinued. 2. Chronic kidney disease, etiology secondary to longstanding obstructive uropathy. The patient is currently in acute kidney injury as stated above. Continue current treatment plan. 3. Bilateral hydronephrosis with bladder obstruction. The patient was seen by urology. The patient 's Levy catheter has recently been removed. Monitor renal function and urinary output closely. 4. Anemia. Continue to monitor hemoglobin and hematocrit levels. 5. Mineral bone disorder, monitor calcium and phosphorus levels. 6. Metabolic acidosis secondary to acute kidney injury and chronic kidney disease. The patient is o n Bicitra. Will continue. 7. Gastritis. Continue PPI. 8. Encephalopathy, etiology is toxic metabolic. 9. Liver cirrhosis with hepatitis C. Continue current treatment plan. 10. Diabetes. Continue current insulin regimen. 11. Hypothyroidism. Continue Synthroid. Dictated By: JITENDRA ESPINAL DO NR/NTS Conf#: [id number] DID#: [id number] CC: ARIANA DELGADO MD;*End*
[2018-07-02] MEDS: MULTIVITAMINS THERAPEUTIC TAB PO SCH (09:47)
[2018-07-02] MEDS: RIFAXIMIN 550 MG TAB PO SCH ×2 (09:47→22:17)
[2018-07-02] MEDS: CITRIC ACID/NA CITRATE 30 ML CUP PO SCH ×2 (09:47→22:20)
[2018-07-02] MEDS: NYSTATIN 30 GM POWDER BTL TOP SCH ×2 (09:47→22:17)
[2018-07-02] MEDS: GABAPENTIN 300 MG CAP PO SCH ×3 (09:48→22:16)
[2018-07-02] MEDS: FERROUS SULFATE (EC) 325 MG TAB PO SCH ×2 (09:48→22:16)
[2018-07-02] MEDS: LACTOBACILLUS RHAMNOSUS CAP PO SCH ×2 (09:48→22:16)
--- NOTE | 2018-07-02 19:12 | PN ---
Date/Time of Note Date/Time of Note DATE: 07/02/18 TIME: 19:07 Assessment/Plan VTE Prophylaxis Risk score (from Ns)>0 risk: 5 SCD applied (from Ns): Yes SCD contraindicated: low risk/ambulating Pharmacological prophylaxis: LMWH Lines/Catheters IV Catheter Type (from Nrs): Saline Lock Urinary Cath still in place: No Assessment/Plan Hospital Course Hospitalist Coverage/ H Course Assessment and plan 1. Anemia/ abn lab, multifactorial stable observe,sp egd. stable, discharge soon, once creat stable. transfuse if <7.0 2. Gross hematuria due to hydronephrosis? dced Levy, stable, outpt f/u w urology. 3. Gastritis/ gastric erosion, sp EGD. Colonoscopy unremarkable. Stable cont PPI Carafate, try to avoid nsaids 4. Cirrhosis 5. Chronic liver disease sequela with pancytopenia and portal hypertension; replace platelets as needed. 6. Hepatitis C viremia 7. SVT stable replaced electrolytes 8. Obesity metabolic syndrome 9. Acute renal failure, on CKD possible ATN stable. Creat 2.8 today, If stable anticipate discharge soon. Probably no retention at this point. 10. Chronic hypothyroidism 11. P A fib? No Lovenox Coumadin due to #1. stroke risk noted, needs advanced care planning reevaluated. 12. Metabolic acidosis 13. Irr HR/ 2sec pause; asymptomatic. SSS? decrease bb. S: 06/28 events noted 06/29: No distress. Wants to go home. 06/30: No events. No retention today. Participated with PT. 07/01: No distress wants to go home. No noted retention. No fever dysuria 07/02: no distress. asymptomatic pauses noted. O: Vss Physical exam No pallor JVD Regular Clear Bs+ nt nd no RRG No edema Result Diagram: 07/02/18 0702 07/02/18 0702 Results 24hrs Laboratory Tests Test 07/01/18 20:54 07/02/18 07:02 07/02/18 07:56 07/02/18 11:31 Bedside Glucose 170 154 160 White Blood Count 5.3 Red Blood Count 2.20 L Hemoglobin 7.0 L Hematocrit 21.9 L Mean Corpuscular 99.5 Volume Mean Corpuscular 31.8 Hemoglobin Mean Corpuscular 32.0 Hemoglobin Concent Red Cell 16.1 H Distribution Width Platelet Count 89 L Mean Platelet Volume 9.2 Immature 0.800 H Granulocytes % Neutrophils % 65.1 Lymphocytes % 17.9 Monocytes % 13.0 H Eosinophils % 2.8 Basophils % 0.4 Nucleated Red Blood 0.0 Cells % Immature 0.040 H Granulocytes # Neutrophils # 3.5 Lymphocytes # 1.0 Monocytes # 0.7 Eosinophils # 0.2 Basophils # 0.0 Nucleated Red Blood 0.0 Cells # Sodium Level 135 Potassium Level 4.1 Chloride Level 112 H Carbon Dioxide Level 13 L Anion Gap 10 Blood Urea Nitrogen 37 H Creatinine 2.86 H Est Glomerular 17 L Filtrat Rate mL/min Glucose Level 142 Calcium Level 8.4 Phosphorus Level 4.3 Magnesium Level 2.0 Test 07/02/18 17:23 07/02/18 17:30 Troponin I 0.013 Bedside Glucose 154 Exam/Review of Systems Exam Vitals Vital Signs Date Temp Pulse Resp B/P (MAP) Pulse Ox O2 O2 Flow FiO2 Time Delivery Rate 07/02/18 56 16:51 07/02/18 97.7 20 96/51 (66) 100 Room Air 14:58 06/28/18 2.0 17:25 Intake and Output 07/01/18 07/01/18 07/02/18 1515:00 23:00 07:00 IntakeIntake Total 1400 ml 500 ml BalanceBalance 1400 ml 500 ml Results Results 24hrs Laboratory Tests Test 07/01/18 20:54 07/02/18 07:02 07/02/18 07:56 07/02/18 11:31 Bedside Glucose 170 154 160 White Blood Count 5.3 Red Blood Count 2.20 L Hemoglobin 7.0 L Hematocrit 21.9 L Mean Corpuscular 99.5 Volume Mean Corpuscular 31.8 Hemoglobin Mean Corpuscular 32.0 Hemoglobin Concent Red Cell 16.1 H Distribution Width Platelet Count 89 L Mean Platelet Volume 9.2 Immature 0.800 H Granulocytes % Neutrophils % 65.1 Lymphocytes % 17.9 Monocytes % 13.0 H Eosinophils % 2.8 Basophils % 0.4 Nucleated Red Blood 0.0 Cells % Immature 0.040 H Granulocytes # Neutrophils # 3.5 Lymphocytes # 1.0 Monocytes # 0.7 Eosinophils # 0.2 Basophils # 0.0 Nucleated Red Blood 0.0 Cells # Sodium Level 135 Potassium Level 4.1 Chloride Level 112 H Carbon Dioxide Level 13 L Anion Gap 10 Blood Urea Nitrogen 37 H Creatinine 2.86 H Est Glomerular 17 L Filtrat Rate mL/min Glucose Level 142 Calcium Level 8.4 Phosphorus Level 4.3 Magnesium Level 2.0 Test 07/02/18 17:23 07/02/18 17:30 Troponin I 0.013 Bedside Glucose 154 Medications Medication Current Medications Lactulose (Enulose) 20 gm Q6 PO Last administered on 07/02/18 05:43; Admin Dose 20 GM; Start 06/22/18 at 20:30 IV Flush (NS 3 ml) 3 ml PER PROTOCOL IV ; Start 06/22/18 at 20:30 Ondansetron HCl (Zofran Inj) 4 mg Q6H PRN IV NAUSEA/VOMITING; Start 06/22/18 at 20:30 Acetaminophen (Tylenol Tab) 650 mg Q6H PRN PO .PAIN 1-3 OR TEMP Last administered on 06/23/18 03:01; Admin Dose 650 MG; Start 06/22/18 at 20:30 Levothyroxine Sodium (Synthroid) 50 mcg BEFORE BREAKFAST PO Last administered on 07/02/18 05:43; Admin Dose 50 MCG; Start 06/23/18 at 07:00 Rifaximin (Xifaxan) 550 mg BID PO Last administered on 07/02/18at 09:47; Admin Dose 550 MG; Start 06/23/18 at 09:00 Diagnostic Test (Pha) (Accu-Chek) 1 ea 02 XX ; Start 06/23/18 at 02:00 Insulin Aspart (Novolog Insulin Pen) NOVOLOG *MILD* ALGORITHM WITH MEALS BEDTIME SC Last administered on 07/02/18at 17:39; Admin Dose 1 UNIT; Start 06/23/18 at 07:55 Miscellaneous Information 1 ea NOTE XX ; Start 06/22/18 at 22:30 Glucose (Glutose) 15 gm Q15M PRN PO DECREASED GLUCOSE; Start 06/22/18 at 22:30 Glucose (Glutose) 22.5 gm Q15M PRN PO DECREASED GLUCOSE; Start 06/22/18 at 22:30 Dextrose (D50w Syringe) 25 ml Q15M PRN IV DECREASED GLUCOSE; Start 06/22/18 at 22:30 Dextrose (D50w Syringe) 50 ml Q15M PRN IV DECREASED GLUCOSE Last administered on 06/23/18 07:43; Admin Dose 50 ML; Start 06/22/18 at 22:30 Glucagon (Glucagen) 1 mg Q15M PRN IM DECREASED GLUCOSE; Start 06/22/18 at 22:30 Glucose (Glutose) 15 gm Q15M PRN BUCCAL DECREASED GLUCOSE; Start 06/22/18 at 22:30 Ferrous Sulfate (Ferrous Sulfate (Ec)) 325 mg DAILY PO Last administered on 07/02/18 09:48; Admin Dose 325 MG; Start 06/23/18 at 09:00 Gabapentin (Neurontin) 300 mg TID PO Last administered on 07/02/18 14:23; Admin Dose 300 MG; Start 06/23/18 at 09:00 Multivitamins Therapeutic (Theragran) 1 tab DAILY PO Last administered on 07/02/18 09:47; Admin Dose 1 TAB; Start 06/23/18 at 09:00 Insulin Glargine (Lantus) 21 units DAILY@2000 SC Last administered on 06/23/18 21:19; Admin Dose 21 UNITS; Start 06/23/18 at 20:00; Status Hold Nystatin (Nystatin Powder) 1 applic BID TOP Last administered on 07/02/18 09:47; Admin Dose 1 APPLIC; Start 06/24/18 at 09:00 Ciprofloxacin (Cipro) 500 mg Q18H PO Last administered on 07/02/18 17:40; Admin Dose 500 MG; Start 06/27/18 at 12:00 Lactobacillus Acidophilus/ Rhamnosus (Culturelle) 1 cap BID PO Last administered on 07/02/18 09:48; Admin Dose 1 CAP; Start 06/28/18 at 21:00 Citric Acid/ Sodium Citrate (Bicitra) 30 ml BID PO Last administered on 07/02/18 09:47; Admin Dose 30 ML; Start 06/29/18 at 09:00 Pantoprazole (Protonix Tab) 40 mg BID@0600,1800 PO Last administered on 07/02/18 17:43; Admin Dose 40 MG; Start 06/29/18 at 18:00 Propranolol HCl (Inderal) 10 mg TID PO ; Start 07/02/18 at 21:00 JATINDER ERIC MD Jul 02, 2018 19:12
[2018-07-03] VITALS (12 sets, daily range): BP systolic 82–117; BP diastolic 46–62; PULSE 56–84; RESP 18–20
[2018-07-03] MEDS: ACCU-CHEK XX SCH (02:00)
[2018-07-03] MEDS: PANTOPRAZOLE (EC) 40 MG TAB PO SCH ×2 (06:00→17:39)
[2018-07-03] MEDS: LACTULOSE 30ML CUP PO SCH ×4 (06:00→17:35)
[2018-07-03] MEDS: LEVOTHYROXINE 50 MCG TAB PO SCH (07:26)
[2018-07-03] MEDS: INSULIN ASPART [NOVOLOG] 3 ML PEN SC SCH ×4 (07:57→20:53)
[2018-07-03] MEDS: PROPRANOLOL 20 MG TAB PO SCH ×3 (09:00→20:49)
[2018-07-03] MEDS: LACTOBACILLUS RHAMNOSUS CAP PO SCH ×2 (09:07→20:48)
[2018-07-03] MEDS: GABAPENTIN 300 MG CAP PO SCH ×3 (09:07→20:49)
[2018-07-03] MEDS: RIFAXIMIN 550 MG TAB PO SCH ×2 (09:07→20:48)
[2018-07-03] MEDS: FERROUS SULFATE (EC) 325 MG TAB PO SCH ×2 (09:07→20:49)
[2018-07-03] MEDS: NYSTATIN 30 GM POWDER BTL TOP SCH ×2 (09:08→20:53)
[2018-07-03] MEDS: ENOXAPARIN 30 MG/0.3 ML SYG SC SCH (09:20)
[2018-07-03] MEDS: MULTIVITAMINS THERAPEUTIC TAB PO SCH (09:21)
--- NOTE | 2018-07-03 10:23 | PN ---
Date/Time of Note Date/Time of Note DATE: 07/03/18 TIME: 10:23 Assessment/Plan VTE Prophylaxis Risk score (from Ns)>0 risk: 4 SCD applied (from Ns): No SCD contraindicated: other Pharmacological prophylaxis: other Lines/Catheters [facility]from [facility] Saline Lock Urinary Cath still in place: No Assessment/Plan Hospital Course renal follow up SUBJECTIVE: Patient stable. No events overnight. OBJECTIVE: HEENT: Head is normocephalic. NECK: Supple. HEART: Regular rate. LUNGS: Show diminished breath sounds at the base. ABDOMEN: Soft, nontender to palpation without rebound or guarding. EXTREMITIES: Negative for clubbing, cyanosis. Trace edema. DERMATOLOGIC: No rashes. MUSCULOSKELETAL: No joint effusion. NEUROLOGIC: No change in exam. MEDICATIONS: Reviewed. ASSESSMENT AND PLAN: 1. Nonoliguric acute kidney injury on top of chronic kidney disease stage IV with baseline creatinine around 3 mg/dL. Etiology of acute kidney injury was secondary to obstruction hemodynamics. Renal function has improved. The patient's Levy catheter was removed. Will monitor renal function closely since it has been discontinued. 2. Chronic kidney disease, etiology secondary to longstanding obstructive uropathy. The patient is currently in acute kidney injury as stated above. Continue current treatment plan. 3. Bilateral hydronephrosis with bladder obstruction. The patient was seen by urology. The patient's Levy catheter has recently been removed. Monitor renal function and urinary output closely. 4. Anemia. Continue to monitor hemoglobin and hematocrit levels. 5. Mineral bone disorder, monitor calcium and phosphorus levels. 6. Metabolic acidosis secondary to acute kidney injury and chronic kidney disease. The patient is on Bicitra. Will continue. 7. Gastritis. Continue PPI. 8. Encephalopathy, etiology is toxic metabolic. 9. Liver cirrhosis with hepatitis C. Continue current treatment plan. 10. Diabetes. Continue current insulin regimen. 11. Hypothyroidism. Continue Synthroid. Result Diagram: 07/03/18 0546 07/03/18 0546 Results 24hrs Laboratory Tests Test 07/02/18 11:31 07/02/18 17:23 07/02/18 17:30 07/02/18 18:58 Bedside Glucose 160 154 Troponin I 0.013 < 0.012 Digoxin Level < 0.4 L Test 07/02/18 22:15 07/03/18 05:46 07/03/18 07:54 Bedside Glucose 182 146 White Blood Count 5.2 Red Blood Count 2.25 L Hemoglobin 7.0 L Hematocrit 21.9 L Mean Corpuscular 97.3 Volume Mean Corpuscular 31.1 Hemoglobin Mean Corpuscular 32.0 Hemoglobin Concent Red Cell 15.9 H Distribution Width Platelet Count 82 L Mean Platelet Volume 9.2 Immature 0.800 H Granulocytes % Neutrophils % 70.3 Lymphocytes % 14.8 L Monocytes % 10.6 Eosinophils % 3.1 Basophils % 0.4 Nucleated Red Blood 0.0 Cells % Immature 0.040 H Granulocytes # Neutrophils # 3.7 Lymphocytes # 0.8 Monocytes # 0.6 Eosinophils # 0.2 Basophils # 0.0 Nucleated Red Blood 0.0 Cells # Sodium Level 133 L Potassium Level 4.5 Chloride Level 110 Carbon Dioxide Level 14 L Anion Gap 9 Blood Urea Nitrogen 37 H Creatinine 2.92 H Est Glomerular 16 L Filtrat Rate mL/min Glucose Level 124 Calcium Level 8.4 Phosphorus Level 4.9 Magnesium Level 1.9 Iron Level 68 Total Iron Binding 211 L Capacity Percent Iron 32 Saturation Ferritin 200.0 Troponin I 0.025 Exam/Review of Systems Exam Vitals Vital Signs Date Temp Pulse Resp B/P (MAP) Pulse Ox O2 O2 Flow FiO2 Time Delivery Rate 07/03/18 60 08:00 07/03/18 97.7 20 92/55 (67) 100 Room Air 07:33 Intake and Output 07/02/18 07/02/18 07/03/18 1515:00 23:00 07:00 IntakeIntake Total 1600 ml 950 ml BalanceBalance 1600 ml 950 ml Results Results 24hrs Laboratory Tests Test 07/02/18 11:31 07/02/18 17:23 07/02/18 17:30 07/02/18 18:58 Bedside Glucose 160 154 Troponin I 0.013 < 0.012 Digoxin Level < 0.4 L Test 07/02/18 22:15 07/03/18 05:46 07/03/18 07:54 Bedside Glucose 182 146 White Blood Count 5.2 Red Blood Count 2.25 L Hemoglobin 7.0 L Hematocrit 21.9 L Mean Corpuscular 97.3 Volume Mean Corpuscular 31.1 Hemoglobin Mean Corpuscular 32.0 Hemoglobin Concent Red Cell 15.9 H Distribution Width Platelet Count 82 L Mean Platelet Volume 9.2 Immature 0.800 H Granulocytes % Neutrophils % 70.3 Lymphocytes % 14.8 L Monocytes % 10.6 Eosinophils % 3.1 Basophils % 0.4 Nucleated Red Blood 0.0 Cells % Immature 0.040 H Granulocytes # Neutrophils # 3.7 Lymphocytes # 0.8 Monocytes # 0.6 Eosinophils # 0.2 Basophils # 0.0 Nucleated Red Blood 0.0 Cells # Sodium Level 133 L Potassium Level 4.5 Chloride Level 110 Carbon Dioxide Level 14 L Anion Gap 9 Blood Urea Nitrogen 37 H Creatinine 2.92 H Est Glomerular 16 L Filtrat Rate mL/min Glucose Level 124 Calcium Level 8.4 Phosphorus Level 4.9 Magnesium Level 1.9 Iron Level 68 Total Iron Binding 211 L Capacity Percent Iron 32 Saturation Ferritin 200.0 Troponin I 0.025 Medications Medication Current Medications Lactulose (Enulose) 20 gm Q6 PO Last administered on 07/03/18at 06:00; Admin Dose 20 GM; Start 06/22/18 at 20:30 IV Flush (NS 3 ml) 3 ml PER PROTOCOL IV ; Start 06/22/18 at 20:30 Ondansetron HCl (Zofran Inj) 4 mg Q6H PRN IV NAUSEA/VOMITING; Start 06/22/18 at 20:30 Acetaminophen (Tylenol Tab) 650 mg Q6H PRN PO .PAIN 1-3 OR TEMP Last administered on 06/23/18at 03:01; Admin Dose 650 MG; Start 06/22/18 at 20:30 Levothyroxine Sodium (Synthroid) 50 mcg BEFORE BREAKFAST PO Last administered on 07/03/18at 07:26; Admin Dose 50 MCG; Start 06/23/18 at 07:00 Rifaximin (Xifaxan) 550 mg BID PO Last administered on 07/03/18 09:07; Admin Dose 550 MG; Start 06/23/18 at 09:00 Diagnostic Test (Pha) (Accu-Chek) 1 ea 02 XX ; Start 06/23/18 at 02:00 Insulin Aspart (Novolog Insulin Pen) NOVOLOG *MILD* ALGORITHM WITH MEALS BEDTIME SC Last administered on 07/03/18at 07:57; Admin Dose 1 UNIT; Start 06/23/18 at 07:55 Miscellaneous Information 1 ea NOTE XX ; Start 06/22/18 at 22:30 Glucose (Glutose) 15 gm Q15M PRN PO DECREASED GLUCOSE; Start 06/22/18 at 22:30 Glucose (Glutose) 22.5 gm Q15M PRN PO DECREASED GLUCOSE; Start 06/22/18 at 22:30 Dextrose (D50w Syringe) 25 ml Q15M PRN IV DECREASED GLUCOSE; Start 06/22/18 at 22:30 Dextrose (D50w Syringe) 50 ml Q15M PRN IV DECREASED GLUCOSE Last administered on 06/23/18at 07:43; Admin Dose 50 ML; Start 06/22/18 at 22:30 Glucagon (Glucagen) 1 mg Q15M PRN IM DECREASED GLUCOSE; Start 06/22/18 at 22:30 Glucose (Glutose) 15 gm Q15M PRN BUCCAL DECREASED GLUCOSE; Start 06/22/18 at 22:30 Gabapentin (Neurontin) 300 mg TID PO Last administered on 07/03/18 09:07; Admin Dose 300 MG; Start 06/23/18 at 09:00 Multivitamins Therapeutic (Theragran) 1 tab DAILY PO Last administered on 07/03/18 09:21; Admin Dose 1 TAB; Start 06/23/18 at 09:00 Insulin Glargine (Lantus) 21 units DAILY@2000 SC Last administered on 06/23/18 21:19; Admin Dose 21 UNITS; Start 06/23/18 at 20:00; Status Hold Nystatin (Nystatin Powder) 1 applic BID TOP Last administered on 07/03/18 09:08; Admin Dose 1 APPLIC; Start 06/24/18 at 09:00 Ciprofloxacin (Cipro) 500 mg Q18H PO Last administered on 07/02/18at 17:40; Admin Dose 500 MG; Start 06/27/18 at 12:00 Lactobacillus Acidophilus/ Rhamnosus (Culturelle) 1 cap BID PO Last administered on 07/03/18 09:07; Admin Dose 1 CAP; Start 06/28/18 at 21:00 Citric Acid/ Sodium Citrate (Bicitra) 30 ml BID PO Last administered on 9at 22:20; Admin Dose 30 ML; Start 06/29/18 at 09:00 Pantoprazole (Protonix Tab) 40 mg BID@0600,1800 PO Last administered on 07/03/18at 06:00; Admin Dose 40 MG; Start 06/29/18 at 18:00 Propranolol HCl (Inderal) 10 mg TID PO Last administered on 07/02/18at 22:17; Admin Dose 10 MG; Start 07/02/18 at 21:00 Ferrous Sulfate (Ferrous Sulfate (Ec)) 325 mg BID PO Last administered on 07/03/18at 09:07; Admin Dose 325 MG; Start 07/02/18 at 21:00 Enoxaparin Sodium (Lovenox) 30 mg DAILY SC Last administered on 07/03/18at 09:20; Admin Dose 30 MG; Start 07/03/18 at 09:00 BELINDA JOSUE DO Jul 03, 2018 10:23
[2018-07-03] MEDS: CITRIC ACID/NA CITRATE 30 ML CUP PO SCH ×2 (11:31→20:48)
[2018-07-03] MEDS: CIPROFLOXACIN 500 MG TAB PO SCH (11:31)
--- NOTE | 2018-07-03 14:41 | CONS ---
Assessment/Plan Assessment/Plan Hospital Course (Demo Recall) Assessment: Sinus pause - compensatory pause after PVC, physiologic and no treatment required Paroxysmal supraventricular tachycardia and possible history of atrial fibrillation - currently sinus rhythm Anemia and thrombocytopenia Liver cirrhosis Acute kidney injury on chronic kidney disease Obstructive uropathy Incomplete data Recommendations: -continue telemetry monitoring -OK to continue propranolol -digoxin was discontinued -possible history of atrial fibrillation, though not currently a candidate for anticoagulant or antiplatelet therapy due to thrombocytopenia and anemia Consultation Date/Type/Reason Admit Date/Time Jun 22, 2018 at 19:27 Type of Consult Cardiology Reason for Consultation sinus pause Date/Time of Note DATE: 07/03/18 TIME: 14:32 Hx of Present Illness The patient is a 67 year-old female who presented from her facility on 06/22/2018. after being noted to have a low hemoglobin of 7.5 on her laboratory results. Work up is underway. She is a limited historian and unable to provide any meaningful history. She has no specific complaints at this time. While in the emergency department, she was noted on EKG to have a supra ventricular tachycardia in the 140s. She received intravenous diltiazem with reversion to sinus rhythm. She was noted on telemetry monitoring 07/02/2018 to have two consecutive premature ventricular complexes with subsequent compensatory sinus pause of 2 seconds. She was reportedly asymptomatic. Unable to obtain review of systems due to patient's mental status. Past Medical History Incomplete data Home Meds Reported Medications Rifaximin* (Xifaxan*) 550 Mg Tablet, 550 MG PO BID, TAB 06/22/18 Cholecalciferol* (Vitamin D3*) 1,000 Unit Tablet, 2000 UNIT PO Q12H, TAB 06/22/18 Acetaminophen* (Tylenol*) 325 Mg Tablet, 650 MG PO Q4H PRN for MILD TO SEVERE PAIN -01/27, TAB 06/22/18 Epoetin Uriel (Procrit) 3,000 Unit/1 Ml Vial, 3000 UNIT IJ DAILY, VIAL ON THU,THU,THU, END DATE 07/13/09 06/22/18 Famotidine* (Pepcid*) 20 Mg Tablet, 20 MG PO DAILY, #30 TAB 06/22/18 Multivitamins* (Theragran*) 1 Tab Tab, 1 TAB PO DAILY, TAB 06/22/18 Polyethylene Glycol* (Miralax*) 17 Gm Powd.pack, 17 GM PO DAILY, #30 PACKET 06/22/18 Magnesium Hydroxide* (Milk Of Magnesia*) 400 Mg/5 Ml Oral.susp, 30 ML PO DAILY, ML 06/22/18 Levothyroxine Sodium* (Levothyroxine Sodium*) 50 Mcg Tablet, 50 MCG PO BEFORE BREAKFAST, #30 TAB 06/22/18 Furosemide* (Furosemide*) 40 Mg Tablet, 40 MG PO DAILY, TAB 06/22/18 Insulin Glargine* (Lantus*) 100 Unit/Ml Soln, 30 UNIT SC DAILY, #1 VIAL 06/22/18 Glimepiride* (Glimepiride*) 2 Mg Tablet, 4 MG PO WITH BREAKFAST, TAB 06/22/18 Gabapentin* (Gabapentin*) 300 Mg Capsule, 300 MG PO TID, #90 CAP 06/22/18 Mineral Oil* (Fleet* Mineral Oil Enema) Unknown Strength Oil, 118 ML WA NEED ED PRN for BOWEL PREP, ENEMA 06/22/18 Ferrous Sulfate* (Ferrous Sulfate*) 325 Mg Tabec, 325 MG PO DAILY, TAB 06/22/18 Bisacodyl* (Bisacodyl*) 10 Mg Supp, 10 MG [place] DAILY, SUPP 06/22/18 Digoxin* (Digitek*) 125 Mcg Tablet, 0.125 MG PO DAILY, TAB HOLD FOR HR<60 06/22/18 Ascorbic Acid (Vitamin C) 500 Mg Tab, 500 MG PO DAILY, TAB 06/22/18 Medications Current Medications Lactulose (Enulose) 20 gm Q6 PO Last administered on 07/03/18at 06:00; Admin Dose 20 GM; Start 06/22/18 at 20:30 IV Flush (NS 3 ml) 3 ml PER PROTOCOL IV ; Start 06/22/18 at 20:30 Ondansetron HCl (Zofran Inj) 4 mg Q6H PRN IV NAUSEA/VOMITING; Start 06/22/18 at 20:30 Acetaminophen (Tylenol Tab) 650 mg Q6H PRN PO .PAIN 1-3 OR TEMP Last administered on 06/23/18at 03:01; Admin Dose 650 MG; Start 06/22/18 at 20:30 Levothyroxine Sodium (Synthroid) 50 mcg BEFORE BREAKFAST PO Last administered on 07/03/18at 07:26; Admin Dose 50 MCG; Start 06/23/18 at 07:00 Rifaximin (Xifaxan) 550 mg BID PO Last administered on 07/03/18at 09:07; Admin Dose 550 MG; Start 06/23/18 at 09:00 Diagnostic Test (Pha) (Accu-Chek) 1 ea 02 XX ; Start 06/23/18 at 02:00 Insulin Aspart (Novolog Insulin Pen) NOVOLOG *MILD* ALGORITHM WITH MEALS BE DTIME SC Last administered on 07/03/18at 11:28; Admin Dose 2 UNIT; Start 06/23/18 at 07:55 Miscellaneous Information 1 ea NOTE XX ; Start 06/22/18 at 22:30 Glucose (Glutose) 15 gm Q15M PRN PO DECREASED GLUCOSE; Start 06/22/18 at 22:30 Glucose (Glutose) 22.5 gm Q15M PRN PO DECREASED GLUCOSE; Start 06/22/18 at 22:30 Dextrose (D50w Syringe) 25 ml Q15M PRN IV DECREASED GLUCOSE; Start 06/22/18 at 22:30 Dextrose (D50w Syringe) 50 ml Q15M PRN IV DECREASED GLUCOSE Last administered on 06/23/18at 07:43; Admin Dose 50 ML; Start 06/22/18 at 22:30 Glucagon (Glucagen) 1 mg Q15M PRN IM DECREASED GLUCOSE; Start 06/22/18 at 22:30 Glucose (Glutose) 15 gm Q15M PRN BUCCAL DECREASED GLUCOSE; Start 06/22/18 at 22:30 Gabapentin (Neurontin) 300 mg TID PO Last administered on 07/03/18at 13:36; Admin Dose 300 MG; Start 06/23/18 at 09:00 Multivitamins Therapeutic (Theragran) 1 tab DAILY PO Last administered on 07/03/18 09:21; Admin Dose 1 TAB; Start 06/23/18 at 09:00 Insulin Glargine (Lantus) 21 units DAILY@2000 SC Last administered on 06/23/18 21:19; Admin Dose 21 UNITS; Start 06/23/18 at 20:00; Status Hold Nystatin (Nystatin Powder) 1 applic BID TOP Last administered on 07/03/18 09:08; Admin Dose 1 APPLIC; Start 06/24/18 at 09:00 Ciprofloxacin (Cipro) 500 mg Q18H PO Last administered on 07/03/18 11:31; Admin Dose 500 MG; Start 06/27/18 at 12:00 Lactobacillus Acidophilus/ Rhamnosus (Culturelle) 1 cap BID PO Last administered on 07/03/18 09:07; Admin Dose 1 CAP; Start 06/28/18 at 21:00 Citric Acid/ Sodium Citrate (Bicitra) 30 ml BID PO Last administered on 07/03/18 11:31; Admin Dose 30 ML; Start 06/29/18 at 09:00 Pantoprazole (Protonix Tab) 40 mg BID@0600,1800 PO Last administered on 07/03/18 06:00; Admin Dose 40 MG; Start 06/29/18 at 18:00 Propranolol HCl (Inderal) 10 mg TID PO Last administered on 07/03/18 13:36; Admin Dose 10 MG; Start 07/02/18 at 21:00 Ferrous Sulfate (Ferrous Sulfate (Ec)) 325 mg BID PO Last administered on 07/03/18 09:07; Admin Dose 325 MG; Start 07/02/18 at 21:00 Enoxaparin Sodium (Lovenox) 30 mg DAILY SC Last administered on 07/03/18 09:20; Admin Dose 30 MG; Start 07/03/18 at 09:00 Allergies: Coded Allergies: No Known Allergy (Unverified , 06/22/18) Past Surgical History Incomplete data Past Surgical Hx: cholecystectomy Family History Significant Family History: other (incomplete data) Social History Incomplete data Exam/Review of Systems Vital Signs Vitals Vital Signs Date Temp Pulse Resp B/P (MAP) Pulse Ox O2 O2 Flow FiO2 Time Delivery Rate 07/03/18 59 12:00 07/03/18 98.3 20 117/56 96 Room Air 11:03 (76) Intake and Output 07/02/18 07/02/18 07/03/18 1515:00 23:00 07:00 IntakeIntake Total 1600 ml 950 ml BalanceBalance 1600 ml 950 ml Exam Constitutional: alert; No oriented, No distress Psych: no complaints, confusion Head: normocephalic, atraumatic Eyes: nl conjunctiva, nl lids ENMT: nl external ears & nose, nl nasal mucosa & septum Neck: supple, non-tender; No jvd Respiratory: clear to auscultation Cardiovascular: regular rate and rhythm, systolic murmur (2/6) Gastrointestinal: soft, non-tender Musculoskeletal: nl extremities to inspection Extremities: No cyanosis, No clubbing, No edema Neurological: nl speech; No nl mental status Labs Result Diagram: 07/03/18 0546 07/03/18 0546 Results 24hrs Laboratory Tests Test 07/02/18 17:23 07/02/18 17:30 07/02/18 18:58 07/02/18 22:15 Troponin I 0.013 < 0.012 Bedside Glucose 154 182 Digoxin Level < 0.4 L Test 07/03/18 05:46 07/03/18 07:54 07/03/18 11:21 White Blood Count 5.2 Red Blood Count 2.25 L Hemoglobin 7.0 L Hematocrit 21.9 L Mean Corpuscular 97.3 Volume Mean Corpuscular 31.1 Hemoglobin Mean Corpuscular 32.0 Hemoglobin Concent Red Cell 15.9 H Distribution Width Platelet Count 82 L Mean Platelet Volume 9.2 Immature 0.800 H Granulocytes % Neutrophils % 70.3 Lymphocytes % 14.8 L Monocytes % 10.6 Eosinophils % 3.1 Basophils % 0.4 Nucleated Red Blood 0.0 Cells % Immature 0.040 H Granulocytes # Neutrophils # 3.7 Lymphocytes # 0.8 Monocytes # 0.6 Eosinophils # 0.2 Basophils # 0.0 Nucleated Red Blood 0.0 Cells # Sodium Level 133 L Potassium Level 4.5 Chloride Level 110 Carbon Dioxide Level 14 L Anion Gap 9 Blood Urea Nitrogen 37 H Creatinine 2.92 H Est Glomerular 16 L Filtrat Rate mL/min Glucose Level 124 Calcium Level 8.4 Phosphorus Level 4.9 Magnesium Level 1.9 Iron Level 68 Total Iron Binding 211 L Capacity Percent Iron 32 Saturation Ferritin 200.0 Troponin I 0.025 Bedside Glucose 146 183 Medications Medications Current Medications Lactulose (Enulose) 20 gm Q6 PO Last administered on 07/03/18at 06:00; Admin Dose 20 GM; Start 06/22/18 at 20:30 IV Flush (NS 3 ml) 3 ml PER PROTOCOL IV ; Start 06/22/18 at 20:30 Ondansetron HCl (Zofran Inj) 4 mg Q6H PRN IV NAUSEA/VOMITING; Start 06/22/18 at 20:30 Acetaminophen (Tylenol Tab) 650 mg Q6H PRN PO .PAIN 1-3 OR TEMP Last administered on 06/23/18 03:01; Admin Dose 650 MG; Start 06/22/18 at 20:30 Levothyroxine Sodium (Synthroid) 50 mcg BEFORE BREAKFAST PO Last administered on 07/03/18 07:26; Admin Dose 50 MCG; Start 06/23/18 at 07:00 Rifaximin (Xifaxan) 550 mg BID PO Last administered on 07/03/18 09:07; Admin Dose 550 MG; Start 06/23/18 at 09:00 Diagnostic Test (Pha) (Accu-Chek) 1 ea 02 XX ; Start 06/23/18 at 02:00 Insulin Aspart (Novolog Insulin Pen) NOVOLOG *MILD* ALGORITHM WITH MEALS BEDTIME SC Last administered on 07/03/18 11:28; Admin Dose 2 UNIT; Start at 07:55 Miscellaneous Information 1 ea NOTE XX ; Start 06/22/18 at 22:30 Glucose (Glutose) 15 gm Q15M PRN PO DECREASED GLUCOSE; Start 06/22/18 at 22:30 Glucose (Glutose) 22.5 gm Q15M PRN PO DECREASED GLUCOSE; Start 06/22/18 at 22:30 Dextrose (D50w Syringe) 25 ml Q15M PRN IV DECREASED GLUCOSE; Start 06/22/18 at 22:30 Dextrose (D50w Syringe) 50 ml Q15M PRN IV DECREASED GLUCOSE Last administered on 06/23/18at 07:43; Admin Dose 50 ML; Start 06/22/18 at 22:30 Glucagon (Glucagen) 1 mg Q15M PRN IM DECREASED GLUCOSE; Start 06/22/18 at 22:30 Glucose (Glutose) 15 gm Q15M PRN BUCCAL DECREASED GLUCOSE; Start 06/22/18 at 22:30 Gabapentin (Neurontin) 300 mg TID PO Last administered on 07/03/18at 13:36; Admin Dose 300 MG; Start 06/23/18 at 09:00 Multivitamins Therapeutic (Theragran) 1 tab DAILY PO Last administered on 07/03/18 09:21; Admin Dose 1 TAB; Start 06/23/18 at 09:00 Insulin Glargine (Lantus) 21 units DAILY@2000 SC Last administered on 06/23/18 21:19; Admin Dose 21 UNITS; Start 06/23/18 at 20:00; Status Hold Nystatin (Nystatin Powder) 1 applic BID TOP Last administered on 07/03/18 09 :08; Admin Dose 1 APPLIC; Start 06/24/18 at 09:00 Ciprofloxacin (Cipro) 500 mg Q18H PO Last administered on 07/03/18 11:31; Admin Dose 500 MG; Start 06/27/18 at 12:00 Lactobacillus Acidophilus/ Rhamnosus (Culturelle) 1 cap BID PO Last administered on 07/03/18 09:07; Admin Dose 1 CAP; Start 06/28/18 at 21:00 Citric Acid/ Sodium Citrate (Bicitra) 30 ml BID PO Last administered on 07/03/18 11:31; Admin Dose 30 ML; Start 06/29/18 at 09:00 Pantoprazole (Protonix Tab) 40 mg BID@0600,1800 PO Last administered on 07/03/18 06:00; Admin Dose 40 MG; Start 06/29/18 at 18:00 Propranolol HCl (Inderal) 10 mg TID PO Last administered on 07/03/18 13:36; Admin Dose 10 MG; Start 07/02/18 at 21:00 Ferrous Sulfate (Ferrous Sulfate (Ec)) 325 mg BID PO Last administered on 07/03/18 09:07; Admin Dose 325 MG; Start 07/02/18 at 21:00 Enoxaparin Sodium (Lovenox) 30 mg DAILY SC Last administered on 07/03/18 09:20; Admin Dose 30 MG; Start 07/03/18 at 09:00 DARRELL ARDON MD Jul 03, 2018 14:41
[2018-07-03] MEDS ORDERED: SOD CHLORIDE 0.9% 500 ML IV ONE ×2 (16:00→18:30)
--- NOTE | 2018-07-03 20:48 | PN ---
Date/Time of Note Date/Time of Note DATE: 07/03/18 TIME: 20:47 Assessment/Plan VTE Prophylaxis Risk score (from Nsg)>0 risk: 6 SCD applied (from Ns): Yes SCD contraindicated: low risk/ambulating Pharmacological prophylaxis: LMWH Lines/Catheters IV Catheter Type (from Nrs): Saline Lock Urinary Cath still in place: No Assessment/Plan Hospital Course Hospitalist Coverage/ H Course Assessment and plan 1. Anemia/ abn lab, multifactorial stable observe,sp egd. stable, discharge soon, once creat stable. transfuse if <7.0 2. Gross hematuria due to hydronephrosis? dced Levy, stable, outpt f/u w urology. 3. Gastritis/ gastric erosion, sp EGD. Colonoscopy unremarkable. Stable cont PPI Carafate, try to avoid nsaids 4. Cirrhosis 5. Chronic liver disease sequela with pancytopenia and portal hypertension; replace platelets as needed. 6. Hepatitis C viremia 7. SVT stable replaced electrolytes 8. Obesity metabolic syndrome 9. Acute renal failure, on CKD possible ATN stable. Creat 2.8 today, If stable anticipate discharge soon. Probably no retention at this point. 10. Chronic hypothyroidism 11. P A fib? No Lovenox Coumadin due to #1. stroke risk noted, needs advanced care planning reevaluated. 12. Metabolic acidosis 13. Irr HR/ 2sec pause; asymptomatic. SSS? decrease bb. S: 06/28 events noted 06/29: No distress. Wants to go home. 06/30: No events. No retention today. Participated with PT. 07/01: No distress wants to go home. No noted retention. No fever dysuria 07/02: no distress. asymptomatic pauses noted. 07/03: low bp; loose bm? no gib. no chest pain/ syncope. improved w ivf bolus O: Vss w bolus Physical exam No pallor JVD Regular Clear Bs+ nt nd no RRG No edema Result Diagram: 07/03/18 0546 07/03/1846 Results 24hrs Laboratory Tests Test 07/02/18 22:15 07/03/18 05:46 07/03/18 07:54 07/03/18 11:21 Bedside Glucose 182 146 183 White Blood Count 5.2 Red Blood Count 2.25 L Hemoglobin 7.0 L Hematocrit 21.9 L Mean Corpuscular 97.3 Volume Mean Corpuscular 31.1 Hemoglobin Mean Corpuscular 32.0 Hemoglobin Concent Red Cell 15.9 H Distribution Width Platelet Count 82 L Mean Platelet Volume 9.2 Immature 0.800 H Granulocytes % Neutrophils % 70.3 Lymphocytes % 14.8 L Monocytes % 10.6 Eosinophils % 3.1 Basophils % 0.4 Nucleated Red Blood 0.0 Cells % Immature 0.040 H Granulocytes # Neutrophils # 3.7 Lymphocytes # 0.8 Monocytes # 0.6 Eosinophils # 0.2 Basophils # 0.0 Nucleated Red Blood 0.0 Cells # Sodium Level 133 L Potassium Level 4.5 Chloride Level 110 Carbon Dioxide Level 14 L Anion Gap 9 Blood Urea Nitrogen 37 H Creatinine 2.92 H Est Glomerular 16 L Filtrat Rate mL/min Glucose Level 124 Calcium Level 8.4 Phosphorus Level 4.9 Magnesium Level 1.9 Iron Level 68 Total Iron Binding 211 L Capacity Percent Iron 32 Saturation Ferritin 200.0 Troponin I 0.025 Test 07/03/18 17:38 Bedside Glucose 191 Exam/Review of Systems Exam Vitals Vital Signs Date Temp Pulse Resp B/P (MAP) Pulse Ox O2 O2 Flow FiO2 Time Delivery Rate 07/03/18 60 20:25 07/03/18 97.9 19 101/53 100 20:18 (69) 07/03/18 Room Air 15:26 Intake and Output 07/02/18 07/02/18 07/03/18 1515:00 23:00 07:00 IntakeIntake Total 1600 ml 950 ml BalanceBalance 1600 ml 950 ml Results Results 24hrs Laboratory Tests Test 07/02/18 22:15 07/03/18 05:46 07/03/18 07:54 07/03/18 11:21 Bedside Glucose 182 146 183 White Blood Count 5.2 Red Blood Count 2.25 L Hemoglobin 7.0 L Hematocrit 21.9 L Mean Corpuscular 97.3 Volume Mean Corpuscular 31.1 Hemoglobin Mean Corpuscular 32.0 Hemoglobin Concent Red Cell 15.9 H Distribution Width Platelet Count 82 L Mean Platelet Volume 9.2 Immature 0.800 H Granulocytes % Neutrophils % 70.3 Lymphocytes % 14.8 L Monocytes % 10.6 Eosinophils % 3.1 Basophils % 0.4 Nucleated Red Blood 0.0 Cells % Immature 0.040 H Granulocytes # Neutrophils # 3.7 Lymphocytes # 0.8 Monocytes # 0.6 Eosinophils # 0.2 Basophils # 0.0 Nucleated Red Blood 0.0 Cells # Sodium Level 133 L Potassium Level 4.5 Chloride Level 110 Carbon Dioxide Level 14 L Anion Gap 9 Blood Urea Nitrogen 37 H Creatinine 2.92 H Est Glomerular 16 L Filtrat Rate mL/min Glucose Level 124 Calcium Level 8.4 Phosphorus Level 4.9 Magnesium Level 1.9 Iron Level 68 Total Iron Binding 211 L Capacity Percent Iron 32 Saturation Ferritin 200.0 Troponin I 0.025 Test 07/03/18 17:38 Bedside Glucose 191 Medications Medication Current Medications Lactulose (Enulose) 20 gm Q6 PO Last administered on 07/03/18at 06:00; Admin Dose 20 GM; Start 06/22/18 at 20:30 IV Flush (NS 3 ml) 3 ml PER PROTOCOL IV ; Start 06/22/18 at 20:30 Ondansetron HCl (Zofran Inj) 4 mg Q6H PRN IV NAUSEA/VOMITING; Start 06/22/18 at 20:30 Acetaminophen (Tylenol Tab) 650 mg Q6H PRN PO .PAIN 1-3 OR TEMP Last adminis tered on 06/23/18at 03:01; Admin Dose 650 MG; Start 06/22/18 at 20:30 Levothyroxine Sodium (Synthroid) 50 mcg BEFORE BREAKFAST PO Last administered on 07/03/18at 07:26; Admin Dose 50 MCG; Start 06/23/18 at 07:00 Rifaximin (Xifaxan) 550 mg BID PO Last administered on 07/03/18at 09:07; Admin Dose 550 MG; Start 06/23/18 at 09:00 Diagnostic Test (Pha) (Accu-Chek) 1 ea 02 XX ; Start 06/23/18 at 02:00 Insulin Aspart (Novolog Insulin Pen) NOVOLOG *MILD* ALGORITHM WITH MEALS BEDTIME SC Last administered on 07/03/18at 17:42; Admin Dose 2 UNIT; Start 06/23/18 at 07:55 Miscellaneous Information 1 ea NOTE XX ; Start 06/22/18 at 22:30 Glucose (Glutose) 15 gm Q15M PRN PO DECREASED GLUCOSE; Start 06/22/18 at 22:30 Glucose (Glutose) 22.5 gm Q15M PRN PO DECREASED GLUCOSE; Start 06/22/18 at 22:30 Dextrose (D50w Syringe) 25 ml Q15M PRN IV DECREASED GLUCOSE; Start 06/22/18 at 22:30 Dextrose (D50w Syringe) 50 ml Q15M PRN IV DECREASED GLUCOSE Last administered on 06/23/18 07:43; Admin Dose 50 ML; Start 06/22/18 at 22:30 Glucagon (Glucagen) 1 mg Q15M PRN IM DECREASED GLUCOSE; Start 06/22/18 at 22:30 Glucose (Glutose) 15 gm Q15M PRN BUCCAL DECREASED GLUCOSE; Start 06/22/18 at 22:30 Gabapentin (Neurontin) 300 mg TID PO Last administered on 07/03/18 13:36; Admin Dose 300 MG; Start 06/23/18 at 09:00 Multivitamins Therapeutic (Theragran) 1 tab DAILY PO Last administered on 07/03/18 09:21; Admin Dose 1 TAB; Start 06/23/18 at 09:00 Insulin Glargine (Lantus) 21 units DAILY@2000 SC Last administered on 06/23/18 21:19; Admin Dose 21 UNITS; Start 06/23/18 at 20:00; Status Hold Nystatin (Nystatin Powder) 1 applic BID TOP Last administered on 07/03/18 09:08; Admin Dose 1 APPLIC; Start 06/24/18 at 09:00 Ciprofloxacin (Cipro) 500 mg Q18H PO Last administered on 07/03/18 11:31; Admin Dose 500 MG; Start 06/27/18 at 12:00 Lactobacillus Acidophilus/ Rhamnosus (Culturelle) 1 cap BID PO Last administered on 07/03/18 09:07; Admin Dose 1 CAP; Start 06/28/18 at 21:00 Citric Acid/ Sodium Citrate (Bicitra) 30 ml BID PO Last administered on 07/03/18 11:31; Admin Dose 30 ML; Start 06/29/18 at 09:00 Pantoprazole (Protonix Tab) 40 mg BID@0600,1800 PO Last administered on 07/03/18 17:39; Admin Dose 40 MG; Start 06/29/18 at 18:00 Propranolol HCl (Inderal) 10 mg TID PO Last administered on 07/03/18 13:36; A dmin Dose 10 MG; Start 07/02/18 at 21:00 Ferrous Sulfate (Ferrous Sulfate (Ec)) 325 mg BID PO Last administered on 07/03/18at 09:07; Admin Dose 325 MG; Start 07/02/18 at 21:00 Enoxaparin Sodium (Lovenox) 30 mg DAILY SC Last administered on 07/03/18at 09:20; Admin Dose 30 MG; Start 07/03/18 at 09:00 JATINDER ERIC MD Jul 03, 2018 20:48
[2018-07-04] VITALS (12 sets, daily range): BP systolic 91–105; BP diastolic 48–57; PULSE 55–71; RESP 18–20
[2018-07-04] MEDS: ACCU-CHEK XX SCH (02:00)
[2018-07-04] MEDS: PANTOPRAZOLE (EC) 40 MG TAB PO SCH ×2 (05:59→17:35)
[2018-07-04] MEDS: CIPROFLOXACIN 500 MG TAB PO SCH (05:59)
[2018-07-04] MEDS: LEVOTHYROXINE 50 MCG TAB PO SCH (05:59)
[2018-07-04] MEDS: INSULIN ASPART [NOVOLOG] 3 ML PEN SC SCH ×4 (07:55→21:13)
[2018-07-04] MEDS: CITRIC ACID/NA CITRATE 30 ML CUP PO SCH ×2 (08:18→21:04)
[2018-07-04] MEDS: FERROUS SULFATE (EC) 325 MG TAB PO SCH ×2 (08:21→21:04)
[2018-07-04] MEDS: GABAPENTIN 300 MG CAP PO SCH ×3 (08:22→21:04)
[2018-07-04] MEDS: RIFAXIMIN 550 MG TAB PO SCH ×2 (08:23→21:04)
[2018-07-04] MEDS: MULTIVITAMINS THERAPEUTIC TAB PO SCH (08:24)
[2018-07-04] MEDS: PROPRANOLOL 20 MG TAB PO SCH ×3 (08:25→21:00)
[2018-07-04] MEDS: LACTOBACILLUS RHAMNOSUS CAP PO SCH ×2 (08:25→21:03)
[2018-07-04] MEDS: NYSTATIN 30 GM POWDER BTL TOP SCH ×2 (08:25→21:04)
[2018-07-04] MEDS: ENOXAPARIN 30 MG/0.3 ML SYG SC SCH (08:29)
--- NOTE | 2018-07-04 11:32 | PN ---
Date/Time of Note Date/Time of Note DATE: 07/04/18 TIME: 11:32 Assessment/Plan VTE Prophylaxis Risk score (from Ns)>0 risk: 5 SCD applied (from Nsg): Yes Pharmacological prophylaxis: other Lines/Catheters IV Catheter Type (from Nrs): Saline Lock Urinary Cath still in place: No Assessment/Plan Hospital Course renal follow up SUBJECTIVE: Patient stable. No events overnight. OBJECTIVE: HEENT: Head is normocephalic. NECK: Supple. HEART: Regular rate. LUNGS: Show diminished breath sounds at the base. ABDOMEN: Soft, nontender to palpation without rebound or guarding. EXTREMITIES: Negative for clubbing, cyanosis. Trace edema. DERMATOLOGIC: No rashes. MUSCULOSKELETAL: No joint effusion. NEUROLOGIC: No change in exam. MEDICATIONS: Reviewed. ASSESSMENT AND PLAN: 1. Nonoliguric acute kidney injury on top of chronic kidney disease stage IV with baseline creatinine around 3 mg/dL. Etiology of acute kidney injury was secondary to obstruction hemodynamics. Renal function has improved. The patient's Levy catheter was removed. Will monitor renal function closely since it has been discontinued. 2. Chronic kidney disease, etiology secondary to longstanding obstructive uropathy. The patient is currently in acute kidney injury as stated above. Continue current treatment plan. 3. Bilateral hydronephrosis with bladder obstruction. The patient was seen by urology. The patient's Levy catheter has recently been removed. Monitor renal function and urinary output closely. 4. Anemia. Continue to monitor hemoglobin and hematocrit levels. 5. Mineral bone disorder, monitor calcium and phosphorus levels. 6. Metabolic acidosis secondary to acute kidney injury and chronic kidney disease. The patient is on Bicitra. Will continue. 7. Gastritis. Continue PPI. 8. Encephalopathy, etiology is toxic metabolic. 9. Liver cirrhosis with hepatitis C. Continue current treatment plan. 10. Diabetes. Continue current insulin regimen. 11. Hypothyroidism. Continue Synthroid. Result Diagram: 07/04/18 0539 07/04/18 0538 Results 24hrs Laboratory Tests Test 07/03/18 17:38 07/03/18 20:51 07/03/18 22:32 07/04/18 05:38 Bedside Glucose 191 168 Hemoglobin 7.1 L Hematocrit 21.9 L Sodium Level 130 L Potassium Level 4.4 Chloride Level 106 Carbon Dioxide 14 L Level Anion Gap 10 Blood Urea 40 H Nitrogen Creatinine 3.02 H Est Glomerular 16 L Filtrat Rate mL/min Glucose Level 124 Calcium Level 8.1 L Phosphorus Level 5.3 H Magnesium Level 2.2 Total Bilirubin 0.4 Direct Bilirubin 0.00 Indirect Bilirubin 0.4 Aspartate Amino 31 Transf (AST/SGOT) Alanine 21 Aminotransferase ( ALT/SGPT) Alkaline 57 Phosphatase Troponin I 0.015 Total Protein 6.7 Albumin 2.5 L Globulin 4.20 H Albumin/Globulin 0.59 Ratio Test 07/04/18 05:39 07/04/18 08:04 White Blood Count 5.1 Red Blood Count 2.11 L Hemoglobin 6.5 *L Hematocrit 20.6 L Mean Corpuscular 97.6 Volume Mean Corpuscular 30.8 Hemoglobin Mean Corpuscular 31.6 L Hemoglobin Concent Red Cell 15.8 H Distribution Width Platelet Count 88 L Mean Platelet 9.9 Volume Immature 0.600 H Granulocytes % Neutrophils % 64.9 Segmented 67 Neutrophils % (Manual) Band Neutrophils % 1 (Manual) Lymphocytes % 18.6 Lymphocytes % 17 (Manual) Reactive 1 H Lymphocytes % (Manual) Monocytes % 12.1 H Monocytes % 11 (Manual) Eosinophils % 3.2 Eosinophils % 3 (Manual) Basophils % 0.6 Nucleated Red 0.0 Blood Cells % Immature 0.030 Granulocytes # Neutrophils # 3.3 Neutrophils # 3.4 (Manual) Band Neutrophils # 0.0 Lymphocytes 0.8 (Manual) Lymphocytes # 0.9 Reactive 0.0 Lymphocytes # Monocytes # 0.6 Monocytes # 0.5 (Manual) Eosinophils # 0.2 Basophils # 0.0 Nucleated Red 0.0 Blood Cells # Platelet Estimate SIG DECREASED Polychromasia 3+ Poikilocytosis 1+ Anisocytosis 2+ Macrocytosis 2+ Tear Drop Cells 1+ Bedside Glucose 135 Exam/Review of Systems Exam Vitals Vital Signs Date Temp Pulse Resp B/P (MAP) Pulse Ox O2 O2 Flow FiO2 Time Delivery Rate 07/04/18 57 08:24 07/04/18 98.0 18 100/49 98 07:40 (66) 07/03/18 Room Air 15:26 Intake and Output 07/03/18 07/03/18 07/04/18 1515:00 23:00 07:00 IntakeIntake Total 2100 ml 800 ml BalanceBalance 2100 ml 800 ml Results Results 24hrs Laboratory Tests Test 3/16/19 17:38 07/03/18 20:51 07/03/18 22:32 07/04/18 05:38 Bedside Glucose 191 168 Hemoglobin 7.1 L Hematocrit 21.9 L Sodium Level 130 L Potassium Level 4.4 Chloride Level 106 Carbon Dioxide 14 L Level Anion Gap 10 Blood Urea 40 H Nitrogen Creatinine 3.02 H Est Glomerular 16 L Filtrat Rate mL/min Glucose Level 124 Calcium Level 8.1 L Phosphorus Level 5.3 H Magnesium Level 2.2 Total Bilirubin 0.4 Direct Bilirubin 0.00 Indirect Bilirubin 0.4 Aspartate Amino 31 Transf (AST/SGOT) Alanine 21 Aminotransferase ( ALT/SGPT) Alkaline 57 Phosphatase Troponin I 0.015 Total Protein 6.7 Albumin 2.5 L Globulin 4.20 H Albumin/Globulin 0.59 Ratio Test 07/04/18 05:39 07/04/18 08:04 White Blood Count 5.1 Red Blood Count 2.11 L Hemoglobin 6.5 *L Hematocrit 20.6 L Mean Corpuscular 97.6 Volume Mean Corpuscular 30.8 Hemoglobin Mean Corpuscular 31.6 L Hemoglobin Concent Red Cell 15.8 H Distribution Width Platelet Count 88 L Mean Platelet 9.9 Volume Immature 0.600 H Granulocytes % Neutrophils % 64.9 Segmented 67 Neutrophils % (Manual) Band Neutrophils % 1 (Manual) Lymphocytes % 18.6 Lymphocytes % 17 (Manual) Reactive 1 H Lymphocytes % (Manual) Monocytes % 12.1 H Monocytes % 11 (Manual) Eosinophils % 3.2 Eosinophils % 3 (Manual) Basophils % 0.6 Nucleated Red 0.0 Blood Cells % Immature 0.030 Granulocytes # Neutrophils # 3.3 Neutrophils # 3.4 (Manual) Band Neutrophils # 0.0 Lymphocytes 0.8 (Manual) Lymphocytes # 0.9 Reactive 0.0 Lymphocytes # Monocytes # 0.6 Monocytes # 0.5 (Manual) Eosinophils # 0.2 Basophils # 0.0 Nucleated Red 0.0 Blood Cells # Platelet Estimate SIG DECREASED Polychromasia 3+ Poikilocytosis 1+ Anisocytosis 2+ Macrocytosis 2+ Tear Drop Cells 1+ Bedside Glucose 135 Medications Medication Current Medications IV Flush (NS 3 ml) 3 ml PER PROTOCOL IV ; Start 06/22/18 at 20:30 Ondansetron HCl (Zofran Inj) 4 mg Q6H PRN IV NAUSEA/VOMITING; Start 06/22/18 at 20:30 Acetaminophen (Tylenol Tab) 650 mg Q6H PRN PO .PAIN 1-3 OR TEMP Last administered on 06/23/18at 03:01; Admin Dose 650 MG; Start 06/22/18 at 20:30 Levothyroxine Sodium (Synthroid) 50 mcg BEFORE BREAKFAST PO Last administered on 07/04/18 05:59; Admin Dose 50 MCG; Start 06/23/18 at 07:00 Rifaximin (Xifaxan) 550 mg BID PO Last administered on 07/04/18at 08:23; Admin Dose 550 MG; Start 06/23/18 at 09:00 Diagnostic Test (Pha) (Accu-Chek) 1 ea 02 XX ; Start 06/23/18 at 02:00 Insulin Aspart (Novolog Insulin Pen) NOVOLOG *MILD* ALGORITHM WITH MEALS BEDTIME SC Last administered on 07/03/18at 17:42; Admin Dose 2 UNIT; Start 06/23/18 at 07:55 Miscellaneous Information 1 ea NOTE XX ; Start 06/22/18 at 22:30 Glucose (Glutose) 15 gm Q15M PRN PO DECREASED GLUCOSE; Start 06/22/18 at 22:30 Glucose (Glutose) 22.5 gm Q15M PRN PO DECREASED GLUCOSE; Start 06/22/18 at 22:30 Dextrose (D50w Syringe) 25 ml Q15M PRN IV DECREASED GLUCOSE; Start 06/22/18 at 22:30 Dextrose (D50w Syringe) 50 ml Q15M PRN IV DECREASED GLUCOSE Last administered on 06/23/18at 07:43; Admin Dose 50 ML; Start 06/22/18 at 22:30 Glucagon (Glucagen) 1 mg Q15M PRN IM DECREASED GLUCOSE; Start 06/22/18 at 22:30 Glucose (Glutose) 15 gm Q15M PRN BUCCAL DECREASED GLUCOSE; Start 06/22/18 at 22:30 Gabapentin (Neurontin) 300 mg TID PO Last administered on 07/04/18at 08:22; Admin Dose 300 MG; Start 06/23/18 at 09:00 Multivitamins Therapeutic (Theragran) 1 tab DAILY PO Last administered on 07/04/18at 08:24; Admin Dose 1 TAB; Start 06/23/18 at 09:00 Insulin Glargine (Lantus) 21 units DAILY@2000 SC Last administered on 06/23/18 21:19; Admin Dose 21 UNITS; Start 06/23/18 at 20:00; Status Hold Nystatin (Nystatin Powder) 1 applic BID TOP Last administered on 07/04/18 08:25; Admin Dose 1 APPLIC; Start 06/24/18 at 09:00 Ciprofloxacin (Cipro) 500 mg Q18H PO Last administered on 07/04/18 05:59; Admin Dose 500 MG; Start 06/27/18 at 12:00 Lactobacillus Acidophilus/ Rhamnosus (Culturelle) 1 cap BID PO Last administered on 07/04/18 08:25; Admin Dose 1 CAP; Start 06/28/18 at 21:00 Citric Acid/ Sodium Citrate (Bicitra) 30 ml BID PO Last administered on 07/04/18 08:18; Admin Dose 30 ML; Start 06/29/18 at 09:00 Pantoprazole (Protonix Tab) 40 mg BID@0600,1800 PO Last administered on 07/04/18 05:59; Admin Dose 40 MG; Start 06/29/18 at 18:00 Propranolol HCl (Inderal) 10 mg TID PO Last administered on 07/03/18 20:49; Admin Dose 10 MG; Start 07/02/18 at 21:00 Ferrous Sulfate (Ferrous Sulfate (Ec)) 325 mg BID PO Last administered on 07/04/18 08:21; Admin Dose 325 MG; Start 07/02/18 at 21:00 Enoxaparin Sodium (Lovenox) 30 mg DAILY SC Last administered on 07/04/18 08:29; Admin Dose 30 MG; Start 07/03/18 at 09:00 Lactulose (Enulose) 20 gm DAILY@0800 PO ; Start 07/05/18 at 08:00 BELINDA JOSUE DO Jul 04, 2018 11:32
[2018-07-04] MEDS ORDERED: SOD CHLORIDE 0.9% 250 ML IV* ONE (13:02)
--- NOTE | 2018-07-04 14:48 | CONS ---
Consult Date/Type/Reason Admit Date/Time Jun 22, 2018 at 19:27 Initial Consult Date 06/23/18 Type of Consultation: Urology Reason for Consultation Hematuria, bilateral hydronephrosis and urinary tract infection Requesting Provider: BERNARDO RAMEY Date/Time of Note DATE: 07/04/18 TIME: 14:45 Subjective Patient is awake and alert. She voids in the bed Objective Vitals Vital Signs Date Temp Pulse Resp B/P (MAP) Pulse Ox O2 O2 Flow FiO2 Time Delivery Rate 07/04/18 56 12:27 07/04/18 98.4 18 91/56 (68) 97 11:44 07/03/18 Room Air 15:26 Intake and Output 07/03/18 07/03/18 07/04/18 1414:59 22:59 06:59 IntakeIntake Total 2100 ml 800 ml BalanceBalance 2100 ml 800 ml Exam The abdomen is soft and the nurses tell me that her urine is clear. Results/Medications Result Diagram: 07/04/18 0539 07/04/18 0538 Results 24 hrs Laboratory Tests Test 07/03/18 17:38 07/03/18 20:51 07/03/18 22:32 07/04/18 05:38 Bedside Glucose 191 168 Hemoglobin 7.1 L Hematocrit 21.9 L Sodium Level 130 L Potassium Level 4.4 Chloride Level 106 Carbon Dioxide 14 L Level Anion Gap 10 Blood Urea 40 H Nitrogen Creatinine 3.02 H Est Glomerular 16 L Filtrat Rate mL/min Glucose Level 124 Calcium Level 8.1 L Phosphorus Level 5.3 H Magnesium Level 2.2 Total Bilirubin 0.4 Direct Bilirubin 0.00 Indirect Bilirubin 0.4 Aspartate Amino 31 Transf (AST/SGOT) Alanine 21 Aminotransferase ( ALT/SGPT) Alkaline 57 Phosphatase Troponin I 0.015 Total Protein 6.7 Albumin 2.5 L Globulin 4.20 H Albumin/Globulin 0.59 Ratio Test 07/04/18 05:39 07/04/18 08:04 07/04/18 12:09 White Blood Count 5.1 Red Blood Count 2.11 L Hemoglobin 6.5 *L Hematocrit 20.6 L Mean Corpuscular 97.6 Volume Mean Corpuscular 30.8 Hemoglobin Mean Corpuscular 31.6 L Hemoglobin Concent Red Cell 15.8 H Distribution Width Platelet Count 88 L Mean Platelet 9.9 Volume Immature 0.600 H Granulocytes % Neutrophils % 64.9 Segmented 67 Neutrophils % (Manual) Band Neutrophils % 1 (Manual) Lymphocytes % 18.6 Lymphocytes % 17 (Manual) Reactive 1 H Lymphocytes % (Manual) Monocytes % 12.1 H Monocytes % 11 (Manual) Eosinophils % 3.2 Eosinophils % 3 (Manual) Basophils % 0.6 Nucleated Red 0.0 Blood Cells % Immature 0.030 Granulocytes # Neutrophils # 3.3 Neutrophils # 3.4 (Manual) Band Neutrophils # 0.0 Lymphocytes 0.8 (Manual) Lymphocytes # 0.9 Reactive 0.0 Lymphocytes # Monocytes # 0.6 Monocytes # 0.5 (Manual) Eosinophils # 0.2 Basophils # 0.0 Nucleated Red 0.0 Blood Cells # Platelet Estimate SIG DECREASED Polychromasia 3+ Poikilocytosis 1+ Anisocytosis 2+ Macrocytosis 2+ Tear Drop Cells 1+ Bedside Glucose 135 162 Home Meds Reported Medications Rifaximin* (Xifaxan*) 550 Mg Tablet, 550 MG PO BID, TAB 06/22/18 Cholecalciferol* (Vitamin D3*) 1,000 Unit Tablet, 2000 UNIT PO Q12H, TAB 06/22/18 Acetaminophen* (Tylenol*) 325 Mg Tablet, 650 MG PO Q4H PRN for MILD TO SEVERE PAIN -01/27, TAB 06/22/18 Epoetin Uriel (Procrit) 3,000 Unit/1 Ml Vial, 3000 UNIT IJ DAILY, VIAL ON THU,THU,THU, END DATE 07/13/09 06/22/18 Famotidine* (Pepcid*) 20 Mg Tablet, 20 MG PO DAILY, #30 TAB 06/22/18 Multivitamins* (Theragran*) 1 Tab Tab, 1 TAB PO DAILY, TAB 06/22/18 Polyethylene Glycol* (Miralax*) 17 Gm Powd.pack, 17 GM PO DAILY, #30 PACKET 06/22/18 Magnesium Hydroxide* (Milk Of Magnesia*) 400 Mg/5 Ml Oral.susp, 30 ML PO DAILY, ML 06/22/18 Levothyroxine Sodium* (Levothyroxine Sodium*) 50 Mcg Tablet, 50 MCG PO BEFORE BREAKFAST, #30 TAB 06/22/18 Furosemide* (Furosemide*) 40 Mg Tablet, 40 MG PO DAILY, TAB 06/22/18 Insulin Glargine* (Lantus*) 100 Unit/Ml Soln, 30 UNIT SC DAILY, #1 VIAL 06/22/18 Glimepiride* (Glimepiride*) 2 Mg Tablet, 4 MG PO WITH BREAKFAST, TAB 06/22/18 Gabapentin* (Gabapentin*) 300 Mg Capsule, 300 MG PO TID, #90 CAP 06/22/18 Mineral Oil* (Fleet* Mineral Oil Enema) Unknown Strength Oil, 118 ML LA NEEDED PRN for BOWEL PREP, ENEMA 06/22/18 Ferrous Sulfate* (Ferrous Sulfate*) 325 Mg Tabec, 325 MG PO DAILY, TAB 06/22/18 Bisacodyl* (Bisacodyl*) 10 Mg Supp, 10 MG LA DAILY, SUPP 06/22/18 Digoxin* (Digitek*) 125 Mcg Tablet, 0.125 MG PO DAILY, TAB HOLD FOR HR<60 06/22/18 Ascorbic Acid (Vitamin C) 500 Mg Tab, 500 MG PO DAILY, TAB 06/22/18 Medications Current Medications IV Flush (NS 3 ml) 3 ml PER PROTOCOL IV ; Start 06/22/18 at 20:30 Ondansetron HCl (Zofran Inj) 4 mg Q6H PRN IV NAUSEA/VOMITING; Start 06/22/18 at 20:30 Acetaminophen (Tylenol Tab) 650 mg Q6H PRN PO .PAIN 1-3 OR TEMP Last administered on 06/23/18at 03:01; Admin Dose 650 MG; Start 06/22/18 at 20:30 Levothyroxine Sodium (Synthroid) 50 mcg BEFORE BREAKFAST PO Last administered on 07/04/18at 05:59; Admin Dose 50 MCG; Start 06/23/18 at 07:00 Rifaximin (Xifaxan) 550 mg BID PO Last administered on 07/04/18at 08:23; Admin Dose 550 MG; Start 06/23/18 at 09:00 Diagnostic Test (Pha) (Accu-Chek) 1 ea 02 XX ; Start 06/23/18 at 02:00 Insulin Aspart (Novolog Insulin Pen) NOVOLOG *MILD* ALGORITHM WITH MEALS BEDTIME SC Last administered on 07/04/18at 12:16; Admin Dose 1 UNIT; Start 06/23/18 at 07:55 Miscellaneous Information 1 ea NOTE XX ; Start 06/22/18 at 22:30 Glucose (Glutose) 15 gm Q15M PRN PO DECREASED GLUCOSE; Start 06/22/18 at 22:30 Glucose (Glutose) 22.5 gm Q15M PRN PO DECREASED GLUCOSE; Start 06/22/18 at 22:30 Dextrose (D50w Syringe) 25 ml Q15M PRN IV DECREASED GLUCOSE; Start 06/22/18 at 22:30 Dextrose (D50w Syringe) 50 ml Q15M PRN IV DECREASED GLUCOSE Last administered on 06/23/18at 07:43; Admin Dose 50 ML; Start 06/22/18 at 22:30 Glucagon (Glucagen) 1 mg Q15M PRN IM DECREASED GLUCOSE; Start 06/22/18 at 22:30 Glucose (Glutose) 15 gm Q15M PRN BUCCAL DECREASED GLUCOSE; Start 06/22/18 at 22:30 Gabapentin (Neurontin) 300 mg TID PO Last administered on 07/04/18 12:13; Admin Dose 300 MG; Start 06/23/18 at 09:00 Multivitamins Therapeutic (Theragran) 1 tab DAILY PO Last administered on 07/04/18 08:24; Admin Dose 1 TAB; Start 06/23/18 at 09:00 Insulin Glargine (Lantus) 21 units DAILY@2000 SC Last administered on 06/23/18 21:19; Admin Dose 21 UNITS; Start 06/23/18 at 20:00; Status Hold Nystatin (Nystatin Powder) 1 applic BID TOP Last administered on 07/04/18 08:25; Admin Dose 1 APPLIC; Start 06/24/18 at 09:00 Ciprofloxacin (Cipro) 500 mg Q18H PO Last administered on 07/04/18 05:59; Admin Dose 500 MG; Start 06/27/18 at 12:00 Lactobacillus Acidophilus/ Rhamnosus (Culturelle) 1 cap BID PO Last administered on 07/04/18 08:25; Admin Dose 1 CAP; Start 06/28/18 at 21:00 Citric Acid/ Sodium Citrate (Bicitra) 30 ml BID PO Last administered on 07/04/18 08:18; Admin Dose 30 ML; Start 06/29/18 at 09:00 Pantoprazole (Protonix Tab) 40 mg BID@0600,1800 PO Last administered on 07/04/18 05:59; Admin Dose 40 MG; Start 06/29/18 at 18:00 Propranolol HCl (Inderal) 10 mg TID PO Last administered on 07/03/18at 20:49; Admin Dose 10 MG; Start 07/02/18 at 21:00 Ferrous Sulfate (Ferrous Sulfate (Ec)) 325 mg BID PO Last administered on 06/18 11/05at 08:21; Admin Dose 325 MG; Start 07/02/18 at 21:00 Enoxaparin Sodium (Lovenox) 30 mg DAILY SC Last administered on 07/04/18at 08:29; Admin Dose 30 MG; Start 07/03/18 at 09:00 Lactulose (Enulose) 20 gm DAILY@0800 PO ; Start 07/05/18 at 08:00 Assessment/Plan Hospital Course (Demo Recall) 67-year-old female sent from [facility] for a low hemoglobin of 7.5. The patient does not know if she has had history of gross hematuria. She also denies any history of melena. No history of nausea or vomiting. She does have a history of paroxysmal atrial fibrillation, hypertension, dyslipidemia and chronic kidney disease. She was found to have a gross hematuria and a urological consultation was therefore requested. The patient denies any prior history of kidney stones. The CT scan of the abdomen and pelvis showed: Cirrhotic liver. No mass seen. Splenomegaly, ascites and varices compatible with portal hypertension. Patency of the portal vein is indeterminate on this noncontrast study. Cholecystectomy. Bilateral hydroureter nephrosis to the level of the bladder. Loss of parenchyma of the left kidney. No ureteral stones seen. No bladder masses stone. Question chronic reflux versus bladder outlet obstruction. Vascular calcifications. Paraumbilical hernia. Minimal nodular infiltrate right lung base. Presently the patient is better and the urine is gradually clearing up. The urine culture showed: URINE CULTURE Final Organism 1 K.PNEUMONIAE SSP PNEUMONIAE COLONY COUNT >100,000 CFU/ml Organism 2 CITROBACTER FREUNDII COLONY COUNT >100,000 CFU/ml K PNE SPP C FREUNDII C FREUNDII M.I.C. RX M.I.C. RX M.I.C. RX --------- --- --------- --- --------- --- CEFAZOLIN <=4 S CEFEPIME <=1 S CEFOTAXIME S R CIPROFLOXACIN <=0.25 S <=0.25 S GENTAMICIN <=1 S <=1 S LEVOFLOXACIN 0.5 S 1 S MEROPENEM 0.032 S NITROFURANTOIN 64 I <=16 S TOBRAMYCIN <=1 S <=1 S TRIMETHOPRIM/SULFAMETHOXAZOLE <=20 S <=20 S PIPERACILLIN/TAZOBACTAM <=4 S The patient is on Cipro. Her urine remains clear. Continue the Cipro The urine cytology x3 has been negative The Levy catheter was removed and she has been voiding . Since she is incontinent and she had urinary retention and bilateral hydronephrosis on admission I will have the nurses check her and when she voids do a straight cath on her to check her postvoid residual and send urine for culture and sensitivity. GREGORY SCHNEIDER MD Jul 04, 2018 14:48
--- NOTE | 2018-07-04 16:27 | CONS ---
Assessment/Plan Assessment/Plan Hospital Course (Demo Recall) Assessment: Sinus pause - compensatory pause after PVC, physiologic and no treatment required Paroxysmal supraventricular tachycardia and possible history of atrial fibrillation - currently sinus rhythm Anemia and thrombocytopenia Liver cirrhosis Acute kidney injury on chronic kidney disease Obstructive uropathy Incomplete data Recommendations: -OK to continue propranolol -digoxin was discontinued -possible history of atrial fibrillation, though not currently a candidate for anticoagulant or antiplatelet therapy due to thrombocytopenia and anemia Consultation Date/Type/Reason Admit Date/Time Jun 22, 2018 at 19:27 Initial Consult Date 06/24/18 Type of Consult Cardiology Date/Time of Note DATE: 07/04/18 TIME: 16:25 24 HR Interval Summary Free Text/Dictation Hemoglobin down to 6.5. Getting pRBC transfusions. No further pauses on telemetry. Detailed Summary Additional Comments 14 point review of systems without changes. Exam/Review of Systems Vital Signs Vitals Vital Signs Date Temp Pulse Resp B/P (MAP) Pulse Ox O2 O2 Flow FiO2 Time Delivery Rate 07/04/18 55 16:18 07/04/18 98.0 20 102/57 98 15:42 (72) 07/03/18 Room Air 15:26 Intake and Output 07/03/18 07/03/18 07/04/18 1515:00 23:00 07:00 IntakeIntake Total 2100 ml 800 ml BalanceBalance 2100 ml 800 ml Exam Exam Constitutional: alert; No oriented, No distress Psych: no complaints, confusion Head: normocephalic, atraumatic Eyes: nl conjunctiva, nl lids ENMT: nl external ears & nose, nl nasal mucosa & septum Neck: supple, non-tender; No jvd Respiratory: clear to auscultation Cardiovascular: regular rate and rhythm, systolic murmur (2/6) Gastrointestinal: soft, non-tender Musculoskeletal: nl extremities to inspection Extremities: No cyanosis, No clubbing, No edema Neurological: nl speech; No nl mental status Labs Result Diagram: 07/04/18 0539 07/04/18 0538 Results 24hrs Laboratory Tests Test 07/03/18 17:38 07/03/18 20:51 07/03/18 22:32 07/04/18 05:38 Bedside Glucose 191 168 Hemoglobin 7.1 L Hematocrit 21.9 L Sodium Level 130 L Potassium Level 4.4 Chloride Level 106 Carbon Dioxide 14 L Level Anion Gap 10 Blood Urea 40 H Nitrogen Creatinine 3.02 H Est Glomerular 16 L Filtrat Rate mL/min Glucose Level 124 Calcium Level 8.1 L Phosphorus Level 5.3 H Magnesium Level 2.2 Total Bilirubin 0.4 Direct Bilirubin 0.00 Indirect Bilirubin 0.4 Aspartate Amino 31 Transf (AST/SGOT) Alanine 21 Aminotransferase ( ALT/SGPT) Alkaline 57 Phosphatase Troponin I 0.015 Total Protein 6.7 Albumin 2.5 L Globulin 4.20 H Albumin/Globulin 0.59 Ratio Test 07/04/18 05:39 07/04/18 08:04 07/04/18 12:09 White Blood Count 5.1 Red Blood Count 2.11 L Hemoglobin 6.5 *L Hematocrit 20.6 L Mean Corpuscular 97.6 Volume Mean Corpuscular 30.8 Hemoglobin Mean Corpuscular 31.6 L Hemoglobin Concent Red Cell 15.8 H Distribution Width Platelet Count 88 L Mean Platelet 9.9 Volume Immature 0.600 H Granulocytes % Neutrophils % 64.9 Segmented 67 Neutrophils % (Manual) Band Neutrophils % 1 (Manual) Lymphocytes % 18.6 Lymphocytes % 17 (Manual) Reactive 1 H Lymphocytes % (Manual) Monocytes % 12.1 H Monocytes % 11 (Manual) Eosinophils % 3.2 Eosinophils % 3 (Manual) Basophils % 0.6 Nucleated Red 0.0 Blood Cells % Immature 0.030 Granulocytes # Neutrophils # 3.3 Neutrophils # 3.4 (Manual) Band Neutrophils # 0.0 Lymphocytes 0.8 (Manual) Lymphocytes # 0.9 Reactive 0.0 Lymphocytes # Monocytes # 0.6 Monocytes # 0.5 (Manual) Eosinophils # 0.2 Basophils # 0.0 Nucleated Red 0.0 Blood Cells # Platelet Estimate SIG DECREASED Polychromasia 3+ Poikilocytosis 1+ Anisocytosis 2+ Macrocytosis 2+ Tear Drop Cells 1+ Bedside Glucose 135 162 Medications Medications Current Medications IV Flush (NS 3 ml) 3 ml PER PROTOCOL IV ; Start 06/22/18 at 20:30 Ondansetron HCl (Zofran Inj) 4 mg Q6H PRN IV NAUSEA/VOMITING; Start 06/22/18 at 20:30 Acetaminophen (Tylenol Tab) 650 mg Q6H PRN PO .PAIN 1-3 OR TEMP Last administered on 06/23/18at 03:01; Admin Dose 650 MG; Start 06/22/18 at 20:30 Levothyroxine Sodium (Synthroid) 50 mcg BEFORE BREAKFAST PO Last administered on 07/04/18at 05:59; Admin Dose 50 MCG; Start 06/23/18 at 07:00 Rifaximin (Xifaxan) 550 mg BID PO Last administered on 07/04/18at 08:23; Admin Dose 550 MG; Start 06/23/18 at 09:00 Diagnostic Test (Pha) (Accu-Chek) 1 ea 02 XX ; Start 06/23/18 at 02:00 Insulin Aspart (Novolog Insulin Pen) NOVOLOG *MILD* ALGORITHM WITH MEALS BEDTIME SC Last administered on 07/04/18at 12:16; Admin Dose 1 UNIT; Start 06/23/18 at 07:55 Miscellaneous Information 1 ea NOTE XX ; Start 06/22/18 at 22:30 Glucose (Glutose) 15 gm Q15M PRN PO DECREASED GLUCOSE; Start 06/22/18 at 22:30 Glucose (Glutose) 22.5 gm Q15M PRN PO DECREASED GLUCOSE; Start 06/22/18 at 22:30 Dextrose (D50w Syringe) 25 ml Q15M PRN IV DECREASED GLUCOSE; Start 06/22/18 at 22:30 Dextrose (D50w Syringe) 50 ml Q15M PRN IV DECREASED GLUCOSE Last administered on 06/23/18at 07:43; Admin Dose 50 ML; Start 06/22/18 at 22:30 Glucagon (Glucagen) 1 mg Q15M PRN IM DECREASED GLUCOSE; Start 06/22/18 at 22:30 Glucose (Glutose) 15 gm Q15M PRN BUCCAL DECREASED GLUCOSE; Start 06/22/18 at 2 2:30 Gabapentin (Neurontin) 300 mg TID PO Last administered on 07/04/18at 12:13; Admin Dose 300 MG; Start 06/23/18 at 09:00 Multivitamins Therapeutic (Theragran) 1 tab DAILY PO Last administered on at 08:24; Admin Dose 1 TAB; Start 06/23/18 at 09:00 Insulin Glargine (Lantus) 21 units DAILY@2000 SC Last administered on 06/23/18at 21:19; Admin Dose 21 UNITS; Start 06/23/18 at 20:00; Status Hold Nystatin (Nystatin Powder) 1 applic BID TOP Last administered on 07/04/18 08:25; Admin Dose 1 APPLIC; Start 06/24/18 at 09:00 Ciprofloxacin (Cipro) 500 mg Q18H PO Last administered on 07/04/18 05:59; Admin Dose 500 MG; Start 06/27/18 at 12:00 Lactobacillus Acidophilus/ Rhamnosus (Culturelle) 1 cap BID PO Last administered on 07/04/18 08:25; Admin Dose 1 CAP; Start 06/28/18 at 21:00 Citric Acid/ Sodium Citrate (Bicitra) 30 ml BID PO Last administered on 07/04/18 08:18; Admin Dose 30 ML; Start 06/29/18 at 09:00 Pantoprazole (Protonix Tab) 40 mg BID@0600,1800 PO Last administered on 07/04 05:59; Admin Dose 40 MG; Start 06/29/18 at 18:00 Propranolol HCl (Inderal) 10 mg TID PO Last administered on 07/03/18 20:49; Admin Dose 10 MG; Start 07/02/18 at 21:00 Ferrous Sulfate (Ferrous Sulfate (Ec)) 325 mg BID PO Last administered on 07/04/18 08:21; Admin Dose 325 MG; Start 07/02/18 at 21:00 Enoxaparin Sodium (Lovenox) 30 mg DAILY SC Last administered on 07/04/18 08:29; Admin Dose 30 MG; Start 07/03/18 at 09:00 Lactulose (Enulose) 20 gm DAILY@0800 PO ; Start 07/05/18 at 08:00 DARRELL ARDON MD Jul 04, 2018 16:27
--- NOTE | 2018-07-04 19:30 | PN ---
Date/Time of Note Date/Time of Note DATE: 07/04/18 TIME: 19:28 Assessment/Plan VTE Prophylaxis Risk score (from Ns)>0 risk: 5 SCD applied (from Ns): Yes SCD contraindicated: low risk/ambulating Pharmacological prophylaxis: LMWH Lines/Catheters IV Catheter Type (from Nrs): Saline Lock Urinary Cath still in place: No Assessment/Plan Hospital Course Assessment and plan 1. Anemia/ abn lab, multifactorial stable observe,sp egd. stable, discharge soon, once creat stable. transfuse if <7.0 2. Gross hematuria due to hydronephrosis? dced Levy, stable, outpt f/u w urology. 3. Gastritis/ gastric erosion, sp EGD. Colonoscopy unremarkable. Stable cont PPI Carafate, try to avoid nsaids 4. Cirrhosis 5. Chronic liver disease sequela with pancytopenia and portal hypertension; replace platelets as needed. 6. Hepatitis C viremia 7. SVT stable replaced electrolytes 8. Obesity metabolic syndrome 9. Acute renal failure, on CKD possible ATN stable. Creat 3.0 today, If stable anticipate discharge soon. Probably no retention at this point. 10. Chronic hypothyroidism 11. P A fib? No Lovenox Coumadin due to #1. stroke risk noted, needs advanced care planning reevaluated. 12. Metabolic acidosis 13. Irr HR/ 2sec pause; asymptomatic. SSS? decreased bb. Appreciate cardiology assistance 14. Obstructive uropathy, probably no retention at present 15. Hypertension unknown etiology. Probably hypovolemic. Decrease lactulose. S: 06/28 events noted 06/29: No distress. Wants to go home. 06/30: No events. No retention today. Participated with PT. 07/01: No distress wants to go home. No noted retention. No fever dysuria 07/02: no distress. asymptomatic pauses noted. 07/03: low bp; loose bm? no gib. no chest pain/ syncope. improved w ivf bolus 07/04: no events. Possible hemodilution although will need to get blood. O: Vss Physical exam No pallor JVD Regular Clear Bs+ nt nd no RRG No edema Result Diagram: 07/04/18 0539 07/04/18 0538 Results 24hrs Laboratory Tests Test 07/03/18 20:51 07/03/18 22:32 07/04/18 05:38 07/04/18 05:39 Bedside Glucose 168 Hemoglobin 7.1 L 6.5 *L Hematocrit 21.9 L 20.6 L Sodium Level 130 L Potassium Level 4.4 Chloride Level 106 Carbon Dioxide 14 L Level Anion Gap 10 Blood Urea 40 H Nitrogen Creatinine 3.02 H Est Glomerular 16 L Filtrat Rate mL/min Glucose Level 124 Calcium Level 8.1 L Phosphorus Level 5.3 H Magnesium Level 2.2 Total Bilirubin 0.4 Direct Bilirubin 0.00 Indirect Bilirubin 0.4 Aspartate Amino 31 Transf (AST/SGOT) Alanine 21 Aminotransferase ( ALT/SGPT) Alkaline 57 Phosphatase Troponin I 0.015 Total Protein 6.7 Albumin 2.5 L Globulin 4.20 H Albumin/Globulin 0.59 Ratio White Blood Count 5.1 Red Blood Count 2.11 L Mean Corpuscular 97.6 Volume Mean Corpuscular 30.8 Hemoglobin Mean Corpuscular 31.6 L Hemoglobin Concent Red Cell 15.8 H Distribution Width Platelet Count 88 L Mean Platelet 9.9 Volume Immature 0.600 H Granulocytes % Neutrophils % 64.9 Segmented 67 Neutrophils % (Manual) Band Neutrophils % 1 (Manual) Lymphocytes % 18.6 Lymphocytes % 17 (Manual) Reactive 1 H Lymphocytes % (Manual) Monocytes % 12.1 H Monocytes % 11 (Manual) Eosinophils % 3.2 Eosinophils % 3 (Manual) Basophils % 0.6 Nucleated Red 0.0 Blood Cells % Immature 0.030 Granulocytes # Neutrophils # 3.3 Neutrophils # 3.4 (Manual) Band Neutrophils # 0.0 Lymphocytes 0.8 (Manual) Lymphocytes # 0.9 Reactive 0.0 Lymphocytes # Monocytes # 0.6 Monocytes # 0.5 (Manual) Eosinophils # 0.2 Basophils # 0.0 Nucleated Red 0.0 Blood Cells # Platelet Estimate SIG DECREASED Polychromasia 3+ Poikilocytosis 1+ Anisocytosis 2+ Macrocytosis 2+ Tear Drop Cells 1+ Test 07/04/18 08:04 07/04/18 12:09 07/04/18 17:17 Bedside Glucose 135 162 160 Exam/Review of Systems Exam Vitals Vital Signs Date Temp Pulse Resp B/P (MAP) Pulse Ox O2 O2 Flow FiO2 Time Delivery Rate 07/04/18 55 16:18 07/04/18 98.0 20 102/57 98 15:42 (72) 07/03/18 Room Air 15:26 Intake and Output 07/03/18 07/03/18 07/04/18 1515:00 23:00 07:00 IntakeIntake Total 2100 ml 800 ml BalanceBalance 2100 ml 800 ml Results Results 24hrs Laboratory Tests Test 07/03/18 20:51 07/03/18 22:32 07/04/18 05:38 07/04/18 05:39 Bedside Glucose 168 Hemoglobin 7.1 L 6.5 *L Hematocrit 21.9 L 20.6 L Sodium Level 130 L Potassium Level 4.4 Chloride Level 106 Carbon Dioxide 14 L Level Anion Gap 10 Blood Urea 40 H Nitrogen Creatinine 3.02 H Est Glomerular 16 L Filtrat Rate mL/min Glucose Level 124 Calcium Level 8.1 L Phosphorus Level 5.3 H Magnesium Level 2.2 Total Bilirubin 0.4 Direct Bilirubin 0.00 Indirect Bilirubin 0.4 Aspartate Amino 31 Transf (AST/SGOT) Alanine 21 Aminotransferase ( ALT/SGPT) Alkaline 57 Phosphatase Troponin I 0.015 Total Protein 6.7 Albumin 2.5 L Globulin 4.20 H Albumin/Globulin 0.59 Ratio White Blood Count 5.1 Red Blood Count 2.11 L Mean Corpuscular 97.6 Volume Mean Corpuscular 30.8 Hemoglobin Mean Corpuscular 31.6 L Hemoglobin Concent Red Cell 15.8 H Distribution Width Platelet Count 88 L Mean Platelet 9.9 Volume Immature 0.600 H Granulocytes % Neutrophils % 64.9 Segmented 67 Neutrophils % (Manual) Band Neutrophils % 1 (Manual) Lymphocytes % 18.6 Lymphocytes % 17 (Manual) Reactive 1 H Lymphocytes % (Manual) Monocytes % 12.1 H Monocytes % 11 (Manual) Eosinophils % 3.2 Eosinophils % 3 (Manual) Basophils % 0.6 Nucleated Red 0.0 Blood Cells % Immature 0.030 Granulocytes # Neutrophils # 3.3 Neutrophils # 3.4 (Manual) Band Neutrophils # 0.0 Lymphocytes 0.8 (Manual) Lymphocytes # 0.9 Reactive 0.0 Lymphocytes # Monocytes # 0.6 Monocytes # 0.5 (Manual) Eosinophils # 0.2 Basophils # 0.0 Nucleated Red 0.0 Blood Cells # Platelet Estimate SIG DECREASED Polychromasia 3+ Poikilocytosis 1+ Anisocytosis 2+ Macrocytosis 2+ Tear Drop Cells 1+ Test 07/04/18 08:04 07/04/18 12:09 07/04/18 17:17 Bedside Glucose 135 162 160 Medications Medication Current Medications IV Flush (NS 3 ml) 3 ml PER PROTOCOL IV ; Start 06/22/18 at 20:30 Ondansetron HCl (Zofran Inj) 4 mg Q6H PRN IV NAUSEA/VOMITING; Start 06/22/18 at 20:30 Acetaminophen (Tylenol Tab) 650 mg Q6H PRN PO .PAIN 1-3 OR TEMP Last administered on 06/23/18at 03:01; Admin Dose 650 MG; Start 06/22/18 at 20:30 Levothyroxine Sodium (Synthroid) 50 mcg BEFORE BREAKFAST PO Last administered on 07/04/18at 05:59; Admin Dose 50 MCG; Start 06/23/18 at 07:00 Rifaximin (Xifaxan) 550 mg BID PO Last administered on 07/04/18at 08:23; Admin Dose 550 MG; Start 06/23/18 at 09:00 Diagnostic Test (Pha) (Accu-Chek) 1 ea 02 XX ; Start 06/23/18 at 02:00 Insulin Aspart (Novolog Insulin Pen) NOVOLOG *MILD* ALGORITHM WITH MEALS BEDTIME SC Last administered on 07/04/18at 17:21; Admin Dose 1 UNIT; Start 06/23/18 at 07:55 Miscellaneous Information 1 ea NOTE XX ; Start 06/22/18 at 22:30 Glucose (Glutose) 15 gm Q15M PRN PO DECREASED GLUCOSE; Start 06/22/18 at 22:30 Glucose (Glutose) 22.5 gm Q15M PRN PO DECREASED GLUCOSE; Start 06/22/18 at 22:30 Dextrose (D50w Syringe) 25 ml Q15M PRN IV DECREASED GLUCOSE; Start 06/22/18 at 22:30 Dextrose (D50w Syringe) 50 ml Q15M PRN IV DECREASED GLUCOSE Last administered on 06/23/18at 07:43; Admin Dose 50 ML; Start 06/22/18 at 22:30 Glucagon (Glucagen) 1 mg Q15M PRN IM DECREASED GLUCOSE; Start 06/22/18 at 22:30 Glucose (Glutose) 15 gm Q15M PRN BUCCAL DECREASED GLUCOSE; Start 06/22/18 at 22:30 Gabapentin (Neurontin) 300 mg TID PO Last administered on 07/04/18at 12:13; Admin Dose 300 MG; Start 06/23/18 at 09:00 Multivitamins Therapeutic (Theragran) 1 tab DAILY PO Last administered on 07/04/18 08:24; Admin Dose 1 TAB; Start 06/23/18 at 09:00 Insulin Glargine (Lantus) 21 units DAILY@2000 SC Last administered on 06/23/18 21:19; Admin Dose 21 UNITS; Start 06/23/18 at 20:00; Status Hold Nystatin (Nystatin Powder) 1 applic BID TOP Last administered on 07/04/18 08:25; Admin Dose 1 APPLIC; Start 06/24/18 at 09:00 Ciprofloxacin (Cipro) 500 mg Q18H PO Last administered on 07/04/18 05:59; Admin Dose 500 MG; Start 06/27/18 at 12:00 Lactobacillus Acidophilus/ Rhamnosus (Culturelle) 1 cap BID PO Last administered on 07/04/18 08:25; Admin Dose 1 CAP; Start 06/28/18 at 21:00 Citric Acid/ Sodium Citrate (Bicitra) 30 ml BID PO Last administered on 07/04/18 08:18; Admin Dose 30 ML; Start 06/29/18 at 09:00 Pantoprazole (Protonix Tab) 40 mg BID@0600,1800 PO Last administered on 07/04/18 17:35; Admin Dose 40 MG; Start 06/29/18 at 18:00 Propranolol HCl (Inderal) 10 mg TID PO Last administered on 07/03/18 20:49; Admin Dose 10 MG; Start 07/02/18 at 21:00 Ferrous Sulfate (Ferrous Sulfate (Ec)) 325 mg BID PO Last administered on 07/04/18 08:21; Admin Dose 325 MG; Start 07/02/18 at 21:00 Enoxaparin Sodium (Lovenox) 30 mg DAILY SC Last administered on 07/04/18 08:29; Admin Dose 30 MG; Start 07/03/18 at 09:00 Lactulose (Enulose) 20 gm DAILY@0800 PO ; Start 07/05/18 at 08:00 JTAINDER ERIC MD Jul 04, 2018 19:30
[2018-07-05] VITALS (10 sets, daily range): BP systolic 100–110; BP diastolic 50–60; PULSE 54–66; RESP 18–19
[2018-07-05] MEDS: CIPROFLOXACIN 500 MG TAB PO SCH ×2 (00:28→17:40)
[2018-07-05] MEDS: ACCU-CHEK XX SCH (02:00)
[2018-07-05] MEDS: LEVOTHYROXINE 50 MCG TAB PO SCH (06:02)
[2018-07-05] MEDS: PANTOPRAZOLE (EC) 40 MG TAB PO SCH ×2 (06:02→17:40)
[2018-07-05] MEDS: LACTULOSE 30ML CUP PO SCH (08:00)
[2018-07-05] MEDS: CITRIC ACID/NA CITRATE 30 ML CUP PO SCH ×2 (08:36→21:00)
[2018-07-05] MEDS: LACTOBACILLUS RHAMNOSUS CAP PO SCH ×2 (08:36→20:27)
[2018-07-05] MEDS: FERROUS SULFATE (EC) 325 MG TAB PO SCH ×2 (08:36→20:27)
[2018-07-05] MEDS: NYSTATIN 30 GM POWDER BTL TOP SCH ×2 (08:36→21:03)
[2018-07-05] MEDS: MULTIVITAMINS THERAPEUTIC TAB PO SCH (08:36)
[2018-07-05] MEDS: RIFAXIMIN 550 MG TAB PO SCH ×2 (08:36→20:27)
[2018-07-05] MEDS: GABAPENTIN 300 MG CAP PO SCH ×3 (08:36→20:27)
[2018-07-05] MEDS: ENOXAPARIN 30 MG/0.3 ML SYG SC SCH (08:46)
[2018-07-05] MEDS: INSULIN ASPART [NOVOLOG] 3 ML PEN SC SCH ×4 (08:46→20:38)
--- NOTE | 2018-07-05 08:50 | PN ---
DATE: 07/05/2018 SUBJECTIVE: The patient is stable, no events overnight. No fevers, chills, nausea, or vomiting. OBJECTIVE: VITAL SIGNS: Blood pressure is 102/50, respirations 18, pulse 63, temperature 97.8. HEENT: Head is normocephalic. NECK: Supple. HEART: Regular rate. LUNGS: Show diminished breath sounds at the base. ABDOMEN: Soft, nontender to palpation without rebound or guarding. EXTREMITIES: Negative for clubbing, cyanosis. No edema. DERMATOLOGIC: No rashes. MUSCULOSKELETAL: No joint effusion. NEUROLOGIC: No change in exam. MEDICATIONS: Reviewed. LABORATORY DATA: Reviewed. ASSESSMENT AND PLAN: 1. Nonoliguric acute kidney injury on top of chronic kidney disease stage IV with previous baseline creatinine of around 3.0 mg/dL. Etiology of acute kidney injury is secondary to obstruction, hemodyn amics. Renal function has improved. We will continue to monitor closely since Levy catheter has be en removed. 2. Chronic kidney disease, etiology is likely secondary to chronic obstructive uropathy. The patien t is currently in acute kidney injury as stated above. Continue current treatment plan. 3. Bilateral hydronephrosis with bladder obstruction. The patient was seen by urology. Levy angela ter was removed. Continue to monitor renal function closely. 4. Anemia. Continue to monitor hemoglobin and hematocrit levels. 5. Mineral bone disorder. Monitor calcium and phosphorus levels. 6. Metabolic acidosis. Continue Bicitra. Continue to monitor. 7. Gastritis. Continue proton pump inhibitor. 8. Encephalopathy, etiology is toxic metabolic. 9. Liver cirrhosis with hepatitis C. Continue current treatment plan. 10. Diabetes. Continue current insulin regimen. 11. Hypothyroidism. Continue current medical management. Dictated By: JITENDRA ESPINAL DO NR/NTS Conf#: [id number] DID#: [id number] CC: ARIANA DELGADO MD; JATINDER ERIC MD; GREGORY SCHNEIDER MD;*EndCC*
[2018-07-05] MEDS: PROPRANOLOL 20 MG TAB PO SCH ×3 (09:00→21:00)
--- NOTE | 2018-07-05 13:20 | PN ---
Date/Time of Note Date/Time of Note DATE: 07/05/18 TIME: 13:18 Assessment/Plan VTE Prophylaxis Risk score (from Ns)>0 risk: 3 SCD applied (from Ns): Yes Pharmacological prophylaxis: NA/contraindicated Pharm contraindication: thrombocytopenia Lines/Catheters [facility]from [facility] Saline Lock Urinary Cath still in place: No Assessment/Plan Hospital Course SUBJECTIVE: The patient is awake and alert. Denies any pain. OBJECTIVE: Physical Exam General: Adequately build 67 year-old female lying in bed in no apparent distress. HEENT: Normocephalic, atraumatic. Eyes: Anicteric sclerae, conjunctivae clear. ENT: Nasal septum midline, oral mucosa moist. Neck supple. Respiratory: Bilaterally diminished breath sounds. No use of accessory muscles of respiration. No adventitious breath sounds. Cardiovascular: S1, S2 heard. Abdomen: Soft, nontender, and nondistended. Bowel sounds positive in all 4 quadrants. Genitourinary: Deferred. Extremities: No cyanosis, no clubbing. Bilateral lower extremity edema. Neurologic: The patient is awake and alert. Oriented to self and place. Labs & Vitals per chart ASSESSMENT & PLAN 67-year-old female with a past medical history of hepatitis C, cirrhosis, hypothyroidism, obesity, and debility. The patient is a skilled nursing resident. The patient was brought to the emergency room because of low hemoglobin and worsening mental status. The patient was admitted to inpatient setting for further treatment and evaluation. 1. Symptomatic anemia. -Status post 2 units of PRBC. -Being followed by gastroenterology. -Stool for OB x1+. -Continue PPI. -Status post esophagogastroduodenoscopy on 06/28/2018 that showed gastritis and gastric erosions. -Continue PPI and Carafate. 2. Liver cirrhosis. -Continue rifaximin. -Continue propranolol. 3. Acute toxic metabolic encephalopathy. -Continue rifaximin. -CT scan negative for any acute findings. 4. Paroxysmal SVT. -Converted to SR with Cardizem in the ER. -Being followed by cardiology. 5. Chronic kidney disease. -Monitor BUN and creatinine closely. -Use nephrotoxic drugs with caution. -Nephrology following. 6. Severe bilateral hydronephrosis. -Improved with Levy placement. -Being followed by urology. 7. Hematuria. -Most probably secondary to coagulopathy and underlying urinary tract infection -Resolved. 8. Urinary tract infection. -Urine culture positive for Klebsiella pneumoniae and Citrobacter freundii with colony count more than 100,000 CFU per mL. -Continue antimicrobials. -Repeat urine cultures from 07/04/2018 showing Gram-negative rods with colony count more than 100,000 CFU per mL. 9. Diabetes mellitus type II -Hemoglobin A1c 5.9. -Continue sliding scale insulin. 10. Hypothyroidism -Continue Synthroid. 11. Pancytopenia -Monitor blood components. -Transfuse blood products as needed. 12. Fluids, electrolytes, and nutrition. -Soft diet. 13. DVT prophylaxis -Chemical DVT prophylaxis contraindicated. 14. Plan. -Monitor H&H closely. -Transfuse blood products as needed. Repeat H&H. If repeat H&H is low, transfuse PRBC. -Await clinical improvement. The patient was seen in collaboration with Dr. Lopez. Result Diagram: 07/04/18 0539 07/04/18 0538 Results 24hrs Laboratory Tests Test 07/04/18 17:17 07/04/18 21:03 07/05/18 03:11 07/05/18 07:53 Bedside Glucose 160 197 149 Lab Scanned BLOOD TRANSFUSIO Report N Test 07/05/18 08:26 07/05/18 12:09 Bedside Glucose 144 183 Exam/Review of Systems Exam Vitals Vital Signs Date Temp Pulse Resp B/P (MAP) Pulse Ox O2 O2 Flow FiO2 Time Delivery Rate 07/05/18 98.6 62 18 107/52 98 Room Air 11:26 (70) Intake and Output 07/04/18 07/04/18 07/05/18 1515:00 23:00 07:00 IntakeIntake Total 800 ml 500 ml OutputOutput Total 500 ml BalanceBalance 300 ml 500 ml Results Results 24hrs Laboratory Tests Test 07/04/18 17:17 07/04/18 21:03 07/05/18 03:11 07/05/18 07:53 Bedside Glucose 160 197 149 Lab Scanned BLOOD TRANSFUSIO Report N Test 07/05/18 08:26 07/05/18 12:09 Bedside Glucose 144 183 Medications Medication Current Medications IV Flush (NS 3 ml) 3 ml PER PROTOCOL IV ; Start 06/22/18 at 20:30 Ondansetron HCl (Zofran Inj) 4 mg Q6H PRN IV NAUSEA/VOMITING; Start 06/22/18 at 20:30 Acetaminophen (Tylenol Tab) 650 mg Q6H PRN PO .PAIN 1-3 OR TEMP Last administered on 06/23/18 03:01; Admin Dose 650 MG; Start 06/22/18 at 20:30 Levothyroxine Sodium (Synthroid) 50 mcg BEFORE BREAKFAST PO Last administered on 07/05/18 06:02; Admin Dose 50 MCG; Start 06/23/18 at 07:00 Rifaximin (Xifaxan) 550 mg BID PO Last administered on 07/05/18 08:36; Admin Dose 550 MG; Start 06/23/18 at 09:00 Diagnostic Test (Pha) (Accu-Chek) 1 ea 02 XX ; Start 06/23/18 at 02:00 Insulin Aspart (Novolog Insulin Pen) NOVOLOG *MILD* ALGORITHM WITH MEALS BEDTIME SC Last administered on 07/05/18 12:16; Admin Dose 2 UNIT; Start at 07:55 Miscellaneous Information 1 ea NOTE XX ; Start 06/22/18 at 22:30 Glucose (Glutose) 15 gm Q15M PRN PO DECREASED GLUCOSE; Start 06/22/18 at 22:30 Glucose (Glutose) 22.5 gm Q15M PRN PO DECREASED GLUCOSE; Start 06/22/18 at 22:30 Dextrose (D50w Syringe) 25 ml Q15M PRN IV DECREASED GLUCOSE; Start 06/22/18 at 22:30 Dextrose (D50w Syringe) 50 ml Q15M PRN IV DECREASED GLUCOSE Last administered on 06/23/18at 07:43; Admin Dose 50 ML; Start 06/22/18 at 22:30 Glucagon (Glucagen) 1 mg Q15M PRN IM DECREASED GLUCOSE; Start 06/22/18 at 22:30 Glucose (Glutose) 15 gm Q15M PRN BUCCAL DECREASED GLUCOSE; Start 06/22/18 at 22:30 Gabapentin (Neurontin) 300 mg TID PO Last administered on 07/05/18at 12:11; Admin Dose 300 MG; Start 06/23/18 at 09:00 Multivitamins Therapeutic (Theragran) 1 tab DAILY PO Last administered on 07/05/18 08:36; Admin Dose 1 TAB; Start 06/23/18 at 09:00 Insulin Glargine (Lantus) 21 units DAILY@2000 SC Last administered on 06/23/18 21:19; Admin Dose 21 UNITS; Start 06/23/18 at 20:00; Status Hold Nystatin (Nystatin Powder) 1 applic BID TOP Last administered on 07/05/18 08 :36; Admin Dose 1 APPLIC; Start 06/24/18 at 09:00 Ciprofloxacin (Cipro) 500 mg Q18H PO Last administered on 07/05/18 00:28; Admin Dose 500 MG; Start 06/27/18 at 12:00 Lactobacillus Acidophilus/ Rhamnosus (Culturelle) 1 cap BID PO Last administered on 07/05/18 08:36; Admin Dose 1 CAP; Start 06/28/18 at 21:00 Citric Acid/ Sodium Citrate (Bicitra) 30 ml BID PO Last administered on 07/05/18 08:36; Admin Dose 30 ML; Start 06/29/18 at 09:00 Pantoprazole (Protonix Tab) 40 mg BID@0600,1800 PO Last administered on 07/05/18 06:02; Admin Dose 40 MG; Start 06/29/18 at 18:00 Propranolol HCl (Inderal) 10 mg TID PO Last administered on 07/05/18 12:11; Admin Dose 10 MG; Start 07/02/18 at 21:00 Ferrous Sulfate (Ferrous Sulfate (Ec)) 325 mg BID PO Last administered on 07/05/18 08:36; Admin Dose 325 MG; Start 07/02/18 at 21:00 Enoxaparin Sodium (Lovenox) 30 mg DAILY SC Last administered on 07/05/18 08:46; Admin Dose 30 MG; Start 07/03/18 at 09:00 Lactulose (Enulose) 20 gm DAILY@0800 PO ; Start 07/05/18 at 08:00 GAYLE BARCLAY NP Jul 05, 2018 13:20
--- NOTE | 2018-07-05 15:05 | RADRPT ---
Vent Rate: 54 bpm RR Interval: 0 msec UT Interval: 208 msec QRS Duration: 102 msec QT Interval: 474 msec QTC Interval: 449 msec P-R-T [place]: 89 - -29 - 85 degrees Sinus bradycardia Otherwise normal ECG Electronically Signed By: Shayne Garvey
--- NOTE | 2018-07-05 15:58 | CONS ---
Assessment/Plan Assessment/Plan Hospital Course (Demo Recall) Assessment: Sinus pause - compensatory pause after PVC, physiologic and no treatment required Paroxysmal supraventricular tachycardia and possible history of atrial fibrillation - currently sinus rhythm Anemia and thrombocytopenia Liver cirrhosis Acute kidney injury on chronic kidney disease Obstructive uropathy Incomplete data Recommendations: -OK to continue propranolol -digoxin was discontinued -possible history of atrial fibrillation, though not currently a candidate for anticoagulant or antiplatelet therapy due to thrombocytopenia and anemia Consultation Date/Type/Reason Admit Date/Time Jun 22, 2018 at 19:27 Initial Consult Date 06/24/18 Type of Consult Cardiology Date/Time of Note DATE: 07/05/18 TIME: 15:57 24 HR Interval Summary Free Text/Dictation Hemoglobin up to 8.6 after 2 units pRBC transfusion yesterday. Detailed Summary Additional Comments 14 point review of systems without changes. Exam/Review of Systems Vital Signs Vitals Vital Signs Date Temp Pulse Resp B/P (MAP) Pulse Ox O2 O2 Flow FiO2 Time Delivery Rate 07/05/18 98.6 54 18 103/52 92 Room Air 15:40 (69) Intake and Output 07/04/18 07/04/18 07/05/18 1515:00 23:00 07:00 IntakeIntake Total 800 ml 500 ml OutputOutput Total 500 ml BalanceBalance 300 ml 500 ml Exam Exam Constitutional: alert; No oriented, No distress Psych: no complaints, confusion Head: normocephalic, atraumatic Eyes: nl conjunctiva, nl lids ENMT: nl external ears & nose, nl nasal mucosa & septum Neck: supple, non-tender; No jvd Respiratory: clear to auscultation Cardiovascular: regular rate and rhythm, systolic murmur (2/6) Gastrointestinal: soft, non-tender Musculoskeletal: nl extremities to inspection Extremities: No cyanosis, No clubbing, No edema Neurological: nl speech; No nl mental status Labs Result Diagram: 07/05/18 1353 07/04/18 0538 Results 24hrs Laboratory Tests Test 07/04/18 17:17 07/04/18 21:03 07/05/18 03:11 07/05/18 07:53 Bedside Glucose 160 197 149 Lab Scanned BLOOD TRANSFUSIO Report N Test 07/05/18 08:26 07/05/18 12:09 07/05/18 13:53 Bedside Glucose 144 183 Hemoglobin 8.6 #L Hematocrit 26.6 #L Medications Medications Current Medications IV Flush (NS 3 ml) 3 ml PER PROTOCOL IV ; Start 06/22/18 at 20:30 Ondansetron HCl (Zofran Inj) 4 mg Q6H PRN IV NAUSEA/VOMITING; Start 06/22/18 at 20:30 Acetaminophen (Tylenol Tab) 650 mg Q6H PRN PO .PAIN 1-3 OR TEMP Last administered on 06/23/18at 03:01; Admin Dose 650 MG; Start 06/22/18 at 20:30 Levothyroxine Sodium (Synthroid) 50 mcg BEFORE BREAKFAST PO Last administered on 07/05/18at 06:02; Admin Dose 50 MCG; Start 06/23/18 at 07:00 Rifaximin (Xifaxan) 550 mg BID PO Last administered on 07/05/18at 08:36; Admin Dose 550 MG; Start 06/23/18 at 09:00 Diagnostic Test (Pha) (Accu-Chek) 1 ea 02 XX ; Start 06/23/18 at 02:00 Insulin Aspart (Novolog Insulin Pen) NOVOLOG *MILD* ALGORITHM WITH MEALS BEDTIME SC Last administered on 07/05/18at 12:16; Admin Dose 2 UNIT; Start 06/23/18 at 07:55 Miscellaneous Information 1 ea NOTE XX ; Start 06/22/18 at 22:30 Glucose (Glutose) 15 gm Q15M PRN PO DECREASED GLUCOSE; Start 06/22/18 at 22:30 Glucose (Glutose) 22.5 gm Q15M PRN PO DECREASED GLUCOSE; Start 06/22/18 at 22:30 Dextrose (D50w Syringe) 25 ml Q15M PRN IV DECREASED GLUCOSE; Start 06/22/18 at 22:30 Dextrose (D50w Syringe) 50 ml Q15M PRN IV DECREASED GLUCOSE Last administered on 06/23/18at 07:43; Admin Dose 50 ML; Start 06/22/18 at 22:30 Glucagon (Glucagen) 1 mg Q15M PRN IM DECREASED GLUCOSE; Start 06/22/18 at 22:30 Glucose (Glutose) 15 gm Q15M PRN BUCCAL DECREASED GLUCOSE; Start 06/22/18 at 22:30 Gabapentin (Neurontin) 300 mg TID PO Last administered on 07/05/18at 12:11; Admin Dose 300 MG; Start 06/23/18 at 09:00 Multivitamins Therapeutic (Theragran) 1 tab DAILY PO Last administered on 07/05/18 08:36; Admin Dose 1 TAB; Start 06/23/18 at 09:00 Insulin Glargine (Lantus) 21 units DAILY@2000 SC Last administered on 06/23/18 21:19; Admin Dose 21 UNITS; Start 06/23/18 at 20:00; Status Hold Nystatin (Nystatin Powder) 1 applic BID TOP Last administered on 07/05/18 08:36; Admin Dose 1 APPLIC; Start 06/24/18 at 09:00 Ciprofloxacin (Cipro) 500 mg Q18H PO Last administered on 07/05/18 00:28; Admin Dose 500 MG; Start 06/27/18 at 12:00 Lactobacillus Acidophilus/ Rhamnosus (Culturelle) 1 cap BID PO Last administered on 07/05/18 08:36; Admin Dose 1 CAP; Start 06/28/18 at 21:00 Citric Acid/ Sodium Citrate (Bicitra) 30 ml BID PO Last administered on 07/05/18 08:36; Admin Dose 30 ML; Start 06/29/18 at 09:00 Pantoprazole (Protonix Tab) 40 mg BID@0600,1800 PO Last administered on 07/05/18 06:02; Admin Dose 40 MG; Start 06/29/18 at 18:00 Propranolol HCl (Inderal) 10 mg TID PO Last administered on 07/05/18 12:11; Admin Dose 10 MG; Start 07/02/18 at 21:00 Ferrous Sulfate (Ferrous Sulfate (Ec)) 325 mg BID PO Last administered on 07/05/18 08:36; Admin Dose 325 MG; Start 07/02/18 at 21:00 Enoxaparin Sodium (Lovenox) 30 mg DAILY SC Last administered on 07/05/18 08:46; Admin Dose 30 MG; Start 07/03/18 at 09:00; Status Hold Lactulose (Enulose) 20 gm DAILY@0800 PO ; Start 07/05/18 at 08:00 DARRELL ARDON MD Jul 05, 2018 15:58
[2018-07-06] VITALS (10 sets, daily range): BP systolic 89–104; BP diastolic 48–59; PULSE 57–69; RESP 16–19
[2018-07-06] MEDS: ACCU-CHEK XX SCH (02:00)
--- NOTE | 2018-07-06 05:45 | PN ---
Date/Time of Note Date/Time of Note DATE: 07/06/18 TIME: 05:45 Assessment/Plan VTE Prophylaxis Risk score (from Ns)>0 risk: 7 SCD applied (from Ns): Yes Pharmacological prophylaxis: NA/contraindicated Pharm contraindication: anticoag not tolerated Lines/Catheters IV [facility] Saline Lock Urinary Cath still in place: No Assessment/Plan Hospital Course SUBJECTIVE: The patient is awake and alert. Denies any pain. OBJECTIVE: Physical Exam General: Adequately build 67 year-old female lying in bed in no apparent distress. HEENT: Normocephalic, atraumatic. Eyes: Anicteric sclerae, conjunctivae clear. ENT: Nasal septum midline, oral mucosa moist. Neck supple. Respiratory: Bilaterally diminished breath sounds. No use of accessory muscles of respiration. No adventitious breath sounds. Cardiovascular: S1, S2 heard. Abdomen: Soft, nontender, and nondistended. Bowel sounds positive in all 4 quadrants. Genitourinary: Deferred. Extremities: No cyanosis, no clubbing. Bilateral lower extremity edema. Neurologic: The patient is awake and alert. Oriented to self and place. Labs & Vitals per chart ASSESSMENT & PLAN 67-year-old female with a past medical history of hepatitis C, cirrhosis, hypo thyroidism, obesity, and debility. The patient is a long term resident. The patient was brought to the emergency room because of low hemoglobin and worsening mental status. The patient was admitted to inpatient setting for further treatment and evaluation. 1. Symptomatic anemia. -Status post 2 units of PRBC. -Being followed by gastroenterology. -Stool for OB x1+. -Continue PPI. -Status post esophagogastroduodenoscopy on 06/28/2018 that showed gastritis and gastric erosions. -Continue PPI and Carafate. 2. Liver cirrhosis. -Continue rifaximin. -Continue propranolol. 3. Acute toxic metabolic encephalopathy. -Continue rifaximin. -CT scan negative for any acute findings. 4. Paroxysmal SVT. -Converted to SR with Cardizem in the ER. -Being followed by cardiology. 5. Chronic kidney disease. -Monitor BUN and creatinine closely. -Use nephrotoxic drugs with caution. -Nephrology following. 6. Severe bilateral hydronephrosis. -Improved with Levy placement. -Being followed by urology. 7. Hematuria. -Most probably secondary to coagulopathy and underlying urinary tract infection -Resolved. 8. Urinary tract infection. -Urine culture positive for Klebsiella pneumoniae and Citrobacter freundii with colony count more than 100,000 CFU per mL. -Continue antimicrobials. -Repeat urine cultures from 07/04/2018 showing E. coli ESBL. 9. Diabetes mellitus type II -Hemoglobin A1c 5.9. -Continue sliding scale insulin. 10. Hypothyroidism -Continue Synthroid. 11. Pancytopenia -Monitor blood components. -Transfuse blood products as needed. 12. Fluids, electrolytes, and nutrition. -Soft diet. 13. DVT prophylaxis -Chemical DVT prophylaxis contraindicated. 14. Plan. -Monitor H&H closely. -Transfuse blood products as needed. -Await clinical improvement. -ID consult for antimicrobial management. The patient was seen in collaboration with Dr. Lopez. Result Diagram: 07/05/18 1353 07/04/18 0538 Results 24hrs Laboratory Tests Test 07/05/18 07:53 07/05/18 08:26 07/05/18 12:09 07/05/18 13:53 Lab Scanned BLOOD TRANSFUSIO Report N Bedside Glucose 144 183 Hemoglobin 8.6 #L Hematocrit 26.6 #L Test 07/05/18 17:38 07/05/18 20:28 07/06/18 02:44 Bedside Glucose 131 190 122 Exam/Review of Systems Exam Vitals Vital Signs Date Temp Pulse Resp B/P (MAP) Pulse Ox O2 O2 Flow FiO2 Time Delivery Rate 07/06/18 98.5 61 18 93/54 (67) 100 04:00 07/05/18 Room Air 15:40 Intake and Output 07/05/18 07/05/18 07/06/18 1515:00 23:00 07:00 IntakeIntake Total 800 ml BalanceBalance 800 ml Results Results 24hrs Laboratory Tests Test 07/05/18 07:53 07/05/18 08:26 07/05/18 12:09 07/05/18 13:53 Lab Scanned BLOOD TRANSFUSIO Report N Bedside Glucose 144 183 Hemoglobin 8.6 #L Hematocrit 26.6 #L Test 07/05/18 17:38 07/05/18 20:28 07/06/18 02:44 Bedside Glucose 131 190 122 Medications Medication Current Medications IV Flush (NS 3 ml) 3 ml PER PROTOCOL IV ; Start 06/22/18 at 20:30 Ondansetron HCl (Zofran Inj) 4 mg Q6H PRN IV NAUSEA/VOMITING; Start 06/22/18 at 20:30 Acetaminophen (Tylenol Tab) 650 mg Q6H PRN PO .PAIN 1-3 OR TEMP Last administered on 06/23/18 03:01; Admin Dose 650 MG; Start 06/22/18 at 20:30 Levothyroxine Sodium (Synthroid) 50 mcg BEFORE BREAKFAST PO Last administered on 07/05/18at 06:02; Admin Dose 50 MCG; Start 06/23/18 at 07:00 Rifaximin (Xifaxan) 550 mg BID PO Last administered on 07/05/18 20:27; Admin Dose 550 MG; Start 06/23/18 at 09:00 Diagnostic Test (Pha) (Accu-Chek) 1 ea 02 XX ; Start 06/23/18 at 02:00 Insulin Aspart (Novolog Insulin Pen) NOVOLOG *MILD* ALGORITHM WITH MEALS BEDTIME SC Last administered on 07/05/18at 20:38; Admin Dose 1 UNIT; Start 06/23/18 at 07:55 Miscellaneous Information 1 ea NOTE XX ; Start 06/22/18 at 22:30 Glucose (Glutose) 15 gm Q15M PRN PO DECREASED GLUCOSE; Start 06/22/18 at 22:30 Glucose (Glutose) 22.5 gm Q15M PRN PO DECREASED GLUCOSE; Start 06/22/18 at 22:30 Dextrose (D50w Syringe) 25 ml Q15M PRN IV DECREASED GLUCOSE; Start 06/22/18 at 22:30 Dextrose (D50w Syringe) 50 ml Q15M PRN IV DECREASED GLUCOSE Last administered on 06/23/18at 07:43; Admin Dose 50 ML; Start 06/22/18 at 22:30 Glucagon (Glucagen) 1 mg Q15M PRN IM DECREASED GLUCOSE; Start 06/22/18 at 22:30 Glucose (Glutose) 15 gm Q15M PRN BUCCAL DECREASED GLUCOSE; Start 06/22/18 at 22:30 Gabapentin (Neurontin) 300 mg TID PO Last administered on 07/05/18at 20:27; Admin Dose 300 MG; Start 06/23/18 at 09:00 Multivitamins Therapeutic (Theragran) 1 tab DAILY PO Last administered on 07/05/18 08:36; Admin Dose 1 TAB; Start 06/23/18 at 09:00 Insulin Glargine (Lantus) 21 units DAILY@2000 SC Last administered on 06/23/18 21:19; Admin Dose 21 UNITS; Start 06/23/18 at 20:00; Status Hold Nystatin (Nystatin Powder) 1 applic BID TOP Last administered on 07/05/18 21:03; Admin Dose 1 APPLIC; Start 06/24/18 at 09:00 Ciprofloxacin (Cipro) 500 mg Q18H PO Last administered on 07/05/18 17:40; Admin Dose 500 MG; Start 06/27/18 at 12:00 Lactobacillus Acidophilus/ Rhamnosus (Culturelle) 1 cap BID PO Last administ ered on 07/05/18 20:27; Admin Dose 1 CAP; Start 06/28/18 at 21:00 Citric Acid/ Sodium Citrate (Bicitra) 30 ml BID PO Last administered on 07/05/18 08:36; Admin Dose 30 ML; Start 06/29/18 at 09:00 Pantoprazole (Protonix Tab) 40 mg BID@0600,1800 PO Last administered on 07/05/18 17:40; Admin Dose 40 MG; Start 06/29/18 at 18:00 Propranolol HCl (Inderal) 10 mg TID PO Last administered on 07/05/18 12:11; Admin Dose 10 MG; Start 07/02/18 at 21:00 Ferrous Sulfate (Ferrous Sulfate (Ec)) 325 mg BID PO Last administered on 07/05/18 20:27; Admin Dose 325 MG; Start 07/02/18 at 21:00 Enoxaparin Sodium (Lovenox) 30 mg DAILY SC Last administered on 07/05/18 08:46; Admin Dose 30 MG; Start 07/03/18 at 09:00; Status Hold Lactulose (Enulose) 20 gm DAILY@0800 PO ; Start 07/05/18 at 08:00 GAYLE BARCLAY NP Jul 06, 2018 05:45
[2018-07-06] MEDS: LEVOTHYROXINE 50 MCG TAB PO SCH (06:25)
[2018-07-06] MEDS: PANTOPRAZOLE (EC) 40 MG TAB PO SCH ×2 (06:26→17:53)
[2018-07-06] MEDS: INSULIN ASPART [NOVOLOG] 3 ML PEN SC SCH ×4 (07:55→20:39)
[2018-07-06] MEDS: LACTULOSE 30ML CUP PO SCH (08:00)
[2018-07-06] MEDS: LACTOBACILLUS RHAMNOSUS CAP PO SCH ×2 (08:42→21:18)
[2018-07-06] MEDS: FERROUS SULFATE (EC) 325 MG TAB PO SCH ×2 (08:42→21:19)
[2018-07-06] MEDS: GABAPENTIN 300 MG CAP PO SCH ×3 (08:42→21:18)
[2018-07-06] MEDS: RIFAXIMIN 550 MG TAB PO SCH ×2 (08:42→21:18)
[2018-07-06] MEDS: CITRIC ACID/NA CITRATE 30 ML CUP PO SCH ×2 (08:42→21:18)
[2018-07-06] MEDS: MULTIVITAMINS THERAPEUTIC TAB PO SCH (08:42)
[2018-07-06] MEDS: PROPRANOLOL 20 MG TAB PO SCH ×3 (08:43→21:19)
[2018-07-06] MEDS: NYSTATIN 30 GM POWDER BTL TOP SCH ×2 (08:43→21:20)
--- NOTE | 2018-07-06 08:48 | PN ---
DATE: 07/06/2018 SUBJECTIVE: The patient remains stable. No events overnight. OBJECTIVE: VITAL SIGNS: Blood pressure is 89/48, pulse 69, temperature 97.9. HEENT: Head is normocephalic. NECK: Supple. HEART: Regular rate. LUNGS: Show diminished breath sounds at the base. ABDOMEN: Soft, nontender to palpation. No rebound or guarding. EXTREMITIES: Negative for clubbing, cyanosis, no edema. DERMATOLOGIC: No rashes. MUSCULOSKELETAL: No joint effusion. NEUROLOGIC: No change in exam. MEDICATIONS: Reviewed. LABORATORY DATA: Sodium 143, potassium 4.5, BUN 48, creatinine 3.22, phosphorus 5.3, calcium 8.2. P atient's cultures have been reviewed. ASSESSMENT AND PLAN: 1. Nonoliguric acute kidney injury on top of chronic kidney disease stage IV with previous baseline creatinine around 3.0 mg/dL. Etiology of SOLOMON is secondary to hemodynamics and obstruction. The jeevan ent's renal function initially improved; however, creatinine has increased over the last several days . This may be due to recurrence of obstruction. His Levy catheter was removed. Will continue to m onitor closely. 2. Chronic kidney disease stage IV. Etiology is likely secondary to chronic obstructive uropathy. The patient's renal function has been fluctuating. Continue to monitor, continue disease factor maría fication. 3. Bilateral hydronephrosis with bladder obstruction. The patient was seen by urology. The patient 's Levy catheter was placed and now removed. Monitor renal function closely. 4. Anemia. Monitor H and H levels. 5. Mineral bone disorder. Monitor calcium and phosphorus levels. 6. Metabolic acidosis secondary to chronic kidney disease. Continue Bicitra. 7. Gastritis. Continue proton pump inhibitor. 8. Encephalopathy. Etiology is toxic metabolic. 9. Liver cirrhosis with hepatitis C. Continue current medical management. 10. Diabetes. Continue current insulin regimen. 11. Hypothyroidism. Continue Synthroid. Dictated By: JITENDRA ESPINAL DO NR/NTS Conf#: [id number] DID#: [id number] CC: ARIANA DELGADO MD; GREGORY SCHENIDER MD; JATINDER ERIC MD;*EndCC*
[2018-07-06] MEDS ORDERED: EPOETIN 10000 UNITS/1 ML INJ (ESRD) SC ONE (09:30)
[2018-07-06] MEDS ORDERED: ERTAPENEM SODIUM 1 GM in SOD CHLORIDE 0.9% 100 ML IVPB SCH (13:00)
--- NOTE | 2018-07-06 14:07 | CONS ---
DATE OF ADMISSION: 06/22/2018 DATE OF CONSULTATION: 07/06/2018 TYPE OF CONSULTATION: Infectious disease. REQUESTING PROVIDER: Antonio Wiggins NP Thank you Antonio for this consultation. HISTORY OF PRESENT ILLNESS: This is a morbidly obese bedbound 67-year-old woman. The patient was admitted at the beginning of June with polymicrobial UTI. At that time, her urine culture grew Klebsiella pneumoniae and Citrobacter freundii. The patient was treated with Rocephin. Repeat urine culture was done yesterday and growing E. coli ESBL. The patient's medical history is significant for morbid obesity, anemia, status post blood transfusions on this admission, status post EGD on 06/28/2018 that showed gastritis with gastric erosions, the patient is on PPIs and Carafate, she also has history of liver cirrhosis, status post acute encephalopathy on admission, paroxysmal SVT, chronic kidney disease with severe bilateral hydronephrosis, diabetes, hypothyroidism, pancytopenia. The patient was seen by multiple consultants while in the hospital. She is being seen by Dr. Schneider. Levy catheter was removed. The patient was voiding; however per report, has significant dermatitis from being wet all the time. VITAL SIGNS: The patient is afebrile with a temperature of 97.8, pulse 59, respirations 18, blood pressure 91/52, saturation 99% on room air. LABORATORY DATA: WBC 4.6, H and H is 7.9 and 24.1, platelets 81, neutrophils 65. BUN 48, creatinine 3.22. DIAGNOSTICS: Renal ultrasound on admission revealed persistent severe bilateral hydronephrosis, left greater than right. CT of the brain on 06/22/2018 revealed no acute intracranial abnormalities. CT of the abdomen and pelvis showed cirrhotic liver without mass, splenomegaly, ascites and varices compatible with portal hypertension, cholecystectomy, bilateral hydroureteronephrosis to the level of the bladder, no ureteral stones, no bladder masses and minimal nodular infiltrates right lung base. ANTIMICROBIALS: The patient is currently off antibiotics. SOCIAL HISTORY: The [facility] is a [facility] resident. PHYSICAL EXAMINATION: GENERAL: This is a chronically ill-appearing, morbidly obese elderly woman, who is lying comfortably in bed. HEENT: Head is atraumatic, normocephalic. NECK: Supple. CHEST: Rise symmetrical. Breath sounds diminished to bases. HEART: S1, S2. ABDOMEN: Soft. Bowel tones are present. EXTREMITIES: With bilateral edema. DIAGNOSTIC IMPRESSION: This is a 67-year-old morbidly obese woman with numerous medical problems was admitted with urinary tract infection, hematuria, bilateral hydroureteronephrosis. The patient's Levy catheter was removed. She is getting bladder scan with straight cath as needed. She is being seen by Dr. Schneider in urology consultation. We will start her on Invanz to treat Escherichia coli extended-spectrum beta-lactamase that she grows in the urine given persistent and recurrent urinary tract infections. Discussed with Dr. Shannon. Dictated By: KIMO LIRA UNIONMELT OPERATOR for STAR SCHRADER MD NI/NTS Conf#: [id number] DID#: [id number] CC: GREGORY SCHNEIDER MD; ARIANA DELGADO MD; JATINDER ERIC MD;*EndCC* MTDD
[2018-07-06] MEDS: ERTAPENEM SODIUM 0.5 GM in SOD CHLORIDE 0.9% 100 ML IVPB SCH (15:31)
--- NOTE | 2018-07-06 17:50 | CONS ---
Consult Date/Type/Reason Admit Date/Time Jun 22, 2018 at 19:27 Initial Consult Date 06/23/18 Type of Consultation: Urology Reason for Consultation Urinary tract infection Date/Time of Note DATE: 07/06/18 TIME: 17:46 Subjective Patient states that she is comfortable and has no pain. Objective Vitals Vital Signs Date Temp Pulse Resp B/P (MAP) Pulse Ox O2 O2 Flow FiO2 Time Delivery Rate 07/06/18 64 16:15 07/06/18 98.3 18 92/52 (65) 99 15:17 07/05/18 Room Air 15:40 Intake and Output 07/05/18 07/05/18 07/06/18 1515:00 23:00 07:00 IntakeIntake Total 800 ml 600 ml BalanceBalance 800 ml 600 ml Exam The abdomen is soft and the urine culture did show E. coli ESBL Results/Medications Result Diagram: 07/06/18 0631 07/06/18 0631 Results 24 hrs Laboratory Tests Test 07/05/18 20:28 07/06/18 02:44 07/06/18 06:31 07/06/18 07:07 Bedside Glucose 190 122 White Blood Count 4.6 L Red Blood Count 2.51 L Hemoglobin 7.9 L Hematocrit 24.1 L Mean Corpuscular 96.0 Volume Mean Corpuscular 31.5 Hemoglobin Mean Corpuscular 32.8 Hemoglobin Concent Red Cell 16.4 H Distribution Width Platelet Count 81 L Mean Platelet 9.6 Volume Immature 0.900 H Granulocytes % Neutrophils % 65.0 Lymphocytes % 16.1 Monocytes % 13.9 H Eosinophils % 3.7 Basophils % 0.4 Nucleated Red 0.0 Blood Cells % Immature 0.040 H Granulocytes # Neutrophils # 3.0 Lymphocytes # 0.7 L Monocytes # 0.6 Eosinophils # 0.2 Basophils # 0.0 Nucleated Red 0.0 Blood Cells # Sodium Level 134 L Potassium Level 4.5 Chloride Level 111 H Carbon Dioxide 13 L Level Anion Gap 10 Blood Urea 48 H Nitrogen Creatinine 3.22 H Est Glomerular 14 L Filtrat Rate mL/min Glucose Level 118 Calcium Level 8.2 L Phosphorus Level 5.3 H Magnesium Level 2.2 Lab Scanned Report REFERENCE LAB Test 07/06/18 08:08 07/06/18 12:03 07/06/18 17:31 Bedside Glucose 128 171 181 Home Meds Reported Medications Rifaximin* (Xifaxan*) 550 Mg Tablet, 550 MG PO BID, TAB 06/22/18 Cholecalciferol* (Vitamin D3*) 1,000 Unit Tablet, 2000 UNIT PO Q12H, TAB 06/22/18 Acetaminophen* (Tylenol*) 325 Mg Tablet, 650 MG PO Q4H PRN for MILD TO SEVERE PAIN -01/27, TAB 06/22/18 Epoetin Uriel (Procrit) 3,000 Unit/1 Ml Vial, 3000 UNIT IJ DAILY, VIAL ON MON,THU,THU, END DATE 07/13/09 06/22/18 Famotidine* (Pepcid*) 20 Mg Tablet, 20 MG PO DAILY, #30 TAB 06/22/18 Multivitamins* (Theragran*) 1 Tab Tab, 1 TAB PO DAILY, TAB 06/22/18 Polyethylene Glycol* (Miralax*) 17 Gm Powd.pack, 17 GM PO DAILY, #30 PACKET 06/22/18 Magnesium Hydroxide* (Milk Of Magnesia*) 400 Mg/5 Ml Oral.susp, 30 ML PO DAILY, ML 06/22/18 Levothyroxine Sodium* (Levothyroxine Sodium*) 50 Mcg Tablet, 50 MCG PO BEFORE BREAKFAST, #30 TAB 06/22/18 Furosemide* (Furosemide*) 40 Mg Tablet, 40 MG PO DAILY, TAB 06/22/18 Insulin Glargine* (Lantus*) 100 Unit/Ml Soln, 30 UNIT SC DAILY, #1 VIAL 06/22/18 Glimepiride* (Glimepiride*) 2 Mg Tablet, 4 MG PO WITH BREAKFAST, TAB 06/22/18 Gabapentin* (Gabapentin*) 300 Mg Capsule, 300 MG PO TID, #90 CAP 06/22/18 Mineral Oil* (Fleet* Mineral Oil Enema) Unknown Strength Oil, 118 ML MS NEEDED PRN for BOWEL PREP, ENEMA 06/22/18 Ferrous Sulfate* (Ferrous Sulfate*) 325 Mg Tabec, 325 MG PO DAILY, TAB 06/22/18 Bisacodyl* (Bisacodyl*) 10 Mg Supp, 10 MG MS DAILY, SUPP 06/22/18 Digoxin* (Digitek*) 125 Mcg Tablet, 0.125 MG PO DAILY, TAB HOLD FOR HR<60 06/22/18 Ascorbic Acid (Vitamin C) 500 Mg Tab, 500 MG PO DAILY, TAB 06/22/18 Medications Current Medications IV Flush (NS 3 ml) 3 ml PER PROTOCOL IV ; Start 06/22/18 at 20:30 Ondansetron HCl (Zofran Inj) 4 mg Q6H PRN IV NAUSEA/VOMITING; Start 06/22/18 at 20:30 Acetaminophen (Tylenol Tab) 650 mg Q6H PRN PO .PAIN 1-3 OR TEMP Last administered on 06/23/18at 03:01; Admin Dose 650 MG; Start 06/22/18 at 20:30 Levothyroxine Sodium (Synthroid) 50 mcg BEFORE BREAKFAST PO Last administered on 07/06/18at 06:25; Admin Dose 50 MCG; Start 06/23/18 at 07:00 Rifaximin (Xifaxan) 550 mg BID PO Last administered on 07/06/18at 08:42; Admin Dose 550 MG; Start 06/23/18 at 09:00 Diagnostic Test (Pha) (Accu-Chek) 1 ea 02 XX ; Start 06/23/18 at 02:00 Insulin Aspart (Novolog Insulin Pen) NOVOLOG *MILD* ALGORITHM WITH MEALS BEDTIME SC Last administered on 07/06/18at 12:19; Admin Dose 1 UNIT; Start 06/23/18 at 07:55 Miscellaneous Information 1 ea NOTE XX ; Start 06/22/18 at 22:30 Glucose (Glutose) 15 gm Q15M PRN PO DECREASED GLUCOSE; Start 06/22/18 at 22:30 Glucose (Glutose) 22.5 gm Q15M PRN PO DECREASED GLUCOSE; Start 06/22/18 at 22:30 Dextrose (D50w Syringe) 25 ml Q15M PRN IV DECREASED GLUCOSE; Start 06/22/18 at 22:30 Dextrose (D50w Syringe) 50 ml Q15M PRN IV DECREASED GLUCOSE Last administered on 06/23/18at 07:43; Admin Dose 50 ML; Start 06/22/18 at 22:30 Glucagon (Glucagen) 1 mg Q15M PRN IM DECREASED GLUCOSE; Start 06/22/18 at 22:30 Glucose (Glutose) 15 gm Q15M PRN BUCCAL DECREASED GLUCOSE; Start 06/22/18 at 22:30 Gabapentin (Neurontin) 300 mg TID PO Last administered on 07/06/18 12:15; Admin Dose 300 MG; Start 06/23/18 at 09:00 Multivitamins Therapeutic (Theragran) 1 tab DAILY PO Last administered on 07/06/18 08:42; Admin Dose 1 TAB; Start 06/23/18 at 09:00 Insulin Glargine (Lantus) 21 units DAILY@2000 SC Last administered on 06/23/18 21:19; Admin Dose 21 UNITS; Start 06/23/18 at 20:00; Status Hold Nystatin (Nystatin Powder) 1 applic BID TOP Last administered on 07/06/18 08:43; Admin Dose 1 APPLIC; Start 06/24/18 at 09:00 Lactobacillus Acidophilus/ Rhamnosus (Culturelle) 1 cap BID PO Last administered on 07/06/18 08:42; Admin Dose 1 CAP; Start 06/28/18 at 21:00 Pantoprazole (Protonix Tab) 40 mg BID@0600,1800 PO Last administered on 07/06/18 06:26; Admin Dose 40 MG; Start 06/29/18 at 18:00 Propranolol HCl (Inderal) 10 mg TID PO Last administered on 07/05/18 12:11; Admin Dose 10 MG; Start 07/02/18 at 21:00 Ferrous Sulfate (Ferrous Sulfate (Ec)) 325 mg BID PO Last administered on 07/06/18 08:42; Admin Dose 325 MG; Start 07/02/18 at 21:00 Enoxaparin Sodium (Lovenox) 30 mg DAILY SC Last administered on 07/05/18 08:46; Admin Dose 30 MG; Start 07/03/18 at 09:00; Status Hold Lactulose (Enulose) 20 gm DAILY@0800 PO ; Start 07/05/18 at 08:00 Citric Acid/ Sodium Citrate (Bicitra) 45 ml BID PO ; Start 07/06/18 at 09:00 Ertapenem 0.5 gm/ Sodium Chloride 100 ml @ 200 mls/hr Q24H IVPB Last administered on 07/06/18 15:31; Admin Dose 200 MLS/HR; Start 07/06/18 at 14:30 Assessment/Plan Hospital Course (Demo Recall) 67-year-old female sent from [facility] for a low hemoglobin of 7.5. The patient does not know if she has had history of gross hematuria. She also denies any history of melena. No history of nausea or vomiting. She does have a history of paroxysmal atrial fibrillation, hypertension, dyslipidemia and chronic kidney disease. She was found to have a gross hematuria and a urological consultation was therefore requested. The patient denies any prior history of kidney stones. The CT scan of the abdomen and pelvis showed: Cirrhotic liver. No mass seen. Splenomegaly, ascites and varices compatible with portal hypertension. Patency of the portal vein is indeterminate on this noncontrast study. Cholecystectomy. Bilateral hydroureter nephrosis to the level of the bladder. Loss of parenchyma of the left kidney. No ureteral stones seen. No bladder masses stone. Question chronic reflux versus bladder outlet obstruction. Vascular calcifications. Paraumbilical hernia. Minimal nodular infiltrate right lung base. Presently the patient is better and the urine is gradually clearing up. The urine culture showed: URINE CULTURE Final Organism 1 K.PNEUMONIAE SSP PNEUMONIAE COLONY COUNT >100,000 CFU/ml Organism 2 CITROBACTER FREUNDII COLONY COUNT >100,000 CFU/ml K PNE SPP C FREUNDII C FREUNDII M.I.C. RX M.I.C. RX M.I.C. RX --------- --- --------- --- --------- --- CEFAZOLIN <=4 S CEFEPIME <=1 S CEFOTAXIME S R CIPROFLOXACIN <=0.25 S <=0.25 S GENTAMICIN <=1 S <=1 S LEVOFLOXACIN 0.5 S 1 S MEROPENEM 0.032 S NITROFURANTOIN 64 I <=16 S TOBRAMYCIN <=1 S <=1 S TRIMETHOPRIM/SULFAMETHOXAZOLE <=20 S <=20 S PIPERACILLIN/TAZOBACTAM <=4 S The patient is on Cipro. Her urine remains clear. Continue the Cipro The urine cytology x3 has been negative The Levy catheter was removed and she has been voiding . Since she is incontinent and she had urinary retention and bilateral hydronephrosis on admission I had the nurses check her and when she voided they did a straight cath on her to check her postvoid residual and urine was sent for culture and sensitivity. The culture grew E. coli ESBL and the patient was since started on ertapenem GREGORY SCHNEIDER MD Jul 06, 2018 17:50
--- NOTE | 2018-07-06 17:57 | CONS ---
Assessment/Plan Assessment/Plan Hospital Course (Demo Recall) Assessment: Sinus pause - compensatory pause after PVC, physiologic and no treatment required Paroxysmal supraventricular tachycardia and possible history of atrial fibrillation - currently sinus rhythm Anemia and thrombocytopenia Liver cirrhosis Acute kidney injury on chronic kidney disease Obstructive uropathy Urinary tract infection - ESBL E. coli Incomplete data Recommendations: -OK to continue propranolol -digoxin was discontinued -possible history of atrial fibrillation, though not currently a candidate for anticoagulant or antiplatelet therapy due to thrombocytopenia and anemia Consultation Date/Type/Reason Admit Date/Time Jun 22, 2018 at 19:27 Initial Consult Date 06/24/18 Type of Consult Cardiology Date/Time of Note DATE: 07/06/18 TIME: 17:55 24 HR Interval Summary Free Text/Dictation No acute events. Detailed Summary Additional Comments 14 point review of systems without changes. Exam/Review of Systems Vital Signs Vitals Vital Signs Date Temp Pulse Resp B/P (MAP) Pulse Ox O2 O2 Flow FiO2 Time Delivery Rate 07/06/18 64 16:15 07/06/18 98.3 18 92/52 (65) 99 15:17 07/05/18 Room Air 15:40 Intake and Output 07/05/18 07/05/18 07/06/18 1515:00 23:00 07:00 IntakeIntake Total 800 ml 600 ml BalanceBalance 800 ml 600 ml Exam Exam Constitutional: alert; No oriented, No distress Psych: no complaints, confusion Head: normocephalic, atraumatic Eyes: nl conjunctiva, nl lids ENMT: nl external ears & nose, nl nasal mucosa & septum Neck: supple, non-tender; No jvd Respiratory: clear to auscultation Cardiovascular: regular rate and rhythm, systolic murmur (2/6) Gastrointestinal: soft, non-tender Musculoskeletal: nl extremities to inspection Extremities: No cyanosis, No clubbing, No edema Neurological: nl speech; No nl mental status Labs Result Diagram: 07/06/18 0631 07/06/18 0631 Results 24hrs Laboratory Tests Test 07/05/18 20:28 07/06/18 02:44 07/06/18 06:31 07/06/18 07:07 Bedside Glucose 190 122 White Blood Count 4.6 L Red Blood Count 2.51 L Hemoglobin 7.9 L Hematocrit 24.1 L Mean Corpuscular 96.0 Volume Mean Corpuscular 31.5 Hemoglobin Mean Corpuscular 32.8 Hemoglobin Concent Red Cell 16.4 H Distribution Width Platelet Count 81 L Mean Platelet 9.6 Volume Immature 0.900 H Granulocytes % Neutrophils % 65.0 Lymphocytes % 16.1 Monocytes % 13.9 H Eosinophils % 3.7 Basophils % 0.4 Nucleated Red 0.0 Blood Cells % Immature 0.040 H Granulocytes # Neutrophils # 3.0 Lymphocytes # 0.7 L Monocytes # 0.6 Eosinophils # 0.2 Basophils # 0.0 Nucleated Red 0.0 Blood Cells # Sodium Level 134 L Potassium Level 4.5 Chloride Level 111 H Carbon Dioxide 13 L Level Anion Gap 10 Blood Urea 48 H Nitrogen Creatinine 3.22 H Est Glomerular 14 L Filtrat Rate mL/min Glucose Level 118 Calcium Level 8.2 L Phosphorus Level 5.3 H Magnesium Level 2.2 Lab Scanned Report REFERENCE LAB Test 07/06/18 08:08 07/06/18 12:03 07/06/18 17:31 Bedside Glucose 128 171 181 Medications Medications Current Medications IV Flush (NS 3 ml) 3 ml PER PROTOCOL IV ; Start 06/22/18 at 20:30 Ondansetron HCl (Zofran Inj) 4 mg Q6H PRN IV NAUSEA/VOMITING; Start 06/22/18 at 20:30 Acetaminophen (Tylenol Tab) 650 mg Q6H PRN PO .PAIN 1-3 OR TEMP Last administered on 06/23/18at 03:01; Admin Dose 650 MG; Start 06/22/18 at 20:30 Levothyroxine Sodium (Synthroid) 50 mcg BEFORE BREAKFAST PO Last administered on 07/06/18at 06:25; Admin Dose 50 MCG; Start 06/23/18 at 07:00 Rifaximin (Xifaxan) 550 mg BID PO Last administered on 07/06/18at 08:42; Admin Dose 550 MG; Start 06/23/18 at 09:00 Diagnostic Test (Pha) (Accu-Chek) 1 ea 02 XX ; Start 06/23/18 at 02:00 Insulin Aspart (Novolog Insulin Pen) NOVOLOG *MILD* ALGORITHM WITH MEALS BEDTIME SC Last administered on 07/06/18at 17:49; Admin Dose 2 UNIT; Start 06/23/18 at 07:55 Miscellaneous Information 1 ea NOTE XX ; Start 06/22/18 at 22:30 Glucose (Glutose) 15 gm Q15M PRN PO DECREASED GLUCOSE; Start 06/22/18 at 22:30 Glucose (Glutose) 22.5 gm Q15M PRN PO DECREASED GLUCOSE; Start 06/22/18 at 22:30 Dextrose (D50w Syringe) 25 ml Q15M PRN IV DECREASED GLUCOSE; Start 06/22/18 at 22:30 Dextrose (D50w Syringe) 50 ml Q15M PRN IV DECREASED GLUCOSE Last administered on 06/23/18 07:43; Admin Dose 50 ML; Start 06/22/18 at 22:30 Glucagon (Glucagen) 1 mg Q15M PRN IM DECREASED GLUCOSE; Start 06/22/18 at 22:30 Glucose (Glutose) 15 gm Q15M PRN BUCCAL DECREASED GLUCOSE; Start 06/22/18 at 22:30 Gabapentin (Neurontin) 300 mg TID PO Last administered on 07/06/18 12:15; Admin Dose 300 MG; Start 06/23/18 at 09:00 Multivitamins Therapeutic (Theragran) 1 tab DAILY PO Last administered on 07/06/18 08:42; Admin Dose 1 TAB; Start 06/23/18 at 09:00 Insulin Glargine (Lantus) 21 units DAILY@2000 SC Last administered on 06/23/18 21:19; Admin Dose 21 UNITS; Start 06/23/18 at 20:00; Status Hold Nystatin (Nystatin Powder) 1 applic BID TOP Last administered on 07/06/18 08:43; Admin Dose 1 APPLIC; Start 06/24/18 at 09:00 Lactobacillus Acidophilus/ Rhamnosus (Culturelle) 1 cap BID PO Last administered on 07/06/18 08:42; Admin Dose 1 CAP; Start 06/28/18 at 21:00 Pantoprazole (Protonix Tab) 40 mg BID@0600,1800 PO Last administered on 07/06/18 17:53; Admin Dose 40 MG; Start 06/29/18 at 18:00 Propranolol HCl (Inderal) 10 mg TID PO Last administered on 07/05/18 12:11; Admin Dose 10 MG; Start 07/02/18 at 21:00 Ferrous Sulfate (Ferrous Sulfate (Ec)) 325 mg BID PO Last administered on 07/06/18 08:42; Admin Dose 325 MG; Start 07/02/18 at 21:00 Enoxaparin Sodium (Lovenox) 30 mg DAILY SC Last administered on 07/05/18at 08:46; Admin Dose 30 MG; Start 07/03/18 at 09:00; Status Hold Lactulose (Enulose) 20 gm DAILY@0800 PO ; Start 07/05/18 at 08:00 Citric Acid/ Sodium Citrate (Bicitra) 45 ml BID PO ; Start 07/06/18 at 09:00 Ertapenem 0.5 gm/ Sodium Chloride 100 ml @ 200 mls/hr Q24H IVPB Last administ ered on 07/06/18at 15:31; Admin Dose 200 MLS/HR; Start 07/06/18 at 14:30 DARRELL ARDON MD Jul 06, 2018 17:56
[2018-07-07] VITALS (12 sets, daily range): BP systolic 89–120; BP diastolic 49–64; PULSE 58–83; RESP 18–19
[2018-07-07] MEDS: ACCU-CHEK XX SCH (02:00)
--- NOTE | 2018-07-07 05:55 | PN ---
Date/Time of Note Date/Time of Note DATE: 07/07/18 TIME: 05:55 Assessment/Plan VTE Prophylaxis Risk score (from Ns)>0 risk: 3 SCD applied (from Ns): Yes Pharmacological prophylaxis: NA/contraindicated Pharm contraindication: anticoag not tolerated Lines/Catheters IV Catheter Type (from [facility] Saline Lock Urinary Cath still in place: No Assessment/Plan Hospital Course SUBJECTIVE: The patient is awake and alert. Denies any pain. OBJECTIVE: Physical Exam General: Adequately build 67 year-old female lying in bed in no apparent distress. HEENT: Normocephalic, atraumatic. Eyes: Anicteric sclerae, conjunctivae clear. ENT: Nasal septum midline, oral mucosa moist. Neck supple. Respiratory: Bilaterally diminished breath sounds. No use of accessory muscles of respiration. No adventitious breath sounds. Cardiovascular: S1, S2 heard. Abdomen: Soft, nontender, and nondistended. Bowel sounds positive in all 4 quadrants. Genitourinary: Deferred. Extremities: No cyanosis, no clubbing. Bilateral lower extremity edema. Neurologic: The patient is awake and alert. Oriented to self and place. Labs & Vitals per chart ASSESSMENT & PLAN 67-year-old female with a past medical history of hepatitis C, cirrhosis, hypo thyroidism, obesity, and debility. The patient is a [facility] resident. The patient was brought to the emergency room because of low hemoglobin and worsening mental status. The patient was admitted to inpatient setting for further treatment and evaluation. 1. Symptomatic anemia. -Status post 2 units of PRBC. -Being followed by gastroenterology. -Stool for OB x1+. -Continue PPI. -Status post esophagogastroduodenoscopy on 06/28/2018 that showed gastritis and gastric erosions. -Continue PPI and Carafate. 2. Liver cirrhosis. -Continue rifaximin. -Continue propranolol. 3. Acute toxic metabolic encephalopathy. -Continue rifaximin. -CT scan negative for any acute findings. 4. Paroxysmal SVT. -Converted to SR with Cardizem in the ER. -Being followed by cardiology. 5. Chronic kidney disease. -Monitor BUN and creatinine closely. -Use nephrotoxic drugs with caution. -Nephrology following. 6. Severe bilateral hydronephrosis. -Improved with Lvey placement. -Currently off Levy. -Being followed by urology. 7. Hematuria. -Most probably secondary to coagulopathy and underlying urinary tract infection -Resolved. 8. Urinary tract infection. -Urine culture positive for Klebsiella pneumoniae and Citrobacter freundii with colony count more than 100,000 CFU per mL. -Repeat urine cultures from 07/04/2018 showing E. coli ESBL. -Continue antimicrobials as per ID. 9. Diabetes mellitus type II -Hemoglobin A1c 5.9. -Continue sliding scale insulin. 10. Hypothyroidism -Continue Synthroid. 11. Pancytopenia -Monitor blood components. -Transfuse blood products as needed. 12. Fluids, electrolytes, and nutrition. -Soft diet. 13. DVT prophylaxis -Chemical DVT prophylaxis contraindicated. 14. Plan. -Monitor H&H closely. -Transfuse blood products as needed. -Await clinical improvement. -Needs placement upon discharge. The patient was seen in collaboration with Dr. Lopez. Result Diagram: 07/06/18 0631 07/06/18 0631 Results 24hrs Laboratory Tests Test 07/06/18 06:31 07/06/18 07:07 07/06/18 08:08 07/06/18 12:03 White Blood Count 4.6 L Red Blood Count 2.51 L Hemoglobin 7.9 L Hematocrit 24.1 L Mean Corpuscular 96.0 Volume Mean Corpuscular 31.5 Hemoglobin Mean Corpuscular 32.8 Hemoglobin Concent Red Cell 16.4 H Distribution Width Platelet Count 81 L Mean Platelet 9.6 Volume Immature 0.900 H Granulocytes % Neutrophils % 65.0 Lymphocytes % 16.1 Monocytes % 13.9 H Eosinophils % 3.7 Basophils % 0.4 Nucleated Red 0.0 Blood Cells % Immature 0.040 H Granulocytes # Neutrophils # 3.0 Lymphocytes # 0.7 L Monocytes # 0.6 Eosinophils # 0.2 Basophils # 0.0 Nucleated Red 0.0 Blood Cells # Sodium Level 134 L Potassium Level 4.5 Chloride Level 111 H Carbon Dioxide 13 L Level Anion Gap 10 Blood Urea 48 H Nitrogen Creatinine 3.22 H Est Glomerular 14 L Filtrat Rate mL/min Glucose Level 118 Calcium Level 8.2 L Phosphorus Level 5.3 H Magnesium Level 2.2 Lab Scanned Report REFERENCE LAB Bedside Glucose 128 171 Test 07/06/18 17:31 07/06/18 20:27 07/07/18 02:22 Bedside Glucose 181 215 174 Exam/Review of Systems Exam Vitals Vital Signs Date Temp Pulse Resp B/P (MAP) Pulse Ox O2 O2 Flow FiO2 Time Delivery Rate 07/07/18 98.5 65 19 104/55 98 04:00 (71) 07/05/18 Room Air 15:40 Intake and Output 07/06/18 07/06/18 07/07/18 1515:00 23:00 07:00 IntakeIntake Total 600 ml BalanceBalance 600 ml Results Results 24hrs Laboratory Tests Test 07/06/18 06:31 07/06/18 07:07 07/06/18 08:08 07/06/18 12:03 White Blood Count 4.6 L Red Blood Count 2.51 L Hemoglobin 7.9 L Hematocrit 24.1 L Mean Corpuscular 96.0 Volume Mean Corpuscular 31.5 Hemoglobin Mean Corpuscular 32.8 Hemoglobin Concent Red Cell 16.4 H Distribution Width Platelet Count 81 L Mean Platelet 9.6 Volume Immature 0.900 H Granulocytes % Neutrophils % 65.0 Lymphocytes % 16.1 Monocytes % 13.9 H Eosinophils % 3.7 Basophils % 0.4 Nucleated Red 0.0 Blood Cells % Immature 0.040 H Granulocytes # Neutrophils # 3.0 Lymphocytes # 0.7 L Monocytes # 0.6 Eosinophils # 0.2 Basophils # 0.0 Nucleated Red 0.0 Blood Cells # Sodium Level 134 L Potassium Level 4.5 Chloride Level 111 H Carbon Dioxide 13 L Level Anion Gap 10 Blood Urea 48 H Nitrogen Creatinine 3.22 H Est Glomerular 14 L Filtrat Rate mL/min Glucose Level 118 Calcium Level 8.2 L Phosphorus Level 5.3 H Magnesium Level 2.2 Lab Scanned Report REFERENCE LAB Bedside Glucose 128 171 Test 07/06/18 17:31 07/06/18 20:27 07/07/18 02:22 Bedside Glucose 181 215 174 Medications Medication Current Medications IV Flush (NS 3 ml) 3 ml PER PROTOCOL IV ; Start 06/22/18 at 20:30 Ondansetron HCl (Zofran Inj) 4 mg Q6H PRN IV NAUSEA/VOMITING; Start 06/22/18 at 20:30 Acetaminophen (Tylenol Tab) 650 mg Q6H PRN PO .PAIN 1-3 OR TEMP Last administered on 06/23/18at 03:01; Admin Dose 650 MG; Start 06/22/18 at 20:30 Levothyroxine Sodium (Synthroid) 50 mcg BEFORE BREAKFAST PO Last administered on 07/06/18 06:25; Admin Dose 50 MCG; Start 06/23/18 at 07:00 Rifaximin (Xifaxan) 550 mg BID PO Last administered on 07/06/18 21:18; Admin Dose 550 MG; Start 06/23/18 at 09:00 Diagnostic Test (Pha) (Accu-Chek) 1 ea 02 XX ; Start 06/23/18 at 02:00 Insulin Aspart (Novolog Insulin Pen) NOVOLOG *MILD* ALGORITHM WITH MEALS BEDTIME SC Last administered on 07/06/18at 20:39; Admin Dose 1 UNIT; Start 06/23/18 at 07:55 Miscellaneous Information 1 ea NOTE XX ; Start 06/22/18 at 22:30 Glucose (Glutose) 15 gm Q15M PRN PO DECREASED GLUCOSE; Start 06/22/18 at 22:30 Glucose (Glutose) 22.5 gm Q15M PRN PO DECREASED GLUCOSE; Start 06/22/18 at 22:30 Dextrose (D50w Syringe) 25 ml Q15M PRN IV DECREASED GLUCOSE; Start 06/22/18 at 22:30 Dextrose (D50w Syringe) 50 ml Q15M PRN IV DECREASED GLUCOSE Last administered on 06/23/18at 07:43; Admin Dose 50 ML; Start 06/22/18 at 22:30 Glucagon (Glucagen) 1 mg Q15M PRN IM DECREASED GLUCOSE; Start 06/22/18 at 22:30 Glucose (Glutose) 15 gm Q15M PRN BUCCAL DECREASED GLUCOSE; Start 06/22/18 at 22:30 Gabapentin (Neurontin) 300 mg TID PO Last administered on 07/06/18at 21:18; Admin Dose 300 MG; Start 06/23/18 at 09:00 Multivitamins Therapeutic (Theragran) 1 tab DAILY PO Last administered on 07/06/18at 08:42; Admin Dose 1 TAB; Start 06/23/18 at 09:00 Insulin Glargine (Lantus) 21 units DAILY@2000 SC Last administered on 06/23/18 21:19; Admin Dose 21 UNITS; Start 06/23/18 at 20:00; Status Hold Nystatin (Nystatin Powder) 1 applic BID TOP Last administered on 3/19/19at 21:20; Admin Dose 1 APPLIC; Start 06/24/18 at 09:00 Lactobacillus Acidophilus/ Rhamnosus (Culturelle) 1 cap BID PO Last administered on 07/06/18at 21:18; Admin Dose 1 CAP; Start 06/28/18 at 21:00 Pantoprazole (Protonix Tab) 40 mg BID@0600,1800 PO Last administered on 07/06/18at 17:53; Admin Dose 40 MG; Start 06/29/18 at 18:00 Propranolol HCl (Inderal) 10 mg TID PO Last administered on 07/06/18at 21:19; Admin Dose 10 MG; Start 07/02/18 at 21:00 Ferrous Sulfate (Ferrous Sulfate (Ec)) 325 mg BID PO Last administered on 07/06/18 21:19; Admin Dose 325 MG; Start 07/02/18 at 21:00 Enoxaparin Sodium (Lovenox) 30 mg DAILY SC Last administered on 07/05/18at 08:46; Admin Dose 30 MG; Start 07/03/18 at 09:00; Status Hold Lactulose (Enulose) 20 gm DAILY@0800 PO ; Start 07/05/18 at 08:00 Citric Acid/ Sodium Citrate (Bicitra) 45 ml BID PO Last administered on 07/06/18at 21:18; Admin Dose 45 ML; Start 07/06/18 at 09:00 Ertapenem 0.5 gm/ Sodium Chloride 100 ml @ 200 mls/hr Q24H IVPB Last administered on 07/06/18at 15:31; Admin Dose 200 MLS/HR; Start 07/06/18 at 14:30 GAYLE BARCLAY NP Jul 07, 2018 05:55
[2018-07-07] MEDS: LEVOTHYROXINE 50 MCG TAB PO SCH (06:15)
[2018-07-07] MEDS: PANTOPRAZOLE (EC) 40 MG TAB PO SCH ×2 (06:15→17:40)
[2018-07-07] MEDS: LACTULOSE 30ML CUP PO SCH (08:00)
[2018-07-07] MEDS: INSULIN ASPART [NOVOLOG] 3 ML PEN SC SCH ×4 (08:15→20:43)
--- NOTE | 2018-07-07 08:25 | CONS ---
Consult Date/Type/Reason Admit Date/Time Jun 22, 2018 at 19:27 Initial Consult Date 06/23/18 Type of Consultation: Urology Reason for Consultation Urinary tract infection Requesting Provider: JATINDER ERIC MD Date/Time of Note DATE: 07/07/18 TIME: 08:21 Subjective Patient is feeling better, she denies any dysuria. She is however incontinent in bed Objective Vitals Vital Signs Date Temp Pulse Resp B/P (MAP) Pulse Ox O2 O2 Flow FiO2 Time Delivery Rate 07/07/18 98.4 62 19 89/49 (62) 97 07:37 07/05/18 Room Air 15:40 Intake and Output 07/06/18 07/06/18 07/07/18 1414:59 22:59 06:59 IntakeIntake Total 600 ml 300 ml BalanceBalance 600 ml 300 ml Results/Medications Result Diagram: 07/07/18 0724 07/06/18 0631 Results 24 hrs Laboratory Tests Test 07/06/18 12:03 07/06/18 17:31 07/06/18 20:27 07/07/18 02:22 Bedside Glucose 171 181 215 174 Test 07/07/18 07:24 07/07/18 08:02 White Blood Count 4.7 L Red Blood Count 2.40 L Hemoglobin 7.5 L Hematocrit 23.2 L Mean Corpuscular 96.7 Volume Mean Corpuscular 31.3 Hemoglobin Mean Corpuscular 32.3 Hemoglobin Concent Red Cell 16.1 H Distribution Width Platelet Count 71 L Mean Platelet Volume 8.8 Immature 0.400 Granulocytes % Neutrophils % 64.2 Lymphocytes % 19.0 Monocytes % 13.9 H Eosinophils % 2.1 Basophils % 0.4 Nucleated Red Blood 0.0 Cells % Immature 0.020 Granulocytes # Neutrophils # 3.0 Lymphocytes # 0.9 Monocytes # 0.7 Eosinophils # 0.1 Basophils # 0.0 Nucleated Red Blood 0.0 Cells # Bedside Glucose 148 Home Meds Reported Medications Rifaximin* (Xifaxan*) 550 Mg Tablet, 550 MG PO BID, TAB 06/22/18 Cholecalciferol* (Vitamin D3*) 1,000 Unit Tablet, 2000 UNIT PO Q12H, TAB 06/22/18 Acetaminophen* (Tylenol*) 325 Mg Tablet, 650 MG PO Q4H PRN for MILD TO SEVERE PAIN 1-10/10, TAB 06/22/18 Epoetin Uriel (Procrit) 3,000 Unit/1 Ml Vial, 3000 UNIT IJ DAILY, VIAL ON THU,THU,THU, END DATE 07/13/09 06/22/18 Famotidine* (Pepcid*) 20 Mg Tablet, 20 MG PO DAILY, #30 TAB 06/22/18 Multivitamins* (Theragran*) 1 Tab Tab, 1 TAB PO DAILY, TAB 06/22/18 Polyethylene Glycol* (Miralax*) 17 Gm Powd.pack, 17 GM PO DAILY, #30 PACKET 06/22/18 Magnesium Hydroxide* (Milk Of Magnesia*) 400 Mg/5 Ml Oral.susp, 30 ML PO DAILY, ML 06/22/18 Levothyroxine Sodium* (Levothyroxine Sodium*) 50 Mcg Tablet, 50 MCG PO BEFORE BREAKFAST, #30 TAB 06/22/18 Furosemide* (Furosemide*) 40 Mg Tablet, 40 MG PO DAILY, TAB 06/22/18 Insulin Glargine* (Lantus*) 100 Unit/Ml Soln, 30 UNIT SC DAILY, #1 VIAL 06/22/18 Glimepiride* (Glimepiride*) 2 Mg Tablet, 4 MG PO WITH BREAKFAST, TAB 06/22/18 Gabapentin* (Gabapentin*) 300 Mg Capsule, 300 MG PO TID, #90 CAP 06/22/18 Mineral Oil* (Fleet* Mineral Oil Enema) Unknown Strength Oil, 118 ML ME NEEDED PRN for BOWEL PREP, ENEMA 06/22/18 Ferrous Sulfate* (Ferrous Sulfate*) 325 Mg Tabec, 325 MG PO DAILY, TAB 06/22/18 Bisacodyl* (Bisacodyl*) 10 Mg Supp, 10 MG ME DAILY, SUPP 06/22/18 Digoxin* (Digitek*) 125 Mcg Tablet, 0.125 MG PO DAILY, TAB HOLD FOR HR<60 06/22/18 Ascorbic Acid (Vitamin C) 500 Mg Tab, 500 MG PO DAILY, TAB 06/22/18 Medications Current Medications IV Flush (NS 3 ml) 3 ml PER PROTOCOL IV ; Start 06/22/18 at 20:30 Ondansetron HCl (Zofran Inj) 4 mg Q6H PRN IV NAUSEA/VOMITING; Start 06/22/18 at 20:30 Acetaminophen (Tylenol Tab) 650 mg Q6H PRN PO .PAIN 1-3 OR TEMP Last administered on 06/23/18at 03:01; Admin Dose 650 MG; Start 06/22/18 at 20:30 Levothyroxine Sodium (Synthroid) 50 mcg BEFORE BREAKFAST PO Last administered on 07/07/18 06:15; Admin Dose 50 MCG; Start 06/23/18 at 07:00 Rifaximin (Xifaxan) 550 mg BID PO Last administered on 07/06/18 21:18; Admin Dose 550 MG; Start 06/23/18 at 09:00 Diagnostic Test (Pha) (Accu-Chek) 1 ea 02 XX ; Start 06/23/18 at 02:00 Insulin Aspart (Novolog Insulin Pen) NOVOLOG *MILD* ALGORITHM WITH MEALS BEDTIME SC Last administered on 07/07/18 08:15; Admin Dose 1 UNIT; Start 06/23/18 at 07:55 Miscellaneous Information 1 ea NOTE XX ; Start 06/22/18 at 22:30 Glucose (Glutose) 15 gm Q15M PRN PO DECREASED GLUCOSE; Start 06/22/18 at 22:30 Glucose (Glutose) 22.5 gm Q15M PRN PO DECREASED GLUCOSE; Start 06/22/18 at 22:30 Dextrose (D50w Syringe) 25 ml Q15M PRN IV DECREASED GLUCOSE; Start 06/22/18 at 22:30 Dextrose (D50w Syringe) 50 ml Q15M PRN IV DECREASED GLUCOSE Last administered on 06/23/18at 07:43; Admin Dose 50 ML; Start 06/22/18 at 22:30 Glucagon (Glucagen) 1 mg Q15M PRN IM DECREASED GLUCOSE; Start 06/22/18 at 22:30 Glucose (Glutose) 15 gm Q15M PRN BUCCAL DECREASED GLUCOSE; Start 06/22/18 at 22:30 Gabapentin (Neurontin) 300 mg TID PO Last administered on 07/06/18at 21:18; Admin Dose 300 MG; Start 06/23/18 at 09:00 Multivitamins Therapeutic (Theragran) 1 tab DAILY PO Last administered on 07/06/18at 08:42; Admin Dose 1 TAB; Start 06/23/18 at 09:00 Insulin Glargine (Lantus) 21 units DAILY@2000 SC Last administered on 06/23/18 21:19; Admin Dose 21 UNITS; Start 06/23/18 at 20:00; Status Hold Nystatin (Nystatin Powder) 1 applic BID TOP Last administered on 07/06/18 21:20; Admin Dose 1 APPLIC; Start 06/24/18 at 09:00 Lactobacillus Acidophilus/ Rhamnosus (Culturelle) 1 cap BID PO Last administered on 07/06/18 21:18; Admin Dose 1 CAP; Start 06/28/18 at 21:00 Pantoprazole (Protonix Tab) 40 mg BID@0600,1800 PO Last administered on 07/07/18 06:15; Admin Dose 40 MG; Start 06/29/18 at 18:00 Propranolol HCl (Inderal) 10 mg TID PO Last administered on 07/06/18 21:19; Admin Dose 10 MG; Start 07/02/18 at 21:00 Ferrous Sulfate (Ferrous Sulfate (Ec)) 325 mg BID PO Last administered on 07/06/18 21:19; Admin Dose 325 MG; Start 07/02/18 at 21:00 Enoxaparin Sodium (Lovenox) 30 mg DAILY SC Last administered on 07/05/18at 08:46; Admin Dose 30 MG; Start 07/03/18 at 09:00; Status Hold Lactulose (Enulose) 20 gm DAILY@0800 PO ; Start 07/05/18 at 08:00 Citric Acid/ Sodium Citrate (Bicitra) 45 ml BID PO Last administered on 07/06/18 21:18; Admin Dose 45 ML; Start 07/06/18 at 09:00 Ertapenem 0.5 gm/ Sodium Chloride 100 ml @ 200 mls/hr Q24H IVPB Last administered on 07/06/18 15:31; Admin Dose 200 MLS/HR; Start 07/06/18 at 14:30 Assessment/Plan Hospital Course (Demo Recall) 67-year-old female sent from [facility] for a low hemoglobin of 7.5. The patient does not know if she has had history of gross hematuria. She also denies any history of melena. No history of nausea or vomiting. She does have a history of paroxysmal atrial fibrillation, hypertension, dyslipidemia and chronic kidney disease. She was found to have a gross hematuria and a urological consultation was therefore requested. The patient denies any prior history of kidney stones. The CT scan of the abdomen and pelvis showed: Cirrhotic liver. No mass seen. Splenomegaly, ascites and varices compatible with portal hypertension. Patency of the portal vein is indeterminate on this noncontrast study. Cholecystectomy. Bilateral hydroureter nephrosis to the level of the bladder. Loss of parenchyma of the left kidney. No ureteral stones seen. No bladder masses stone. Question chronic reflux versus bladder outlet obstruction. Vascular calcifications. Paraumbilical hernia. Minimal nodular infiltrate right lung base. Presently the patient is better and the urine is is clear The urine cytology x3 has been negative The Levy catheter was removed and she has been voiding . Since she is in [place] and she had urinary retention and bilateral hydronephrosis on admission I had the nurses check her and when she voided they did a straight cath on her to check her postvoid residual. The postvoid residual was about 500 mL. And urine was sent for culture and sensitivity. The culture grew E. coli ESBL and the patient was since started on ertapenem. Now she denies having any dysuria. I will have the nurses Do straight cath again on her to check on her postvoid residual. If that purnima ins high she may eventually need to have an indwelling Levy catheter. GREGORY SCHNEIDER MD Jul 07, 2018 08:25
[2018-07-07] MEDS: GABAPENTIN 300 MG CAP PO SCH ×3 (08:44→20:28)
[2018-07-07] MEDS: FERROUS SULFATE (EC) 325 MG TAB PO SCH ×2 (08:44→20:26)
[2018-07-07] MEDS: RIFAXIMIN 550 MG TAB PO SCH ×2 (08:44→20:26)
[2018-07-07] MEDS: MULTIVITAMINS THERAPEUTIC TAB PO SCH (08:44)
[2018-07-07] MEDS: LACTOBACILLUS RHAMNOSUS CAP PO SCH ×2 (08:44→20:26)
[2018-07-07] MEDS: CITRIC ACID/NA CITRATE 30 ML CUP PO SCH ×2 (08:45→20:25)
[2018-07-07] MEDS: PROPRANOLOL 20 MG TAB PO SCH ×3 (08:45→20:28)
[2018-07-07] MEDS: NYSTATIN 30 GM POWDER BTL TOP SCH ×2 (08:51→20:28)
--- NOTE | 2018-07-07 09:02 | PN ---
DATE: 07/07/2018 SUBJECTIVE: The patient is stable, no events overnight. OBJECTIVE: VITAL SIGNS: Blood pressure is 89/49, respirations 19, pulse 62, temperature 98.4. HEENT: Head is normocephalic. NECK: Supple. HEART: Regular rate. LUNGS: Show diminished breath sounds at the base. ABDOMEN: Soft, nontender to palpation without rebound or guarding. EXTREMITIES: Negative for clubbing, cyanosis, no edema. DERMATOLOGIC: No rashes. MUSCULOSKELETAL: No joint effusion. NEUROLOGIC: No change in exam. MEDICATIONS: Reviewed. LABORATORY DATA: Pending. ASSESSMENT AND PLAN: 1. Nonoliguric acute kidney injury on top of chronic kidney disease stage IV with previous baseline creatinine of around 3.0 mg/dL. Etiology of acute kidney injury was secondary to hemodynamics and ur inary obstruction. The patient's renal function improved after Levy catheter placement and supporti ve care. However, the patient's creatinine has increased in the last several days after Levy cathet er was removed. Plan is to follow up renal panel. We will monitor closely. The patient may require repeat renal ultrasound if renal function continues to decline. 2. Chronic kidney disease, stage IV. Etiology is felt to be secondary to chronic obstructive uropat hy. The patient's renal function has been fluctuating. Currently in acute kidney injury as stated natividad hoyt. Continue to monitor, continue disease factor modification. 3. Bilateral hydronephrosis with bladder obstruction. The patient was seen by urology. The patient 's Levy catheter was placed and now removed. Continue to monitor renal function as stated above. 4. Anemia. Monitor hemoglobin and hematocrit levels. 5. Mineral bone disorder. Monitor calcium and phosphorus levels. 6. Metabolic acidosis secondary to chronic kidney disease. Continue Bicitra. 7. Gastritis. Continue proton pump inhibitor. 8. Encephalopathy, etiology is toxic metabolic. 9. Liver cirrhosis with hepatitis C. Continue current medical management. 10. Diabetes. Continue current insulin regimen. 11. Hypothyroidism. Continue Synthroid. Dictated By: JITENDRA ESPINAL DO NR/NTS Conf#: [id number] DID#: [id number] CC: GREGORY SCHNEIDER MD; ARIANA DELGADO MD; JATINDER ERIC MD;*End*
--- NOTE | 2018-07-07 12:51 | CONS ---
Assessment/Plan Assessment/Plan Hospital Course (Demo Recall) Patient is alert looks comfortable no fevers overnight. WBC 4.7 platelets 71 neutrophils 64.2. BUN 54 creatinine 3.26 Microbiology: Urine culture repeated 3 days ago positive for E. coli ESBL Antimicrobials: Invanz PHYSICAL EXAMINATION: GENERAL: This is a chronically ill-appearing, morbidly obese elderly woman, who is lying comfortably in bed. HEENT: Head is atraumatic, normocephalic. NECK: Supple. CHEST: Rise symmetrical. Breath sounds diminished to bases. HEART: S1, S2. ABDOMEN: Soft. Bowel tones are present. EXTREMITIES: With bilateral edema. Assessment: 1. Recurrent UTI 2. Acute on chronic kidney disease 3. Morbid obesity 4. Liver cirrhosis 5. Encephalopathy, improving 6. Diabetes 7. Pancytopenia 8. Bilateral hydronephrosis 9. MRSA colonization Plan: Patient remained stable, continue antibiotics, follow urology recommendations may need Levy catheter as she is incontinent obese and already developing skin breakdown Consultation Date/Type/Reason Admit Date/Time Jun 22, 2018 at 19:27 Initial Consult Date 06/24/18 Type of Consult id Requesting Provider: JATINDER ERIC MD Date/Time of Note DATE: 07/07/18 TIME: 12:50 Exam/Review of Systems Exam Vitals Vital Signs Date Temp Pulse Resp B/P (MAP) Pulse Ox O2 O2 Flow FiO2 Time Delivery Rate 07/07/18 61 12:20 07/07/18 97.8 19 97/64 (75) 100 11:10 07/05/18 Room Air 15:40 Intake and Output 07/06/18 07/06/18 07/07/18 1515:00 23:00 07:00 IntakeIntake Total 600 ml 300 ml BalanceBalance 600 ml 300 ml Results Result Diagram: 07/07/18 0724 07/07/18 0724 Results 24hrs Laboratory Tests Test 07/06/18 17:31 07/06/18 20:27 07/07/18 02:22 07/07/18 07:24 Bedside Glucose 181 215 174 White Blood Count 4.7 L Red Blood Count 2.40 L Hemoglobin 7.5 L Hematocrit 23.2 L Mean Corpuscular 96.7 Volume Mean Corpuscular 31.3 Hemoglobin Mean Corpuscular 32.3 Hemoglobin Concent Red Cell 16.1 H Distribution Width Platelet Count 71 L Mean Platelet Volume 8.8 Immature 0.400 Granulocytes % Neutrophils % 64.2 Lymphocytes % 19.0 Monocytes % 13.9 H Eosinophils % 2.1 Basophils % 0.4 Nucleated Red Blood 0.0 Cells % Immature 0.020 Granulocytes # Neutrophils # 3.0 Lymphocytes # 0.9 Monocytes # 0.7 Eosinophils # 0.1 Basophils # 0.0 Nucleated Red Blood 0.0 Cells # Sodium Level 134 L Potassium Level 4.8 Chloride Level 108 Carbon Dioxide Level 16 L Anion Gap 10 Blood Urea Nitrogen 54 H Creatinine 3.26 H Est Glomerular 14 L Filtrat Rate mL/min Glucose Level 146 Calcium Level 8.2 L Phosphorus Level 5.3 H Magnesium Level 2.2 Test 07/07/18 08:02 07/07/18 11:39 Bedside Glucose 148 190 Medications Medication Current Medications IV Flush (NS 3 ml) 3 ml PER PROTOCOL IV ; Start 06/22/18 at 20:30 Ondansetron HCl (Zofran Inj) 4 mg Q6H PRN IV NAUSEA/VOMITING; Start 06/22/18 at 20:30 Acetaminophen (Tylenol Tab) 650 mg Q6H PRN PO .PAIN 1-3 OR TEMP Last administered on 06/23/18at 03:01; Admin Dose 650 MG; Start 06/22/18 at 20:30 Levothyroxine Sodium (Synthroid) 50 mcg BEFORE BREAKFAST PO Last administered on 07/07/18at 06:15; Admin Dose 50 MCG; Start 06/23/18 at 07:00 Rifaximin (Xifaxan) 550 mg BID PO Last administered on 07/07/18at 08:44; Admin Dose 550 MG; Start 06/23/18 at 09:00 Diagnostic Test (Pha) (Accu-Chek) 1 ea 02 XX ; Start 06/23/18 at 02:00 Insulin Aspart (Novolog Insulin Pen) NOVOLOG *MILD* ALGORITHM WITH MEALS BEDTIME SC Last administered on 07/07/18at 11:43; Admin Dose 2 UNIT; Start at 07:55 Miscellaneous Information 1 ea NOTE XX ; Start 06/22/18 at 22:30 Glucose (Glutose) 15 gm Q15M PRN PO DECREASED GLUCOSE; Start 06/22/18 at 22:30 Glucose (Glutose) 22.5 gm Q15M PRN PO DECREASED GLUCOSE; Start 06/22/18 at 22:30 Dextrose (D50w Syringe) 25 ml Q15M PRN IV DECREASED GLUCOSE; Start 06/22/18 at 22:30 Dextrose (D50w Syringe) 50 ml Q15M PRN IV DECREASED GLUCOSE Last administered on 06/23/18 07:43; Admin Dose 50 ML; Start 06/22/18 at 22:30 Glucagon (Glucagen) 1 mg Q15M PRN IM DECREASED GLUCOSE; Start 06/22/18 at 22:30 Glucose (Glutose) 15 gm Q15M PRN BUCCAL DECREASED GLUCOSE; Start 06/22/18 at 22:30 Gabapentin (Neurontin) 300 mg TID PO Last administered on 07/07/18 08:44; Admin Dose 300 MG; Start 06/23/18 at 09:00 Multivitamins Therapeutic (Theragran) 1 tab DAILY PO Last administered on 07/07/18 08:44; Admin Dose 1 TAB; Start 06/23/18 at 09:00 Insulin Glargine (Lantus) 21 units DAILY@2000 SC Last administered on 06/23/18 21:19; Admin Dose 21 UNITS; Start 06/23/18 at 20:00; Status Hold Nystatin (Nystatin Powder) 1 applic BID TOP Last administered on 07/07/18 08 :51; Admin Dose 1 APPLIC; Start 06/24/18 at 09:00 Lactobacillus Acidophilus/ Rhamnosus (Culturelle) 1 cap BID PO Last administered on 07/07/18 08:44; Admin Dose 1 CAP; Start 06/28/18 at 21:00 Pantoprazole (Protonix Tab) 40 mg BID@0600,1800 PO Last administered on 07/07/18 06:15; Admin Dose 40 MG; Start 06/29/18 at 18:00 Propranolol HCl (Inderal) 10 mg TID PO Last administered on 07/06/18 21:19; Admin Dose 10 MG; Start 07/02/18 at 21:00 Ferrous Sulfate (Ferrous Sulfate (Ec)) 325 mg BID PO Last administered on 07/07/18 08:44; Admin Dose 325 MG; Start 07/02/18 at 21:00 Enoxaparin Sodium (Lovenox) 30 mg DAILY SC Last administered on 07/05/18 08:46; Admin Dose 30 MG; Start 07/03/18 at 09:00; Status Hold Lactulose (Enulose) 20 gm DAILY@0800 PO ; Start 07/05/18 at 08:00 Citric Acid/ Sodium Citrate (Bicitra) 45 ml BID PO Last administered on 07/07/18at 08:45; Admin Dose 45 ML; Start 07/06/18 at 09:00 Ertapenem 0.5 gm/ Sodium Chloride 100 ml @ 200 mls/hr Q24H IVPB Last administered on 07/06/18at 15:31; Admin Dose 200 MLS/HR; Start 07/06/18 at 14:30 KIMO LIRA NP Jul 07, 2018 12:51
--- NOTE | 2018-07-07 14:26 | CONS ---
Assessment/Plan Assessment/Plan Hospital Course (Demo Recall) Assessment: Sinus pause - compensatory pause after PVC, physiologic and no treatment required Paroxysmal supraventricular tachycardia and possible history of atrial fibrillation - currently sinus rhythm Anemia and thrombocytopenia Liver cirrhosis Acute kidney injury on chronic kidney disease Obstructive uropathy Urinary tract infection - ESBL E. coli Incomplete data Recommendations: -OK to continue propranolol -digoxin was discontinued -possible history of atrial fibrillation, though not currently a candidate for anticoagulant or antiplatelet therapy due to thrombocytopenia and anemia Consultation Date/Type/Reason Admit Date/Time Jun 22, 2018 at 19:27 Initial Consult Date 06/24/18 Type of Consult Cardiology Date/Time of Note DATE: 07/07/18 TIME: 14:25 24 HR Interval Summary Free Text/Dictation No acute events. Detailed Summary Additional Comments 14 point review of systems without changes. Exam/Review of Systems Vital Signs Vitals Vital Signs Date Temp Pulse Resp B/P (MAP) Pulse Ox O2 O2 Flow FiO2 Time Delivery Rate 07/07/18 61 12:20 07/07/18 97.8 19 97/64 (75) 100 11:10 07/05/18 Room Air 15:40 Intake and Output 07/06/18 07/06/18 07/07/18 1515:00 23:00 07:00 IntakeIntake Total 600 ml 300 ml BalanceBalance 600 ml 300 ml Exam Exam Constitutional: alert; No oriented, No distress Psych: no complaints, confusion Head: normocephalic, atraumatic Eyes: nl conjunctiva, nl lids ENMT: nl external ears & nose, nl nasal mucosa & septum Neck: supple, non-tender; No jvd Respiratory: clear to auscultation Cardiovascular: regular rate and rhythm, systolic murmur (2/6) Gastrointestinal: soft, non-tender Musculoskeletal: nl extremities to inspection Extremities: No cyanosis, No clubbing, No edema Neurological: nl speech; No nl mental status Labs Result Diagram: 07/07/18 0724 07/07/18 0724 Results 24hrs Laboratory Tests Test 07/06/18 17:31 07/06/18 20:27 07/07/18 02:22 07/07/18 07:24 Bedside Glucose 181 215 174 White Blood Count 4.7 L Red Blood Count 2.40 L Hemoglobin 7.5 L Hematocrit 23.2 L Mean Corpuscular 96.7 Volume Mean Corpuscular 31.3 Hemoglobin Mean Corpuscular 32.3 Hemoglobin Concent Red Cell 16.1 H Distribution Width Platelet Count 71 L Mean Platelet Volume 8.8 Immature 0.400 Granulocytes % Neutrophils % 64.2 Lymphocytes % 19.0 Monocytes % 13.9 H Eosinophils % 2.1 Basophils % 0.4 Nucleated Red Blood 0.0 Cells % Immature 0.020 Granulocytes # Neutrophils # 3.0 Lymphocytes # 0.9 Monocytes # 0.7 Eosinophils # 0.1 Basophils # 0.0 Nucleated Red Blood 0.0 Cells # Sodium Level 134 L Potassium Level 4.8 Chloride Level 108 Carbon Dioxide Level 16 L Anion Gap 10 Blood Urea Nitrogen 54 H Creatinine 3.26 H Est Glomerular 14 L Filtrat Rate mL/min Glucose Level 146 Calcium Level 8.2 L Phosphorus Level 5.3 H Magnesium Level 2.2 Test 07/07/18 08:02 07/07/18 11:39 Bedside Glucose 148 190 Medications Medications Current Medications IV Flush (NS 3 ml) 3 ml PER PROTOCOL IV ; Start 06/22/18 at 20:30 Ondansetron HCl (Zofran Inj) 4 mg Q6H PRN IV NAUSEA/VOMITING; Start 06/22/18 at 20:30 Acetaminophen (Tylenol Tab) 650 mg Q6H PRN PO .PAIN 1-3 OR TEMP Last administered on 06/23/18at 03:01; Admin Dose 650 MG; Start 06/22/18 at 20:30 Levothyroxine Sodium (Synthroid) 50 mcg BEFORE BREAKFAST PO Last administered on 07/07/18at 06:15; Admin Dose 50 MCG; Start 06/23/18 at 07:00 Rifaximin (Xifaxan) 550 mg BID PO Last administered on 07/07/18at 08:44; Admin Dose 550 MG; Start 06/23/18 at 09:00 Diagnostic Test (Pha) (Accu-Chek) 1 ea 02 XX ; Start 06/23/18 at 02:00 Insulin Aspart (Novolog Insulin Pen) NOVOLOG *MILD* ALGORITHM WITH MEALS BEDTIME SC Last administered on 07/07/18at 11:43; Admin Dose 2 UNIT; Start 06/23/18 at 07:55 Miscellaneous Information 1 ea NOTE XX ; Start 06/22/18 at 22:30 Glucose (Glutose) 15 gm Q15M PRN PO DECREASED GLUCOSE; Start 06/22/18 at 22:30 Glucose (Glutose) 22.5 gm Q15M PRN PO DECREASED GLUCOSE; Start 06/22/18 at 22:30 Dextrose (D50w Syringe) 25 ml Q15M PRN IV DECREASED GLUCOSE; Start 06/22/18 at 22:30 Dextrose (D50w Syringe) 50 ml Q15M PRN IV DECREASED GLUCOSE Last administered on 06/23/18at 07:43; Admin Dose 50 ML; Start 06/22/18 at 22:30 Glucagon (Glucagen) 1 mg Q15M PRN IM DECREASED GLUCOSE; Start 06/22/18 at 22:30 Glucose (Glutose) 15 gm Q15M PRN BUCCAL DECREASED GLUCOSE; Start 06/22/18 at 22:30 Gabapentin (Neurontin) 300 mg TID PO Last administered on 07/07/18at 13:12; Admin Dose 300 MG; Start 06/23/18 at 09:00 Multivitamins Therapeutic (Theragran) 1 tab DAILY PO Last administered on 07/07/18 08:44; Admin Dose 1 TAB; Start 06/23/18 at 09:00 Insulin Glargine (Lantus) 21 units DAILY@2000 SC Last administered on 06/23/18 21:19; Admin Dose 21 UNITS; Start 06/23/18 at 20:00; Status Hold Nystatin (Nystatin Powder) 1 applic BID TOP Last administered on 07/07/18 08:51; Admin Dose 1 APPLIC; Start 06/24/18 at 09:00 Lactobacillus Acidophilus/ Rhamnosus (Culturelle) 1 cap BID PO Last administered on 07/07/18 08:44; Admin Dose 1 CAP; Start 06/28/18 at 21:00 Pantoprazole (Protonix Tab) 40 mg BID@0600,1800 PO Last administered on 07/07/18 06:15; Admin Dose 40 MG; Start 06/29/18 at 18:00 Propranolol HCl (Inderal) 10 mg TID PO Last administered on 07/06/18 21:19; Admin Dose 10 MG; Start 07/02/18 at 21:00 Ferrous Sulfate (Ferrous Sulfate (Ec)) 325 mg BID PO Last administered on 07/07/18 08:44; Admin Dose 325 MG; Start 07/02/18 at 21:00 Enoxaparin Sodium (Lovenox) 30 mg DAILY SC Last administered on 07/05/18at 08:46; Admin Dose 30 MG; Start 07/03/18 at 09:00; Status Hold Lactulose (Enulose) 20 gm DAILY@0800 PO ; Start 07/05/18 at 08:00 Citric Acid/ Sodium Citrate (Bicitra) 45 ml BID PO Last administered on 07/07/18at 08:45; Admin Dose 45 ML; Start 07/06/18 at 09:00 Ertapenem 0.5 gm/ Sodium Chloride 100 ml @ 200 mls/hr Q24H IVPB Last administ ered on 07/06/18at 15:31; Admin Dose 200 MLS/HR; Start 07/06/18 at 14:30 DARRELL ARDON MD Jul 07, 2018 14:26
[2018-07-07] MEDS: ERTAPENEM SODIUM 0.5 GM in SOD CHLORIDE 0.9% 100 ML IVPB SCH (14:50)
[2018-07-07] MEDS: ACETAMINOPHEN 325 MG TAB PO PRN (17:40)
[2018-07-08] VITALS (10 sets, daily range): BP systolic 92–107; BP diastolic 51–62; PULSE 52–61; RESP 18–19
[2018-07-08] MEDS: ACCU-CHEK XX SCH (03:00)
[2018-07-08] MEDS: PANTOPRAZOLE (EC) 40 MG TAB PO SCH ×2 (06:46→17:43)
[2018-07-08] MEDS: LEVOTHYROXINE 50 MCG TAB PO SCH (06:46)
[2018-07-08] MEDS: INSULIN ASPART [NOVOLOG] 3 ML PEN SC SCH ×3 (07:55→17:50)
[2018-07-08] MEDS: LACTULOSE 30ML CUP PO SCH (08:00)
--- NOTE | 2018-07-08 08:53 | PN ---
DATE: 07/08/2018 SUBJECTIVE: The patient was noted to be hypotensive yesterday. Blood pressures have improved. No o ther events noted. OBJECTIVE: VITAL SIGNS: Blood pressure is 100/54, respirations 19, pulse 65, temperature 97.4. HEENT: Head is normocephalic. NECK: Supple. HEART: Regular rate. LUNGS: Show diminished breath sounds at the base. ABDOMEN: Soft, nontender to palpation without rebound or guarding. EXTREMITIES: Negative for clubbing, cyanosis, no edema. DERMATOLOGIC: No rashes. MUSCULOSKELETAL: No joint effusion. NEUROLOGIC: No change in exam. MEDICATIONS: Reviewed. LABORATORY DATA: Shows sodium 136, potassium 4.8, chloride 107, bicarbonate 16, BUN 55, creatinine 3 .30. White count 3.9, hemoglobin 8.1, platelet count is 68. ASSESSMENT AND PLAN: 1. Nonoliguric acute kidney injury on top of chronic kidney disease with previous baseline creatinin e of around 3.0 mg/dL. Etiology of acute kidney injury was secondary to hemodynamics and obstructive uropathy. The patient's renal function improved after Levy catheter was placed and supportive care . However, after Levy catheter has been discontinued, renal function has further declined. The pat ient is noted to have high postvoid residuals. Currently, creatinine continues to rise. We would co nsider a reinsertion of Lvey catheter. We will continue to monitor. Follow up with neurology for r ecommendations. 2. Chronic kidney disease stage IV, etiology is secondary to likely chronic obstructive uropathy. T he patient's renal function has initially improved although declining again, possibly from obstructio n. As Levy catheter was removed. We will continue current treatment plan. Continue disease factor modification. 3. Bilateral hydronephrosis with bladder obstruction. The patient was seen by urology. The patient was having episodes of high postvoid residuals. Continue to monitor. Continue intermittent cathete rization if needed. 4. Anemia. Monitor hemoglobin and hematocrit levels. 5. Mineral bone disorder, monitor calcium and phosphorus levels. 6. Metabolic acidosis secondary to chronic kidney disease. Continue Bicitra. 7. Gastritis. Continue proton pump inhibitor. 8. Encephalopathy, etiology is toxic metabolic. 9. History of liver cirrhosis with hepatitis C. Continue medical management. 10. Diabetes. Continue current insulin regimen. 11. Hypothyroidism. Continue Synthroid. Dictated By: JITENDRA SEYMOUR/DONOVAN Conf#: [id number] DID#: [id number] CC: GREGORY SCHNEIDER MD; JATINDER ERIC MD; ARIANA DELGADO MD;*EndCC*
[2018-07-08] MEDS: MULTIVITAMINS THERAPEUTIC TAB PO SCH (08:59)
[2018-07-08] MEDS: FERROUS SULFATE (EC) 325 MG TAB PO SCH (08:59)
[2018-07-08] MEDS: GABAPENTIN 300 MG CAP PO SCH ×2 (08:59→12:16)
[2018-07-08] MEDS: LACTOBACILLUS RHAMNOSUS CAP PO SCH (08:59)
[2018-07-08] MEDS: RIFAXIMIN 550 MG TAB PO SCH (08:59)
[2018-07-08] MEDS: NYSTATIN 30 GM POWDER BTL TOP SCH (08:59)
[2018-07-08] MEDS: CITRIC ACID/NA CITRATE 30 ML CUP PO SCH (09:00)
[2018-07-08] MEDS: PROPRANOLOL 20 MG TAB PO SCH ×2 (09:00→12:05)
--- NOTE | 2018-07-08 10:45 | PN ---
Assessment/Plan VTE Prophylaxis Risk score (from Nsg)>0 risk: 5 Assessment/Plan Result Diagram: 07/08/18 0649 07/08/18 0539 Results 24hrs GAYLE BARCLAY NP Jul 08, 2018 10:45
[2018-07-08] MEDS: ACETAMINOPHEN 325 MG TAB PO PRN (12:29)
--- NOTE | 2018-07-08 12:52 | CONS ---
Assessment/Plan Assessment/Plan Hospital Course (Demo Recall) Assessment: Status post sinus pause - compensatory pause after PVC, physiologic and no treatment required, no further episodes Paroxysmal supraventricular tachycardia and possible history of atrial fibrillation - currently sinus rhythm Anemia and thrombocytopenia Liver cirrhosis Acute kidney injury on chronic kidney disease Obstructive uropathy Urinary tract infection - ESBL E. coli Incomplete data Recommendations: -OK to continue propranolol -digoxin was discontinued -possible history of atrial fibrillation, though not currently a candidate for anticoagulant or antiplatelet therapy due to thrombocytopenia and anemia Consultation Date/Type/Reason Admit Date/Time Jun 22, 2018 at 19:27 Initial Consult Date 06/24/18 Type of Consult Cardiology Date/Time of Note DATE: 07/08/18 TIME: 12:51 24 HR Interval Summary Free Text/Dictation No acute events. Detailed Summary Additional Comments 14 point review of systems without changes. Exam/Review of Systems Vital Signs Vitals Vital Signs Date Temp Pulse Resp B/P (MAP) Pulse Ox O2 O2 Flow FiO2 Time Delivery Rate 07/08/18 55 12:01 07/08/18 97.7 19 92/57 (69) 99 11:11 07/08/18 Room Air 03:38 Intake and Output 07/07/18 07/07/18 07/08/18 1515:00 23:00 07:00 IntakeIntake Total 750 ml 400 ml OutputOutput Total 550 ml BalanceBalance 200 ml 400 ml Exam Exam Constitutional: alert; No oriented, No distress Psych: no complaints, confusion Head: normocephalic, atraumatic Eyes: nl conjunctiva, nl lids ENMT: nl external ears & nose, nl nasal mucosa & septum Neck: supple, non-tender; No jvd Respiratory: clear to auscultation Cardiovascular: regular rate and rhythm, systolic murmur (2/6) Gastrointestinal: soft, non-tender Musculoskeletal: nl extremities to inspection Extremities: No cyanosis, No clubbing, No edema Neurological: nl speech; No nl mental status Labs Result Diagram: 07/08/18 0649 07/08/18 0539 Results 24hrs Laboratory Tests Test 07/07/18 17:30 07/07/18 20:31 07/08/18 03:02 07/08/18 05:39 Bedside Glucose 127 197 126 Sodium Level 136 Potassium Level 4.8 Chloride Level 107 Carbon Dioxide Level 16 L Anion Gap 13 Blood Urea Nitrogen 55 H Creatinine 3.30 H Est Glomerular 14 L Filtrat Rate mL/min Glucose Level 123 Calcium Level 8.5 Phosphorus Level 5.6 H Magnesium Level 2.1 Test 07/08/18 06:49 07/08/18 07:48 07/08/18 12:15 White Blood Count 3.9 L Red Blood Count 2.59 L Hemoglobin 8.1 L Hematocrit 25.1 L Mean Corpuscular 96.9 Volume Mean Corpuscular 31.3 Hemoglobin Mean Corpuscular 32.3 Hemoglobin Concent Red Cell 16.0 H Distribution Width Platelet Count 68 L Mean Platelet Volume 9.3 Immature 0.300 Granulocytes % Neutrophils % 61.2 Lymphocytes % 18.6 Monocytes % 15.1 H Eosinophils % 4.3 Basophils % 0.5 Nucleated Red Blood 0.0 Cells % Immature 0.010 Granulocytes # Neutrophils # 2.4 Lymphocytes # 0.7 L Monocytes # 0.6 Eosinophils # 0.2 Basophils # 0.0 Nucleated Red Blood 0.0 Cells # Bedside Glucose 126 189 Medications Medications Current Medications IV Flush (NS 3 ml) 3 ml PER PROTOCOL IV ; Start 06/22/18 at 20:30 Ondansetron HCl (Zofran Inj) 4 mg Q6H PRN IV NAUSEA/VOMITING; Start 06/22/18 at 20:30 Acetaminophen (Tylenol Tab) 650 mg Q6H PRN PO .PAIN 1-3 OR TEMP Last administered on 07/08/18at 12:29; Admin Dose 650 MG; Start 06/22/18 at 20:30 Levothyroxine Sodium (Synthroid) 50 mcg BEFORE BREAKFAST PO Last administered on 07/08/18at 06:46; Admin Dose 50 MCG; Start 06/23/18 at 07:00 Rifaximin (Xifaxan) 550 mg BID PO Last administered on 07/08/18at 08:59; Admin Dose 550 MG; Start 06/23/18 at 09:00 Diagnostic Test (Pha) (Accu-Chek) 1 ea 02 XX ; Start 06/23/18 at 02:00 Insulin Aspart (Novolog Insulin Pen) NOVOLOG *MILD* ALGORITHM WITH MEALS BEDT [place] SC Last administered on 07/08/18at 12:24; Admin Dose 2 UNIT; Start 06/23/18 at 07:55 Miscellaneous Information 1 ea NOTE XX ; Start 06/22/18 at 22:30 Glucose (Glutose) 15 gm Q15M PRN PO DECREASED GLUCOSE; Start 06/22/18 at 22:30 Glucose (Glutose) 22.5 gm Q15M PRN PO DECREASED GLUCOSE; Start 06/22/18 at 22:30 Dextrose (D50w Syringe) 25 ml Q15M PRN IV DECREASED GLUCOSE; Start 06/22/18 at 22:30 Dextrose (D50w Syringe) 50 ml Q15M PRN IV DECREASED GLUCOSE Last administered on 06/23/18at 07:43; Admin Dose 50 ML; Start 06/22/18 at 22:30 Glucagon (Glucagen) 1 mg Q15M PRN IM DECREASED GLUCOSE; Start 06/22/18 at 22:30 Glucose (Glutose) 15 gm Q15M PRN BUCCAL DECREASED GLUCOSE; Start 06/22/18 at 22:30 Gabapentin (Neurontin) 300 mg TID PO Last administered on 07/08/18 12:16; Admin Dose 300 MG; Start 06/23/18 at 09:00 Multivitamins Therapeutic (Theragran) 1 tab DAILY PO Last administered on 07/08/18 08:59; Admin Dose 1 TAB; Start 06/23/18 at 09:00 Insulin Glargine (Lantus) 21 units DAILY@2000 SC Last administered on 06/23/18 21:19; Admin Dose 21 UNITS; Start 06/23/18 at 20:00; Status Hold Nystatin (Nystatin Powder) 1 applic BID TOP Last administered on 07/08/18 08:59; Admin Dose 1 APPLIC; Start 06/24/18 at 09:00 Lactobacillus Acidophilus/ Rhamnosus (Culturelle) 1 cap BID PO Last administe red on 07/08/18 08:59; Admin Dose 1 CAP; Start 06/28/18 at 21:00 Pantoprazole (Protonix Tab) 40 mg BID@0600,1800 PO Last administered on 07/08/18 06:46; Admin Dose 40 MG; Start 06/29/18 at 18:00 Propranolol HCl (Inderal) 10 mg TID PO Last administered on 07/07/18 20:28; Admin Dose 10 MG; Start 07/02/18 at 21:00 Ferrous Sulfate (Ferrous Sulfate (Ec)) 325 mg BID PO Last administered on 07/08/18 08:59; Admin Dose 325 MG; Start 07/02/18 at 21:00 Enoxaparin Sodium (Lovenox) 30 mg DAILY SC Last administered on 07/05/18 08:46; Admin Dose 30 MG; Start 07/03/18 at 09:00; Status Hold Lactulose (Enulose) 20 gm DAILY@0800 PO ; Start 07/05/18 at 08:00 Citric Acid/ Sodium Citrate (Bicitra) 45 ml BID PO Last administered on 07/07/18at 20:25; Admin Dose 45 ML; Start 07/06/18 at 09:00 Ertapenem 0.5 gm/ Sodium Chloride 100 ml @ 200 mls/hr Q24H IVPB Last administered on 07/07/18 14:50; Admin Dose 200 MLS/HR; Start 07/06/18 at 14:30 DARRELL ARDON MD Jul 08, 2018 12:52
--- NOTE | 2018-07-08 13:28 | CONS ---
Assessment/Plan Assessment/Plan Hospital Course (Demo Recall) Patient is alert feels good looks comfortable no fevers overnight Microbiology: Urine culture repeated 3 days ago positive for E. coli ESBL Antimicrobials: Invanz PHYSICAL EXAMINATION: GENERAL: This is a chronically ill-appearing, morbidly obese elderly woman, who is lying comfortably in bed. HEENT: Head is atraumatic, normocephalic. NECK: Supple. CHEST: Rise symmetrical. Breath sounds diminished to bases. HEART: S1, S2. ABDOMEN: Soft. Bowel tones are present. EXTREMITIES: With bilateral edema. Assessment: 1. Recurrent UTI 2. Acute on chronic kidney disease 3. Morbid obesity 4. Liver cirrhosis 5. Encephalopathy, improving 6. Diabetes 7. Pancytopenia 8. Bilateral hydronephrosis 9. MRSA colonization Plan: Patient remained stable, continue antibiotics for 5 more days Consultation Date/Type/Reason Admit Date/Time Jun 22, 2018 at 19:27 Initial Consult Date 06/24/18 Type of Consult id Date/Time of Note DATE: 07/08/18 TIME: 13:28 Exam/Review of Systems Exam Vitals Vital Signs Date Temp Pulse Resp B/P (MAP) Pulse Ox O2 O2 Flow FiO2 Time Delivery Rate 07/08/18 55 12:01 07/08/18 97.7 19 92/57 (69) 99 11:11 07/08/18 Room Air 03:38 Intake and Output 07/07/18 07/07/18 07/08/18 1515:00 23:00 07:00 IntakeIntake Total 750 ml 400 ml OutputOutput Total 550 ml BalanceBalance 200 ml 400 ml Results Result Diagram: 07/08/18 0649 07/08/18 0539 Results 24hrs Laboratory Tests Test 07/07/18 17:30 07/07/18 20:31 07/08/18 03:02 07/08/18 05:39 Bedside Glucose 127 197 126 Sodium Level 136 Potassium Level 4.8 Chloride Level 107 Carbon Dioxide Level 16 L Anion Gap 13 Blood Urea Nitrogen 55 H Creatinine 3.30 H Est Glomerular 14 L Filtrat Rate mL/min Glucose Level 123 Calcium Level 8.5 Phosphorus Level 5.6 H Magnesium Level 2.1 Test 07/08/18 06:49 07/08/18 07:48 07/08/18 12:15 White Blood Count 3.9 L Red Blood Count 2.59 L Hemoglobin 8.1 L Hematocrit 25.1 L Mean Corpuscular 96.9 Volume Mean Corpuscular 31.3 Hemoglobin Mean Corpuscular 32.3 Hemoglobin Concent Red Cell 16.0 H Distribution Width Platelet Count 68 L Mean Platelet Volume 9.3 Immature 0.300 Granulocytes % Neutrophils % 61.2 Lymphocytes % 18.6 Monocytes % 15.1 H Eosinophils % 4.3 Basophils % 0.5 Nucleated Red Blood 0.0 Cells % Immature 0.010 Granulocytes # Neutrophils # 2.4 Lymphocytes # 0.7 L Monocytes # 0.6 Eosinophils # 0.2 Basophils # 0.0 Nucleated Red Blood 0.0 Cells # Bedside Glucose 126 189 Medications Medication Current Medications IV Flush (NS 3 ml) 3 ml PER PROTOCOL IV ; Start 06/22/18 at 20:30 Ondansetron HCl (Zofran Inj) 4 mg Q6H PRN IV NAUSEA/VOMITING; Start 06/22/18 at 20:30 Acetaminophen (Tylenol Tab) 650 mg Q6H PRN PO .PAIN 1-3 OR TEMP Last administered on 07/08/18at 12:29; Admin Dose 650 MG; Start 06/22/18 at 20:30 Levothyroxine Sodium (Synthroid) 50 mcg BEFORE BREAKFAST PO Last administered on 07/08/18at 06:46; Admin Dose 50 MCG; Start 06/23/18 at 07:00 Rifaximin (Xifaxan) 550 mg BID PO Last administered on 07/08/18at 08:59; Admin Dose 550 MG; Start 06/23/18 at 09:00 Diagnostic Test (Pha) (Accu-Chek) 1 ea 02 XX ; Start 06/23/18 at 02:00 Insulin Aspart (Novolog Insulin Pen) NOVOLOG *MILD* ALGORITHM WITH MEALS BEDTIME SC Last administered on 07/08/18at 12:24; Admin Dose 2 UNIT; Start 06/23/18 at 07:55 Miscellaneous Information 1 ea NOTE XX ; Start 06/22/18 at 22:30 Glucose (Glutose) 15 gm Q15M PRN PO DECREASED GLUCOSE; Start 06/22/18 at 22:30 Glucose (Glutose) 22.5 gm Q15M PRN PO DECREASED GLUCOSE; Start 06/22/18 at 22:30 Dextrose (D50w Syringe) 25 ml Q15M PRN IV DECREASED GLUCOSE; Start 06/22/18 at 22:30 Dextrose (D50w Syringe) 50 ml Q15M PRN IV DECREASED GLUCOSE Last administered on 06/23/18 07:43; Admin Dose 50 ML; Start 06/22/18 at 22:30 Glucagon (Glucagen) 1 mg Q15M PRN IM DECREASED GLUCOSE; Start 06/22/18 at 22:30 Glucose (Glutose) 15 gm Q15M PRN BUCCAL DECREASED GLUCOSE; Start 06/22/18 at 22:30 Gabapentin (Neurontin) 300 mg TID PO Last administered on 07/08/18 12:16; Admin Dose 300 MG; Start 06/23/18 at 09:00 Multivitamins Therapeutic (Theragran) 1 tab DAILY PO Last administered on 07/08/18 08:59; Admin Dose 1 TAB; Start 06/23/18 at 09:00 Insulin Glargine (Lantus) 21 units DAILY@2000 SC Last administered on 06/23/18 21:19; Admin Dose 21 UNITS; Start 06/23/18 at 20:00; Status Hold Nystatin (Nystatin Powder) 1 applic BID TOP Last administered on 07/08/18 08:59; Admin Dose 1 APPLIC; Start 06/24/18 at 09:00 Lactobacillus Acidophilus/ Rhamnosus (Culturelle) 1 cap BID PO Last administered on 07/08/18 08:59; Admin Dose 1 CAP; Start 06/28/18 at 21:00 Pantoprazole (Protonix Tab) 40 mg BID@0600,1800 PO Last administered on 07/08/18 06:46; Admin Dose 40 MG; Start 06/29/18 at 18:00 Propranolol HCl (Inderal) 10 mg TID PO Last administered on 07/07/18 20:28; Admin Dose 10 MG; Start 07/02/18 at 21:00 Ferrous Sulfate (Ferrous Sulfate (Ec)) 325 mg BID PO Last administered on 07/08/18 08:59; Admin Dose 325 MG; Start 07/02/18 at 21:00 Enoxaparin Sodium (Lovenox) 30 mg DAILY SC Last administered on 07/05/18 08:46; Admin Dose 30 MG; Start 07/03/18 at 09:00; Status Hold Lactulose (Enulose) 20 gm DAILY@0800 PO ; Start 07/05/18 at 08:00 Citric Acid/ Sodium Citrate (Bicitra) 45 ml BID PO Last administered on 07/07/18at 20:25; Admin Dose 45 ML; Start 07/06/18 at 09:00 Ertapenem 0.5 gm/ Sodium Chloride 100 ml @ 200 mls/hr Q24H IVPB Last admi nistered on 07/07/18at 14:50; Admin Dose 200 MLS/HR; Start 07/06/18 at 14:30 KIMO LIRA NP Jul 08, 2018 13:28
[2018-07-08] MEDS: ERTAPENEM SODIUM 0.5 GM in SOD CHLORIDE 0.9% 100 ML IVPB SCH (14:35)
--- NOTE | 2018-07-08 17:59 | DS ---
Date/Time of Note Date/Time of Note DATE: 07/08/18 TIME: 17:54 Discharge Summary Admission/Discharge Info Admit Date/Time Jun 22, 2018 at 19:27 Discharge Date/Time Discharge Diagnosis 1. Symptomatic anemia. 2. Gastritis with gastric erosions. 3. Liver cirrhosis. 4. Acute toxic metabolic encephalopathy. 5. Paroxysmal SVT. 6. Chronic kidney disease. 7. Severe bilateral hydronephrosis. 8. Hematuria. 9. Urinary tract infection. 10. Diabetes mellitus type II. Hemoglobin A1c 5.9. 11. Hypothyroidism. 12. Pancytopenia. Patient Condition: Stable Consults 1. Amandeep Lane MD, Infectious Diseases. 2. Marbin Farrell DO, Nephrology. 3. Jameel Desir MD, Gastroenterology. 4. Narciso Zuniga MD, Cardiology. 5. Jefferson Guerra MD, Urology. Procedures CT Abdomen & Pelvis IMPRESSION: Cirrhotic liver. No mass seen. Splenomegaly, ascites and varices compatible with portal hypertension. Patency of the portal vein is indeterminate on this noncontrast study. Cholecystectomy. Bilateral hydroureter nephrosis to the level of the bladder. Loss of parenchyma of the left kidney. No ureteral stones seen. No bladder masses stone. Question chronic reflux versus bladder outlet obstruction. Vascular calcifications. Paraumbilical hernia. Minimal nodular infiltrate right lung base. Brain CT IMPRESSION: 1. No acute intracranial hemorrhage, transcortical infarction or mass effect. 2. Mild to moderate intracranial atherosclerosis and chronic small vessel ischemic changes. 3. Mild generalized cerebral volume loss. Colonoscopy on 06/28/2018 Impression: No bleeding, solid brown green stools. Unable to safely advance scope beyond the splenic flexure. Esophagogastroduodenoscopy on 06/28/2018 Impression: Gastritis, gastric erosions Hx of Present Illness This is a 67-year-old female with a past medical history of hepatitis C, cirrhosis, hypothyroidism, obesity, and debility. The patient is a senior living resident. The patient was brought to the emergency room because of low hemoglobin and worsening mental status. The patient was admitted to inpatient setting for further treatment and evaluation. Hospital Course The patient had evidence of symptomatic anemia. The patient's anemia could be multifactorial including anemia of acute blood loss secondary to underlying hematuria. The patient underwent an esophagogastroduodenoscopy on 06/28/2018 that showed gastritis and gastric erosions. The patient was maintained on PPI and Carafate. The patient's H&H improved with replacement therapy as well as with PPI. The patient has underlying liver cirrhosis. The patient was maintained on rifaximin and propranolol. The patient also had evidence of acute toxic metabolic encephalopathy. The patient was continued on rifaximin. The patient's brain CT scan was negative for any acute findings. The patient also had paroxysmal SVT that was converted to sinus rhythm with Cardizem in the ER. The patient also had episodes of paroxysmal SVT. Therefore, a cardiology consult was obtained. At one point of time, the patient was maintained on digitalis therapy. However, because of worsening renal function, the patient was taken off digitalis. The patient was maintained on beta-edward therapy as per cardiology recommendations. The patient has underlying chronic kidney disease. The patient was being followed by nephrology. Nephrotoxic drugs were used with caution. The patient also had underlying and severe bilateral hydronephrosis that improved with Levy placement. Later during the hospital course, the patient's Levy was disco ntinued and the patient was able to void without any significant problems. That the patient also had hematuria that was evaluated by urology. The patient's cytology of the urine was negative for any malignancy. The patient's hematuria could be multifactorial including underlying urinary tract infection. The patient had a urinary tract infection with urine culture positive for K lebsiella pneumoniae and Citrobacter freundii on the urine culture from 06/23/2018 followed by urinary tract infection with E. coli ESBL on 07/04/2018. The patient was started on carbapenems once the patient was positive for E. coli ESBL. The patient will continue ertapenem until 07/16/2018. The patient has underlying diabetes mellitus type 2. The patient was maintained on sliding scale insulin. The patient's hemoglobin A1c was found to be 5.9. The patient has underlying hypothyroidism. The patient was maintained on Synthroid for the same. The patient has underlying pancytopenia secondary to underlying liver cirrhosis. The patient received multiple PRBC transfusion during this hospitalization along with 1 unit of plateletpheresis. The patient is chronically bedridden and the patient was brought in from a senior living facility. However, the patient did not have any room available at the same facility from where the patient arrived. The patient was clinically stable to be discharged. Therefore, case management was working on this patient's placement until a place was available on 07/08/2018, to be discharged. The patient will be discharged to a senior living facility where she will be followed by an attending physician. The patient will take her medications as per medication reconciliation. At this time I would like to thank all the consultants for seeing the patient, doing the necessary procedures, and providing clinical recommendations. The patient was seen in collaboration with Dr. Lopez. Home Meds Reported Medications Rifaximin* (Xifaxan*) 550 Mg Tablet, 550 MG PO BID, TAB 06/22/18 Cholecalciferol* (Vitamin D3*) 1,000 Unit Tablet, 2000 UNIT PO Q12H, TAB 06/22/18 Acetaminophen* (Tylenol*) 325 Mg Tablet, 650 MG PO Q4H PRN for MILD TO SEVERE PAIN -01/27, TAB 06/22/18 Epoetin Uriel (Procrit) 3,000 Unit/1 Ml Vial, 3000 UNIT IJ DAILY, VIAL ON THU,THU,THU, END DATE 07/13/09 06/22/18 Famotidine* (Pepcid*) 20 Mg Tablet, 20 MG PO DAILY, #30 TAB 06/22/18 Multivitamins* (Theragran*) 1 Tab Tab, 1 TAB PO DAILY, TAB 06/22/18 Polyethylene Glycol* (Miralax*) 17 Gm Powd.pack, 17 GM PO DAILY, #30 PACKET 06/22/18 Magnesium Hydroxide* (Milk Of Magnesia*) 400 Mg/5 Ml Oral.susp, 30 ML PO DAILY, ML 06/22/18 Levothyroxine Sodium* (Levothyroxine Sodium*) 50 Mcg Tablet, 50 MCG PO BEFORE BREAKFAST, #30 TAB 06/22/18 Furosemide* (Furosemide*) 40 Mg Tablet, 40 MG PO DAILY, TAB 06/22/18 Insulin Glargine* (Lantus*) 100 Unit/Ml Soln, 30 UNIT SC DAILY, #1 VIAL 06/22/18 Glimepiride* (Glimepiride*) 2 Mg Tablet, 4 MG PO WITH BREAKFAST, TAB 06/22/18 Gabapentin* (Gabapentin*) 300 Mg Capsule, 300 MG PO TID, #90 CAP 06/22/18 Mineral Oil* (Fleet* Mineral Oil Enema) Unknown Strength Oil, 118 ML AR NEEDED PRN for BOWEL PREP, ENEMA 06/22/18 Ferrous Sulfate* (Ferrous Sulfate*) 325 Mg Tabec, 325 MG PO DAILY, TAB 06/22/18 Bisacodyl* (Bisacodyl*) 10 Mg Supp, 10 MG AR DAILY, SUPP 06/22/18 Digoxin* (Digitek*) 125 Mcg Tablet, 0.125 MG PO DAILY, TAB HOLD FOR HR<60 06/22/18 Ascorbic Acid (Vitamin C) 500 Mg Tab, 500 MG PO DAILY, TAB 06/22/18 Follow-up Plan The patient being transferred to a senior living facility. Primary Care Provider Cristobal Bridges MD Time spent on discharge: > 30 minutes Pending Labs Laboratory Tests Test 07/07/18 20:31 07/08/18 03:02 07/08/18 05:39 07/08/18 06:49 Bedside 197 126 Glucose mg/dL (70-220) mg/dL (70-220) Sodium Level 136 mmol/L (135-14 4) Potassium 4.8 Level mmol/L (3.5-5. 1) Chloride Level 107 mmol/L (97-110 ) Carbon Dioxide 16 Level mmol/L (21-31) Anion Gap 13 (5-13) Blood Urea 55 Nitrogen mg/dl (7-20) Creatinine 3.30 mg/dl (0.44-1. 00) Est Glomerular 14 Filtrat mL/min (>60) Rate mL/min Glucose Level 123 mg/dl (70-220) Calcium Level 8.5 mg/dl (8.4-10. 2) Phosphorus 5.6 Level mg/dl (2.5-4.9 ) Magnesium 2.1 Level mg/dl (1.7-2.5 ) White Blood 3.9 Count 10^3/ul (4.8-1 0.8) Red Blood 2.59 Count 10^6/ul (4.20- 5.40) Hemoglobin 8.1 g/dl (12.0-16. 0) Hematocrit 25.1 % (37.0-47.0) Mean 96.9 Corpuscular fl (82.0-101.0 Volume ) Mean 31.3 Corpuscular pg (29.0-33.0) Hemoglobin Mean 32.3 Corpuscular g/dl (32.0-37. Hemoglobin Conc 0) ent Red Cell 16.0 Distribution % (11.5-14.5) Width Platelet Count 68 10^3/UL (140-4 15) Mean Platelet 9.3 Volume fl (7.4-10.4) Immature 0.300 Granulocytes % % (0.001-0.429 ) Neutrophils % 61.2 % (39.0-77.0) Lymphocytes % 18.6 % (15.0-51.0) Monocytes % 15.1 % (0.0-11.0) Eosinophils % 4.3 % (0.0-7.0) Basophils % 0.5 % (0.0-2.0) Nucleated Red 0.0 Blood Cells % /100WBC (0.0-0 .0) Immature 0.010 Granulocytes # 10^3/ul (0.0-0 .031) Neutrophils # 2.4 10^3/ul (1.6-7 .5) Lymphocytes # 0.7 10^3/ul (0.8-2 .9) Monocytes # 0.6 10^3/ul (0.3-0 .9) Eosinophils # 0.2 10^3/ul (0.0-0 .5) Basophils # 0.0 10^3/ul (0.0-0 .1) Nucleated Red 0.0 Blood Cells # 10^3/ul (0.0-0 .0) Test 07/08/18 07:48 07/08/18 12:15 Bedside 126 189 Glucose mg/dL (70-220) mg/dL (70-220) GAYLE BARCLAY NP Jul 08, 2018 17:59
== END 2018-07-08 20:20 | DRG 808 ==
LOC: E/R 13:15 → TEL 19:27
PROVIDERS: ADMIT Family Medicine; ATTEND Internal Medicine
PROC: 30233R1 Transfusion of Nonautologous Platelets into Peripheral Vein, Percutaneous Approach (ICD-10-PCS; principal; 2018-06-23)
PROC: 30233N1 Transfusion of Nonautologous Red Blood Cells into Peripheral Vein, Percutaneous Approach (ICD-10-PCS; 2018-06-23)
PROC: 0DJ08ZZ Inspection of Upper Intestinal Tract, Via Natural or Artificial Opening Endoscopic (ICD-10-PCS; 2018-06-28)
PROC: 0DJD8ZZ Inspection of Lower Intestinal Tract, Via Natural or Artificial Opening Endoscopic (ICD-10-PCS; 2018-06-28)
DX: D61.818 Other pancytopenia (principal); G92 Toxic encephalopathy; N17.0 Acute kidney failure with tubular necrosis; N30.01 Acute cystitis with hematuria; D68.4 Acquired coagulation factor deficiency; I47.1 Supraventricular tachycardia; E87.2 Acidosis; K76.6 Portal hypertension; N18.4 Chronic kidney disease, stage 4 (severe); N13.6 Pyonephrosis; K72.90 Hepatic failure, unspecified without coma; D63.8 Anemia in other chronic diseases classified elsewhere; B19.20 Unspecified viral hepatitis C without hepatic coma; E11.22 Type 2 diabetes mellitus with diabetic chronic kidney disease; E03.9 Hypothyroidism, unspecified; E66.01 Morbid (severe) obesity due to excess calories; I12.9 Hypertensive chronic kidney disease with stage 1 through stage 4 chronic kidney disease, or unspecified chronic kidney disease; I48.0 Paroxysmal atrial fibrillation; K29.70 Gastritis, unspecified, without bleeding; K74.60 Unspecified cirrhosis of liver; K42.9 Umbilical hernia without obstruction or gangrene; K25.9 Gastric ulcer, unspecified as acute or chronic, without hemorrhage or perforation; R53.83 Other fatigue; R16.1 Splenomegaly, not elsewhere classified; R53.81 Other malaise; B96.1 Klebsiella pneumoniae [K. pneumoniae] as the cause of diseases classified elsewhere; B96.20 Unspecified Escherichia coli [E. coli] as the cause of diseases classified elsewhere; Z68.36 Body mass index [BMI] 36.0-36.9, adult; Z22.322 Carrier or suspected carrier of Methicillin resistant Staphylococcus aureus; Z16.12 Extended spectrum beta lactamase (ESBL) resistance; Z90.49 Acquired absence of other specified parts of digestive tract; Z79.4 Long term (current) use of insulin
CPT/HCPCS: 36415; 36430; 36600; 70450; 71045; 74176; 76775; 80048; 80053; 80061; 80076; 80162; 81001; 81003; 82043; 82140; 82270; 82306; 82550; 82553; 82607; 82652; 82728; 82746; 82803; 82962; 83036; 83540; 83735; 83970; 84100; 84155; 84300; 84443; 84484; 85014; 85018; 85025; 85610; 85730; 86704; 86706; 86803; 86850; 86900; 86901; 86920; 87081; 87086; 88104; 93005; 96374; 97110; 97116; 97162; 97530; A4310; C9113; J0696; J1335; J1650; J1815; J3475; J7030; J7040; P9016; P9035; P9047; Q4081